=== PATIENT | male | born 1985 | race Caucasian/White ===

== ENCOUNTER 2023-11-08 18:55 | Emergency (ER) | payer OTHER, SELFPAY ==
[2023-11-08 19:00] VITALS: BP 158/93; PULSE 99; RESP 18; TEMP 38; O2SAT 100; BMI 35.0
[2023-11-08 19:16] VITALS: O2SAT 99
--- NOTE | 2023-11-08 19:22 | XR_ITS ---
The [address] [address] Patient Name: DARON HECK MRN: [id number] date: 1985 Sex: M Assigned Patient Location: ER Current Patient Location: ER Accession/Order Number: [id number] Exam Date: 11/08/2023 19:25 Report Date: 11/08/2023 20:23 At the request of: BRANDON MARKER Procedure: XR chest 2V EXAM: XR chest 2V CLINICAL INDICATION: cough COMPARISON: None TECHNIQUE: 2 views of chest performed. FINDINGS: Lungs: Mild patchy left basilar airspace opacity. No pleural effusion or pneumothorax. Heart: Cardiac and mediastinal contours are unremarkable. No overt pulmonary vascular congestion. Osseous structures: No acute abnormalities. XR/XR chest 2V IMPRESSION: Mild left basilar airspace opacity may reflect developing atelectasis and/or pneumonia. Electronically authenticated by: HELENE TRACY Date: 11/08/2023 20:23
--- NOTE | 2023-11-08 19:22 | ED.GENADUL1 ---
HPI - General Adult General Chief complaint: Shortness of Breath/Dyspnea Stated complaint: Flu Like Symptoms Time Seen by Provider: 11/08/23 19:06 Mode of arrival: walk-in History of Present Illness HPI narrative: 38-year-old male presents for evaluation of cough, sinus drainage, fevers and chills with nausea. The patient states for the past 2 weeks he has had nasal congestion and drainage. He states he was feeling fine on and on Thursday felt like he got hit by a truck. He complains of headache, chills, harsh cough. He denies any sore throat. He has nausea but no vomiting. He has had dry heaves with small amounts of stomach acid. He denies any mckinley abdominal pain. He does not smoke. He has taken [id number] cough and flu medications without significant improvement. He denies any chest pain dizziness or syncope. Related Data Home Medications Medication Instructions Recorded Confirmed atenolol 100 mg tablet 100 mg PO Q24H 11/08/23 11/08/23 brimonidine 0.2 % eye drops 1 drp ophthalmic (eye) Q8H 11/08/23 11/08/23 celecoxib 200 mg capsule 200 mg PO Q12H 11/08/23 11/08/23 cyclopentolate 1 % eye drops 1 drp ophthalmic (eye) DAILY 11/08/23 11/08/23 (Cyclogyl) losartan 100 mg tablet 100 mg PO DAILY 11/08/23 11/08/23 prednisolone acetate 1 % eye 1 drp ophthalmic (eye) Q12H 11/08/23 11/08/23 drops,suspension Allergies Allergy/AdvReac Type Severity Reaction Status Date / Time No Known Drug Allergies Allergy Verified 11/08/23 19:07 Review of Systems ROS Status of ROS 10 or more systems reviewed and unremarkable except as noted in history and below PFSH PFSH Social History Smoking status: Former smoker Exam Narrative Exam Narrative: Nurses note and vital signs reviewed and patient is not hypoxic. He has no elevated blood pressure 150/93 and a low-grade fever at 100.4 Fahrenheit General: The patient appears well and in no apparent distress. Patient is resting comfortably on cart. Skin: Warm, dry, no pallor noted. There is no rash noted. Head: Normocephalic, atraumatic Eye: Normal conjunctiva, no drainage, EOMI. PERRL Ears, Nose, Mouth, and Throat: oral mucosa is moist. Nares patent. Audible nasal congestion Cardiovascular: Regular Rate and Rhythm S1 and S2, no murmurs rubs or gallops appreciated, pulses are brisk and equal bilaterally Respiratory: Patient is in no distress, no accessory muscle use, lungs are clear to auscultation, no wheezing, rales or rhonchi Back: non-tender, no CVA tenderness bilaterally to percussion. GI: Normal bowel sounds, no tenderness to palpation, no masses appreciated. No rebound, guarding, or rigidity noted. Musculoskeletal: The patient has no evidence of calf tenderness, no pitting edema, symmetrical pulses noted bilaterally Neurological: A&O x4, normal speech Psychiatric: Cooperative Constitutional Vital Signs, click to edit/add: Last Vital Signs Temp 100.4 F 11/08/23 19:00 Pulse 99 H 11/08/23 19:00 Resp 18 11/08/23 19:00 BP 158/93 H 11/08/23 19:00 Pulse Ox 99 11/08/23 19:16 O2 Del Method Room Air 11/08/23 19:16 Course Vital Signs Vital signs: Vital Signs Temperature 100.4 F 11/08/23 19:00 Pulse Rate 99 H 11/08/23 19:00 Respiratory Rate 18 11/08/23 19:00 Blood Pressure 158/93 H 11/08/23 19:00 Pulse Oximetry 100 11/08/23 19:00 Oxygen Delivery Method Room Air 11/08/23 19:00 Temperature 100.4 F 11/08/23 19:00 Pulse Rate 99 H 11/08/23 19:00 Respiratory Rate 18 11/08/23 19:00 Blood Pressure 158/93 H 11/08/23 19:00 Pulse Oximetry 99 11/08/23 19:16 Oxygen Delivery Method Room Air 11/08/23 19:16 Medical Decision Making MDM Narrative Medical decision making narrative: This 38-year-old male, nonsmoker presents for evaluation of fever, nasal congestion, body aches and nausea. He also has a cough with productive yellow phlegm. He states he was having some sinus congestion for the past 2 weeks that had resolved then on Thursday, 2 days ago he started feeling badly with body aches, fever, chills and cough. He is not a smoker. His lungs are clear. His abdomen is soft. He had been taking zxqg-blq-ulysjke flu and cold medication without significant improvement. He was medicated emergency department with ibuprofen and Tylenol and a dose of Zofran. He is positive for influenza A. Negative for cough at 19 and influenza B. Chest x-ray was reviewed by radiology and Shows mild patchy left lower lobe airspace disease. He will be given outpatient prescriptions for doxycycline, Zofran, Tamiflu and ibuprofen. He was given a 1st dose of doxycycline prior to being discharged. Medical Records Medical records narrative: [place] [address] XRay Report Signed Patient: DARON HECK MR#: [id number] : 1985 Acct:[id number] Age/Sex: 38 / M ADM Date: 11/08/23 Loc: ER Attending Dr: Ordering Physician: Shi Wallace Date of Service: 11/08/23 Procedure(s): XR chest 2V Accession Number(s): [id number] cc: Serenity Mayers NP; Shi Wallace~ The [place] [id number] Patient Name: DARON HECK MRN: [id number] date: 1985 Sex: M Assigned Patient Location: ER Current Patient Location: ER Accession/Order Number: [id number] Exam Date: 11/08/2023 19:25 Report Date: 11/08/2023 20:23 At the request of: SHI WALLACE Procedure: XR chest 2V EXAM: XR chest 2V CLINICAL INDICATION: cough COMPARISON: None TECHNIQUE: 2 views of chest performed. FINDINGS: Lungs: Mild patchy left basilar airspace opacity. No pleural effusion or pneumothorax. Heart: Cardiac and mediastinal contours are unremarkable. No overt pulmonary vascular congestion. Osseous structures: No acute abnormalities. XR/XR chest 2V IMPRESSION: Mild left basilar airspace opacity may reflect developing atelectasis and/or pneumonia. Electronically authenticated by: HELENE TRACY Date: 11/08/2023 20:23 Lab Data Labs: Lab Results 11/08/23 11/08/23 Range/Units 19:10 19:22 Influenza Type A Ag Positive A Influenza Type B Ag Negative SARS-CoV-2 Ag (CV2AG) Negative (NEGATIVE) Discharge Plan Discharge Chief Complaint: Shortness of Breath/Dyspnea Clinical Impression: Influenza A Patient Disposition: Home, Self-Care Time of Disposition Decision: 20:33 Condition: Good Prescriptions / Home Meds: No Action atenolol 100 mg tablet 100 mg PO Q24H losartan 100 mg tablet 100 mg PO DAILY brimonidine 0.2 % drops 1 drp OPHTHALMIC (EYE) Q8H Rx Instructions: LEFT EYE celecoxib 200 mg capsule 200 mg PO Q12H prednisolone acetate 1 % drops,suspension 1 drp OPHTHALMIC (EYE) Q12H cyclopentolate [Cyclogyl] 1 % drops 1 drp ophthalmic (eye) DAILY Rx Instructions: compress lacrimal sac for 1-2 minutes after instillation AT hs Instructions: Influenza (ED) Referrals: Serenity Mayers NP [Primary Care Provider] - 1 week Stand Alone Forms: Portal Instructions
[2023-11-08] MEDS: IBUPROFEN 600 MG TABLET PO (19:35)
[2023-11-08] MEDS: ACETAMINOPHEN 325 MG TABLET 650 MG PO (19:35)
[2023-11-08] MEDS: ONDANSETRON 4 MG RAPDIS TABLET SL (19:35)
[2023-11-08 19:41] LABS: SARS-CoV-2 Ag NEGATIVE (NEGATIVE)
[2023-11-08 19:42] LABS: Influenza Virus A Antigen Positive; Influenza Virus B Antigen Negative; Internal Control Within Normal Limits
[2023-11-08 20:43] VITALS: BP 118/62; PULSE 78; RESP 16; TEMP 37.9; O2SAT 98
[2023-11-08] MEDS: DOXYCYCLINE MONOHYDRATE 100 MG CAPSULE PO (20:44)
== END 2023-11-08 20:48 | disposition home or self-care (01) ==
PROVIDERS: Emergency Provider Emergency Medicine; PCP Nurse Practitioner
DX: J10.1 Influenza due to other identified influenza virus with other respiratory manifestations (principal); R50.9 Fever, unspecified; Z79.899 Other long term (current) drug therapy; Z87.891 Personal history of nicotine dependence; Z20.822 Contact with and (suspected) exposure to COVID-19
CPT/HCPCS: 71046; 87804; 87811; 99284

== ENCOUNTER 2024-05-31 12:07 | Outpatient (OUT) | payer OTHER, SELFPAY ==
--- NOTE | 2024-05-31 12:13 | XR_ITS ---
The [address] [address] Patient Name: DARON HECK MRN: [id number] date: 1985 Sex: M Assigned Patient Location: [facility] Current Patient Location: Accession/Order Number: [id number] Exam Date: 05/31/2024 12:15 Report Date: 06/02/2024 05:57 At the request of: ALEXANDER CONKLIN Procedure: XR ankle RT min 3V PROCEDURE: XR ankle RT min 3V HISTORY: Right Ankle Swelling COMPARISON: None. FINDINGS: BONES:Small degenerative disease at 5 projecting from the distal medial margin of the lateral malleolus which nearly contacts a contiguous enthesophyte along the margin of the talus. No fracture, dislocation, or bone lesion. Normal appearance and spacing of the ankle joint. SOFT TISSUES:Mild soft tissue swelling surrounding the ankle. EFFUSION:None visible. OTHER: Negative. XR/XR ankle RT min 3V IMPRESSION: 1. No acute bone abnormality. 2. Soft tissue swelling. 3. 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 Electronically authenticated by: SAÚL MORILLO Date: 06/02/2024 05:57
== END 2024-05-31 12:08 | disposition home or self-care (01) ==
LOC: RAD 12:09
PROVIDERS: PCP Nurse Practitioner; Visit Provider Nurse Practitioner
DX: M25.471 Effusion, right ankle (principal); M77.9 Enthesopathy, unspecified
CPT/HCPCS: 73610

== ENCOUNTER 2024-06-09 14:56 | Outpatient (OUT) | payer OTHER, SELFPAY ==
--- NOTE | 2024-06-09 | XR_ITS ---
The [address] [address] Patient Name: DARON HECK MRN: [id number] date: 1985 Sex: M Assigned Patient Location: Current Patient Location: Accession/Order Number: [id number] Exam Date: 06/09/2024 14:57 Report Date: 06/10/2024 06:26 At the request of: JAYLEN LOCKWOOD Procedure: XR ankle RT min 3V PROCEDURE: XR ankle RT min 3V HISTORY: RIGHT ANKLE PAIN COMPARISON: XR ankle right 05/31/2024 FINDINGS: BONES:No fracture, dislocation, articular surface irregularity, or significant joint space narrowing. Small degenerative enthesophyte at distal medial margin of lateral malleolus and contiguous surfaces of the talus which appear to minimally contact each other. Calcaneal plantar spur. SOFT TISSUES:Mild soft tissue swelling surrounding the ankle. EFFUSION:None visible. OTHER: Negative. XR/XR ankle RT min 3V IMPRESSION: 1. No acute bone abnormality or significant degenerative joint disease. 2. Possible close contact between degenerative enthesophytes as detailed above of unknown clinical significance. Electronically authenticated by: SAÚL MORILLO Date: 06/10/2024 06:26
--- OUTSIDE RECORDS SUMMARY | 2024-06-09 15:05 | XMS_ITS | CCD ---
Author Organization [facility] ion [facility] Care Team Providers Care Animal Keeper Head Name Role Phone MD Awais Garcia Attending Provider Unavailable Primary Care Provider Unavailabl e PAO, CAREEN Y Attending Unavailable PAO, CAREEN Y Referring Unavailable PAO, CAREEN Y Attending Unavailable PAO, CAREEN Y Referring Unavailable PAO, CAREEN Y Referring Unavailable PAO, CAREEN Y Attending Unavailable PAO, CAREEN Y Attending Unavailable AichCharlene kellya J Primary Care Provider MD Awais Garcia Attending Provider [phone] MISC, DR KRAFT Admitting Unavailable MISC, DR KRAFT Attending Unavailable AICHHOLZ, GYROSCOPIC ENGINEERING TECHNICIAN SERENITY Primary Care Unavailable MISC, DR KRAFT Consulting Unavailable MISC, DR KRAFT Admitting Unavailable MISC, DR KRAFT Attending Unavailable AICHHOLZ, GYROSCOPIC ENGINEERING TECHNICIAN SERENITY Primary Care Unavailable MISC, DR KRAFT Consulting Unavailable AICHHOLZ, GYROSCOPIC ENGINEERING TECHNICIAN SERENITY Admitting Unavailable AICHHOLZ, GYROSCOPIC ENGINEERING TECHNICIAN SERENITY Attending Unavailable AICHHOLZ, GYROSCOPIC ENGINEERING TECHNICIAN SERENITY Consulting Unavailable Aichhollaura, Serenity J Primary Care Provider MD Malvin Garcia Attending Provider Malvin Garcia Admitting Unavailable Malvin Garcia Attending Unavailable Serenity Mayers Primary Care Unavailable Malvin Garcia Attending Unavailable Aichrobin, Serenity J Primary Care Unavailable Malvin Garcia Admitting Unavailable Aichholz OCCUPATIONAL HEALTH TECHNICIAN-Serenity DELGADILLO Primary Care Provider RENETTA ZIMMER Admitting Unavailable RENETTA ZIMMER Attending Unavailable AICHSERENITY KELLY Primary Care Unavailable ARELY FULTON Attending Unavailable SERENITY MAYERS Primary Care Unavailable AICHHOLZ, SERENITY J Referring Unavailable SERENITY MAYERS Primary Care Unavailable ANDREA PATINO Referring Unavailable SERENITY MAYERS Primary Care Unavailable ANDREA PATINO Attending Unavailable ANDERA PATINO Referring Unavailable SERENITY MAYERS Primary Care Unavailable SERENITY MAYERS Attending Unavailable SERENITY MAYERS Attending Unavailable SERENITY MAYERS Attending Unavailable Medications Current Medications Medication Drug Class(es) Dates Sig (Normalized) Sig (Original) atenolol 100 mg oral tablet (4 sources) beta-Adrenergic Lonnie Start: 04-08-2022 End: 04-09-2023 take 1 tablet by mouth once daily atenolol (TENORMIN) 100 mg tablet Take 1 tablet by mouth once daily. 0 04/08/2022 04/09/2023 Active Comment on above: Take 1 tablet by camille th once daily. celecoxib 200 mg oral capsule (1 source) Nonsteroidal Anti-inflammatory Drug take 1 capsule by mouth in the morning, then take 1 capsule by mouth at bedtime celecoxib (CeleBREX) 200 mg capsule Take 1 capsule (200 mg total) by mouth in the morning and 1 capsule (200 mg total) before bedtime. 0 Active cyclopentolate hydrochloride 10 mg/ml ophthalmic solution (1 source) take 1 drop(s) into the eye(s) in the morning cyclopentolate (CYCLOGYL) 1 % ophthalmic solution Administer 1 drop into the left eye in the morning and 1 drop before bedtime. 0 Active losartan potassium 50 mg oral tablet (1 source) Angiotensin 2 Receptor Lonnie take 2 tablets by mouth in the morning losartan (COZAAR) 50 mg tablet Take 2 tablets (100 mg total) by mouth in the morning. 0 Active phenylephrine hydrochloride 25 mg/ml ophthalmic solution (2 sources) alpha-1 Adrenergic Agonist Start: 08-13-2022 End: 08-14-2022 PHENYLephrine 2.5 % 1 Drop (AK-DILATE, SHANTA-SYNEPHRINE) take 1 drop(s) into the eye(s) o nce phenylephrine (SHANTA-SYNEPHRINE) 10 % ophthalmic solution Administer 1 drop into the left eye once. 0 Active proparacaine hydrochloride 5 mg/ml ophthalmic solution (1 source) Local Anesthetic Start: 08-13-2022 End: 08-14-2022 proparacaine 0.5 % 1 Drop (ALCAINE) tropicamide 10 mg/ml ophthalmic solution (1 source) Anticholinergic Start: 08-13-2022 End: 08-14-2022 tropicamide 1 % 1 Drop (MYDRIACYL) Completed/Discontinued Medications Medication Drug Class(es) Dates Sig (Normalized) Sig (Original) benoxinate hydrochloride 4 mg/ml / fluorescein sodium 2.5 mg/ml ophthalmic solution (3 sources) Diagnostic Dye Start: 09-19-2022 End: 09-20-2022 fluorescein-benoxi jose 0.25-0.4 % 1 Drop (FLURESS) Start: 08-27-2022 End: 08-28-2022 fluorescein-benoxinate 0.25- 0.4 % 1 Drop (FLURESS) Start: 08-13-2022 End: 08-14-2022 fluorescein-benoxinate 0.25- 0.4 % 1 Drop (FLURESS) brimonidine tartrate 2 mg/ml ophthalmic solution (5 sources) alpha-Adrenergic Agonist Start: 08-13-2022 take 1 drop(s) into the eye(s) twice daily brimonidine (ALPHAGAN) 0.2 % ophthalmic solution Use 1 Drop in the left eye twice daily. 5 mL 2 08/13/2022 Active Start: 07-21-2022 End: 08-13-2022 brimonidine (ALPHAGAN) 0.2 % ophthalmic solution take 1 drop(s) into the eye(s) three times daily brimonidine (ALPHAGAN) 0.2 % ophthalmic solution Administer 1 drop into the left eye 3 (three) times a day. 0 Active Comment on above: Use 1 Drop in the le ft eye twice daily. diclofenac sodium 75 mg delayed release oral tablet (3 sources) Nonsteroidal Anti-inflammatory Drug Start: 2 take 1 tablet by mouth twice daily at mealtime diclofenac, EC, (VOLTAREN) 75 mg EC tablet Take 1 tablet by mouth twice daily with meals. 0 04/08/2022 Active Comment on above: Take 1 tablet by camille th twice daily with meals. dorzolamide 20 mg/ml / timolol 5 mg/ml ophthalmic solution (4 sources) Carbonic Anhydrase Inhibitor, beta-Adrenergic Lonnie Start: 2 take 1 drop(s) into the eye(s) twice daily dorzolamide-timolo l (COSOPT) 22.3-6.8 mg/mL ophthalmic solution Use 1 Drop in the left eye twice daily. 10 mL 2 08/13/2022 Active Start: 07-19-2022 End: 08-13-2022 dorzolamide-timolol (COSOPT) 22.3-6.8 mg/mL ophthalmic solution Comment on above: Use 1 Drop in the le ft eye twice daily. prednisoLONE acetate 10 mg/ml ophthalmic suspension (5 sources) Corticosteroid Start: 08-13-2022 prednisoLONE acetate (PRED FORTE, ECONOPRED PLUS) 1 % ophthalmic suspension Use 1 Drop in the left eye every hour. 10 mL 4 08/13/2022 Active Start: 08-11-2022 End: 08-13-2022 prednisoLONE acetate (PRED F ORTE, ECONOPRED PLUS) 1 % ophthalmic suspension prednisoLONE cecelia valerio (PRED FORTE) 1 % ophthalmic suspension Administer 1 drop into the left eye 3 (three) times a day. 0 Active Comment on above: Use 1 Drop in the le ft eye every hour. predniSONE 10 mg oral tablet (4 sources) Start: 09-11-2022 take 2 tablets by mouth once daily, then take 1 tablet by mouth once daily predniSONE (DELTASONE) 10 mg tablet Take 2 tablets by mouth daily x 1 week then 1 tablet daily by mouth for 1 week 21 tablet 0 09/11/2022 Active Start: 08-13-2022 End: 08-28-2022 take 6 tablets by mouth once daily predniSONE (DELTASONE) 10 mg tablet Take 6 tablets by mouth once daily for 15 days. 90 tablet 0 08/13/2022 08/28/2022 Start: 07-23-2022 End: 08-13-2022 take 3 tablets by mouth once daily in the morning predniSONE (DELTASONE) 10 mg tablet take 3 tablets by mouth every morning - - HOLD DICLOFENAC WHILE TAKING 0 07/23/2022 08/13/2022 Discontinued Comment on above: Take 6 tablets by mo uth once daily for 15 days. take 3 tablets by mo uth every morning - - HOLD DICLOFENAC WHILE TAKING Take 2 tablets by mo uth daily x 1 week then 1 tablet daily by mouth for 1 week Problems Problem Classification Problem Date Documented Date Episodic/Chronic Blindness and vision defects (1 source) Disorder of refraction; 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: [Unspecified disorder of refraction] Episodic Cataract (1 source) Cataract Onset: 11-19-2023 Disorders of lipid metabolism (4 sources) Hyperlipidemia, unspecified; 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: [HYPERLIPIDEMIA UNSPECIFIED] Onset: 11-13-2022 Chronic Essential hypertension (3 sources) Essential (primary) hypertension; 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: [Hypertensive disorder] Onset: 11-14-2022 11-02-2023 Chronic Immunity disorders (1 source) Immunodeficiency, unspecified; 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: [Immunodeficiency, unspecified] Onset: 11-20-2022 Chronic Inflammation; infection of eye (except that caused by tuberculosis or sexually transmitteddisease) (8 sources) Disseminated chorioretinitis; 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, left eye] Onset: 11-25-2022 Chronic Inflammation; infection of eye (except that caused by tuberculosis or sexually transmitteddisease) (1 source) Unspecified iridocyclitis; 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] Onset: 11-19-2023 Episodic Other aftercare (1 source) Other usp (current) drug therapy; 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: [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] Onset: 11-14-2022 Episodic Residual codes; unclassified (1 source) Human leukocyte 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 positive; 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: [Genetic susceptibility to other disease] Episodic Rheumatoid arthritis and related disease (2 sources) Inflammatory polyarthropathy; 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: [Inflammatory polyarthropathy] Onset: 11-14-2022 Chronic Results Test Name Value Interpretation Reference Range Facility BASIC METABOLIC PANLon 11-02 Anion gap [Moles/Vol] 9 mmol/L Normal 5-15 [facility] Comment on above: Performed By: #### B MP #### [facility] ([id number]) [address], [address] [place] [address] Calcium [Mass/Vol] 9.1 mg/dL Normal 8.5-10.5 [facility] Comment on above: Performed By: #### B MP #### [facility] ([id number]) [address], [address] [place] [address] Chloride [Moles/Vol] 102 mmol/L Normal 98-109 [facility] Comment on above: Performed By: #### B MP #### [facility] ([id number]) [address], [address] [place] [address] CO2 [Moles/Vol] 26 mmol/L Normal 22-32 [facility] Comment on above: Performed By: #### B MP #### [facility] ([id number]) [address], [address] [place] [address] Creatinine [Mass/Vol] 0.98 mg/dL Normal 0.60-1.30 [facility] Comment on above: Result Comment: METH OD TRACEABLE TO IDMS STANDARD Performed By: #### B MP #### [facility] ([id number]) [address], [address] [place] [address] eGFR (CKD-EPI) NON-RACE DEPENDENT >90 Normal >59 [facility] Comment on above: Result Comment: Reported eGFR is based on the CKD-EPI 2020 equation that does not use a race coefficient. Performed By: #### B MP #### [facility] ([id number]) [address], [address] [place] [address] Glucose [Mass/Vol] 93 mg/dL Normal 65-99 [facility] Comment on above: Performed By: #### B MP #### [facility] ([id number]) [address] [address] [address] [place] [address] Potassium [Moles/Vol] 4.3 mmol/L Normal 3.5-5.0 [facility] Comment on above: Performed By: #### B MP #### [facility] ([id number]) [address], [address] [place] [address] Sodium [Moles/Vol] 137 mmol/L Normal 134-146 [facility] Comment on above: Performed By: #### B MP #### [facility] ([id number]) [address] [place] [address] Urea nitrogen [Mass/Vol] 12 mg/dL Normal 5-23 [facility] Comment on above: Performed By: #### B MP #### [facility] ([id number]) [address] [place] [address] Basic Metabolic Panelon 10-09 Anion gap [Moles/Vol] 9 mmol/L 5 - 15 mmol/L [facility] Calcium [Mass/Vol] 9.1 mg/dL 8.5 - 10. 5 mg/dL [facility] Chloride [Moles/Vol] 102 mmol/L 98 - 10 9 mmol/L [facility] CO2 [Moles/Vol] 26 mmol/L 22 - 32 mmol/L [facility] Creatinine [Mass/Vol] 0.98 mg/dL 0.60 - 1.30 mg/dL [facility] Comment on above: METHOD TRACEABLE TO [facility] STANDARD eGFR (CKD-EPI)non-race dependent - PINF [facility] Comment on above: Reported eGFR is based on the CKD-EPI 2020 equation that does not use a race coefficient. Glucose [Mass/Vol] 93 mg/dL 65 - 99 mg/dL [facility] Potassium [Moles/Vol] 4.3 mmol/L 3.5 - 5.0 mmol/L [facility] Sodium [Moles/Vol] 137 mmol/L 134 - 146 mmol/L [facility] Urea nitrogen [Mass/Vol] 12 mg/dL 5 - 23 mg/dL [facility] ECG 12 leadon 11-02-2023 TRACEMASTERVUE [facility] Alanine aminotransferase [En zymatic activity/volume] in Serum or PlasmaOrdered By: Malvin Garcia on 10-14-2023 ALT [Catalytic activity/Vol] 23 U/L 7-52 [facility] Albumin [Mass/volume] in Ser um or Plasma by Bromocresol green (BCG) dye binding methoOrdered By: Malvin Garcia on 10-14-2023 Albumin BCG dye [Mass/Vol] 4.3 g/dL 3.5-5.7 [facility] Alkaline phosphatase [Enzyma tic activity/volume] in Serum or PlasmaOrdered By: Malvin Garcia on 10-14-2023 ALP [Catalytic activity/Vol] 82 U/L 34-104 [facility] Aspartate aminotransferase [ Enzymatic activity/volume] in Serum or PlasmaOrdered By: Malvin Garcia on 10-14-2023 AST [Catalytic activity/Vol] 16 U/L 13-39 [facility] Basophils Auto (Bld) [#/Vol] Ordered By: Malvin Garcia on 10-14-2023 Basophils (Bld) [#/Vol] 0.1 10*3/uL 0.0-0.2 [facility] Basophils/100 WBC Auto (Bld) Ordered By: Malvin Garcia on 10-14-2023 Basophils/100 WBC (Bld) 0.6 % . [facility] Bilirubin.total [Mass/volume ] in Serum or PlasmaOrdered By: Malvin Garcia on 10-14-2023 Bilirubin [Mass/Vol] 0.5 mg/dL 0.3-1.0 [facility] C reactive protein [Mass/vol ume] in Serum or PlasmaOrdered By: Malvin Garcia on 10-14-2023 CRP [Mass/Vol] 1.3 mg/dL 0.0-0.5 [facility] C-Reactive Proteinon 024 C-Reactive Protein 1.3 mg/dL High 0.0-0.5 [facility] Comment on above: Result Comment: PERF ORMED BY: [facility] [address] [place] [address] [address] SALESPERSON PILLO SALAS M.D. Performed By: #### C BC, CRP, CMP, ESR #### [address] Calcium [Mass/volume] in Ser um or PlasmaOrdered By: Malvin Garcia on 10-14-2023 Calcium [Mass/Vol] 9.5 mg/dL 8.6-10.3 [facility] Carbon dioxide, total [Moles /volume] in Serum or PlasmaOrdered By: Malvin Garcia on 10-14-2023 CO2 [Moles/Vol] 26.6 mmol/L 21.0-31.0 [facility] Chloride [Moles/volume] in S tian or PlasmaOrdered By: Malvin Garcia on 10-14-2023 Chloride [Moles/Vol] 104 mmol/L 98-107 [facility] Complete Blood Count Auto Di ffon 10-14-2023 Basophils (Bld) [#/Vol] 0.1 10*3/uL Normal 0.0-0.2 [facility] Comment on above: Performed By: #### C BC, CRP, CMP, ESR #### [facility] [address] Basophils/100 WBC (Bld) 0.6 % Normal . [facility] Comment on above: Performed By: #### C BC, CRP, CMP, ESR #### [facility] [address] Eosinophils (Bld) [#/Vol] 0.1 10*3/uL Normal 0.0-0.45 [facility] Comment on above: Performed By: #### C BC, CRP, CMP, ESR #### [facility] [address] Eosinophils/100 WBC (Bld) 1.2 % Normal . [facility] Comment on above: Performed By: #### C BC, CRP, CMP, ESR #### [facility] [address] Erythrocyte distribution width (RBC) [Ratio] 13.6 % Normal 12.0-14.8 [facility] Comment on above: Performed By: #### C BC, CRP, CMP, ESR #### [facility] [address] [place] [address] [place] Hematocrit (Bld) [Volume fraction] 45.0 % Normal 38.8-50.0 [facility] Comment on above: Performed By: #### C BC, CRP, CMP, ESR #### [facility] [address] Hemoglobin (Bld) [Mass/Vol] 15.1 g/dL Normal 13.0-17.0 [facility] Comment on above: Performed By: #### C BC, CRP, CMP, ESR #### [address] Lymphocytes (Bld) [#/Vol] 2.7 10*3/uL Normal 1.00-4.8 [facility] Comment on above: Performed By: #### C BC, CRP, CMP, ESR #### [address] Lymphocytes/100 WBC (Bld) 29.4 % Normal . [facility] Comment on above: Performed By: #### C BC, CRP, CMP, ESR #### [address] MCH (RBC) [Entitic mass] 27.9 pg Normal 27.5-35.2 [facility] Comment on above: Performed By: #### C BC, CRP, CMP, ESR #### [address] MCV (RBC) [Entitic vol] 83.1 fL Low 83.5-101 [facility] Comment on above: Performed By: #### C BC, CRP, CMP, ESR #### [address] Mean Corpuscular HGB Conc 33.5 g/dL Normal 32.5-35.6 [facility] Comment on above: Performed By: #### C BC, CRP, CMP, ESR #### [address] Monocytes (Bld) [#/Vol] 0.7 10*3/uL Normal 0.0-0.8 [facility] Comment on above: Performed By: #### C BC, CRP, CMP, ESR #### [address] Monocytes/100 WBC (Bld) 7.8 % Normal . [facility] Comment on above: Performed By: #### C BC, CRP, CMP, ESR #### [address] Neutrophils (Bld) [#/Vol] 5.6 10*3/uL Normal 1.8-7.7 [facility] Comment on above: Performed By: #### C BC, CRP, CMP, ESR #### [facility] [address] Neutrophils/100 WBC (Bld) 61.0 % Normal . [facility] Comment on above: Performed By: #### C BC, CRP, CMP, ESR #### [facility] [address] NRBC% 0.3 /100{WBC} Normal 0-0.5 [facility] Comment on above: Performed By: #### C BC, CRP, CMP, ESR #### [address] Platelet mean volume (Bld) [Entitic vol] 7.8 fL Normal 6.6-10.1 [facility] Comment on above: Performed By: #### C BC, CRP, CMP, ESR #### [address] Platelets (Bld) [#/Vol] 289 10*3/uL Normal 150-450 [facility] Comment on above: Performed By: #### C BC, CRP, CMP, ESR #### [address] RBC (Bld) [#/Vol] 5.41 10*6/uL Normal 3.90-5.60 [facility] Comment on above: Performed By: #### C BC, CRP, CMP, ESR #### [address] WBC (Bld) [#/Vol] 9.2 10*3/uL Normal 4.1-10.5 [facility] Comment on above: Performed By: #### C BC, CRP, CMP, ESR #### [address] Comprehensive Metabolic Pane neeraj 10-14-2023 Albumin [Mass/Vol] 4.3 g/dL Normal 3.5-5.7 [facility] Comment on above: Performed By: #### C BC, CRP, CMP, ESR #### [facility] [address] [place] [address] [place] Albumin/Globulin [Mass ratio] 1.2 {ratio} Normal [facility] Comment on above: Performed By: #### C BC, CRP, CMP, ESR #### [facility] [address] [place] [address] [place] ALP [Catalytic activity/Vol] 82 U/L Normal 34-104 [facility] Comment on above: Performed By: #### C BC, CRP, CMP, ESR #### [facility] [address] ALT [Catalytic activity/Vol] 23 U/L Normal 7-52 [facility] Comment on above: Performed By: #### C BC, CRP, CMP, ESR #### [facility] [address] Anion gap [Moles/Vol] 11.5 mmol/L Normal 6.0-15.0 [place] Comment on above: Performed By: #### C BC, CRP, CMP, ESR #### [facility] [address] [place] [address] [place] AST [Catalytic activity/Vol] 16 U/L Normal 13-39 [facility] Comment on above: Performed By: #### C BC, CRP, CMP, ESR #### [facility] [address] [place] [address] [place] Bilirubin [Mass/Vol] 0.5 mg/dL Normal 0.3-1.0 [facility] Comment on above: Performed By: #### C BC, CRP, CMP, ESR #### [facility] [address] [place] [address] [place] Calcium [Mass/Vol] 9.5 mg/dL Normal 8.6-10.3 [facility] Comment on above: Performed By: #### C BC, CRP, CMP, ESR #### [facility] [address] [place] [address] [place] Chloride [Moles/Vol] 104 mmol/L Normal 98-107 [facility] Comment on above: Performed By: #### C BC, CRP, CMP, ESR #### [facility] [address] CO2 [Moles/Vol] 26.6 mmol/L Normal 21.0-31.0 [facility] Comment on above: Performed By: #### C BC, CRP, CMP, ESR #### [facility] [address] Creatinine [Mass/Vol] 0.89 mg/dL Normal 0.70-1.30 [facility] Comment on above: Performed By: #### C BC, CRP, CMP, ESR #### [facility] [address] [place] [address] [place] GFR/1.73 sq M.predicted MDRD (S/P/Bld) [Vol rate/Area] mL/min/{1.73_m2} Normal [facility] Comment on above: Performed By: #### C BC, CRP, CMP, ESR #### [facility] [address] Globulin (S) [Mass/Vol] 3.6 g/dL Normal [facility] Comment on above: Performed By: #### C BC, CRP, CMP, ESR #### [facility] [address] Glucose [Mass/Vol] 94 mg/dL Normal 70-100 [facility] Comment on above: Result Comment: [place] Glucose Reference Range is dependent on time and content of last meal. Glucose of more than 200 mg/dL in a nonstressed, ambulatory subject supports the diagnosis of Diabetes Mellitus. ADA recommended reference range Performed By: #### C BC, CRP, CMP, ESR #### [facility] [address] [place] [address] [place] Potassium [Moles/Vol] 4.1 mmol/L Normal 3.5-5.1 [facility] Comment on above: Performed By: #### C BC, CRP, CMP, ESR #### [facility] [address] [place] [address] [place] Protein [Mass/Vol] 7.9 g/dL Normal 6.4-8.9 [facility] Comment on above: Performed By: #### C BC, CRP, CMP, ESR #### [facility] [address] Sodium [Moles/Vol] 138 mmol/L Normal 136-145 [facility] Comment on above: Performed By: #### C BC, CRP, CMP, ESR #### [facility] [address] Urea nitrogen [Mass/Vol] 11 mg/dL Normal 7-25 [facility] Comment on above: Performed By: #### C BC, CRP, CMP, ESR #### [facility] [address] Creatinine [Mass/volume] in Serum or PlasmaOrdered By: Malvin Garcia on 10-14-2023 Creatinine [Mass/Vol] 0.89 mg/dL 0.70-1.30 [facility] Eosinophils Auto (Bld) [#/Vo l]Ordered By: Malvin Garcia on 10-14-2023 Eosinophils (Bld) [#/Vol] 0.1 10*3/uL 0.0-0.45 [facility] Eosinophils/100 WBC Auto (Bl d)Ordered By: Malvin Garcia on 10-14-2023 Eosinophils/100 WBC (Bld) 1.2 % . [facility] Erythrocyte Sedimentation Ra basim 10-14-2023 ESR (Bld) [Velocity] 35 mm/h High 0-14 [facility] Comment on above: Result Comment: PERF ORMED BY: [place] [address] [address] SALESPERSON PILLO SALAS M.D. Performed By: #### C BC, CRP, CMP, ESR #### [facility] [address] Erythrocyte distribution wid th Auto (RBC) [Ratio]Ordered By: Malvin Garcia on 10-14-2023 Erythrocyte distribution width (RBC) [Ratio] 13.6 % 12.0-14.8 [facility] Erythrocyte sedimentation ra te by Photometric methodOrdered By: Malvin Garcia on 10-14-2023 ESR Photometric method (Bld) [Velocity] 35 mm/hr 0-14 [facility] Globulin Calc (S) [Mass/Vol] Ordered By: Malvin Garcia on 10-14-2023 Globulin (S) [Mass/Vol] 3.6 g/dL [facility] Glucose [Mass/volume] in Ser um or PlasmaOrdered By: Malvin Garcia on 10-14-2023 Glucose [Mass/Vol] 94 mg/dL 70-100 [facility] Comment on above: ADA recommended refe rence rangeRandom Glucose Reference Range is dependent on time and content of last meal. Glucose of more than 200 mg/dL in a nonstressed, ambulatory subject supports the diagnosis of Diabetes Mellitus. Hematocrit Auto (Bld) [Volum e fraction]Ordered By: Malvin Garcia on 10-14-2023 Hematocrit (Bld) [Volume fraction] 45.0 % 38.8-50.0 [facility] Hemoglobin [Mass/volume] in BloodOrdered By: Malvin Garcia on 10-14-2023 Hemoglobin (Bld) [Mass/Vol] 15.1 g/dL 13.0-17.0 [facility] Leukocytes [#/volume] correc aileen for nucleated erythrocytes in Blood by Automated counOrdered By: Malvin Garcia on 10-14-2023 WBC corrected for nucl RBC Auto (Bld) [#/Vol] 9.2 10*3/uL 4.1-10.5 [facility] Lymphocytes Auto (Bld) [#/Vo l]Ordered By: Malvin Garcia on 10-14-2023 Lymphocytes (Bld) [#/Vol] 2.7 10*3/uL 1.00-4.8 [facility] Lymphocytes/100 WBC Auto (Bl d)Ordered By: Malvin Garcia on 10-14-2023 Lymphocytes/100 WBC (Bld) 29.4 % . [facility] MCH Auto (RBC) [Entitic mass ]Ordered By: Malvin Garcia on 10-14-2023 MCH (RBC) [Entitic mass] 27.9 pg 27.5-35.2 [facility] MCHC Auto (RBC) [Mass/Vol]Or dered By: Malvin Garcia on 10-14-2023 MCHC (RBC) [Mass/Vol] 33.5 g/dL 32.5-35.6 [facility] MCV Auto (RBC) [Entitic vol] Ordered By: Malvin Garcia on 10-14-2023 MCV (RBC) [Entitic vol] 83.1 fL 83.5-101 F [facility] Monocytes Auto (Bld) [#/Vol] Ordered By: Malvin Garcia on 10-14-2023 Monocytes (Bld) [#/Vol] 0.7 10*3/uL 0.0-0.8 [facility] Monocytes/100 WBC Auto (Bld) Ordered By: Malvin Garcia on 10-14-2023 Monocytes/100 WBC (Bld) 7.8 % . [facility] Neutrophils Auto (Bld) [#/Vo l]Ordered By: Malvin Garcia on 10-14-2023 Neutrophils (Bld) [#/Vol] 5.6 10*3/uL 1.8-7.7 [facility] Neutrophils/100 WBC Auto (Bl d)Ordered By: Malvin Garcia on 10-14-2023 Neutrophils/100 WBC (Bld) 61.0 % . [facility] No Panel InformationOrdered By: Malvin Garcia on 10-14-2023 Estimated GFR (CKD-EPI) > 60.0 mL/Min [facility] Creatinine Clearance (Chem N/A [facility] Nucleated erythrocytes [Pres ence] in Blood by Automated countOrdered By: Malvin Garcia on 10-14-2023 Nucleated RBC Auto Ql (Bld) 0.3 /100{WBC} 0-0.5 [facility] Platelet mean volume Auto (B ld) [Entitic vol]Ordered By: Malvin Garcia on 10-14-2023 Platelet mean volume (Bld) [Entitic vol] 7.8 fL 6.6-10.1 [facility] Platelets Auto (Bld) [#/Vol] Ordered By: Malvin Garcia on 10-14-2023 Platelets (Bld) [#/Vol] 289 10*3/uL 150-450 [facility] Potassium [Moles/volume] in Serum or PlasmaOrdered By: Malvin Garcia on 10-14-2023 Potassium [Moles/Vol] 4.1 mmol/L 3.5-5.1 [facility] Protein [Mass/volume] in Ser um or PlasmaOrdered By: Malvin Garcia on 10-14-2023 Protein [Mass/Vol] 7.9 g/dL 6.4-8.9 [facility] RBC Auto (Bld) [#/Vol]Ordere d By: Malvin Garcia on 10-14-2023 RBC (Bld) [#/Vol] 5.41 10*6/uL 3.90-5.60 [facility] Serum or plasma albumin/glob ulin mass ratioOrdered By: Malvin Garcia on 10-14-2023 Albumin/Globulin [Mass ratio] 1.2 {ratio} [facility] Serum or plasma anion gap de terminationOrdered By: Malvin Garcia on 10-14-2023 Anion gap [Moles/Vol] 11.5 mmol/L 6.0-15.0 [place] Sodium [Moles/volume] in Ser um or PlasmaOrdered By: Malvin Garcia on 10-14-2023 Sodium [Moles/Vol] 138 mmol/L 136-145 [facility] Urea nitrogen [Mass/volume] in Serum or PlasmaOrdered By: Malvin Garcia on 10-14-2023 Urea nitrogen [Mass/Vol] 11 mg/dL 7-25 [facility] WBC Auto (Bld) [#/Vol]Ordere d By: Malvin Garcia on 10-14-2023 WBC (Bld) [#/Vol] 9.2 10*3/uL 4.1-10.5 [facility] ANGIOTENSION-CONVERTING ENZY ME (CECELIA)on 11-26-2022 CECELIA 45 U/L Normal 14-82 [facility] Comment on above: Performed By: #### A [facility] #### [facility] [address] [place] [address] Dr. Gale Hopper LYME DISEASE AB EIA W REFLEX on 11-26-2022 Lyme Total Antibody,EIA Negative Normal Negative [facility] Comment on above: Result Comment: Lyme antibodies not detected. Reflex testing is not indicated. No laboratory evidence of infection with B. burgdorferi (Lyme disease). Negative results may occur in patients recently infected (less than or equal to 14 days) with B. burgdorferi. If recent infection is suspected, repeat testing on a new sample collected in 7 to 14 days is recommended. Performed By: #### L YMA #### [facility] [address] [address] [address] Gale Hopper TOXOPLASMA GONDII AB QUANTIT ATIONon 11-26-2022 Comment: Comment Normal [facility] Comment on above: Result Comment: It i s presumed the patient has not been infected with and is not undergoing an acute infection with Toxoplasma. If symptoms persist, submit a new specimen after three weeks. Performed By: #### T OXQN #### [facility] [address] [address] [address] Gale Hopper Toxoplasma gondii Ab,IgM,Qn <3.0 Normal 0.0-7.9 [facility] Comment on above: Result Comment: Nega tive <8.0 Equivocal 8.0 - 9.9 Positive >9.9 Performed By: #### T OXQN #### [facility] [address] [place] [address] Dr. Gale Hopper TOXOPLASMA GONDII IGG ABon 0 11-26-2022 Toxoplasma gondii Ab,IgG,Qn <3.0 Normal 0.0-7.1 [facility] Comment on above: Result Comment: Nega tive <7.2 Equivocal 7.2 - 8.7 Positive >8.7 Performed By: #### T OXPIGG #### [facility] [address] [place] [address] Dr. Gale Hopper Hep C Ab wRfx to Qnt PCRon 0 11-20-2022 Hepatitis C Virus Antibody Non-Reactive Normal Non Reactive [facility] Comment on above: Performed By: #### H BSAB, HBCAB, HBSAG, QUANT TB, HCV RX PCR #### [facility] , Interpretation Hepatitis C Normal . [facility] Comment on above: Result Comment: Not infected with HCV unless early or acute infection is suspected (which may be delayed in an immunocompromised individual), or other evidence exists to indicate HCV infection. Performed By: #### H BSAB, HBCAB, HBSAG, QUANT TB, HCV RX PCR #### [facility] , Hepatitis B Core Antibodyon 11-20-2022 Hepatitis B Core Antibody Negative Normal Negative [facility] Comment on above: Result Comment: Perf ormed at: [facility] [address] [id number] Chief Architect: Anders Turner PhD, Phone: [phone] Performed By: #### H BSAB, HBCAB, HBSAG, QUANT TB, HCV RX PCR #### [facility] , Hepatitis B Surface Antibody on 11-20-2022 Hepatitis B Surface Antibody Reactive Normal . [facility] Comment on above: Result Comment: Non Reactive: Inconsistent with immunity, less than 10 mIU/mL Reactive: Consistent with immunity, greater than 9.9 mIU/mL Performed By: #### H BSAB, HBCAB, HBSAG, QUANT TB, HCV RX PCR #### [facility] , Hepatitis B Surface Antigeno n 11-20-2022 HBsAg Screen Negative Normal Negative [facility] Comment on above: Result Comment: PERF ORMED BY: [facility] [place] [address] [address] SALESPERSON PILLO SALAS M.D. Performed By: #### H BSAB, HBCAB, HBSAG, QUANT TB, HCV RX PCR #### [facility] , QuantiFERON TB Goldon 2022 QFTB Criteria Normal . [facility] Comment on above: Result Comment: Tyler tiFERON-TB Gold Plus is a qualitative indirect test for M tuberculosis infection (including disease) and is intended for use in conjunction with risk assessment, radiography, and other medical and diagnostic evaluations. The QuantiFERON-TB Gold Plus result is determined by subtracting the Nil value from either TB antigen (Ag) value. The Mitogen tube serves as a control for the test. Performed By: #### H BSAB, HBCAB, HBSAG, QUANT TB, HCV RX PCR #### [facility] , Quant TB Ag Value 0.06 Normal . [facility] Comment on above: Performed By: #### H BSAB, HBCAB, HBSAG, QUANT TB, HCV RX PCR #### [facility] , Quant TB Gold Plus Negative Normal Negative [facility] Comment on above: Result Comment: No r esponse to M tuberculosis antigens detected. Infection with M tuberculosis is unlikely, but high risk individuals should be considered for additional testing (ATS/IDSA/CDC Clinical Practice Guidelines, 2017). The reference range is an Antigen minus Nil result of <0.35 IU/mL. The specimen received for QuantiFERON testing was incubated by the ordering institution. Specific procedures outlined in our Directory of Services and in the package insert for the QuantiFERON Gold (In Tube) test must be followed to enable for proper stimulation of cells for the production of interferon gamma. Chemiluminescence immunoassay methodology Performed at: [facility] [address] [id number] Chief Architect: Anders Turner PhD, Phone: [phone] PERFORMED BY: [facility] [address] [id number] PATHOLOGIST R[employer] SALESPERSON PILLO SALAS M.D. Performed By: #### H BSAB, HBCAB, HBSAG, QUANT TB, HCV RX PCR #### [facility] , Quant TB2 Ag Value 0.16 Normal . [facility] Comment on above: Performed By: #### H BSAB, HBCAB, HBSAG, QUANT TB, HCV RX PCR #### [facility] , Quantiferon Nil Value 0.03 Normal . [facility] Comment on above: Performed By: #### H BSAB, HBCAB, HBSAG, QUANT TB, HCV RX PCR #### [facility] , Quantiferon TB Mitogen >10.00 Normal . [place] Comment on above: Performed By: #### H BSAB, HBCAB, HBSAG, QUANT TB, HCV RX PCR #### [facility] , XR chest 2V*on 11-20-2022 XR chest 2V* [facility] [place] [address] [place] [address] XRay Report Signed Patient: Raz Holland MR#: [id number] 2 : 1985 Acct:[id number] Age/Sex: 37 / M ADM Date: 11/20/22 Loc: ICXD Room: Type: [facility] Attending Dr: Awais Garcia MD Copies to: Malvin Garcia MD Ordering Provider: Malvin Garcia MD Date of Service: 11/20/22 XR/XR chest 2V*: IMMUNOSUPPRESSION MEDS UVEITIS Chest 2 views CLINICAL HISTORY: Swollen left eye. COMPARISON: None FINDINGS: Heart normal in size. Lungs are clear. No free air. XR/XR chest 2V* IMPRESSION: NO ACUTE CARDIOPULMONARY ABNORMALITY. Impression dictated by: Dewey Weston Jr., D.O.11/20/2022 3:04 PM Dictation Location: [place] [address] Transcribed By: [facility] 11/20/22 1504 Dictated By: Dewey Weston Jr, DO 11/20/22 1504 Signed By: 11/20/22 1504 Normal [facility] CBC AUTO DIFFon 11-13-2022 BASO # 0.1 103/ul Normal 0.0-0.1 [facility] Comment on above: Performed By: #### C BC #### [facility] [address] [place] [address] Dr. Gale Hopper Basophils/100 WBC (Bld) 0.5 % Normal 0.2-2.0 [facility] Comment on above: Performed By: #### C BC #### [facility] [address] [place] [address] Dr. Gale Hopper EO # 0.1 103/ul Normal 0.0-0.7 [facility] Comment on above: Performed By: #### C BC #### [facility] [address] [place] [address] Dr. Gale Hopper Eosinophils/100 WBC (Bld) 1.1 % Normal 0.9-7.0 [facility] Comment on above: Performed By: #### C BC #### [facility] [address] [place] [address] Dr. Gale Hopper Erythrocyte distribution width (RBC) [Ratio] 12.6 % Normal 11.0-15.0 [facility] Comment on above: Performed By: #### C BC #### [facility] [address] [place] [address] Dr. Gale Hopper Hematocrit (Bld) [Volume fraction] 45.9 % Normal 42.0-54.0 [facility] Comment on above: Performed By: #### C BC #### [facility] [address] [place] [address] Dr. Gale Hopper Hemoglobin (Bld) [Mass/Vol] 15.7 g/dL Normal 14.0-18.0 [facility] Comment on above: Performed By: #### C BC #### [facility] [address] [place] [address] Dr. Gale Hopper IG # 0.04 10e3/ul Critically high 0.00-0.03 [facility] Comment on above: Performed By: #### C BC #### [facility] [address] [place] [address] Dr. Gale Hopper IG % 0.4 % Normal 0.0-0.5 [facility] Comment on above: Performed By: #### C BC #### [facility] [address] [place] [address] Dr. Gale Hopper LYMPH # 2.9 103/ul Normal 1.2-3.8 [facility] Comment on above: Performed By: #### C BC #### [facility] [address] [place] [address] Dr. Gale Hopper Lymphocytes/100 WBC (Bld) 29.5 % Normal 20.5-60.0 [facility] Comment on above: Performed By: #### C BC #### [facility] [address] [place] [address] Dr. Gale Hopper MANUAL DIFF REQ NO Normal [facility] Comment on above: Performed By: #### C BC #### [facility] [address] [address] [address] Gale Hopper MCH (RBC) [Entitic mass] 27.8 pg Normal 25.9-34.0 [facility] Comment on above: Performed By: #### C BC #### [facility] [address] [address] [address] Gale Hopper MCHC (RBC) [Mass/Vol] 34.2 g/dL Normal 29.9-35.2 [facility] Comment on above: Performed By: #### C BC #### [facility] [address] [place] [address] Dr. Gale Hopper MCV (RBC) [Entitic vol] 81.4 fL Normal 80.0-94.0 [facility] Comment on above: Performed By: #### C BC #### [facility] [address] [place] [address] Dr. Gale Hopper MONO # 0.8 103/ul Normal 0.3-0.8 [facility] Comment on above: Performed By: #### C BC #### [facility] [address] [place] [address] Dr. Gale Hopper Monocytes/100 WBC (Bld) 7.7 % Normal 1.7-12.0 [facility] Comment on above: Performed By: #### C BC #### [facility] [address] [place] [address] Dr. Gale Hopper NEUT # 6.0 103/ul Normal 1.4-6.5 [facility] Comment on above: Performed By: #### C BC #### [facility] [address] [place] [address] Dr. Gale Hopper Neutrophils/100 WBC (Bld) 60.8 % Normal 43.0-75.0 [facility] Comment on above: Performed By: #### C BC #### [facility] [address] [place] [address] Dr. Gale Hopper Platelet mean volume (Bld) [Entitic vol] 9.2 fL Critically low 9.5-13.5 [facility] Comment on above: Performed By: #### C BC #### [facility] [address] [place] [address] Dr. Gale Hopper PLT 298 103/ul Normal 150-450 [facility] Comment on above: Performed By: #### C BC #### [facility] [address] [place] [address] Dr. Gale Hopper RBC 5.64 106/ul Normal 4.70-6.10 [facility] Comment on above: Performed By: #### C BC #### [facility] [address] [place] [address] Dr. Gale Hopper WBC 9.9 103/ul Normal 4.0-11.0 [facility] Comment on above: Performed By: #### C BC #### [facility] [address] [place] [address] Dr. Gale Hopper CRPon 11-13-2022 CRP 0.5 mg/dL Normal <=1.0 [facility] Comment on above: Performed By: #### C RP, CMP #### [facility] [address] [place] [address] Dr. Gale Hopper LIPID PROFILEon 11-13-2022 CHOL-HDL RATIO NORM SEE BELOW Normal [facility] Comment on above: Result Comment: 3.3 - 4.4 LOW RISK 4.4 - 7.1 AVERAGE RISK 7.1 - 11.0 MODERATE RISK >11.0 HIGH RISK Performed By: #### L IPID #### [facility] [address] [place] [address] Dr. Gale Hopper Cholesterol [Mass/Vol] 273 mg/dL Critically high <=200 [facility] Comment on above: Performed By: #### L IPID #### [facility] [address] [place] [address] Dr. Gale Hopper Cholesterol in HDL [Mass/Vol] 43 mg/dL Normal 40-60 [facility] Comment on above: Performed By: #### L IPID #### [facility] [address] [place] [address] Dr. Gale Hopper Cholesterol in LDL [Mass/Vol] 196.2 mg/dL Normal [facility] Comment on above: Performed By: #### L IPID #### [facility] [address] [place] [address] Dr. Gale Hopper Cholesterol.total/Sima sterol in HDL [Mass ratio] 6.3 {ratio} Normal [facility] Comment on above: Performed By: #### L IPID #### [facility] [address] [place] [address] Dr. Gale Hopper HDL NORMAL > or = 60 mg/dl - LOW CARDIOVASCULAR RISK <40 mg/dl - HIGH CARDIOVASCULAR RISK Normal [facility] Comment on above: Performed By: #### L IPID #### [facility] [address] [place] [address] Dr. Gale Hopper LDL CALC NORMAL SEE BELOW Normal [facility] Comment on above: Result Comment: <100 mg/dl OPTIMAL 100 - 129 mg/dl NEAR OR ABOVE OPTIMAL 130 - 159 mg/dl BORDERLINE HIGH 160 - 189 mg/dl HIGH >190 mg/dl VERY HIGH Performed By: #### L IPID #### [facility] [address] [place] [address] Dr. Gale Hopper Triglyceride [Mass/Vol] 169 mg/dL Critically high <=150 [facility] Comment on above: Performed By: #### L IPID #### [facility] [address] [place] [address] Dr. Gale Hopper VLDL CALC 33.8 mg/dL Normal [facility] Comment on above: Performed By: #### L IPID #### [facility] [address] [place] [address] Dr. Gale Hopper PROF 14(COMP METB)on 023 Albumin [Mass/Vol] 3.8 g/dL Normal 3.4-5.0 [facility] Comment on above: Performed By: #### C RP, CMP #### [facility] [address] [place] [address] Dr. Gale Hopper Albumin/Globulin [Mass ratio] 0.8 {ratio} Normal [facility] Comment on above: Performed By: #### C RP, CMP #### [facility] [address] [address] [address] Gale Hopper ALP [Catalytic activity/Vol] 76 U/L Normal 46-116 [facility] Comment on above: Performed By: #### C RP, CMP #### [facility] [address] [address] [address] Gale Hopper ALT [Catalytic activity/Vol] 40 U/L Normal 16-63 [facility] Comment on above: Performed By: #### C RP, CMP #### [facility] [address] [address] [address] Gale Hopper Anion gap [Moles/Vol] 13.6 mmol/L Normal [facility] Comment on above: Performed By: #### C RP, CMP #### [facility] [address] [place] [address] Dr. Gale Hopper AST [Catalytic activity/Vol] 21 U/L Normal 15-37 [facility] Comment on above: Performed By: #### C RP, CMP #### [facility] [address] [place] [address] Dr. Gale Hopper Bilirubin [Mass/Vol] 0.4 mg/dL Normal 0.2-1.0 [facility] Comment on above: Performed By: #### C RP, CMP #### [facility] [address] [address] [address] Gale Hopper Calcium [Mass/Vol] 9.4 mg/dL Normal 8.5-10.1 [facility] Comment on above: Performed By: #### C RP, CMP #### [facility] [address] [address] [address] Gale Hopper Chloride [Moles/Vol] 104 mmol/L Normal 98-107 [facility] Comment on above: Performed By: #### C RP, CMP #### [facility] [address] [address] [address] Gale Hopper CO2 [Moles/Vol] 26.4 mmol/L Normal 21.0-32.0 [facility] Comment on above: Performed By: #### C RP, CMP #### [facility] [address] [address] [address] Gale Hopper Creatinine [Mass/Vol] 1.01 mg/dL Normal 0.70-1.30 [facility] Comment on above: Performed By: #### C RP, CMP #### [facility] [address] [address] [address] Gale Hopper EGFR-AF ECUADOREAN >60 Normal >=60 [facility] Comment on above: Performed By: #### C RP, CMP #### [facility] [address] [address] [address] Gale Hopper EGFR-NON AF ECUADOREAN >60 Normal >=60 [facility] Comment on above: Performed By: #### C RP, CMP #### [facility] [address] [address] [address] Gale Hopper Globulin (S) [Mass/Vol] 4.7 g/dL Normal [facility] Comment on above: Performed By: #### C RP, CMP #### [facility] [address] [address] [address] Gale Hopper Glucose [Mass/Vol] 114 mg/dL Critically high 74-106 [facility] Comment on above: Performed By: #### C RP, CMP #### [facility] [address] [address] [address] Gale Hopper Potassium [Moles/Vol] 4.0 mmol/L Normal 3.5-5.1 [facility] Comment on above: Performed By: #### C RP, CMP #### [facility] [address] [address] [address] Gale Hopper Protein [Mass/Vol] 8.5 g/dL Critically high 6.4-8.2 [facility] Comment on above: Performed By: #### C RP, CMP #### [facility] [address] [address] [address] Gale Hopper Sodium [Moles/Vol] 140 mmol/L Normal 136-145 [facility] Comment on above: Performed By: #### C RP, CMP #### [facility] [address] [place] [address] Dr. Gale Hopper Urea nitrogen [Mass/Vol] 13.0 mg/dL Normal 7.0-18.0 [facility] Comment on above: Performed By: #### C RP, CMP #### [facility] [address] [place] [address] Dr. Gale Hopper Urea nitrogen/Creatinine [Mass ratio] 12.9 mg/mg Normal [facility] Comment on above: Performed By: #### C RP, CMP #### [facility] [address] [place] [address] Dr. Gale Hopper [facility] SED RATE 26 mm/hr Critically high <=15 [facility] Comment on above: Performed By: #### S EDR #### [facility] [address] [place] [address] Dr. Gale Hopper UA RANDOM W/MICROSCOPICon BACTERIA NONE SEEN Normal NONE SEEN [facility] Comment on above: Performed By: #### U AMIC #### [facility] [address] [place] [address] Dr. Gale Hopper Bilirubin Ql (U) Negative Normal NEGATIVE [facility] Comment on above: Performed By: #### U AMIC #### [facility] [address] [place] [address] Dr. Gale Hopper CAST NONE SEEN Normal NONE SEEN [facility] Comment on above: Performed By: #### U AMIC #### [facility] [address] [place] [address] Dr. Gale Hopper Clarity (U) CLEAR Normal CLEAR [facility] Comment on above: Performed By: #### U AMIC #### [facility] [address] [place] [address] Dr. Gale Hopper Color (U) YELLOW Normal YELLOW [facility] Comment on above: Performed By: #### U AMIC #### [facility] [address] [place] [address] Dr. Gale Hopper Crystals LM Nom (Urine sed) NONE SEEN Normal NONE SEEN [facility] Comment on above: Performed By: #### U AMIC #### [facility] [address] [address] [address] Gale Hopper Epithelial cells LM Ql (Urine sed) NONE SEEN Normal NONE SEEN /RARE [facility] Comment on above: Performed By: #### U AMIC #### [facility] [address] [address] [address] Gale Hopper Glucose Ql (U) Negative Normal NEGATIVE [facility] Comment on above: Performed By: #### U AMIC #### [facility] [address] [address] [address] Gale Hopper Hemoglobin Ql (U) Negative Normal NEGATIVE [facility] Comment on above: Performed By: #### U AMIC #### [facility] [address] [address] [address] Gale Hopper Ketones Ql (U) Negative Normal NEGATIVE [facility] Comment on above: Performed By: #### U AMIC #### [facility] [address] [address] [address] Gale Hopper LEUKOCYTES Negative Normal NEGATIVE [facility] Comment on above: Performed By: #### U AMIC #### [facility] [address] [address] [address] Gale Hopper MUCOUS NONE SEEN Normal NONE SEEN [facility] Comment on above: Performed By: #### U AMIC #### [facility] [address] [address] [address] Gale Hopper Nitrite Ql (U) Negative Normal NEGATIVE [facility] Comment on above: Performed By: #### U AMIC #### [facility] [address] [address] [address] Gale Hopper pH (U) 6.0 [pH] Normal 5-9 [facility] Comment on above: Performed By: #### U AMIC #### [facility] [address] [address] [address] Gale Hopper RBC 0-2 Normal 0-2 [facility] Comment on above: Performed By: #### U AMIC #### [facility] [address] [address] [address] Gale Hopper SPEC GRAVITY >=1.030 Abnormal 1.005-<=1.0 25 [facility] Comment on above: Performed By: #### U AMIC #### [facility] [address] [address] [address] Gale Hopper UA PROTEIN Negative Normal NEGATIVE/ TRACE [facility] Comment on above: Performed By: #### U AMIC #### [facility] [address] [address] [address] Gale Hopper Urobilinogen Qn (U) 0.2 {Kellie'U}/dL Normal 0.2 - 1. 0 [facility] Comment on above: Performed By: #### U AMIC #### [facility] [address] [address] [address] Gale Hopper WBC NONE SEEN Normal NONE SEEN [facility] Comment on above: Performed By: #### U AMIC #### [facility] [address] [address] [address] Gale Islas 08-12-2022 CNPN Telephone (OPHTMN) ---- RAZ HOLLAND ([id number]) 1985 M Date Time Provider Department 08/12/22 ASHLEY CEDENO OPHMEGA During your visit today, we recorded the following information about you: Lulú Kamara 08/12/2022 11:12 AM Signed Patient is over 2 hours away - offered 1:30pm appt - he will call back if he can get a ride here. Thank you. ===View-only below this line=== ----- Message ----- From: Andrea Dias MD Sent: 08/12/2022 11:07 AM EST To: Ashley Cedeno MD, PhD, Suzanne Tiwari, * Subject: RE: Sooner Appointment Sure I can see today. ----- Message ----- From: Lulú Kamara Sent: 08/12/2022 10:47 AM EST To: Andrea Dias MD, Ashley Cedeno MD, PhD, * Subject: RE: Sooner Appointment Received chart notes - patient has chronic iritis Left eye - uveitis has improved in the past with oral steroids but not this time - on Predforte three times a day Left eye , Cyclo q am Both eyes, cosopt twice a day Left eye, brimonidine twice a day Left eye Oral pred 30mg daily Would like to have checked for lyme titer, rpr, vdrl, fta-abs, bartonella, simplex etc. Would you like to see today? I can call and check with patient. Thank you. ----- Message ----- From: Andrea Dias MD Sent: 08/12/2022 9:33 AM EST To: Ashley Cedeno MD, PhD, Suzanne Tiwari, * Subject: RE: Sooner Appointment Do we have any information about what is acutely going on that needs to be seen this week? I can see him today if he is able to come. ----- Message ----- From: Suzanne Tiwari Sent: 08/12/2022 8:50 AM EST To: Andrea Dias MD, Ashley Cedeno MD, PhD, * Subject: Sooner Appointment Dr. 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 Allergies As of Date: 08/12/2022 (Not on File) Date Reviewed: Never Reviewed Reason for Visit: Appointment [[id number]] Received Outside Medical Records [[id number]] Cmt: Notes received from [facility] - on provider's desk (CYL) Problem List As Of Date: 08/12/2022 (None) Encounter Status:Closed by LULÚ KAMARA on 08/12/22 Normal [facility] Albumin [Mass/volume] in Ser um or PlasmaOrdered By: Malvin Garcia on 12-17-2021 Albumin [Mass/Vol] 4.0 g/dL 3.2-5.5 [facility] Automated erythrocytes count in urine sediment (number/area)Ordered By: Malvin Garcia on 12-17-2021 RBC Auto (Urine sed) [#/Area] 0-1 [HPF] [facility] Automated leukocytes count i n urine sediment (number/area)Ordered By: Malvin Garcia on 12-17-2021 WBC Auto (Urine sed) [#/Area] 0-1 [HPF] [facility] Basophils Auto (Bld) [#/Vol] Ordered By: Malvin Garcia on 12-17-2021 Basophils (Bld) [#/Vol] 0.1 10*3/uL 0.0-0.2 [facility] Basophils/100 WBC Auto (Bld) Ordered By: Malvin Garcia on 12-17-2021 Basophils/100 WBC (Bld) 0.6 % [facility] Bilirubin Test strip Ql (U)O rdered By: Malvin Garcia on 12-17-2021 Bilirubin Ql (U) Negative Negative [facility] Blood hemoglobin measurement (mass/volume)Ordered By: Malvin Garcia on 12-17-2021 Hemoglobin (Bld) [Mass/Vol] 15.9 g/dL 13.0-17.0 [facility] Blood leukocytes automated c ount (number/volume)Ordered By: Malvin Garcia on 12-17-2021 WBC (Bld) [#/Vol] 10.5 10*3/uL 4.5-11.0 [facility] Color Auto (U)Ordered By: Quynh Garcia on 12-17-2021 Color (U) Yellow Yellow [facility] Creatine kinase [Enzymatic a ctivity/volume] in Serum or PlasmaOrdered By: Malvin Garcia on 12-17-2021 CK [Catalytic activity/Vol] 75 U/L 22-269 [facility] Creatinine and Glomerular fi ltration rate.predicted panel (S/P/Bld)Ordered By: Malvin Garcia on 12-17-2021 Creatinine [Mass/Vol] 0.90 mg/dL 0.64-1.27 [facility] Eosinophils Auto (Bld) [#/Vo l]Ordered By: Malvin Garcia on 12-17-2021 Eosinophils (Bld) [#/Vol] 0.1 10*3/uL 0.0-0.45 [facility] Eosinophils/100 WBC Auto (Bl d)Ordered By: Malvin Garcia on 12-17-2021 Eosinophils/100 WBC (Bld) 1.1 % [facility] Erythrocyte distribution wid th Auto (RBC) [Ratio]Ordered By: Malvin Garcia on 12-17-2021 Erythrocyte distribution width (RBC) [Ratio] 13.5 % 12.0-14.8 [facility] Erythrocyte sedimentation ra te by Photometric methodOrdered By: Malvin Garcia on 12-17-2021 ESR Photometric method (Bld) [Velocity] 31 mm/hr 0-14 [facility] Estimated glomerular filtrat ion rate (GFR) non- AmericanOrdered By: Malvin Garcia on 12-17-2021 GFR/1.73 sq M.predicted among non-blacks MDRD (S/P/Bld) [Vol rate/Area] > 60 mL/Min [facility] Globulin Calc (S) [Mass/Vol] Ordered By: Malvin Garcia on 12-17-2021 Globulin (S) [Mass/Vol] 4.0 g/dL [facility] Hematocrit Auto (Bld) [Volum e fraction]Ordered By: Malvin Garcia on 12-17-2021 Hematocrit (Bld) [Volume fraction] 46.9 % 38.8-50.0 [facility] Ketones Auto test strip (U) [Mass/Vol]Ordered By: Malvin Garcia on 12-17-2021 Ketones (U) [Mass/Vol] Negative Negative [facility] - Hematology and Cell countsOrdered By: Malvin Garcia on 12-17-2021 Nucleated RBC/100 WBC (Bld) [Ratio] 0.0 % 0-0.5 [facility] - UrinalysisOrder ed By: Malvin Garcia on 12-17-2021 Hyaline casts LM Ql (Urine sed) None seen [LPF] [facility] Lymphocytes Auto (Bld) [#/Vo l]Ordered By: Malvin Garcia on 12-17-2021 Lymphocytes (Bld) [#/Vol] 3.3 10*3/uL 1.00-4.8 [facility] Lymphocytes/100 WBC Auto (Bl d)Ordered By: Malvin Garcia on 12-17-2021 Lymphocytes/100 WBC (Bld) 31.8 % [facility] MCH Auto (RBC) [Entitic mass ]Ordered By: Malvin Garcia on 12-17-2021 MCH (RBC) [Entitic mass] 28.5 pg 27.5-35.2 [facility] MCHC Auto (RBC) [Mass/Vol]Or dered By: Malvin Garcia on 12-17-2021 MCHC (RBC) [Mass/Vol] 33.9 g/dL 32.5-35.6 [facility] MCV Auto (RBC) [Entitic vol] Ordered By: Malvin Garcia on 12-17-2021 MCV (RBC) [Entitic vol] 84.1 fL 83.5-101 [facility] Monocytes Auto (Bld) [#/Vol] Ordered By: Malvin Garcia on 12-17-2021 Monocytes (Bld) [#/Vol] 1.1 10*3/uL 0.0-0.8 [facility] Monocytes/100 WBC Auto (Bld) Ordered By: Malvin Garcia on 12-17-2021 Monocytes/100 WBC (Bld) 10.8 % [facility] Neutrophils Auto (Bld) [#/Vo l]Ordered By: Malvin Garcia on 12-17-2021 Neutrophils (Bld) [#/Vol] 5.8 10*3/uL 1.8-7.7 [facility] Neutrophils/100 WBC Auto (Bl d)Ordered By: Malvin Garcia on 12-17-2021 Neutrophils/100 WBC (Bld) 55.7 % [facility] Nitrite Test strip Ql (U)Ord ered By: Malvin Garcia on 12-17-2021 Nitrite Ql (U) Negative Negative [facility] No Panel InformationOrdered By: Malvin Garcia on 12-17-2021 Estimated GFR () > 60 mL/Min [facility] Comment on above: GFR estimated refere nce range: According to KDOQI guidelines, <60 ml/min/1.73m2 is sufficient to diagnose a patient with chronic kidney disease. Pharmacy Creatinine Clearance (Chem N/A [facility] Platelet mean volume Auto (B ld) [Entitic vol]Ordered By: Malvin Garcia on 12-17-2021 Platelet mean volume (Bld) [Entitic vol] 8.1 fL 6.6-10.1 [facility] Platelets Auto (Bld) [#/Vol] Ordered By: Malvin Garcia on 12-17-2021 Platelets (Bld) [#/Vol] 293 10*3/uL 150-450 [facility] Protein Auto test strip (U) [Mass/Vol]Ordered By: Malvin Garcia on 12-17-2021 Protein (U) [Mass/Vol] Negative Negative [place] Protein [Mass/volume] in Ser um or PlasmaOrdered By: Malvin Garcia on 12-17-2021 Protein [Mass/Vol] 8.0 g/dL 6.1-7.9 [facility] RBC Auto (Bld) [#/Vol]Ordere d By: Malvin Garcia on 12-17-2021 RBC (Bld) [#/Vol] 5.58 10*6/uL 3.90-5.60 [facility] Serum or plasma C reactive p rotein measurement (mass/volume)Ordered By: Malvin Garcia on 12-17-2021 CRP [Mass/Vol] 1.1 mg/dL 0.0-1.0 [facility] Serum or plasma alanine sy otransferase measurement without P-5'-P (enzymatic activiOrdered By: Malvin Garcia on 12-17-2021 ALT No additional P-5'-P [Catalytic activity/Vol] 35 U/L 10-60 [facility] Serum or plasma albumin/glob ulin mass ratioOrdered By: Malvin Garcia on 12-17-2021 Albumin/Globulin [Mass ratio] 1.0 {ratio} [facility] Serum or plasma alkaline guzman sphatase measurement (enzymatic activity/volume)Ordered By: Malvin Garcia on 12-17-2021 ALP [Catalytic activity/Vol] 72 U/L 32-92 [facility] Serum or plasma aspartate am inotransferase measurement (enzymatic activity/volume)Ordered By: Malvin Garcia on 12-17-2021 AST [Catalytic activity/Vol] 22 U/L 10-42 [facility] Serum or plasma calcium roosevelt urement (mass/volume)Ordered By: Malvin Garcia on 12-17-2021 Calcium [Mass/Vol] 9.6 mg/dL 8.2-10.2 [facility] Serum or plasma chloride thea surement (moles/volume)Ordered By: Malvin Garica on 12-17-2021 Chloride [Moles/Vol] 105 mmol/L 95-114 [facility] Serum or plasma glucose roosevelt urement (mass/volume)Ordered By: Malvin Garcia on 12-17-2021 Glucose [Mass/Vol] 74 mg/dL 70-100 [facility] Comment on above: ADA recommended refe rence rangeRandom Glucose Reference Range is dependent on time and content of last meal. Glucose of more than 200 mg/dL in a nonstressed, ambulatory subject supports the diagnosis of Diabetes Mellitus. Serum or plasma potassium me asurement (moles/volume)Ordered By: Malvin Garcia on 12-17-2021 Potassium [Moles/Vol] 4.3 mmol/L 3.5-5.1 [facility] Serum or plasma sodium measu rement (moles/volume)Ordered By: Malvin Garcia on 12-17-2021 Sodium [Moles/Vol] 139 mmol/L 136-146 [facility] Serum or plasma total biliru bin measurement (mass/volume)Ordered By: Malvin Garcia on 12-17-2021 Bilirubin [Mass/Vol] 0.4 mg/dL 0.3-1.2 [facility] Serum or plasma total carbon dioxide measurement (moles/volume)Ordered By: Malvin Garcia on 12-17-2021 CO2 [Moles/Vol] 23.7 mmol/L 22.0-30.0 [facility] Serum or plasma urea nitroge n measurement (mass/volume)Ordered By: Malvin Garcia on 12-17-2021 Urea nitrogen [Mass/Vol] 14 mg/dL 9-23 [facility] Specific gravity Auto test s trip (U) [Rel density]Ordered By: Malvin Garcia on 12-17-2021 Specific gravity (U) [Rel density] 1.028 1.001-1.030 [facility] Squamous epithelial cells de tection in urine sediment by light microscopyOrdered By: Malvin Garcia on 12-17-2021 Epithelial cells.squamous LM Ql (Urine sed) None seen [HPF] [facility] TSH DL <= 0.005 mIU/L QnOrde red By: Malvin Garcia on 12-17-2021 TSH Qn 2.31 m[IU]/L 0.45-5.33 [facility] Thyroxine (T4) free [Mass/vo lume] in Serum or PlasmaOrdered By: Malvin Garcia on 12-17-2021 Free T4 [Mass/Vol] 0.88 ng/dL 0.61-1.12 [facility] Urine bacteria detection by automated methodOrdered By: Malvin Garcia on 12-17-2021 Bacteria Auto Ql (U) None seen None Seen [facility] Urine clarity by refractomet ry automatedOrdered By: Malvin Garcia on 12-17-2021 Clarity Refractometry automated (U) Clear Clear [facility] Urine glucose measurement by automated test strip (mass/volume)Ordered By: Malvin Garcia on 12-17-2021 Glucose Auto test strip (U) [Mass/Vol] Normal mg/dL Normal [facility] Urine hemoglobin detection b y automated test stripOrdered By: Malvin Garcia on 12-17-2021 Hemoglobin Auto test strip Ql (U) Negative Negative [facility] Urine leukocyte esterase det ection by automated test stripOrdered By: Malvin Garcia on 12-17-2021 Leukocyte esterase Auto test strip Ql (U) Negative Negative [facility] Urobilinogen Auto test strip (U) [Mass/Vol]Ordered By: Malvin Garcia on 12-17-2021 Urobilinogen (U) [Mass/Vol] Normal mg/dL Normal [facility] pH Auto test strip (U)Ordere d By: Malvin Garcia on 12-17-2021 pH (U) 6.5 [pH] 5.0-9.0 [facility] No Panel Information [facility] Vital Signs Date Time Vital Sign Value Performing Clinician Ke briscoe 11-02-2023 13:31050 Body height 172.7 cm Pm 2 [facility] 11-02-2023 13:31-0500 Body mass index (BMI) [Ratio] 35.43 kg/m2 Pm 2 [facility] 11-02-2023 13:31050 Body weight 105.69 kg Pm 2 [facility] Encounters Encounter Date Encounter Type Care Provider Facility Start: 05-31-2024 End: 05-31-2024 ambulatory SERENITY MAYERS Not Available Start: 05-25-2024 End: 05-25-2024 ambulatory SERENITY KATERIN Not Available Start: 11-23-2023 End: 11-23-2023 ambulatory SERENITY KATERIN Not Available Start: 11-19-2023 End: 11-19-2023 Evaluation and management of inpatient ARELY Terrance KIRSTIN [facility] Start: 11-19-2023 End: 11-19-2023 Evaluation and management of inpatient RENETTA E [facility] Start: 11-02-2023 End: 11-03-[address] [facility] Start: 11-02-2023 Encounter for other preprocedural examination [facility] Start: 11-02-2023 End: 11-02-2023 Patient encounter procedure [facility] Pre-Admission Testing 2 [facility] - Pre Admit Comment on above: Preop examination (P rimary Dx); Hypertension, unspecified type Start: 11-02-2023 End: 11-02-2023 Preprocedural examination done [facility] 2 [facility] Start: 10-14-2023 End: 10-14-2023 ambulatory Malvin Garcia Facility:[facility] Start: 10-14-2023 End: 10-14-2023 ambulatory Serenity Mayers Work Phone: [facility] Work Phone: Start: 10-14-2023 End: 10-14-2023 Patient encounter procedure Serenity Mayers Work Phone: [facility] [address] Work Phone: Start: 11-25-2022 End: 11-26-[address] DOCTOR LUCIA Facility:[facility] Start: 11-20-2022 End: 11-20-2022 ambulatory Malvin Garcia Facility:[facility] Start: 11-20-2022 End: 11-20-2022 ambulatory Serenity Champion Sariahbhartileonlaura Work Phone: [facility] Work Phone: Start: 11-20-2022 End: 11-20-2022 Patient encounter procedure Serenity Mayers Work Phone: [facility] [address] Work Phone: Start: 11-13-2022 End: 11-14-[address] DOCTOR LUCIA Facility:[facility] Start: 10-17-2022 End: 10-17-2022 ambulatory ASHLEY CEDENO Facility:[facility] Start: 09-19-2022 End: 09-19-2022 ambulatory CAREEN Y PAO Facility:[facility] Start: 09-19-2022 End: 09-19-2022 Patient encounter procedure Ashley Cedeno MD, PhD Work Phone: Ophthalmology Comment on above: Panuveitis, left eye (Primary Dx); HLA B27 (HLA B27 positive) Start: 08-27-2022 End: 08-27-2022 ambulatory CAREEN Y PAO Facility:[facility] Start: 08-27-2022 End: 08-27-2022 Patient encounter procedure Ashley Cedeno MD, PhD Work Phone: Ophthalmology Comment on above: Panuveitis, left eye (Primary Dx) Start: 08-13-2022 End: 08-13-2022 ambulatory CAREDERRICK CEDENO Facility:[facility] Start: 08-13-2022 End: 08-13-2022 Patient encounter procedure Ashley Cedeno MD, PhD Work Phone: Ophthalmology Comment on above: Panuveitis, left eye (Primary Dx); Refractive error; Disseminated chorioretinitis, left Start: 12-17-2021 End: 12-17-2021 Patient encounter procedure MD Awais Garcia Work Phone: [facility] [address] Procedures Date Procedure Procedure Detail Performing Clinician Start: 11-20-2022 Plain chest X-ray Serenity Castilloleonlaura Work Phone: Start: 08-13-2022 End: 08-13-2022 Computerized ophthalmic imaging retina Andrea Dias MD Work Phone: Start: 12-17-2021 Plain X-ray of sacro iliac joint MD Awais Garcia Work Phone: Start: 12-17-2021 X-ray of both ankles MD Awais Garcia Work Phone: Start: 12-17-2021 X-ray of lumbar spin e, two or three views MD Awais Garcia Work Phone: Start: 12-17-2021 X-ray of both feet MD John Garcia Work Phone: Start: 12-17-2021 X-ray of both knees MD Awais Garcia Work Phone: Start: 12-17-2021 Plain X-ray of bilat eral hands MD Awais Garcia Work Phone: Start: 12-17-2021 Plain X-ray of bilat eral wrists MD Awais Garcia Work Phone: Plan of Treatment Date Care Activity Detail Author Start: 10-01-2026 LIPID SCREEN LIPID SCREEN [facility] Start: 11-02-2024 Adult BMI Screening Adult BMI Screen ing [facility] Start: 11-02-2024 Tobacco Screening Tobacco Screening [facility] Start: 11-19-2023 End: 11-19-2023 Admission to same day surgery center 11/19/2023 2:15 PM EDT - 11/19/2023 3:00 PM EDT Surgery [facility] [address] [place] [address] Renetta Zimmer MD [address] [place] [address] [phone] EXTRACTION CATARACT INTRAOCULAR LENS [30969 (CPT )] [facility] Comment on above: EXTRACTION CATARACT INTRAOCULAR LENS [42445 (CPT )] Start: 11-19-2023 End: 11-19-2023 Anesthesia consultation 11/19/2023 2:15 PM EDT Anesthesia Event [facility] [address] [place] [id number] Arely Fulton, DO [address] [facility], [place] [id number] [facility] Start: 11-19-2023 Subsequent hospital visit by physician 11/19/2023 2:15 PM EDT Hospital Encounter [facility] [address] [place] [id number] Renetta Zimmer MD [address] [place] [address] [id number] [facility] Start: 11-19-2023 End: 11-19-2023 Xcapsl ctrc rmvl insj io lens prosth w/o ecp EXTRACTION CATARACT INTRAOCULAR LENS cataract left eye 11/19/2023 2:15 PM EDT [place] [facility] Start: 05-08-2023 Influenza vaccination Influenza Vacc ine [facility] Start: 11-20-2022 Hepatitis B core ant ibody measurement [facility] Start: 11-20-2022 [facility] Start: 09-07-2022 DEPRESSION ASSESSMENT DEPRESSION ASS ESSMENT [facility] Start: 05-08-2022 Influenza vaccination INFLUENZA (#1) [facility] Start: 09-07-2021 DEPRESSION ASSESSMENT DEPRESSION ASS ESSMENT [facility] Start: 2005 DTaP,Tdap and Td Vac cines (1 - Tdap) DTaP,Tdap and Td Vaccines (1 - Tdap) [facility] Start: 2005 Urine microalbumin profile DTAP,TDAP,TD (1 - Tdap) [facility] Start: 2004 Adult BMI Follow Up Plan Adult BMI Follow Up Plan [facility] Start: 2004 HEPATITIS C SCREENING HEPATITIS C SC REENING [facility] Start: 2004 HIV SCREENING HIV SCREENING [facility] Start: 1998 Depression Screening Depression Scre ening [facility] Start: 1986 COVID-19 VACCINE (#1) COVID-19 VACCI NE (#1) [facility] Start: 1986 HEPATITIS B (1 of 3 - 3-dose series) HEPATITIS B (1 of 3 - 3-dose series) [facility] Aldolase measurement [facility] Work Phone: Chromatin Ab [Units/volume] in Serum or Plasma [facility] Work Phone: Hepatitis B virus bragg rface Ab [Presence] in Serum [facility] Hepatitis B virus bragg rface Ag [Presence] in Serum or Plasma by Immunoassay [facility] Hepatitis C virus Ig G Ab [Presence] in Serum or Plasma by Immunoassay [facility] HLA-B27 [Presence] b y MELLO with probe detection [facility] Work Phone: Homogenous nuclear A b pattern [Titer] in Serum [facility] Work Phone: Interferon gamma assay [facility] Mycobacterium tuberculosis stimulated gamma interferon [Interpretation] in Blood Qualitative [facility] Mycobacterium tuberculosis stimulated gamma interferon release by CD4+ and CD8+ T-cells [Units/volume] corrected for background in Blood [facility] Mycobacterium tuberculosis tuberculin stimulated gamma interferon [Presence] in Blood [facility] Nuclear Ab [Titer] i n Serum [facility] Work Phone: [facility] Payers Date Payer Category Payer Self-pay [id number] 2021 Unknown [id number] 2020 Private Health Insurance [id number] 1986 Unknown [id number] 2.16.84 [id number] 1986 Unknown [id number] 2.16.84 [id number] 1986 Unknown [id number] 2.16.84 [id number] 1986 Unknown [id number] 2.16.840.1.448796.3.579.2.1286 1986 Unknown [id number] 2.16.840.1.954685.3.579.2.1286 1986 Unknown [id number] 2.16.840.1.183741.3.579.2.1286 1986 Unknown [id number] 2.16.840.1.363579.3.579.2.1286 1986 Unknown [id number] 2.16.840.1.603574.3.579.2.1286 1986 Unknown [id number] 2.16.840.1.374837.3.579.2.1286 1986 Unknown [id number] 2.16.840.1.671457.3.579.2.1259 1986 Unknown [id number] 2.16.840.1.725084.3.579.2.1259 1986 Unknown [id number] 2.16.840.1.939817.3.579.2.1259 1959 Unknown [id number] Unknown [facility] [id number] Unknown [id number] [id number] Unknown [id number] Social History Date Type Detail Facility Tobacco smoking stat us NHIS Unknown if ever smoked [facility] Work Phone: Start: 1985 Sex Assigned At Male F [facility] Start: 08-13-2022 End: 11-02-2023 Tobacco smoking status NHIS Never smoked tobacco [facility] Start: 08-13-2022 End: 11-02-2023 Tobacco use and exposure Smokeless tobacco non-user [facility] Start: 08-13-2022 End: 09-19-2022 Alcohol intake Ex-drinker (finding) [facility] Start: 08-13-2022 [facility] Start: 1985 Sex Assigned At Not on file [facility] Start: 11-02-2023 Alcohol intake Current drinke r of alcohol (finding) [facility] Start: 02-16-2019 End: 11-02-2023 History of Social function [facility] Start: 02-16-2019 End: 11-02-2023 Tobacco use panel [facility] Childcare Unknown [facility] Start: 11-02-2023 Alcohol Comment very rare [facility] Clinical Notes 08-13-2022 to 11-02-2023 Patient InstructionsPerioperative Nursing Note - Aislinn Green RN - 11/02/2023 1:30 PM ESTPerioperative Nursing Note - Aislinn Green RN - 11/02/2023 1:30 PM ESTPatient Instructions Note Date & Type Note Facility 11-02-2023 Instructions Aislinn Green RN - 11/02/2023 1:30 PM EST Preoperative Education Checklist- General Surgery date: 11/19/23 Surgery time: 2:15 p.m. Arrival time: 12:15 p.m. 1. Bring a photo ID and your insurance card with you the day of surgery. You will check in at the main lobby registration desk as soon as you walk in the entrance. 2. If you have a Living Will/Durable Power of [employer] that is not on file here, please bring a copy the day of surgery. 3. Please wash your face with baby shampoo prior to procedure as instructed by your physician. 4. NO powder, lotion, perfume/cologne, aftershave, make-up, nail monegasque on at least one finger, deodorant, or hair products after you have bathed. 5. Nothing to eat or drink (not even water, gum, mints, or hard candy!) AFTER midnight prior to your surgery. 6. Take only medications that you are instructed to on the morning of surgery with a TINY SIP OF WATER. 7. If you have an inhaler, use it routinely. 8. Choose a responsible adult that will be able to drive you home when you are discharged from your hospital stay for your surgery. You must NOT drive any vehicle or operate any machinery for 24 hours after surgery. 9. When you dress for your appointment, please wear comfortable clothing. 10. Do NOT wear jewelry, watches, or any piercings or metal for surgery. 11. Do NOT wear contact lenses for surgery- glasses are okay if needed. 12. The anesthesiologist will talk with you the day of surgery and will ask you to sign a Consent Form. 13. Refrain from smoking or any type of tobacco use for at least 8 hours or marijuana for 24 hours prior to arrival for your surgery. 14. Notify your surgeon if you develop any illness before your surgery. 15. If you have any questions prior to surgery, please call the Preadmission Testing office at [phone], Mon.-Fri. 7 a.m.-3 p.m. Leave a voicemail if needed. Pre-Surgery Instructions: Medication Instructions atenoloL (TENORMIN) 100 mg tablet Take morning of procedure brimonidine (ALPHAGAN) 0.2 % ophthalmic solution Stop taking 0 days prior to procedure celecoxib (CeleBREX) 200 mg capsule Stop taking 0 days prior to procedure cyclopentolate (CYCLOGYL) 1 % ophthalmic solution Stop taking 0 days prior to procedure losartan (COZAAR) 50 mg tablet Take morning of procedure phenylephrine (SHANTA-SYNEPHRINE) 10 % ophthalmic solution Stop taking 0 days prior to procedure prednisoLONE acetate (PRED FORTE) 1 % ophthalmic suspension Stop taking 0 days prior to procedure documented in this encounter [facility] 11-02-2023 Miscellaneous Notes Preoperative Education Checklist- General Surgery date: 11/19/23 Surgery time: 2:15 p.m. Arrival time: 12:15 p.m. 1. Bring a photo ID and your insurance card with you the day of surgery. You will check in at the main lobby registration desk as soon as you walk in the entrance. 2. If you have a Living Will/Durable Power of [employer] for [employer] that is not on file here, please bring a copy the day of surgery. 3. Please wash your face with baby shampoo prior to procedure as instructed by your physician. 4. NO powder, lotion, perfume/cologne, aftershave, make-up, nail monegasque on at least one finger, deodorant, or hair products after you have bathed. 5. Nothing to eat or drink (not even water, gum, mints, or hard candy!) AFTER midnight prior to your surgery. 6. Take only medications that you are instructed to on the morning of surgery with a TINY SIP OF WATER. 7. If you have an inhaler, use it routinely. 8. Choose a responsible adult that will be able to drive you home when you are discharged from your hospital stay for your surgery. You must NOT drive any vehicle or operate any machinery for 24 hours after surgery. 9. When you dress for your appointment, please wear comfortable clothing. 10. Do NOT wear jewelry, watches, or any piercings or metal for surgery. 11. Do NOT wear contact lenses for surgery- glasses are okay if needed. 12. The anesthesiologist will talk with you the day of surgery and will ask you to sign a Consent Form. 13. Refrain from smoking or any type of tobacco use for at least 8 hours or marijuana for 24 hours prior to arrival for your surgery. 14. Notify your surgeon if you develop any illness before your surgery. 15. If you have any questions prior to surgery, please call the Preadmission Testing office at [phone], Mon.-Fri. 7 a.m.-3 p.m. Leave a voicemail if needed. Pre-Surgery Instructions: Medication Instructions atenoloL (TENORMIN) 100 mg tablet Take morning of procedure brimonidine (ALPHAGAN) 0.2 % ophthalmic solution Stop taking 0 days prior to procedure celecoxib (CeleBREX) 200 mg capsule Stop taking 0 days prior to procedure cyclopentolate (CYCLOGYL) 1 % ophthalmic solution Stop taking 0 days prior to procedure losartan (COZAAR) 50 mg tablet Take morning of procedure phenylephrine (SHANTA-SYNEPHRINE) 10 % ophthalmic solution Stop taking 0 days prior to procedure prednisoLONE acetate (PRED FORTE) 1 % ophthalmic suspension Stop taking 0 days prior to procedure Surgical instructions reviewed. Patient verbalized understanding. documented in this encounter [facility] 11-02-2023 Nurse Note Preoperative Education Checklist- General Surgery date: 11/19/23 Surgery time: 2:15 p.m. Arrival time: 12:15 p.m. 1. Bring a photo ID and your insurance card with you the day of surgery. You will check in at the main lobby registration desk as soon as you walk in the entrance. 2. If you have a Living Will/Durable Power of [employer] for [employer] that is not on file here, please bring a copy the day of surgery. 3. Please wash your face with baby shampoo prior to procedure as instructed by your physician. 4. NO powder, lotion, perfume/cologne, aftershave, make-up, nail monegasque on at least one finger, deodorant, or hair products after you have bathed. 5. Nothing to eat or drink (not even water, gum, mints, or hard candy!) AFTER midnight prior to your surgery. 6. Take only medications that you are instructed to on the morning of surgery with a TINY SIP OF WATER. 7. If you have an inhaler, use it routinely. 8. Choose a responsible adult that will be able to drive you home when you are discharged from your hospital stay for your surgery. You must NOT drive any vehicle or operate any machinery for 24 hours after surgery. 9. When you dress for your appointment, please wear comfortable clothing. 10. Do NOT wear jewelry, watches, or any piercings or metal for surgery. 11. Do NOT wear contact lenses for surgery- glasses are okay if needed. 12. The anesthesiologist will talk with you the day of surgery and will ask you to sign a Consent Form. 13. Refrain from smoking or any type of tobacco use for at least 8 hours or marijuana for 24 hours prior to arrival for your surgery. 14. Notify your surgeon if you develop any illness before your surgery. 15. If you have any questions prior to surgery, please call the Preadmission Testing office at [phone], Mon.-Fri. 7 a.m.-3 p.m. Leave a voicemail if needed. Pre-Surgery Instructions: Medication Instructions atenoloL (TENORMIN) 100 mg tablet Take morning of procedure brimonidine (ALPHAGAN) 0.2 % ophthalmic solution Stop taking 0 days prior to procedure celecoxib (CeleBREX) 200 mg capsule Stop taking 0 days prior to procedure cyclopentolate (CYCLOGYL) 1 % ophthalmic solution Stop taking 0 days prior to procedure losartan (COZAAR) 50 mg tablet Take morning of procedure phenylephrine (SHANTA-SYNEPHRINE) 10 % ophthalmic solution Stop taking 0 days prior to procedure prednisoLONE acetate (PRED FORTE) 1 % ophthalmic suspension Stop taking 0 days prior to procedure [facility] 11-02-2023 Nurse Note Surgical instructions reviewed. Patient verbalized understanding. [facility] [employer] [facility] 10-17-2022 Note HNO ID: [id number] Author: Ashley Cedeno MD, PhD Service: ? Author Type: Physician Type: Progress Notes Filed: 10/20/2022 12:51 PM Note Text: Endorses improved vision and pain OS. Anterior uveitis, both eyes Course: - initial presentation in 01/2021 with red, painful eye OS, found to have inflammation and IOP >40 - underwent laser to decrease IOP - had similar pain/redness OD in 09/2021, treated early - had needed oral prednisone for both episodes - previously took diclofenac for knee pain, holding while currently taking prednisone - Follows with rheum Dr. Garcia ([facility]) and ophtho Dr. Renetta Zimmer and Dr. Chen (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 + dorzolamide-timolol (COSOPT) left eye twice daily. + prednisoLONE acetate (PRED FORTE, ECONOPRED PLUS) left eye once daily. Impression/PLAN: -Worse inflammation on exam today on pred daily OS, now with AC and vit inflammation OCT - Needs to follow with rheum for systemic linda Predforte four times a day OS brimonidine (purple) left eye twice daily. dorzolamide-timolol (blue) left eye twice daily. Cyclopentolate (red) once daily at night OS I have confirmed and edited as necessary the relevant ophthalmic history, ROS, neuro exam finding as obtained by others. I have seen and examined Raz Carlos Amalia. I have discussed the case and management of this patients care with the resident or fellow if applicable. I also have reviewed and agree with the assessment and plan as stated above and agree with all of its relevant components. Ashley Cedeno MD, PhD [facility] 09-19-2022 Note HNO ID: [id number] Author: Ashley Cedeno MD, PhD Service: ? Author Type: Physician Type: Progress Notes Filed: 09/22/2022 10:45 AM Note Text: Endorses improved vision and pain OS. Anterior uveitis, both eyes Course: - initial presentation in 01/2021 with red, painful eye OS, found to have inflammation and IOP >40 - underwent laser to decrease IOP - had similar pain/redness OD in 09/2021, treated early - had needed oral prednisone for both episodes - previously took diclofenac for knee pain, holding while currently taking prednisone - Follows with rheum Dr. Garcia ([facility]) and ophtho Dr. Renetta Zimmer and Dr. Chen (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 - lyme, syphilis, ESTHER, SSA, SSB, zimmer, DS-DNA, Scl70, centromere, WHEEL ALIGNMENT TECHNICIAN, Bijal-1, RF, histone neg ROS: - back achiness, right knee pain Imaging: - per pt, has had multiple xrays of back as well as well as MRI, all of which were negative - will get sent from [facility] 08/13/2022 OCT OD - WNL OS - Diffuse edema FA OD wnl OS venous engorgement, tortousity, disc leak Meds: - Prednisone 10 mg daily - - 250 lbs = 113 kg - Off prednisolone eye drop (finished taper yesterday OS) - Cyclo QHS - Brimonidne and Cosopt BID OS Impression/PLAN: - Acute anterior uveitis OS - Vision stable, pressures okay today - Much improved on exam today - written instructions given to patient brimonidine (purple) left eye twice daily. dorzolamide-timolol (blue) left eye twice daily. Cyclopentolate (red) once daily at night OS Prednisone 10 mg daily x 1 week then 5 mg daily x 1 week and stop prednisolone (white) once a day left eye I have confirmed and edited as necessary the relevant ophthalmic history, ROS, neuro exam finding as obtained by others. I have seen and examined Raz Holland. I have discussed the case and management of this patients care with the resident or fellow if applicable. I also have reviewed and agree with the assessment and plan as stated above and agree with all of its relevant components. Ashley Cedeno MD, PhD [facility] 09-19-2022 Instructions Ashley Cedeno MD, PhD - 09/19/2022 1:35 PM EST brimonidine (purple) left eye twice daily. dorzolamide-timolol (blue) left eye twice daily. Cyclopentolate (red) once daily at night OS Prednisone 10 mg daily x 1 week then 5 mg daily x 1 week and stop prednisolone (white) once a day left eye documented in this encounter [facility] 09-19-2022 History of Presen t illness Narrative Endorses improved vision and pain OS. Anterior uveitis, both eyes Course: - initial presentation in 01/2021 with red, painful eye OS, found to have inflammation and IOP >40 - underwent laser to decrease IOP - had similar pain/redness OD in 09/2021, treated early - had needed oral prednisone for both episodes - previously took diclofenac for knee pain, holding while currently taking prednisone - Follows with rheum Dr. Garcia ([facility]) and ophtho Dr. Renetta Zimmer and Dr. Chen (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 - lyme, syphilis, ESTHER, SSA, SSB, zimmer, DS-DNA, Scl70, centromere, WHEEL ALIGNMENT TECHNICIAN, Bijal-1, RF, histone neg ROS: - back achiness, right knee pain Imaging: - per pt, has had multiple xrays of back as well as well as MRI, all of which were negative - will get sent from [facility] 08/13/2022 OCT OD - WNL OS - Diffuse edema FA OD wnl OS venous engorgement, tortousity, disc leak Meds: - Prednisone 10 mg daily - - 250 lbs = 113 kg - Off prednisolone eye drop (finished taper yesterday OS) - Cyclo QHS - Brimonidne and Cosopt BID OS Impression/PLAN: - Acute anterior uveitis OS - Vision stable, pressures okay today - Much improved on exam today - written instructions given to patient brimonidine (purple) left eye twice daily. dorzolamide-timolol (blue) left eye twice daily. Cyclopentolate (red) once daily at night OS Prednisone 10 mg daily x 1 week then 5 mg daily x 1 week and stop prednisolone (white) once a day left eye I have confirmed and edited as necessary the relevant ophthalmic history, ROS, neuro exam finding as obtained by others. I have seen and examined Raz Holland. I have discussed the case and management of this patients care with the resident or fellow if applicable. I also have reviewed and agree with the assessment and plan as stated above and agree with all of its relevant components. Ashley Cedeno MD, PhD documented in this encounter [facility] 08-27-2022 Note HNO ID: [id number] Author: Andrea Dias MD Service: ? Author Type: Fellow Type: Progress Notes Filed: 08/29/2022 10:46 AM Note Text: Endorses improved vision and pain OS. Anterior uveitis, both eyes Course: - initial presentation in 01/2021 with red, painful eye OS, found to have inflammation and IOP >40 - underwent laser to decrease IOP - had similar pain/redness OD in 09/2021, treated early - had needed oral prednisone for both episodes - previously took diclofenac for knee pain, holding while currently taking prednisone - Follows with rheum Dr. Garcia ([facility]) and ophtho Dr. Renetta Zimmer and Dr. Chen (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 - lyme, syphilis, ESTHER, SSA, SSB, zimmer, DS-DNA, Scl70, centromere, WHEEL ALIGNMENT TECHNICIAN, Bijal-1, RF, histone neg ROS: - back achiness, right knee pain Imaging: - per pt, has had multiple xrays of back as well as well as MRI, all of which were negative - will get sent from [facility] 08/13/2022 OCT OD - WNL OS - Diffuse edema FA OD wnl OS venous engorgement, tortousity, disc leak Meds: - Prednisone 30mg daily - 2 weeks - 250 lbs = 113 kg - Predforte TID left eye - used to be q2hr and decreased to three times a day when prednisone started - Cyclo QAM Impression/PLAN: - Acute anterior uveitis OS - Significantly improved on prednisone and predforte q1hr - Taper prednisone 40-30-20 mg daily - Taper predforte to 6 x daily x 1 week, then 4-3-2 weekly - Decrease cyclo to QHS - Follow-up 3-4 weeks I have confirmed and edited as necessary the relevant ophthalmic history, ROS, neuro exam finding as obtained by others. I have seen and examined Raz Terrance Holland. I have discussed the case and management of this patients care with the resident or fellow if applicable. I also have reviewed and agree with the assessment and plan as stated above and agree with all of its relevant components. Ashley Cedeno MD, PhD [facility] 08-27-2022 Instructions Ashley Cedeno MD, PhD - 08/27/2022 3:56 PM EST Taper prednisone 40mg daily for one week then 20 mg daily for one week then 10 mg daily for one week - Taper prednisolone to 6 x daily x 1 week, then 4-3-2 weekly - Decrease cyclogyl to at bedtime documented in this encounter [facility] 08-27-2022 History of Presen t illness Narrative Endorses improved vision and pain OS. Anterior uveitis, both eyes Course: - initial presentation in 01/2021 with red, painful eye OS, found to have inflammation and IOP >40 - underwent laser to decrease IOP - had similar pain/redness OD in 09/2021, treated early - had needed oral prednisone for both episodes - previously took diclofenac for knee pain, holding while currently taking prednisone - Follows with rheum Dr. Garcia ([facility]) and ophtho Dr. Renetta Zimmer and Dr. 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 - lyme, syphilis, ESTHER, SSA, SSB, zimmer, DS-DNA, Scl70, centromere, WHEEL ALIGNMENT TECHNICIAN, Bijal-1, RF, histone neg ROS: - back achiness, right knee pain Imaging: - per pt, has had multiple xrays of back as well as well as MRI, all of which were negative - will get sent from [facility] 08/13/2022 OCT OD - WNL OS - Diffuse edema FA OD wnl OS venous engorgement, tortousity, disc leak Meds: - Prednisone 30mg daily - 2 weeks - 250 lbs = 113 kg - Predforte TID left eye - used to be q2hr and decreased to three times a day when prednisone started - Cyclo QAM Impression/PLAN: - Acute anterior uveitis OS - Significantly improved on prednisone and predforte q1hr - Taper prednisone 40-30-20 mg daily - Taper predforte to 6 x daily x 1 week, then 4-3-2 weekly - Decrease cyclo to QHS - Follow-up 3-4 weeks I have confirmed and edited as necessary the relevant ophthalmic history, ROS, neuro exam finding as obtained by others. I have seen and examined Raz Terrance Holland. I have discussed the case and management of this patients care with the resident or fellow if applicable. I also have reviewed and agree with the assessment and plan as stated above and agree with all of its relevant components. Ashley Cedeno MD, PhD documented in this encounter [facility] 08-13-2022 Note HNO ID: [id number] Author: Ashley Cedeno MD, PhD Service: ? Author Type: Physician Type: Progress Notes Filed: 08/13/2022 4:17 PM Note Text: Anterior uveitis, both eyes Course: - initial presentation in 01/2021 with red, painful eye OS, found to have inflammation and IOP >40 - underwent laser to decrease IOP - had similar pain/redness OD in 09/2021, treated early - had needed oral prednisone for both episodes - previously took diclofenac for knee pain, holding while currently taking prednisone - Follows with rheum Dr. Garcia ([facility]) and ophtho Dr. Renetta Zimmer and Dr. Chen (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 - lyme, syphilis, ESTHER, SSA, SSB, zimmer, DS-DNA, Scl70, centromere, WHEEL ALIGNMENT TECHNICIAN, Bijal-1, RF, histone neg ROS: - back achiness, right knee pain Imaging: - per pt, has had multiple xrays of back as well as well as MRI, all of which were negative - will get sent from [facility] 08/13/2022 OCT OD - WNL OS - Diffuse edema FA OD wnl OS venous engorgement, tortousity, disc leak Meds: - Prednisone 30mg daily - 2 weeks - 250 lbs = 113 kg - Predforte TID left eye - used to be q2hr and decreased to three times a day when prednisone started - Cyclo QAM Impression/PLAN: - Acute anterior uveitis OS - Hazy view OS, difficult to assess how much is vitritis and how much is lens opacity - Increase prednisone 60mg daily - Increase predforte to q1 hr - Increase cyclo to twice a day I have confirmed and edited as necessary the relevant ophthalmic history, ROS, neuro exam finding as obtained by others. I have seen and examined Raz Holland. I have discussed the case and management of this patients care with the resident or fellow if applicable. I also have reviewed and agree with the assessment and plan as stated above and agree with all of its relevant components. Ashley Cedeno MD, PhD [facility] 08-13-2022 Instructions Ashley Cedeno MD, PhD - 08/13/2022 3:09 PM EST brimonidine (ALPHAGAN - purple top) twice daily left eye dorzolamide-timolol (COSOPT - blue) twice daily left eye prednisoLONE acetate (PRED FORTE, ECONOPRED PLUS) every hour left eye cyclopentolate (red top) twice a day left eye Prednisone 60 mg (6 tablets) daily with breakfast documented in this encounter [facility] 08-13-2022 History of Presen t illness Narrative Anterior uveitis, both eyes Course: - initial presentation in 01/2021 with red, painful eye OS, found to have inflammation and IOP >40 - underwent laser to decrease IOP - had similar pain/redness OD in 09/2021, treated early - had needed oral prednisone for both episodes - previously took diclofenac for knee pain, holding while currently taking prednisone - Follows with rheum Dr. Garcia ([facility]) and ophtho Dr. Renetta Zimmer and Dr. Chen (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 - lyme, syphilis, ESTHER, SSA, SSB, zimmer, DS-DNA, Scl70, centromere, WHEEL ALIGNMENT TECHNICIAN, Bijal-1, RF, histone neg ROS: - back achiness, right knee pain Imaging: - per pt, has had multiple xrays of back as well as well as MRI, all of which were negative - will get sent from [facility] 08/13/2022 OCT OD - WNL OS - Diffuse edema FA OD wnl OS venous engorgement, tortousity, disc leak Meds: - Prednisone 30mg daily - 2 weeks - 250 lbs = 113 kg - Predforte TID left eye - used to be q2hr and decreased to three times a day when prednisone started - Cyclo QAM Impression/PLAN: - Acute anterior uveitis OS - Hazy view OS, difficult to assess how much is vitritis and how much is lens opacity - Increase prednisone 60mg daily - Increase predforte to q1 hr - Increase cyclo to twice a day I have confirmed and edited as necessary the relevant ophthalmic history, ROS, neuro exam finding as obtained by others. I have seen and examined Raz Terrance Holland. I have discussed the case and management of this patients care with the resident or fellow if applicable. I also have reviewed and agree with the assessment and plan as stated above and agree with all of its relevant components. Ashley Cedeno MD, PhD documented in this encounter [facility] Evaluation note No assessment inform ation available [facility] Work Phone: Evaluation note Diagnosis Panuveitis, left eye- Primary Panuveitis Refractive error Unspecified disorder of refraction and accommodation Disseminated chorioretinitis, left [facility] Panuveitis, left eye- Primary Panuveitis [facility] Panuveitis, left eye- Primary Panuveitis HLA B27 (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 [facility] Preop examination- Primary Unspecified pre-operative examination Hypertension, unspecified type Preop examination Unspecified pre-operative examination Hypertension, unspecified type documented in this encounter [facility] Medications Administered Section Active Administered Medications - up to 3 most recent administrations Medication Order MAR Action Action Date Dose Rate Site fluorescein-benoxinate 0.25-0.4 % 1 Drop (FLURESS) 1 Drop, BOTH EYES, DIRECTED, Starting on Thu08/13/22 at 1300, Until Sandy 08/14/22 at 0059, Administer for applanation tonometry. In the event of a Fluress shortage, administer Layton-Fluor 1 drop into both eyes as directed for applanation tonometry Given 08/13/2022 1:00 PM EST 1 Drop PHENYLephrine 2.5 % 1 Drop (AK-DILATE, SHANTA-SYNEPHRINE) 1 Drop, BOTH EYES, DIRECTED, Starting on Thu08/13/22 at 1300, Until Sandy 08/14/22 at 0059, Administer for dilation PROTECT FROM LIGHT Given 08/13/2022 1:00 PM EST 1 Drop proparacaine 0.5 % 1 Drop (ALCAINE) 1 Drop, BOTH EYES, DIRECTED, Starting on Thu08/13/22 at 1300, Until Sandy 08/14/22 at 0059, Administer for pneumo tonometry, tonopen tonometry, or pachymetry. In the event of a proparacaine shortage, administer tetracaine 0.5% ophthalmic drops 1 drop in both eyes as directed for pneumo tonometry, tonopen tonometry, or pachymetry Given 08/13/2022 1:00 PM EST 1 Drop tropicamide 1 % 1 Drop (MYDRIACYL) 1 Drop, BOTH EYES, DIRECTED, Starting on Thu08/13/22 at 1300, Until Sandy 08/14/22 at 0059, Administer for dilation Given 08/13/2022 1:00 PM EST 1 Drop Inactive Administered Medications - up to 3 most recent administrations Medication Order MAR Action Action Date Dose Rate Site fluorescein-benoxinate 0.25-0.4 % 1 Drop (FLURESS) 1 Drop, BOTH EYES, DIRECTED, Starting on Thu08/27/22 at 1530, Until Sandy 08/28/22 at 0329, Administer for applanation tonometry. In the event of a Fluress shortage, administer 1 drop of Layton-Fluor into both eyes as directed for applanation tonometry. Given 08/27/2022 3:20 PM EST 1 Drop Summary Purpose Family History No Family History Records FoundNo Family History Records FoundNo Family History Records FoundNo Family History Records FoundNo Family History Records Found Advance Directives No Advanced Directives Records Found Advance Directive Response Recorded Date/ Time Advance Directives No December 20 2:33pm Advance Directive Response Recorded Date/ Time Advance Directives No December 20 1:33pm Reason for Referral Specialty Diagnoses / Procedures Referred By Contac t Referred To Contact Diagnoses Preop examination Hypertension, unspecified type Procedures ECG 12 lead Andrea Patino MD [address] [place] [address] Referral ID Status Reason Start Date Expiration Date V isits Requested Visits Authorized [id number] Pending Review 11/02/2023 11/01/2024 1 1 Additional Source Comments Care Teams (unrecognized sec tion and content) Team Status: Inactive Member Role Status Dates Awais Garcia MD Attending Provider Active Team Status: Active Member Role Status Dates Serenity Mayers Primary Care Provider Active Team Status: Inactive Member Role Status Dates Serenity Mayers Primary Care Provider Active Awais Garcia MD Attending Provider Active Team Status: Inactive Member Role Status Dates Serenity Mayers Primary Care Provider Active Sta rt: October 14, 2023 End: October 14, 2023 Malvin Garcia MD Attending Provider Active St art: October 14, 2023 End: October 14, 2023 Animal Keeper Head Relationship Specialty Start Date End Date Serenity Mayers, OCCUPATIONAL HEALTH TECHNICIAN-GYROSCOPIC ENGINEERING TECHNICIAN [address] [place] [address] PCP - General Nurse Practitioner 10/01/21 Goals (unrecognized section and content) Goals may be documented in a n alternate sectionGoals may be documented in an alternate sectionGoals may be documented in an alternate sectionNot on filedocumented as of this encounter Source Comments (unrecognize d section and content) In the event this informatio n is protected by the Federal Confidentiality of Alcohol and Drug Abuse Patient Records regulations: The Federal rules restrict any use of the information to criminally investigate or prosecute any alcohol or drug abuse patient.[facility] the event this information is protected by the Federal Confidentiality of Alcohol and Drug Abuse Patient Records regulations: The Federal rules restrict any use of the information to criminally investigate or prosecute any alcohol or drug abuse patient.[facility] the event this information is protected by the Federal Confidentiality of Alcohol and Drug Abuse Patient Records regulations: The Federal rules restrict any use of the information to criminally investigate or prosecute any alcohol or drug abuse patient.[facility] Reason for Visit (unrecogniz ed section and content) Reason Comments Uveitis Evaluation NEW Specialty Diagnoses / Procedures Referred By Santana mcgrath Referred To Contact Ophthalmology / OPHTHALMOLOGY Diagnoses Iritis IRITIS. REFERRED BY DR ARSLAN CHEN Procedures OFFICE/OUTPATIENT NEW MODERATE MDM 45-59 MINUTES NEW UVEITIS Self Ashley Cedeno MD, PhD [address] [place] [address] Referral ID Status Reason Start Date Expiration Date Visits Re quested Visits Authorized [id number] Closed 08/13/2022 09/06/2022 1 1 Reason Comments Panuveitis Follow Up Specialty Diagnoses / Procedures Referred By Santana mcgrath Referred To Contact Ophthalmology / OPHTHALMOLOGY Diagnoses Iritis Return in about 2 weeks (around 08/27/2022). Procedures OFFICE/OUTPATIENT ESTABLISHED MOD MDM 30-39 MIN EST ADULT Ashley Cedeno MD, PhD [address] [id number] Ashley Cedeno MD, PhD [address] [id number] Referral ID Status Reason Start Date Expiration Date Visits Re quested Visits Authorized [id number] Closed 08/27/2022 09/06/2022 1 1 Reason Comments Panuveitis, left eye Specialty Diagnoses / Procedures Referred By Santana mcgrath Referred To Contact Ophthalmology / OPHTHALMOLOGY Diagnoses Return in about 3 weeks (around 09/17/2022). Procedures EST ADULT Ashley Cedeno MD, PhD [address] [address] Ashley Cedeno MD, PhD [address] [address] Referral ID Status Reason Start Date Expiration Date Visits Requested Visits Authorized [id number] Authorized Financial Clearance Not Required 09/19/2022 09/06/2023 12 12 (unrecognized sect ion and content) No Status Records FoundNo Status Records FoundNo Status Records FoundNo Status Records FoundNo Status Records Found INFORMATION SOURCE (unrecogn ized section and content) DATE CREATED AUTHOR 10/21/2022 [facility] DATE CREATED AUTHOR AUTHOR'S ORGANIZ ATION 11/30/2022 [facility] DATE CREATED AUTHOR AUTHOR'S ORGANIZ ATION 10/23/2023 [facility] DATE CREATED AUTHOR AUTHOR'S ORGANIZ ATION 11/20/2023 [facility] DATE CREATED AUTHOR AUTHOR'S ORGANIZ ATION 06/02/2024 [facility] EPIC FOR RECORDS PERTAINING TO PATIENTS WHO ARE OR HAVE BEEN ENROLLED IN A CHEMICAL DEPENDENCY/SUBSTANCEABUSE PROGRAM, SOME INFORMATION MAY BE OMITTED. This clinical summary was aggregated from multiple sources. Caution should be exercised in using it in the provision of clinical care. This summary normalizes information from multiple sources, and as a consequence, information in this document may materially change the coding, format and clinical context of patient data. In addition, data may be omitted in some cases. CLINICAL DECISIONS SHOULD BE BASED ON THE PRIMARY CLINICAL RECORDS. [facility] [employer] [facility]. provides no warranty or guarantee of the accuracy or completeness of information in this document.
== END 2024-06-09 14:57 | disposition home or self-care (01) ==
LOC: EC 14:56
PROVIDERS: PCP Nurse Practitioner; Visit Provider Physician Assistant
DX: M25.571 Pain in right ankle and joints of right foot (principal)
CPT/HCPCS: 73610

== ENCOUNTER 2024-07-06 10:48 | Outpatient (OUT) | payer OTHER, SELFPAY ==
--- OUTSIDE RECORDS SUMMARY | 2024-07-06 10:57 | XMS_ITS | CCD ---
Author Organization [facility] Care Team Providers Care Calenderer Name Role Phone MD Awais Garcia Attending Provider [phone] Unavailable Primary Care Provider Unavailabl e PAO, CAREEN Y Attending Unavailable PAO, CAREEN Y Referring Unavailable PAO, CAREEN Y Attending Unavailable PAO, CAREEN Y Referring Unavailable PAO, CAREEN Y Referring Unavailable PAO, CAREEN Y Attending Unavailable PAO, CAREEN Y Attending Unavailable Aichholrosey, Serenity J Primary Care Provider [phone] MD Awais Garcia Attending Provider MISC, DR KRAFT Admitting Unavailable MISC, DR KRAFT Attending Unavailable AICHHOLZ, SCHOOL PHOTOGRAPHS DETAILER SERENITY Primary Care Unavailable MISC, DR KRAFT Consulting Unavailable MISC, DR KRAFT Admitting Unavailable MISC, DR KRAFT Attending Unavailable AICHHOLZ, SCHOOL PHOTOGRAPHS DETAILER SERENITY Primary Care Unavailable MISC, DR KRAFT Consulting Unavailable AICHHOLZ, SCHOOL PHOTOGRAPHS DETAILER SERENITY Admitting Unavailable AICHHOLZ, SCHOOL PHOTOGRAPHS DETAILER SERENITY Attending Unavailable AICHHOLZ, SCHOOL PHOTOGRAPHS DETAILER SERENITY Consulting Unavailable Aichholz, Serenity J Primary Care Provider MD Malvin Garcia Attending Provider Malvin Garcia Admitting Unavailable Malvin Garcia Attending Unavailable Aichrobin Serenity J Primary Care Unavailable Malvin Garcia Attending Unavailable Aichholrosey, Serenity J Primary Care Unavailable Malvin Gacria Admitting Unavailable Aichholz PRESCHOOL DIRECTOR-ELIE, Serenity J Primary Care Provider STEFANIA ZIMMER Admitting Unavailable STEFANIA ZIMMER Attending Unavailable AICHHOLRosey SERENITY J Primary Care Unavailable ARELY FULTON Attending Unavailable AICHHOLRosey, SERENITY J Primary Care Unavailable AICHHOLRosey, SERENITY J Referring Unavailable RIANA SERENITY J Primary Care Unavailable ANDREA PATINO Referring Unavailable SERENITY MAYERS Primary Care Unavailable ANDREA PATINO Attending Unavailable ANDREA PATINO Referring Unavailable SERENITY MAYERS Primary Care Unavailable Leo Miles DO Primary Care Provider SERENITY MAYERS Attending Unavailable SERENITY MAYERS Attending Unavailable SERENITY MAYERS Attending Unavailable SERENITY MAYERS Attending Unavailable Medications Current Medications Medication Drug Class(es) Dates Sig (Normalized) Sig (Original) 0.4 ml adalimumab 100 mg/ml prefilled syringe (3 sources) Tumor Necrosis Factor Ashley Start: 06-09-2024 adalimumab (Humira, 2 Syringe,) 40 MG/0.4ML Prefilled Syringe Kit prefilled syringe Inject 40 mg under the skin every 14 (fourteen) days 06/09/2024 Active amLODIPine 5 mg oral tablet (5 sources) Dihydropyridine Calcium Channel Ashley Start: 05-25-2024 End: 09-21-2024 take 1 tablet by mouth once daily amLODIPine (Norvasc) 5 MG tablet Indications: Primary hypertension (CMS/HCC) Take 1 tablet (5 mg) by mouth Daily 90 tablet 1 06/23/2024 09/21/2024 Active atenolol 100 mg oral tablet (9 sources) beta-Adrenergic Ashley Start: 05-31-2024 End: 09-21-2024 take 1 tablet by mouth in the morning atenolol (Tenormin) 100 MG tablet Indications: Primary hypertension (CMS/HCC) Take 1 tablet (100 mg) by mouth in the morning. 90 tablet 1 06/23/2024 09/21/2024 Active Start: 04-08-2022 End: 04-09-2023 take 1 tablet by mouth once daily atenolol (TENORMIN) 100 mg tablet Take 1 tablet by mouth once daily. 0 04/08/2022 04/09/2023 Active Comment on above: Take 1 tablet by camille th once daily. atropine sulfate 10 mg/ml ophthalmic solution (3 sources) Anticholinergic, Cholinergic Muscarinic Antagonist Start: 11-20-19 take 1 drop(s) into the eye(s) once daily atropine 1 % ophthalmic solution instill 1 drop into left eye EVERY NIGHT 11/20/2023 Active celecoxib 200 mg oral capsule (4 sources) Nonsteroidal Anti-inflammatory Drug take 1 capsule by mouth in the morning celecoxib (CeleBREX) 200 MG capsule Take 200 mg by mouth in the morning and 200 mg in the evening. Active cyclopentolate hydrochloride 10 mg/ml ophthalmic solution (1 source) take 1 drop(s) into the eye(s) in the morning cyclopentolate (CYCLOGYL) 1 % ophthalmic solution Administer 1 drop into the left eye in the morning and 1 drop before bedtime. 0 Active folic acid 1 mg oral tablet (3 sources) Start: 05-31-20 take 1 tablet by mouth once daily folic acid (Folvite) 1 MG tablet Take 1,000 mcg by mouth Daily 05/31/2024 Active losartan potassium 100 mg oral tablet (6 sources) Angiotensin 2 Receptor Ashley Start: 05-31-20 End: 09-21-19 take 1 tablet by mouth once daily losartan (Cozaar) 100 MG tablet Indications: Primary hypertension (CMS/HCC) Take 1 tablet (100 mg) by mouth Daily 90 tablet 1 06/23/2024 09/21/2024 Active take 2 tablets by mouth in the m orning losartan (COZAAR) 50 mg tablet Take 2 tablets (100 mg total) by mouth in the morning. 0 Active methotrexate 2.5 mg oral tablet (3 sources) Folate Analog Metabolic Inhibitor Start: 05-31-2024 take 6 tablets by mouth every week methotrexate 2.5 MG tablet TAKE 6 TABLETS BY MOUTH EVERY WEEK remember your standing labs 05/31/2024 Active phenylephrine hydrochloride 25 mg/ml ophthalmic solution (2 sources) alpha-1 Adrenergic Agonist Start: 08-13-2022 End: 08-14-2022 PHENYLephrine 2.5 % 1 Drop (AK-DILATE, SHANTA-SYNEPHRINE) take 1 drop(s) into the eye(s) o nce phenylephrine (SHANTA-SYNEPHRINE) 10 % ophthalmic solution Administer 1 drop into the left eye once. 0 Active prednisoLONE acetate 10 mg/ml ophthalmic suspension (8 sources) Corticosteroid Start: 06-20-2024 prednisoLONE a cetate (Pred-Forte) 1 % ophthalmic suspension 06/20/2024 Active Start: 08-13-2022 prednisoLONE a cetate (PRED FORTE, ECONOPRED PLUS) 1 % ophthalmic suspension Use 1 Drop in the left eye every hour. 10 mL 4 08/13/2022 Active Start: 08-11-2022 End: 08-13-2022 prednisoLONE acetate (PRED F ORTE, ECONOPRED PLUS) 1 % ophthalmic suspension prednisoLONE catalino valerio (PRED FORTE) 1 % ophthalmic suspension Administer 1 drop into the left eye 3 (three) times a day. 0 Active Comment on above: Use 1 Drop in the le ft eye every hour. proparacaine hydrochloride 5 mg/ml ophthalmic solution (1 source) Local Anesthetic Start: 08-13-20 End: 08-14-20 proparacaine 0.5 % 1 Drop (ALCAINE) sodium chloride 0.854 meq/ml ophthalmic solution (3 sources) Start: 11-30-19 take 1 drop(s) into the eye(s) four times daily sodium chloride (Sulaiman 128) 5 % ophthalmic solution INSTILL 1 DROP INTO LEFT EYE FOUR TIMES A DAY 11/30/2023 Active tropicamide 10 mg/ml ophthalmic solution (1 source) Anticholinergic Start: 08-13-20 End: 08-14-20 tropicamide 1 % 1 Drop (MYDRIACYL) Completed/Discontinued [...] (FLURESS) brimonidine tartrate 2 mg/ml ophthalmic solution (8 sources) alpha-Adrenergic Agonist Start: 08-13-2022 take 1 drop(s) into the eye(s) twice daily brimonidine (ALPHAGAN) 0.2 % ophthalmic solution Use 1 Drop in the left eye twice daily. 5 mL 2 08/13/2022 Active Start: 07-21-2022 End: 08-13-2022 brimonidine (ALPHAGAN) 0.2 % ophthalmic solution brimonidine (Alp Uvaldo P) 0.2 % ophthalmic solution Administer 1 drop into affected eye(s) in the morning and 1 drop at noon and 1 drop in the evening. Active take 1 drop(s) into the eye(s) three [...] solution (4 sources) Carbonic Anhydrase Inhibitor, beta-Adrenergic Ashley Start: 2 take 1 drop(s) into the eye(s) twice daily dorzolamide-timolo l (COSOPT) 22.3-6.8 mg/mL ophthalmic solution Use 1 Drop in the left eye twice daily. 10 mL 2 08/13/2022 Active Start: 07-19-2022 End: 08-13-2022 dorzolamide-timolol (COSOPT) 22.3-6.8 mg/mL ophthalmic solution Comment on above: Use 1 Drop in the le ft eye twice daily. predniSONE 10 mg oral tablet (4 sources) [...] daily by mouth for 1 week Problems Active Problems Problem Classification Problem Date Documented Date Episodic/Chronic Anxiety disorders (3 sources) Generalized anxiety disorder; 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: [Generalized anxiety disorder] Onset: 11-23-2023 11-23-2023 Chronic Blindness and vision defects (1 source) Disorder of refraction; 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: [Unspecified disorder of refraction] Episodic Cataract (1 source) Cataract Onset: 11-19-2023 Conditions associated with dizziness or vertigo (3 sources) Dizziness and giddiness; 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: [Dizziness and giddiness] Onset: 05-25-2024 05-25-2024 Episodic Disorders of lipid metabolism (7 sources) Hyperlipidemia, unspecified; 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: [Mixed hyperlipidemia] Onset: 11-13-2022 Chronic Essential hypertension (8 sources) Essential (primary) hypertension; 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: [Hypertensive disorder] [...] 11-19-2023 Episodic Other aftercare (1 source) 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; 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: [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] Onset: 11-14-2022 Episodic Other non-traumatic joint disorders (3 sources) Swollen ankle region; 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: [Effusion, right ankle] Onset: 05-31-2024 05-31-2024 Episodic Other nutritional; endocrine; and metabolic disorders (5 sources) Body mass index 30+ - obesity; 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: [Body mass index (BMI) 35.0-35.9, adult] Onset: 11-23-2023 05-25-2024 Chronic Other nutritional; endocrine; and metabolic disorders (5 sources) Obesity caused by energy imbalance; 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: [Morbid (severe) obesity due to excess calories] Onset: 05-25-2024 05-25-2024 Chronic Rheumatoid arthritis and related disease (2 sources) Inflammatory polyarthropathy; 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: [Inflammatory polyarthropathy] Onset: 11-14-2022 Chronic Past or Other Problems Problem Classification Problem Date Documented Date Episodic/Chronic Other hematologic conditions (3 sources) Increased serum protein level; 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: [Abnormality of plasma protein, unspecified] Onset: 11-23-2023 11-23-2023 Episodic Other non-traumatic joint disorders (3 sources) Pain in right knee; 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: [Pain in joint, lower leg] Onset: 11-23-2023 11-23-2023 Episodic Residual codes; unclassified (4 sources) Human leukocyte 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 positive; 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: [Genetic susceptibility to other disease] Onset: 11-23-2023 Episodic Results Test Name Value Interpretation Reference Range Facility BASIC METABOLIC PANLon 11-02 Anion gap [Moles/Vol] 9 mmol/L Normal 5-15 [facility] Comment on above: Performed By: #### B MP #### [facility] ([id number]) [address], [address] [place] [address] Calcium [Mass/Vol] 9.1 mg/dL Normal 8.5-10.5 [facility] Comment on above: Performed By: #### B MP #### [facility] ([id number]) [address], [address] [place] [address] Chloride [Moles/Vol] 102 mmol/L Normal 98-109 [facility] Comment on above: Performed By: #### B MP #### [facility] ([id number]) [address], [address] [place] [address] CO2 [Moles/Vol] 26 mmol/L Normal 22-32 [facility] Comment on above: Performed By: #### B MP #### [facility] ([id number]) [address], [address] [place] [address] Creatinine [Mass/Vol] 0.98 mg/dL Normal 0.60-1.30 [facility] Comment on above: Result Comment: METH OD TRACEABLE TO IDMS STANDARD Performed By: #### B MP #### [facility] ([id number]) [address], [address] [place] [address] eGFR (CKD-EPI) NON-RACE DEPENDENT >90 Normal >59 [facility] Comment on above: Result Comment: Reported eGFR is based on the CKD-EPI 2020 equation that does not use a race coefficient. Performed By: #### B MP #### [facility] ([id number]) [address], [address] [place] [address] Glucose [Mass/Vol] 93 mg/dL Normal 65-99 [facility] Comment on above: Performed By: #### B MP #### [facility] ([id number]) [address], [address] [place] [address] Potassium [Moles/Vol] 4.3 mmol/L Normal 3.5-5.0 [facility] Comment on above: Performed By: #### B MP #### [facility] ([id number]) [address], [address] [place] [address] Sodium [Moles/Vol] 137 mmol/L Normal 134-146 [facility] Comment on above: Performed By: #### B MP #### [facility] ([id number]) [address], [address] [place] [address] Urea nitrogen [Mass/Vol] 12 mg/dL Normal 5-23 [facility] Comment on above: Performed By: #### B MP #### [facility] ([id number]) [address], [address] [place] [address] Basic Metabolic Panelon 02- Anion gap [Moles/Vol] 9 mmol/L 5 - 15 mmol/L [facility] Calcium [Mass/Vol] 9.1 mg/dL 8.5 - 10. 5 mg/dL [facility] Chloride [Moles/Vol] 102 mmol/L 98 - 10 9 mmol/L [facility] CO2 [Moles/Vol] 26 mmol/L 22 - 32 mmol/L [facility] Creatinine [Mass/Vol] 0.98 mg/dL 0.60 - 1.30 mg/dL [facility] Comment on above: METHOD TRACEABLE TO [facility] STANDARD eGFR (CKD-EPI)non-race dependent - PINF [facility] Comment on above: Reported eGFR is based on the CKD-EPI 2020 equation that does not use a race coefficient. Glucose [Mass/Vol] 93 mg/dL 65 - 99 mg/dL [facility] Potassium [Moles/Vol] 4.3 mmol/L 3.5 - 5.0 mmol/L [facility] Sodium [Moles/Vol] 137 mmol/L 134 - 146 mmol/L [facility] Urea nitrogen [Mass/Vol] 12 mg/dL 5 - 23 mg/dL [facility] ECG 12 leadon 11-02-2023 TRACEMASTERVUE [facility] Alanine aminotransferase [En zymatic activity/volume] in Serum or PlasmaOrdered By: Malvin Garcia on 10-14-2023 ALT [Catalytic activity/Vol] 23 U/L 7-52 [facility] Albumin [Mass/volume] in Ser um or Plasma by Bromocresol green (BCG) dye binding methoOrdered By: Malvin Garcia on 10-14-2023 Albumin BCG dye [Mass/Vol] 4.3 g/dL 3.5-5.7 [facility] Alkaline phosphatase [Enzyma tic activity/volume] in Serum or PlasmaOrdered By: Malvin Garcia on 10-14-2023 ALP [Catalytic activity/Vol] 82 U/L 34-104 [facility] Aspartate aminotransferase [ Enzymatic activity/volume] in Serum or PlasmaOrdered By: Malvin Garcia on 10-14-2023 AST [Catalytic activity/Vol] 16 U/L 13-39 [facility] Basophils Auto (Bld) [#/Vol] Ordered By: Malvin Garcia on 10-14-2023 Basophils (Bld) [#/Vol] 0.1 10*3/uL 0.0-0.2 [facility] Basophils/100 WBC Auto (Bld) Ordered By: Malvin Garcia on 10-14-2023 Basophils/100 WBC (Bld) 0.6 % . [facility] Bilirubin.total [Mass/volume ] in Serum or PlasmaOrdered By: Malvin Garcia on 10-14-2023 Bilirubin [Mass/Vol] 0.5 mg/dL 0.3-1.0 [facility] C reactive protein [Mass/vol ume] in Serum or PlasmaOrdered By: Malvin Garcia on 10-14-2023 CRP [Mass/Vol] 1.3 mg/dL 0.0-0.5 [facility] C-Reactive Proteinon 024 C-Reactive Protein 1.3 mg/dL High 0.0-0.5 [facility] Comment on above: Result Comment: PERF ORMED BY: [place] [address] PATHOLOGIST CERTIFIED NURSING ATTENDANT PILLO SALAS M.D. Performed By: #### C BC, CRP, CMP, ESR #### [address] Calcium [Mass/volume] in Ser um or PlasmaOrdered By: Malvin Garcia on 10-14-2023 Calcium [Mass/Vol] 9.5 mg/dL 8.6-10.3 [facility] Carbon dioxide, total [Moles /volume] in Serum or PlasmaOrdered By: Malvin Garcia on 10-14-2023 CO2 [Moles/Vol] 26.6 mmol/L 21.0-31.0 [facility] Chloride [Moles/volume] in S tian or PlasmaOrdered By: Malvin Garcia on 10-14-2023 Chloride [Moles/Vol] 104 mmol/L 98-107 [facility] Complete Blood Count Auto Di ffon 10-14-2023 Basophils (Bld) [#/Vol] 0.1 10*3/uL Normal 0.0-0.2 [facility] Comment on above: Performed By: #### C BC, CRP, CMP, ESR #### [facility] [address] Basophils/100 WBC (Bld) 0.6 % Normal . [facility] Comment on above: Performed By: #### C BC, CRP, CMP, ESR #### [facility] [address] [place] [address] Eosinophils (Bld) [#/Vol] 0.1 10*3/uL Normal 0.0-0.45 [facility] Comment on above: Performed By: #### C BC, CRP, CMP, ESR #### [address] Eosinophils/100 WBC (Bld) 1.2 % Normal . [facility] Comment on above: Performed By: #### C BC, CRP, CMP, ESR #### [address] Erythrocyte distribution width (RBC) [Ratio] 13.6 % Normal 12.0-14.8 [facility] Comment on above: Performed By: #### C BC, CRP, CMP, ESR #### [address] Hematocrit (Bld) [Volume fraction] 45.0 % Normal 38.8-50.0 [facility] Comment on above: Performed By: #### C BC, CRP, CMP, ESR #### [address] Hemoglobin (Bld) [Mass/Vol] 15.1 g/dL Normal 13.0-17.0 [facility] Comment on above: Performed By: #### C BC, CRP, CMP, ESR #### [facility] [address] [place] [address] Lymphocytes (Bld) [#/Vol] 2.7 10*3/uL Normal 1.00-4.8 [facility] Comment on above: Performed By: #### C BC, CRP, CMP, ESR #### [facility] [address] Lymphocytes/100 WBC (Bld) 29.4 % Normal . [facility] Comment on above: Performed By: #### C BC, CRP, CMP, ESR #### [facility] [address] MCH (RBC) [Entitic mass] 27.9 pg Normal 27.5-35.2 [facility] Comment on above: Performed By: #### C BC, CRP, CMP, ESR #### [facility] [address] MCV (RBC) [Entitic vol] 83.1 fL Low 83.5-101 [facility] Comment on above: Performed By: #### C BC, CRP, CMP, ESR #### [facility] [address] Mean Corpuscular HGB Conc 33.5 g/dL Normal 32.5-35.6 [facility] Comment on above: Performed By: #### C BC, CRP, CMP, ESR #### [place] [address] [place] Monocytes (Bld) [#/Vol] 0.7 10*3/uL Normal 0.0-0.8 [facility] Comment on above: Performed By: #### C BC, CRP, CMP, ESR #### [place] [address] [place] Monocytes/100 WBC (Bld) 7.8 % Normal . [facility] Comment on above: Performed By: #### C BC, CRP, CMP, ESR #### [place] [address] [place] Neutrophils (Bld) [#/Vol] 5.6 10*3/uL Normal 1.8-7.7 [facility] Comment on above: Performed By: #### C BC, CRP, CMP, ESR #### [facility] [address] [place] [address] [place] Neutrophils/100 WBC (Bld) 61.0 % Normal . [facility] Comment on above: Performed By: #### C BC, CRP, CMP, ESR #### [address] NRBC% 0.3 /100{WBC} Normal 0-0.5 [facility] Comment on above: Performed By: #### C BC, CRP, CMP, ESR #### [address] Platelet mean volume (Bld) [Entitic vol] 7.8 fL Normal 6.6-10.1 [facility] Comment on above: Performed By: #### C BC, CRP, CMP, ESR #### [address] Platelets (Bld) [#/Vol] 289 10*3/uL Normal 150-450 [facility] Comment on above: Performed By: #### C BC, CRP, CMP, ESR #### [address] RBC (Bld) [#/Vol] 5.41 10*6/uL Normal 3.90-5.60 [facility] Comment on above: Performed By: #### C BC, CRP, CMP, ESR #### [address] WBC (Bld) [#/Vol] 9.2 10*3/uL Normal 4.1-10.5 [facility] Comment on above: Performed By: #### C BC, CRP, CMP, ESR #### [address] Comprehensive Metabolic Pane neeraj 10-14-2023 Albumin [Mass/Vol] 4.3 g/dL Normal 3.5-5.7 [facility] Comment on above: Performed By: #### C BC, CRP, CMP, ESR #### [address] Albumin/Globulin [Mass ratio] 1.2 {ratio} Normal [facility] Comment on above: Performed By: #### C BC, CRP, CMP, ESR #### [facility] [address] [place] [id number] [place] ALP [Catalytic activity/Vol] 82 U/L Normal 34-104 [facility] Comment on above: Performed By: #### C BC, CRP, CMP, ESR #### [facility] [address] [place] [id number] [facility] ALT [Catalytic activity/Vol] 23 U/L Normal 7-52 [facility] Comment on above: Performed By: #### C BC, CRP, CMP, ESR #### [facility] [address] Anion gap [Moles/Vol] 11.5 mmol/L Normal 6.0-15.0 [facility] Comment on above: Performed By: #### C BC, CRP, CMP, ESR #### [facility] [address] AST [Catalytic activity/Vol] 16 U/L Normal 13-39 [facility] Comment on above: Performed By: #### C BC, CRP, CMP, ESR #### [facility] [address] [place] [address] [place] Bilirubin [Mass/Vol] 0.5 mg/dL Normal 0.3-1.0 [facility] Comment on above: Performed By: #### C BC, CRP, CMP, ESR #### [facility] [address] [place] [address] [place] Calcium [Mass/Vol] 9.5 mg/dL Normal 8.6-10.3 [facility] Comment on above: Performed By: #### C BC, CRP, CMP, ESR #### [facility] [address] [place] [id number] [place] Chloride [Moles/Vol] 104 mmol/L Normal 98-107 [facility] Comment on above: Performed By: #### C BC, CRP, CMP, ESR #### [facility] [address] [place] [id number] [facility] CO2 [Moles/Vol] 26.6 mmol/L Normal 21.0-31.0 [facility] Comment on above: Performed By: #### C BC, CRP, CMP, ESR #### [facility] [address] Creatinine [Mass/Vol] 0.89 mg/dL Normal 0.70-1.30 [facility] Comment on above: Performed By: #### C BC, CRP, CMP, ESR #### [facility] [address] GFR/1.73 sq M.predicted MDRD (S/P/Bld) [Vol rate/Area] mL/min/{1.73_m2} Normal [facility] Comment on above: Performed By: #### C BC, CRP, CMP, ESR #### [facility] [address] Globulin (S) [Mass/Vol] 3.6 g/dL Normal [facility] Comment on above: Performed By: #### C BC, CRP, CMP, ESR #### [facility] [address] Glucose [Mass/Vol] 94 mg/dL Normal 70-100 [facility] Comment on above: Result Comment: [facility] Glucose Reference Range is dependent on time and content of last meal. Glucose of more than 200 mg/dL in a nonstressed, ambulatory subject supports the diagnosis of Diabetes Mellitus. ADA recommended reference range Performed By: #### C BC, CRP, CMP, ESR #### [facility] [address] Potassium [Moles/Vol] 4.1 mmol/L Normal 3.5-5.1 [facility] Comment on above: Performed By: #### C BC, CRP, CMP, ESR #### [facility] [address] Protein [Mass/Vol] 7.9 g/dL Normal 6.4-8.9 [facility] Comment on above: Performed By: #### C BC, CRP, CMP, ESR #### [facility] [address] Sodium [Moles/Vol] 138 mmol/L Normal 136-145 [facility] Comment on above: Performed By: #### C BC, CRP, CMP, ESR #### [facility] [address] [place] [address] Urea nitrogen [Mass/Vol] 11 mg/dL Normal 7-25 [facility] Comment on above: Performed By: #### C BC, CRP, CMP, ESR #### [facility] [address] [place] [address] Creatinine [Mass/volume] in Serum or PlasmaOrdered By: Malvin Garcia on 10-14-2023 Creatinine [Mass/Vol] 0.89 mg/dL 0.70-1.30 [facility] Eosinophils Auto (Bld) [#/Vo l]Ordered By: Malvin Garcia on 10-14-2023 Eosinophils (Bld) [#/Vol] 0.1 10*3/uL 0.0-0.45 [facility] Eosinophils/100 WBC Auto (Bl d)Ordered By: Malvin Garcia on 10-14-2023 Eosinophils/100 WBC (Bld) 1.2 % . [facility] Erythrocyte Sedimentation Ra basim 10-14-2023 ESR (Bld) [Velocity] 35 mm/h High 0-14 [facility] Comment on above: Result Comment: PERF ORMED BY: [place] [address] PATHOLOGIST CERTIFIED NURSING ATTENDANT PILLO SALAS M.D. Performed By: #### C BC, CRP, CMP, ESR #### [address] Erythrocyte distribution wid th Auto (RBC) [Ratio]Ordered By: Malvin Garcia on 10-14-2023 Erythrocyte distribution width (RBC) [Ratio] 13.6 % 12.0-14.8 [facility] Erythrocyte sedimentation ra te by [employer] methodOrdered By: Malvin Garcia on 10-14-2023 ESR Photometric method (Bld) [Velocity] 35 mm/hr 0-14 [facility] Globulin Calc (S) [Mass/Vol] Ordered By: Malvin Garcia on 02-07-2024 Globulin (S) [Mass/Vol] 3.6 g/dL [facility] Glucose [Mass/volume] in Ser um or PlasmaOrdered By: Malvin Garcia on 10-14-2023 Glucose [Mass/Vol] 94 mg/dL 70-100 [facility] Comment on above: ADA recommended refe rence rangeRandom Glucose Reference Range is dependent on time and content of last meal. Glucose of more than 200 mg/dL in a nonstressed, ambulatory subject supports the diagnosis of Diabetes Mellitus. Hematocrit Auto (Bld) [Volum e fraction]Ordered By: Malvin Garcia on 10-14-2023 Hematocrit (Bld) [Volume fraction] 45.0 % 38.8-50.0 [facility] Hemoglobin [Mass/volume] in BloodOrdered By: Malvin Garcia on 10-14-2023 Hemoglobin (Bld) [Mass/Vol] 15.1 g/dL 13.0-17.0 [facility] Leukocytes [#/volume] correc aileen for nucleated erythrocytes in Blood by Automated counOrdered By: Malvin Garcia on 10-14-2023 WBC corrected for nucl RBC Auto (Bld) [#/Vol] 9.2 10*3/uL 4.1-10.5 [facility] Lymphocytes Auto (Bld) [#/Vo l]Ordered By: Malvin Garcia on 10-14-2023 Lymphocytes (Bld) [#/Vol] 2.7 10*3/uL 1.00-4.8 [facility] Lymphocytes/100 WBC Auto (Bl d)Ordered By: Malvin Garcia on 10-14-2023 Lymphocytes/100 WBC (Bld) 29.4 % . [facility] MCH Auto (RBC) [Entitic mass ]Ordered By: Malvin Garcia on 10-14-2023 MCH (RBC) [Entitic mass] 27.9 pg 27.5-35.2 [facility] MCHC Auto (RBC) [Mass/Vol]Or dered By: Malvin Garcia on 10-14-2023 MCHC (RBC) [Mass/Vol] 33.5 g/dL 32.5-35.6 [facility] MCV Auto (RBC) [Entitic vol] Ordered By: Malvin Garcia on 10-14-2023 MCV (RBC) [Entitic vol] 83.1 fL 83.5-101 [facility] Monocytes Auto (Bld) [#/Vol] Ordered By: Malvin Garcia on 10-14-2023 Monocytes (Bld) [#/Vol] 0.7 10*3/uL 0.0-0.8 [facility] Monocytes/100 WBC Auto (Bld) Ordered By: Malvin Garcia on 10-14-2023 Monocytes/100 WBC (Bld) 7.8 % . [facility] Neutrophils Auto (Bld) [#/Vo l]Ordered By: Malvin Garcia on 10-14-2023 Neutrophils (Bld) [#/Vol] 5.6 10*3/uL 1.8-7.7 [facility] Neutrophils/100 WBC Auto (Bl d)Ordered By: Malvin Garcia on 10-14-2023 Neutrophils/100 WBC (Bld) 61.0 % . [facility] No Panel InformationOrdered By: Malvin Garcia on 10-14-2023 Estimated GFR (CKD-EPI) > 60.0 mL/Min [facility] Creatinine Clearance (Chem N/A [facility] Nucleated erythrocytes [Pres ence] in Blood by Automated countOrdered By: Malvin Garcia on 10-14-2023 Nucleated RBC Auto Ql (Bld) 0.3 /100{WBC} 0-0.5 [facility] Platelet mean volume Auto (B ld) [Entitic vol]Ordered By: Malvin Garcia on 10-14-2023 Platelet mean volume (Bld) [Entitic vol] 7.8 fL 6.6-10.1 [facility] Platelets Auto (Bld) [#/Vol] Ordered By: Malvin Garcia on 10-14-2023 Platelets (Bld) [#/Vol] 289 10*3/uL 150-450 [facility] Potassium [Moles/volume] in Serum or PlasmaOrdered By: Malvin Garcia on 10-14-2023 Potassium [Moles/Vol] 4.1 mmol/L 3.5-5.1 [facility] Protein [Mass/volume] in Ser um or PlasmaOrdered By: Malvin Garcia on 10-14-2023 Protein [Mass/Vol] 7.9 g/dL 6.4-8.9 [facility] RBC Auto (Bld) [#/Vol]Ordere d By: Malvin Garcia on 10-14-2023 RBC (Bld) [#/Vol] 5.41 10*6/uL 3.90-5.60 [facility] Serum or plasma albumin/glob ulin mass ratioOrdered By: Malvin Garcia on 10-14-2023 Albumin/Globulin [Mass ratio] 1.2 {ratio} [facility] Serum or plasma anion gap de terminationOrdered By: Malvin Garcia on 10-14-2023 Anion gap [Moles/Vol] 11.5 mmol/L 6.0-15.0 [facility] Sodium [Moles/volume] in Ser um or PlasmaOrdered By: Malvin Garcia on 10-14-2023 Sodium [Moles/Vol] 138 mmol/L 136-145 [facility] Urea nitrogen [Mass/volume] in Serum or PlasmaOrdered By: Malvin Garcia on 10-14-2023 Urea nitrogen [Mass/Vol] 11 mg/dL 7-25 [facility] WBC Auto (Bld) [#/Vol]Ordere d By: Malvin Garcia on 10-14-2023 WBC (Bld) [#/Vol] 9.2 10*3/uL 4.1-10.5 [facility] ANGIOTENSION-CONVERTING ENZY ME (CATALINO)on 11-26-2022 CATALINO 45 U/L Normal 14-82 [facility] Comment on above: Performed By: #### [facility] #### [facility] [address] [address] [address] Gale Hopper LYME DISEASE AB EIA W REFLEX on 11-26-2022 Lyme Total Antibody,EIA Negative Normal Negative [facility] Comment on above: Result Comment: Lyme antibodies [...] recommended. Performed By: #### L YMA #### [facility] [address] [place] [address] Dr. Gale Hopper TOXOPLASMA GONDII AB QUANTIT ATIONon 11-26-2022 Comment: Comment Normal [facility] Comment on above: Result Comment: It i s presumed the patient has not been infected with and is not undergoing an acute infection with Toxoplasma. If symptoms persist, submit a new specimen after three weeks. Performed By: #### T OXQN #### [facility] [address] [place] [address] Dr. Gale Hopper Toxoplasma gondii Ab,IgM,Qn <3.0 Normal 0.0-7.9 [facility] Comment on above: Result Comment: Nega tive <8.0 Equivocal 8.0 - 9.9 Positive >9.9 Performed By: #### T OXQN #### [facility] [address] [place] [address] Dr. Gale Hopper TOXOPLASMA GONDII IGG ABon 0 11-26-2022 Toxoplasma gondii Ab,IgG,Qn <3.0 Normal 0.0-7.1 [facility] Comment on above: Result Comment: Nega tive <7.2 Equivocal 7.2 - 8.7 Positive >8.7 Performed By: #### T OXPIGG #### [facility] [address] [place] [address] Dr. Gale Hopper Hep C Ab wRfx to Qnt PCRon 0 11-20-2022 Hepatitis C Virus Antibody Non-Reactive Normal Non Reactive [facility] Comment on above: Performed By: #### H BSAB, HBCAB, HBSAG, QUANT TB, HCV RX PCR #### [facility] , Interpretation Hepatitis C Normal . [facility] Comment on above: Result Comment: Not infected with HCV unless early or acute infection is suspected (which may be delayed in an immunocompromised individual), or other evidence exists to indicate HCV infection. Performed By: #### H BSAB, HBCAB, HBSAG, QUANT TB, HCV RX PCR #### [facility] , Hepatitis B Core Antibodyon 11-20-2022 Hepatitis B Core Antibody Negative Normal Negative [facility] Comment on above: Result Comment: Perf ormed at: [facility] [id number] [employer]: Anders [place] PhD, Phone: [phone] Performed By: #### H BSAB, HBCAB, HBSAG, QUANT TB, HCV RX PCR #### [facility] , Hepatitis B Surface Antibody on 11-20-2022 Hepatitis B Surface Antibody Reactive Normal . [facility] Comment on above: Result Comment: Non Reactive: Inconsistent with immunity, less than 10 mIU/mL Reactive: Consistent with immunity, greater than 9.9 mIU/mL Performed By: #### H BSAB, HBCAB, HBSAG, QUANT TB, HCV RX PCR #### [facility] , Hepatitis B Surface Antigeno n 11-20-2022 HBsAg Screen Negative Normal Negative [facility] Comment on above: Result Comment: PERF ORMED BY: [facility] [address] [place] [address] PATHOLOGIST CERTIFIED NURSING ATTENDANT PILLO SALAS M.D. Performed By: #### H BSAB, HBCAB, HBSAG, QUANT TB, HCV RX PCR #### [facility] , QuantiFERON TB Goldon 2022 QFTB Criteria Normal . [facility] Comment on above: Result Comment: Tyler [...] Quant TB Ag Value 0.06 Normal . [facility] Comment on above: Performed By: #### H BSAB, HBCAB, HBSAG, QUANT TB, HCV RX PCR #### [facility] , Quant TB Gold Plus Negative Normal Negative [facility] Comment on above: Result Comment: No [...] interferon gamma. Chemiluminescence immunoassay methodology Performed at: [facility] [address] [id number] [employer]: Anders [place] PhD, Phone: [phone] PERFORMED BY: [place] [address] PATHOLOGIST CERTIFIED NURSING ATTENDANT PILLO SALAS M.D. Performed By: #### H BSAB, HBCAB, HBSAG, QUANT TB, HCV RX PCR #### [facility] , Quant TB2 Ag Value 0.16 Normal . [facility] Comment on above: Performed By: #### H BSAB, HBCAB, HBSAG, QUANT TB, HCV RX PCR #### [facility] , Quantiferon Nil Value 0.03 Normal . [facility] Comment on above: Performed By: #### H BSAB, HBCAB, HBSAG, QUANT TB, HCV RX PCR #### [facility] , Quantiferon TB Mitogen >10.00 Normal . [facility] Comment on above: Performed By: #### H BSAB, HBCAB, HBSAG, QUANT TB, HCV RX PCR #### [facility] , XR chest 2V*on 11-20-2022 XR chest 2V* [facility] [place] [address] [place] [address] XRay Report Signed Patient: Raz Holland MR#: [id number] 2 : 1985 Acct:[id number] Age/Sex: 37 / M ADM Date: 11/20/22 Loc: ICXD Room: Type: [facility] Attending Dr: Awais Garcia MD Copies to: [...] Weston Jr., D.O.11/20/2022 3:04 PM Dictation Location: [place] [address] Transcribed By: [facility] 11/20/22 1504 Dictated By: Dewey Weston Jr, DO 11/20/22 1504 Signed By: 11/20/22 1504 [facility] CBC AUTO DIFFon 11-13-2022 BASO # 0.1 103/ul Normal 0.0-0.1 [facility] Comment on above: Performed By: #### C BC #### [facility] [address] [place] [address] Dr. Gale Hopper Basophils/100 WBC (Bld) 0.5 % Normal 0.2-2.0 [facility] Comment on above: Performed By: #### C BC #### [facility] [address] [place] [address] Dr. Gale Hopper EO # 0.1 103/ul Normal 0.0-0.7 [facility] Comment on above: Performed By: #### C BC #### [facility] [address] [address] [address] Gale Hopper Eosinophils/100 WBC (Bld) 1.1 % Normal 0.9-7.0 [facility] Comment on above: Performed By: #### C BC #### [facility] [address] [place] [address] Dr. Gale Hopper Erythrocyte distribution width (RBC) [Ratio] 12.6 % Normal 11.0-15.0 [facility] Comment on above: Performed By: #### C BC #### [facility] [address] [address] [address] Gale Hopper Hematocrit (Bld) [Volume fraction] 45.9 % Normal 42.0-54.0 [facility] Comment on above: Performed By: #### C BC #### [facility] [address] [place] [address] Dr. Gale Hopper Hemoglobin (Bld) [Mass/Vol] 15.7 g/dL Normal 14.0-18.0 [facility] Comment on above: Performed By: #### C BC #### [facility] [address] [place] [address] Dr. Gale Hopper IG # 0.04 10e3/ul Critically high 0.00-0.03 [facility] Comment on above: Performed By: #### C BC #### [facility] [address] [place] [address] Dr. Gale Hopper IG % 0.4 % Normal 0.0-0.5 [facility] Comment on above: Performed By: #### C BC #### [facility] [address] [place] [address] Dr. Gale Hopper LYMPH # 2.9 103/ul Normal 1.2-3.8 [facility] Comment on above: Performed By: #### C BC #### [facility] [address] [place] [address] Dr. Gale Hopper Lymphocytes/100 WBC (Bld) 29.5 % Normal 20.5-60.0 [facility] Comment on above: Performed By: #### C BC #### [facility] [address] [place] [address] Dr. Gale Hopper MANUAL DIFF REQ NO Normal [facility] Comment on above: Performed By: #### C BC #### [facility] [address] [place] [address] Dr. Gale Hopper MCH (RBC) [Entitic mass] 27.8 pg Normal 25.9-34.0 [facility] Comment on above: Performed By: #### C BC #### [facility] [address] [address] [address] Gale Hopper MCHC (RBC) [Mass/Vol] 34.2 g/dL Normal 29.9-35.2 [facility] Comment on above: Performed By: #### C BC #### [facility] [address] [address] [address] Gale Hopper MCV (RBC) [Entitic vol] 81.4 fL Normal 80.0-94.0 [facility] Comment on above: Performed By: #### C BC #### [facility] [address] [address] [address] Gale Hopper MONO # 0.8 103/ul Normal 0.3-0.8 [facility] Comment on above: Performed By: #### C BC #### [facility] [address] [place] [address] Dr. Gale Hopper Monocytes/100 WBC (Bld) 7.7 % Normal 1.7-12.0 [facility] Comment on above: Performed By: #### C BC #### [facility] [address] [address] [address] Gale Hopper NEUT # 6.0 103/ul Normal 1.4-6.5 [facility] Comment on above: Performed By: #### C BC #### [facility] [address] [address] [address] Gale Hopper Neutrophils/100 WBC (Bld) 60.8 % Normal 43.0-75.0 [facility] Comment on above: Performed By: #### C BC #### [facility] [address] [address] [address] Gale Hopper Platelet mean volume (Bld) [Entitic vol] 9.2 fL Critically low 9.5-13.5 [facility] Comment on above: Performed By: #### C BC #### [facility] [address] [address] [address] Gale Hopper PLT 298 103/ul Normal 150-450 [facility] Comment on above: Performed By: #### C BC #### [facility] [address] [place] [address] Dr. Gale Hopper RBC 5.64 106/ul Normal 4.70-6.10 [facility] Comment on above: Performed By: #### C BC #### [facility] [address] [place] [address] Dr. Gale Hopper WBC 9.9 103/ul Normal 4.0-11.0 [facility] Comment on above: Performed By: #### C BC #### [facility] [address] [place] [address] Dr. Gale Hopper CRPon 11-13-2022 CRP 0.5 mg/dL Normal <=1.0 [facility] Comment on above: Performed By: #### C RP, CMP #### [facility] [address] [place] [address] Dr. Gale Hopper LIPID PROFILEon 11-13-2022 CHOL-HDL RATIO NORM SEE BELOW Normal [facility] Comment on above: Result Comment: 3.3 - 4.4 LOW RISK 4.4 - 7.1 AVERAGE RISK 7.1 - 11.0 MODERATE RISK >11.0 HIGH RISK Performed By: #### L IPID #### [facility] [address] [place] [address] Dr. Gale Hopper Cholesterol [Mass/Vol] 273 mg/dL Critically high <=200 [facility] Comment on above: Performed By: #### L IPID #### [facility] [address] [place] [address] Dr. Gale Hopper Cholesterol in HDL [Mass/Vol] 43 mg/dL Normal 40-60 [facility] Comment on above: Performed By: #### L IPID #### [facility] [address] [place] [address] Dr. Gale Hopper Cholesterol in LDL [Mass/Vol] 196.2 mg/dL Normal [facility] Comment on above: Performed By: #### L IPID #### [facility] [address] [place] [address] Dr. Gale Hopper Cholesterol.total/Sima sterol in HDL [Mass ratio] 6.3 {ratio} Normal [facility] Comment on above: Performed By: #### L IPID #### [facility] [address] [address] [address] Gale Hopper HDL NORMAL > or = 60 mg/dl - LOW CARDIOVASCULAR RISK <40 mg/dl - HIGH CARDIOVASCULAR RISK Normal [facility] Comment on above: Performed By: #### L IPID #### [facility] [address] [address] [address] Gale Hopper LDL CALC NORMAL SEE BELOW Normal [facility] Comment on above: Result Comment: <100 mg/dl OPTIMAL 100 - 129 mg/dl NEAR OR ABOVE OPTIMAL 130 - 159 mg/dl BORDERLINE HIGH 160 - 189 mg/dl HIGH >190 mg/dl VERY HIGH Performed By: #### L IPID #### [facility] [address] [place] [address] Dr. Gale Hopper Triglyceride [Mass/Vol] 169 mg/dL Critically high <=150 [facility] Comment on above: Performed By: #### L IPID #### [facility] [address] [place] [address] Dr. Gale Hopper VLDL CALC 33.8 mg/dL Normal [facility] Comment on above: Performed By: #### L IPID #### [facility] [address] [place] [address] Dr. Gale Hopper PROF 14(COMP METB)on 023 Albumin [Mass/Vol] 3.8 g/dL Normal 3.4-5.0 [facility] Comment on above: Performed By: #### C RP, CMP #### [facility] [address] [place] [address] Dr. Gale Hopper Albumin/Globulin [Mass ratio] 0.8 {ratio} Normal [facility] Comment on above: Performed By: #### C RP, CMP #### [facility] [address] [place] [address] Dr. Gale Hopper ALP [Catalytic activity/Vol] 76 U/L Normal 46-116 [facility] Comment on above: Performed By: #### C RP, CMP #### [facility] [address] [address] [address] Gale Hopper ALT [Catalytic activity/Vol] 40 U/L Normal 16-63 [facility] Comment on above: Performed By: #### C RP, CMP #### [facility] [address] [place] [address] Dr. Gale Hopper Anion gap [Moles/Vol] 13.6 mmol/L Normal [facility] Comment on above: Performed By: #### C RP, CMP #### [facility] [address] [place] [address] Dr. Gale Hopper AST [Catalytic activity/Vol] 21 U/L Normal 15-37 [facility] Comment on above: Performed By: #### C RP, CMP #### [facility] [address] [place] [address] Dr. Gale Hopper Bilirubin [Mass/Vol] 0.4 mg/dL Normal 0.2-1.0 [facility] Comment on above: Performed By: #### C RP, CMP #### [facility] [address] [place] [address] Dr. Gale Hopper Calcium [Mass/Vol] 9.4 mg/dL Normal 8.5-10.1 [facility] Comment on above: Performed By: #### C RP, CMP #### [facility] [address] [place] [address] Dr. Gale Hopper Chloride [Moles/Vol] 104 mmol/L Normal 98-107 [facility] Comment on above: Performed By: #### C RP, CMP #### [facility] [address] [place] [address] Dr. Gale Hopper CO2 [Moles/Vol] 26.4 mmol/L Normal 21.0-32.0 [facility] Comment on above: Performed By: #### C RP, CMP #### [facility] [address] [place] [address] Dr. Gale Hopper Creatinine [Mass/Vol] 1.01 mg/dL Normal 0.70-1.30 [facility] Comment on above: Performed By: #### C RP, CMP #### [facility] [address] [address] [address] Gale Hopper EGFR-AF AUSTRIAN >60 Normal >=60 [facility] Comment on above: Performed By: #### C RP, CMP #### [facility] [address] [address] [address] Gale Hopper EGFR-NON AF AUSTRIAN >60 Normal >=60 [facility] Comment on above: Performed By: #### C RP, CMP #### [facility] [address] [address] [address] Gale Hopper Globulin (S) [Mass/Vol] 4.7 g/dL Normal [facility] Comment on above: Performed By: #### C RP, CMP #### [facility] [address] [place] [address] Dr. Gale Hopper Glucose [Mass/Vol] 114 mg/dL Critically high 74-106 [facility] Comment on above: Performed By: #### C RP, CMP #### [facility] [address] [address] [address] Gale Hopper Potassium [Moles/Vol] 4.0 mmol/L Normal 3.5-5.1 [facility] Comment on above: Performed By: #### C RP, CMP #### [facility] [address] [place] [address] Dr. Gale Hopper Protein [Mass/Vol] 8.5 g/dL Critically high 6.4-8.2 [facility] Comment on above: Performed By: #### C RP, CMP #### [facility] [address] [place] [address] Dr. Gale Hopper Sodium [Moles/Vol] 140 mmol/L Normal 136-145 [facility] Comment on above: Performed By: #### C RP, CMP #### [facility] [address] [place] [address] Dr. Gale Hopper Urea nitrogen [Mass/Vol] 13.0 mg/dL Normal 7.0-18.0 [facility] Comment on above: Performed By: #### C RP, CMP #### [facility] [address] [place] [address] Dr. Gale Hopper Urea nitrogen/Creatinine [Mass ratio] 12.9 mg/mg Normal [facility] Comment on above: Performed By: #### C RP, CMP #### [facility] [address] [place] [address] Dr. Gale Hopper SED RATE WESTERGRENon 2022 SED RATE 26 mm/hr Critically high <=15 [facility] Comment on above: Performed By: #### S EDR #### [facility] [address] [place] [address] Dr. Gale Hopper UA RANDOM W/MICROSCOPICon BACTERIA NONE SEEN Normal NONE SEEN [facility] Comment on above: Performed By: #### U AMIC #### [facility] [address] [place] [address] Dr. Gale Hopper Bilirubin Ql (U) Negative Normal NEGATIVE [facility] Comment on above: Performed By: #### U AMIC #### [facility] [address] [place] [address] Dr. Gale Hopper CAST NONE SEEN Normal NONE SEEN [facility] Comment on above: Performed By: #### U AMIC #### [facility] [address] [place] [address] Dr. Gale Hopper Clarity (U) CLEAR Normal CLEAR [facility] Comment on above: Performed By: #### U AMIC #### [facility] [address] [place] [address] Dr. Gale Hopper Color (U) YELLOW Normal YELLOW [facility] Comment on above: Performed By: #### U AMIC #### [facility] [address] [place] [address] Dr. Gale Hopper Crystals LM Nom (Urine sed) NONE SEEN Normal NONE SEEN [facility] Comment on above: Performed By: #### U AMIC #### [facility] [address] [place] [address] Dr. Gale Hopper Epithelial cells LM Ql (Urine sed) NONE SEEN Normal NONE SEEN /RARE [facility] Comment on above: Performed By: #### U AMIC #### [facility] [address] [address] [address] Gale Hopper Glucose Ql (U) Negative Normal NEGATIVE [facility] [place] Comment on above: Performed By: #### U AMIC #### [facility] [address] [address] [address] Gale Hopper Hemoglobin Ql (U) Negative Normal NEGATIVE [facility] Comment on above: Performed By: #### U AMIC #### [facility] [address] [address] [address] Gale Hopper Ketones Ql (U) Negative Normal NEGATIVE [facility] Comment on above: Performed By: #### U AMIC #### [facility] [address] [address] [address] Gale Hopper LEUKOCYTES Negative Normal NEGATIVE [facility] Comment on above: Performed By: #### U AMIC #### [facility] [address] [place] [address] Dr. Gale Hopper MUCOUS NONE SEEN Normal NONE SEEN [facility] Comment on above: Performed By: #### U AMIC #### [facility] [address] [place] [address] Dr. Gale Hopper Nitrite Ql (U) Negative Normal NEGATIVE [facility] [place] Comment on above: Performed By: #### U AMIC #### [facility] [address] [place] [address] Dr. Gale Hopper pH (U) 6.0 [pH] Normal 5-9 [facility] Comment on above: Performed By: #### U AMIC #### [facility] [address] [place] [address] Dr. Gale Hopper RBC 0-2 Normal 0-2 [facility] Comment on above: Performed By: #### U AMIC #### [facility] [address] [place] [address] Dr. Gale Hopper SPEC GRAVITY >=1.030 Abnormal 1.005-<=1.0 25 [facility] Comment on above: Performed By: #### U AMIC #### [facility] [address] [place] [address] Dr. Gale Hopper UA PROTEIN Negative Normal NEGATIVE/ TRACE [facility] Comment on above: Performed By: #### U AMIC #### [facility] [address] [address] [address] Gale Hopper Urobilinogen Qn (U) 0.2 {Kellie'U}/dL Normal 0.2 - 1. 0 [facility] Comment on above: Performed By: #### U AMIC #### [facility] [address] [address] [address] Gale Hopper WBC NONE SEEN Normal NONE SEEN [facility] Comment on above: Performed By: #### U AMIC #### [facility] [address] [address] [address] Gale Islas 08-12-2022 CNPN Telephone (OPHTMN) ---- RAZ HOLLAND ([id number]) 1985 M Date Time Provider Department 08/12/22 ASHLEY CEDENO During your visit today, we recorded the [...] Appointment Dr. 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 Allergies As of Date: 08/12/2022 (Not on File) Date Reviewed: Never Reviewed Reason for Visit: Appointment [[id number]] Received Outside Medical Records [[id number]] Cmt: Notes received [facility] - on provider's desk (CYL) Problem List As Of Date: 08/12/2022 (None) Encounter Status:Closed by LULÚ KAMARA on 08/12/22 Normal [facility] Albumin [Mass/volume] in Ser um or PlasmaOrdered By: Malvin Garcia on 12-17-2021 Albumin [Mass/Vol] 4.0 g/dL 3.2-5.5 [facility] Automated erythrocytes count in urine sediment (number/area)Ordered By: Malvin Garcia on 12-17-2021 RBC Auto (Urine sed) [#/Area] 0-1 [HPF] [facility] Automated leukocytes count i n urine sediment (number/area)Ordered By: Malvin Garcia on 12-17-2021 WBC Auto (Urine sed) [#/Area] 0-1 [HPF] [facility] Basophils Auto (Bld) [#/Vol] Ordered By: Malvin Garcia on 12-17-2021 Basophils (Bld) [#/Vol] 0.1 10*3/uL 0.0-0.2 [facility] Basophils/100 WBC Auto (Bld) Ordered By: Malvin Garcia on 12-17-2021 Basophils/100 WBC (Bld) 0.6 % [facility] Bilirubin Test strip Ql (U)O rdered By: Malvin Garcia on 12-17-2021 Bilirubin Ql (U) Negative Negative [facility] Blood hemoglobin measurement (mass/volume)Ordered By: Malvin Garcia on 12-17-2021 Hemoglobin (Bld) [Mass/Vol] 15.9 g/dL 13.0-17.0 [facility] Blood leukocytes automated c ount (number/volume)Ordered By: Malvin Garcia on 12-17-2021 WBC (Bld) [#/Vol] 10.5 10*3/uL 4.5-11.0 [facility] Color Auto (U)Ordered By: Quynh Garcia on 12-17-2021 Color (U) Yellow Yellow [facility] Creatine kinase [Enzymatic a ctivity/volume] in Serum or PlasmaOrdered By: Malvin Garcia on 12-17-2021 CK [Catalytic activity/Vol] 75 U/L 22-269 [facility] Creatinine and Glomerular fi ltration rate.predicted panel (S/P/Bld)Ordered By: Malvin Garcia on 12-17-2021 Creatinine [Mass/Vol] 0.90 mg/dL 0.64-1.27 [facility] Eosinophils Auto (Bld) [#/Vo l]Ordered By: Malvin Garcia on 12-17-2021 Eosinophils (Bld) [#/Vol] 0.1 10*3/uL 0.0-0.45 [facility] Eosinophils/100 WBC Auto (Bl d)Ordered By: Malvin Garcia on 12-17-2021 Eosinophils/100 WBC (Bld) 1.1 % [facility] Erythrocyte distribution wid th Auto (RBC) [Ratio]Ordered By: Malvin Garcia on 12-17-2021 Erythrocyte distribution width (RBC) [Ratio] 13.5 % 12.0-14.8 [facility] Erythrocyte sedimentation ra te by Photometric methodOrdered By: Malvin Garcia on 12-17-2021 ESR Photometric method (Bld) [Velocity] 31 mm/hr 0-14 [facility] Estimated glomerular filtrat ion rate (GFR) non- AmericanOrdered By: Malvin Garcia on 12-17-2021 GFR/1.73 sq M.predicted among non-blacks MDRD (S/P/Bld) [Vol rate/Area] > 60 mL/Min [facility] Globulin Calc (S) [Mass/Vol] Ordered By: Malvin Garcia on 12-17-2021 Globulin (S) [Mass/Vol] 4.0 g/dL [facility] Hematocrit Auto (Bld) [Volum e fraction]Ordered By: Malvin Garcia on 12-17-2021 Hematocrit (Bld) [Volume fraction] 46.9 % 38.8-50.0 [facility] Ketones Auto test strip (U) [Mass/Vol]Ordered By: Malvin Garcia on 12-17-2021 Ketones (U) [Mass/Vol] Negative Negative [facility] - Hematology and Cell countsOrdered By: Malvin Garcia on 12-17-2021 Nucleated RBC/100 WBC (Bld) [Ratio] 0.0 % 0-0.5 [facility] - UrinalysisOrder ed By: Malvin Garcia on 12-17-2021 Hyaline casts LM Ql (Urine sed) None seen [LPF] [facility] Lymphocytes Auto (Bld) [#/Vo l]Ordered By: Malvin Garcia on 12-17-2021 Lymphocytes (Bld) [#/Vol] 3.3 10*3/uL 1.00-4.8 [facility] Lymphocytes/100 WBC Auto (Bl d)Ordered By: Malvin Garcia on 12-17-2021 Lymphocytes/100 WBC (Bld) 31.8 % [facility] MCH Auto (RBC) [Entitic mass ]Ordered By: Malvin Garcia on 12-17-2021 MCH (RBC) [Entitic mass] 28.5 pg 27.5-35.2 [facility] MCHC Auto (RBC) [Mass/Vol]Or dered By: Malvin Garcia on 12-17-2021 MCHC (RBC) [Mass/Vol] 33.9 g/dL 32.5-35.6 [facility] MCV Auto (RBC) [Entitic vol] Ordered By: Malvin Garcia on 12-17-2021 MCV (RBC) [Entitic vol] 84.1 fL 83.5-101 [facility] Monocytes Auto (Bld) [#/Vol] Ordered By: Malvin Garcia on 12-17-2021 Monocytes (Bld) [#/Vol] 1.1 10*3/uL 0.0-0.8 [facility] Monocytes/100 WBC Auto (Bld) Ordered By: Malvin Garcia on 12-17-2021 Monocytes/100 WBC (Bld) 10.8 % [facility] Neutrophils Auto (Bld) [#/Vo l]Ordered By: Malvin Garcia on 12-17-2021 Neutrophils (Bld) [#/Vol] 5.8 10*3/uL 1.8-7.7 [facility] Neutrophils/100 WBC Auto (Bl d)Ordered By: Malvin Garcia on 12-17-2021 Neutrophils/100 WBC (Bld) 55.7 % [facility] Nitrite Test strip Ql (U)Ord ered By: Malvin Garcia on 12-17-2021 Nitrite Ql (U) Negative Negative [facility] No Panel InformationOrdered By: Malvin Garcia on 12-17-2021 Estimated GFR () > 60 mL/Min [facility] Comment on above: GFR estimated refere nce range: According to KDOQI guidelines, <60 ml/min/1.73m2 is sufficient to diagnose a patient with chronic kidney disease. Pharmacy Creatinine Clearance (Chem N/A [facility] Platelet mean volume Auto (B ld) [Entitic vol]Ordered By: Malvin Garcia on 12-17-2021 Platelet mean volume (Bld) [Entitic vol] 8.1 fL 6.6-10.1 [facility] Platelets Auto (Bld) [#/Vol] Ordered By: Malvin Garcia on 12-17-2021 Platelets (Bld) [#/Vol] 293 10*3/uL 150-450 [facility] Protein Auto test strip (U) [Mass/Vol]Ordered By: Malvin Garcia on 12-17-2021 Protein (U) [Mass/Vol] Negative Negative [facility] Protein [Mass/volume] in Ser um or PlasmaOrdered By: Malvin Garcia on 12-17-2021 Protein [Mass/Vol] 8.0 g/dL 6.1-7.9 [facility] RBC Auto (Bld) [#/Vol]Ordere d By: Malvin Garcia on 12-17-2021 RBC (Bld) [#/Vol] 5.58 10*6/uL 3.90-5.60 [facility] Serum or plasma C reactive p rotein measurement (mass/volume)Ordered By: Malvin Garcia on 12-17-2021 CRP [Mass/Vol] 1.1 mg/dL 0.0-1.0 [facility] Serum or plasma alanine sy otransferase measurement without P-5'-P (enzymatic activiOrdered By: Malvin Garcia on 12-17-2021 ALT No additional P-5'-P [Catalytic activity/Vol] 35 U/L 10-60 [facility] Serum or plasma albumin/glob ulin mass ratioOrdered By: Malvin Garcia on 12-17-2021 Albumin/Globulin [Mass ratio] 1.0 {ratio} [facility] Serum or plasma alkaline guzman sphatase measurement (enzymatic activity/volume)Ordered By: Malvin Garcia on 12-17-2021 ALP [Catalytic activity/Vol] 72 U/L 32-92 [facility] Serum or plasma aspartate am inotransferase measurement (enzymatic activity/volume)Ordered By: Malvin Garcia on 12-17-2021 AST [Catalytic activity/Vol] 22 U/L 10-42 [facility] Serum or plasma calcium roosevelt urement (mass/volume)Ordered By: Malvin Garcia on 12-17-2021 Calcium [Mass/Vol] 9.6 mg/dL 8.2-10.2 [facility] Serum or plasma chloride thea surement (moles/volume)Ordered By: Malvin Garcia on 12-17-2021 Chloride [Moles/Vol] 105 mmol/L 95-114 [facility] Serum or plasma glucose roosevelt urement (mass/volume)Ordered By: Malvin Garcia on 12-17-2021 Glucose [Mass/Vol] 74 mg/dL 70-100 [facility] Comment on above: ADA recommended refe rence rangeRandom Glucose Reference Range is dependent on time and content of last meal. Glucose of more than 200 mg/dL in a nonstressed, ambulatory subject supports the diagnosis of Diabetes Mellitus. Serum or plasma potassium me asurement (moles/volume)Ordered By: Malvin Garcia on 12-17-2021 Potassium [Moles/Vol] 4.3 mmol/L 3.5-5.1 [facility] Serum or plasma sodium measu rement (moles/volume)Ordered By: Malvin Garcia on 12-17-2021 Sodium [Moles/Vol] 139 mmol/L 136-146 [facility] Serum or plasma total biliru bin measurement (mass/volume)Ordered By: Malvin Garcia on 12-17-2021 Bilirubin [Mass/Vol] 0.4 mg/dL 0.3-1.2 [facility] Serum or plasma total carbon dioxide measurement (moles/volume)Ordered By: Malvin Garcia on 12-17-2021 CO2 [Moles/Vol] 23.7 mmol/L 22.0-30.0 [facility] Serum or plasma urea nitroge n measurement (mass/volume)Ordered By: Malvin Garcia on 12-17-2021 Urea nitrogen [Mass/Vol] 14 mg/dL 9-23 [facility] Specific gravity Auto test s trip (U) [Rel density]Ordered By: Malvin Garcia on 12-17-2021 Specific gravity (U) [Rel density] 1.028 1.001-1.030 [facility] Squamous epithelial cells de tection in urine sediment by light microscopyOrdered By: Malvin Garcia on 12-17-2021 Epithelial cells.squamous LM Ql (Urine sed) None seen [HPF] [facility] TSH DL <= 0.005 mIU/L QnOrde red By: Malvin Garcia on 12-17-2021 TSH Qn 2.31 m[IU]/L 0.45-5.33 [facility] Thyroxine (T4) free [Mass/vo lume] in Serum or PlasmaOrdered By: Malvin Garcia on 12-17-2021 Free T4 [Mass/Vol] 0.88 ng/dL 0.61-1.12 [facility] Urine bacteria detection by automated methodOrdered By: Malvin Garcia on 12-17-2021 Bacteria Auto Ql (U) None seen None Seen [facility] Urine clarity by refractomet ry automatedOrdered By: Malvin Garcia on 12-17-2021 Clarity Refractometry automated (U) Clear Clear [facility] Urine glucose measurement by automated test strip (mass/volume)Ordered By: Malvin Garcia on 12-17-2021 Glucose Auto test strip (U) [Mass/Vol] Normal mg/dL Normal [facility] Urine hemoglobin detection b y automated test stripOrdered By: Malvin Garcia on 12-17-2021 Hemoglobin Auto test strip Ql (U) Negative Negative [facility] Urine leukocyte esterase det ection by automated test stripOrdered By: Malvin Garcia on 12-17-2021 Leukocyte esterase Auto test strip Ql (U) Negative Negative [facility] Urobilinogen Auto test strip (U) [Mass/Vol]Ordered By: Malvin Garcia on 12-17-2021 Urobilinogen (U) [Mass/Vol] Normal mg/dL Normal [facility] pH Auto test strip (U)Ordere d By: Malvin Garcia on 12-17-2021 pH (U) 6.5 [pH] 5.0-9.0 [facility] No Panel Information [facility] Vital Signs Date Time Vital Sign Value Performing Clinician Facility 06-23-2024 15:37-0400 Body height 172.7 cm Serenity Aichholz [employer] Work Phone: [facility] 06-23-2024 15:37-0400 Body mass index (BMI) [Ratio] 35.64 kg/m2 Serenity Riana [employer] Work Phone: [facility] 06-23-2024 15:37-0400 Body temperature 97.81 [degF] Serenity Riana [employer] Work Phone: [facility] 06-23-2024 15:37-0400 Body weight 106.32 kg Serenity Riana [employer] Work Phone: [facility] 06-23-2024 15:37-0400 Diastolic blood pressure 86 mm[Hg] Serenity Riana [employer] Work Phone: [facility] 06-23-2024 15:37-0400 Heart rate 96 /min Serenity Riana [employer] Work Phone: [facility] 06-23-2024 15:37-0400 Respiratory rate 18 /min Serenity Riana [employer] Work Phone: [facility] 06-23-2024 15:37-0400 SaO2% (BldA) [Mass fraction] 99 % Serenity Riana [employer] Work Phone: [facility] 06-23-2024 15:37-0400 Systolic blood pressure 138 mm[Hg] Serenity Riana [employer] Work Phone: [facility] 11-02-2023 13:31-0500 Body height 172.7 cm [facility] 2 [facility] 11-02-2023 13:31-0500 Body mass index (BMI) [Ratio] 35.43 kg/m2 [facility] 2 [facility] 11-02-2023 13:31-0500 Body weight 105.69 kg Pm 2 [facility] Encounters Encounter Date Encounter Type Care Provider Facility Start: 06-23-2024 End: 06-23-2024 ambulatory SERENITY MAYERS Not Available Start: 06-23-2024 End: 06-23-2024 Office outpatient visit 15 minutes Serenity Mayers [employer] Work Phone: [facility] Comment on above: Primary hypertension (CMS/HCC) (Primary Dx); Morbid (severe) obesity due to excess calories (CMS/HCC); Body mass index (BMI) 35.0-35.9, adult Start: 06-23-2024 End: 06-23-2024 Bamboo flowsheet Serenity Mayers [employer] Work Phone: [facility] Start: 06-23-2024 End: 06-23-2024 Bamboo flowsheet Serenity Mayers [employer] Work Phone: [facility] Start: 05-31-2024 End: 05-31-2024 ambulatory SERENITY SARIAHHHOLZ Not Available Start: 05-25-2024 End: 05-25-2024 ambulatory SERENITY AICHHOLZ Not Available Start: 11-23-2023 End: 11-23-2023 ambulatory SERENITY SARIAHHHOLZ Not Available Start: 11-19-2023 End: 11-19-2023 Evaluation and management of inpatient ARELYGail FULTON [facility] Start: 11-19-2023 End: 11-19-2023 Evaluation and management of inpatient STEFANIAJAMES ZIMMER [facility] Start: 11-02-2023 End: 11-03-2023 ambulatory ANDREA Lopez SUKUMAR [facility] Start: 11-02-2023 Encounter for other preprocedural examination [facility] Start: 11-02-2023 End: 11-02-2023 Patient encounter procedure [facility] Pre-Admission Testing 2 [facility] - Pre Admit Comment on above: Preop examination (P rimary Dx); Hypertension, unspecified type Start: 11-02-2023 End: 11-02-2023 Preprocedural examination done [facility] 2 [facility] Start: 10-14-2023 End: 10-14-2023 ambulatory Malvin Garcia Facility:[facility] Start: 10-14-2023 End: 10-14-2023 ambulatory Serenity Mayers Work Phone: [facility] Work Phone: Start: 10-14-2023 End: 10-14-2023 Patient encounter procedure Serenity Castilloleonrosey Work Phone: [facility] [address] Work Phone: Start: 11-25-2022 End: 11-26-[address] DOCTOR LUCIA Facility:[facility] Start: 11-20-2022 End: 11-20-2022 ambulatory Malvin Garcia Facility:[facility] Start: 11-20-2022 End: 11-20-2022 ambulatory Serenity Champion Sariahbhartirobin Work Phone: [facility] Work Phone: Start: 11-20-2022 End: 11-20-2022 Patient encounter procedure Serenity Castilloleonrosey Work Phone: [facility] [address] Work Phone: Start: 11-13-2022 End: 11-14-[address] DOCTOR LUCIA Facility:[facility] Start: 10-17-2022 End: 10-17-2022 ambulatory CAREEN Y PAO Facility:[facility] Start: 09-19-2022 End: 09-19-2022 ambulatory CAREEN Y PAO Facility:[facility] Start: 09-19-2022 End: 09-19-2022 Patient encounter procedure Ashley Cedeno MD, PhD Work Phone: Ophthalmology Comment on above: Panuveitis, left eye (Primary Dx); HLA B27 (HLA B27 positive) Start: 08-27-2022 End: 08-27-2022 ambulatory CAREEN Y PAO Facility:[facility] Start: 08-27-2022 End: 08-27-2022 Patient encounter procedure Ashley Cedeno MD, PhD Work Phone: Ophthalmology Comment on above: Panuveitis, left eye (Primary Dx) Start: 08-13-2022 End: 08-13-2022 ambulatory CAREEN Y PAO Facility:[facility] Start: 08-13-2022 End: 08-13-2022 Patient encounter procedure Ashley Cedeno MD, PhD Work Phone: Ophthalmology Comment on above: Panuveitis, left eye (Primary Dx); Refractive error; Disseminated chorioretinitis, left Start: 12-17-2021 End: 12-17-2021 Patient encounter procedure MD Awais Garcia Work Phone: [facility] [address] Procedures Date Procedure Procedure Detail Performing Clinician Start: 11-20-2022 Plain chest X-ray Serenity Rollefernando Work Phone: Start: 08-13-2022 End: 08-13-2022 Computerized [...] Author Start: 10-01-2026 LIPID SCREEN LIPID SCREEN [facility] Start: 11-02-2024 Adult BMI Screening Adult BMI Screen ing [facility] Start: 11-02-2024 Tobacco Screening Tobacco Screening [facility] Start: 09-22-2024 End: 09-22-2024 Patient encounter procedure 09/22/2024 3:20 PM EST Office Visit [facility] [address] [place] [address] Serenity Mayers NP [address] [place] [address] [facility] Start: 11-19-2023 End: 11-19-2023 Admission to same day surgery center 11/19/2023 2:15 PM EDT - 11/19/2023 3:00 PM EDT Surgery [facility] [address] [place] [phone] Stefania Zimmer MD [address] [place] [address] [id number] EXTRACTION CATARACT INTRAOCULAR LENS [57498 (CPT )] [facility] Comment on above: EXTRACTION CATARACT INTRAOCULAR LENS [00772 (CPT )] Start: 11-19-2023 End: 11-19-2023 Anesthesia consultation 11/19/2023 2:15 PM EDT Anesthesia Event [facility] [address] [place] [phone] Arely Fulton, DO [address] [facility], [place] [phone] [facility] Start: 11-19-2023 Subsequent hospital visit by physician 11/19/2023 2:15 PM EDT Hospital Encounter [facility] [address] [place] [phone] Stefania Zimmer MD [address] [place] [address] [id number] [facility] Start: 11-19-2023 End: 11-19-2023 Xcapsl ctrc rmvl insj io lens prosth w/o ecp EXTRACTION CATARACT INTRAOCULAR LENS cataract left eye 11/19/2023 2:15 PM EDT [facility] Start: 05-08-2023 Influenza vaccination Influenza Vacc ine [facility] Start: 11-20-2022 Hepatitis B core ant ibody measurement [facility] Start: 11-20-2022 [facility] Start: 09-07-2022 DEPRESSION ASSESSMENT DEPRESSION ASS [facility] Start: 05-08-2022 Influenza vaccination INFLUENZA (#1) [facility] Start: 09-07-2021 DEPRESSION ASSESSMENT DEPRESSION ASS [facility] Start: 2005 DTaP,Tdap and Td Vac cines (1 - Tdap) DTaP,Tdap and Td Vaccines (1 - Tdap) [facility] Start: 2005 Urine microalbumin profile DTAP,TDAP,TD (1 - Tdap) [facility] Start: 2004 Adult BMI Follow Up Plan Adult BMI Follow Up Plan [facility] Start: 2004 HEPATITIS C SCREENING HEPATITIS C SC REENING [facility] Start: 2004 HIV SCREENING HIV SCREENING [facility] Start: 1998 Depression Screening Depression Scre ening [facility] Start: 1986 COVID-19 VACCINE (#1) COVID-19 VACCI NE (#1) [facility] Start: 1986 HEPATITIS B (1 of 3 - 3-dose series) HEPATITIS B (1 of 3 - 3-dose series) [facility] Aldolase measurement [facility] Work Phone: Chromatin Ab [Units/volume] in Serum or Plasma [facility] Work Phone: Hepatitis B virus bragg rface Ab [Presence] in Serum [facility] Hepatitis B virus bragg rface Ag [Presence] in Serum or Plasma by Immunoassay [facility] Hepatitis C virus Ig G Ab [Presence] in Serum or Plasma by Immunoassay [facility] HLA-B27 [Presence] b y MELLO with probe detection [facility] Work Phone: Homogenous nuclear A b pattern [Titer] in Serum [facility] Work Phone: Interferon gamma assay [facility] Mycobacterium tuberculosis stimulated gamma interferon [Interpretation] in Blood Qualitative [facility] Mycobacterium tuberculosis stimulated gamma interferon release by CD4+ and CD8+ T-cells [Units/volume] corrected for background in Blood [facility] Mycobacterium tuberculosis tuberculin stimulated gamma interferon [Presence] in Blood [facility] Nuclear Ab [Titer] i n Serum [facility] Work Phone: [facility] Immunizations Immunization Date Immunization Notes Care Provider Fa cili 06-09-2019 influenza, injectabl e, quadrivalent, preservative free Serenity Aichholz [employer] Work Phone: [facility] 06-09-2019 tetanus toxoid, redu william diphtheria toxoid, and acellular pertussis vaccine, adsorbed Serenity Aichholz [employer] DEVELOPER [employer] Work Phone: [facility] 07-08-2013 influenza virus vacc ine, unspecified formulation Serenity Aichholz [employer] DEVELOPER [employer] Work Phone: [facility] 07-25-2010 influenza virus vacc ine, live, attenuated, for intranasal use Serenity Aichholz [employer] DEVELOPER [employer] Work Phone: [facility] 09-20-2009 novel influenza-H1N1 -09, injectable Serenity Aichholz [employer] DEVELOPER [employer] Work Phone: [facility] 05-08-2009 tetanus toxoid, redu william diphtheria toxoid, and acellular pertussis vaccine, adsorbed Serenity Aichholz J[employer] DEVELOPER [employer] Work Phone: [facility] 06-23-2008 influenza virus vacc ine, live, attenuated, for intranasal use Serenity Aichholz J[employer] DEVELOPER [employer] Work Phone: [facility] 07-15-2007 influenza virus vacc ine, live, attenuated, for intranasal use Serenity Aichholz JAVA DEVELOPER [employer] Work Phone: [facility] 06-30-2006 influenza virus vacc ine, live, attenuated, for intranasal use Serenity Aichholz J[employer] DEVELOPER [employer] Work Phone: [facility] 04-28-2006 hepatitis A and hepa titis B vaccine Serenity Mayers J[employer] DEVELOPER [employer] Work Phone: [facility] 09-20-2005 hepatitis A and hepa titis B vaccine Serenity Mayers J[employer] DEVELOPER [employer] Work Phone: [facility] 08-20-2005 hepatitis A and hepa titis B vaccine Serenitynicole Mayers J[employer] DEVELOPER [employer] Work Phone: [facility] 08-20-2005 influenza virus vacc ine, split virus (incl. purified surface antigen) Serenitynicole Mayers J[employer] DEVELOPER [employer] Work Phone: [facility] 08-13-2005 meningococcal polysaccharide vaccine (MPSV4) Serenity Mayers [employer] DEVELOPER [employer] Work Phone: [facility] 08-13-2005 poliovirus vaccine, inactivated Serenitynicole [facility] JAVA DEVELOPER WITH SECURITY CLEARANCE Work Phone: [facility] 08-13-2005 tetanus and diphther ia toxoids, adsorbed, preservative free, for adult use (2 Lf of tetanus toxoid and 2 Lf of diphtheria toxoid) Serenity Mayers JAVA DEVELOPER WITH SECURITY CLEARANCE Work Phone: [facility] Payers Date Payer Category Payer Self-pay [id number] 2021 Unknown [id number] 2020 Private Health Insurance [id number] 1986 Unknown [id number] 2.16.84 [id number] 1986 Unknown [id number] 2.16.84 0.1.167414.3.579.2.593 1986 Unknown [id number] 2.16.84 0.1.800678.3.579.2.593 1986 Unknown [id number] 2.16.840.1.613940.3.579.2.1286 1986 Unknown [id number] 2.16.840.1.707342.3.579.2.1286 1986 Unknown [id number] 2.16.840.1.841536.3.579.2.6 1986 Unknown [id number] 2.16.840.1.164882.3.579.2.6 1986 Unknown [id number] 2.16.840.1.205749.3.579.2.1285 1986 Unknown [id number] 2.16.840.1.396600.3.579.2.1286 1986 Unknown [id number] 2.16.840.1.067152.3.579.2.9 1986 Unknown [id number] 2.16.840.1.868250.3.579.2.9 1986 Unknown [id number] 2.16.840.1.554112.3.579.2.1258 1986 Unknown [id number] 2.16.840.1.730164.3.579.2.1259 1959 Unknown [id number] Unknown [facility] [id number] Unknown [id number] 2.16.840.1.485422.3.579.2.531 Unknown [id number] [id number] Social History Date Type Detail Facility Tobacco smoking stat us FLIS Unknown if ever smoked [facility] Work Phone: Start: 1985 Sex Assigned At Male [facility] Start: 08-13-2022 End: 11-23-2023 Tobacco smoking status FLIS Never smoked tobacco [facility] Start: 08-13-2022 End: 11-23-2023 Tobacco use and exposure Smokeless tobacco non-user [facility] Start: 08-13-2022 End: 06-23-2024 Alcohol intake Ex-drinker (finding) [facility] Start: 08-13-2022 Alcohol Comment Rarely [facility] Start: 1985 Sex Assigned At Not on file [facility] Start: 11-02-2023 Alcohol intake Current drinke r of alcohol (finding) [facility] Start: 11-02-2023 End: 11-23-2023 History of Social function [facility] Start: 11-02-2023 End: 11-23-2023 Tobacco use panel [facility] Unknown [facility] Start: 11-02-2023 Alcohol Comment very rare [facility] Start: 11-23-2023 Alcohol Comment caffine: coffe e 1-2 weekly [facility] Clinical Notes 08-13-2022 to 06-23-2024 Serenity Mayers NP - 06/23/2024 4:16 PM EDYahaira Mayers NP - 06/23/2024 3:20 PM EDTPatient InstructionsPerioperative Nursing Note - Aislinn Green RN - 11/02/2023 1:30 PM ESTPatient Instructions Note Date & Type Note Facility 06-23-2024 History of Presen t illness Narrative Associated Problem(s): Primary hypertension (CMS/HCC) Continue amlodipine, b ashley, as well as arb Fu in 3 months Images from the original note were not included. Raz Holland is a 39 y.o. male presents with chief complaint of No chief complaint on file. HPI: Hypertension This is a chronic problem. The current episode started more than 1 year ago. The problem has been gradually improving since onset. The problem is controlled. Associated symptoms include blurred vision and chest pain (occ). Pertinent negatives include no palpitations, peripheral edema or shortness of breath. There are no associated agents to hypertension. Risk factors for coronary artery disease include male gender, obesity and dyslipidemia. Past treatments include beta blockers, calcium channel blockers and angiotensin blockers. The current treatment provides significant improvement. There are no compliance problems. There is no history of CAD/UT. SUBJECTIVE: MEDICATIONS: Current Outpatient Medications Medication Instructions amLODIPine (NORVASC) 5 mg, Oral, Daily atenolol (TENORMIN) 100 mg, Oral, Daily RT atropine 1 % ophthalmic solution instill 1 drop into left eye EVERY NIGHT brimonidine (AlphaGAN P) 0.2 % ophthalmic solution 1 drop, Ophthalmic, 3 times daily celecoxib (CELEBREX) 200 mg, Oral, 2 times daily folic acid (FOLVITE) 1,000 mcg, Daily Humira (2 Syringe) 40 mg, Every 14 days losartan (COZAAR) 100 mg, Oral, Daily methotrexate 2.5 MG tablet TAKE 6 TABLETS BY MOUTH EVERY WEEK remember your standing labs prednisoLONE acetate (Pred-Forte) 1 % ophthalmic suspension sodium chloride (Sulaiman 128) 5 % ophthalmic solution INSTILL 1 DROP INTO LEFT EYE FOUR TIMES A DAY ALLERGIES: No Known Allergies REVIEW OF SYMPTOMS: Review of Systems Constitutional: Negative for activity change, appetite change and unexpected weight change. HENT: Negative for ear pain, nosebleeds, sneezing, trouble swallowing and voice change. Eyes: Positive for blurred vision and visual disturbance. Negative for pain and discharge. Respiratory: Negative for apnea, chest tightness, shortness of breath and wheezing. Cardiovascular: Positive for chest pain (occ). Negative for palpitations and leg swelling. Gastrointestinal: Negative for abdominal distention, blood in stool, constipation and diarrhea. Genitourinary: Negative for decreased urine volume, difficulty urinating, dysuria and hematuria. Musculoskeletal: Positive for arthralgias. Skin: Negative for color change. Neurological: Negative for dizziness, tremors and seizures. Psychiatric/Behavioral: Negative for agitation, decreased concentration, hallucinations, self-injury and suicidal ideas. The patient is nervous/anxious. Hematological: Negative for adenopathy. Does not bruise/bleed easily. Endocrine: Negative for cold intolerance, heat intolerance, polydipsia and polyuria. Allergic/Immunologic: Negative for environmental allergies and food allergies. PAST MEDICAL HISTORY Past Medical History: Diagnosis Date Cataract of left eye Past Surgical History: Procedure Laterality Date WISDOM TOOTH EXTRACTION family history is not on file. OBJECTIVE: Visit Vitals BP 138/86 (BP Location: Left arm, Patient Position: Sitting, BP Cuff Size: Adult long) Pulse 96 Temp 97.8 F (Temporal) Resp 18 Ht 5' 8 Wt 234 lb 6.4 oz SpO2 99% BMI 35.64 kg/m Smoking Status Never BSA 2.26 m Physical Exam Vitals and nursing note reviewed. Constitutional: Appearance: Normal appearance. HENT: Head: Normocephalic. Right Ear: External ear normal. Left Ear: External ear normal. Nose: Nose normal. Mouth/Throat: Mouth: Mucous membranes are moist. Pharynx: Oropharynx is clear. Eyes: Extraocular Movements: Extraocular movements intact. Conjunctiva/sclera: Conjunctivae normal. Cardiovascular: Rate and Rhythm: Normal rate and regular rhythm. Pulses: Normal pulses. Heart sounds: Normal heart sounds. Pulmonary: Effort: Pulmonary effort is normal. Breath sounds: Normal breath sounds. Abdominal: General: Bowel sounds are normal. Palpations: Abdomen is soft. Musculoskeletal: Cervical back: Neck supple. Right lower leg: No edema. Left lower leg: No edema. Skin: General: Skin is warm and dry. Capillary Refill: Capillary refill takes 2 to 3 seconds. Neurological: General: No focal deficit present. Mental Status: He is alert. Psychiatric: Mood and Affect: Mood normal. Behavior: Behavior normal. Thought Content: Thought content normal. Judgment: Judgment normal. ASSESSMENT AND PLAN: No follow-ups on file. Problem List Items Addressed This Visit Primary hypertension (CMS/HCC) - Primary Continue amlodipine, b ashley, as well as arb Fu in 3 months Body mass index (BMI) 35.0-35.9, adult Morbid (severe) obesity due to excess calories (CMS/HCC) documented in this encounter [facility] 11-02-2023 Instructions Asilinn Green RN - 11/02/2023 1:30 PM EST [...] you have a Living Will/Durable Power of Network Consultant for Health Care that is not on file here, please bring a copy the day of surgery. 3. Please wash your face with baby shampoo prior to procedure as instructed by your physician. 4. NO powder, lotion, perfume/cologne, aftershave, make-up, nail ethiopian on at least one finger, deodorant, or [...] please call the Preadmission Testing office at [phone], Mon.-Fri. 7 a.m.-3 p.m. Leave a voicemail [...] prior to procedure documented in this encounter [facility] 11-02-2023 Miscellaneous Notes Preoperative Education Checklist- General Surgery date: 11/19/23 Surgery time: 2:15 p.m. Arrival time: 12:15 p.m. 1. Bring a photo ID and your insurance card with you the day of surgery. You will check in at the main lobby registration desk as soon as you walk in the entrance. 2. If you have a Living Will/Durable Power of Network Consultant for Health Care that is not on file here, please bring a copy the day of surgery. 3. Please wash your face with baby shampoo prior to procedure as instructed by your physician. 4. NO powder, lotion, perfume/cologne, aftershave, make-up, nail ethiopian on at least one finger, deodorant, or [...] please call the Preadmission Testing office at [phone], Mon.-Fri. 7 a.m.-3 p.m. Leave a voicemail [...] Patient verbalized understanding. [facility] Nurse Note Preoperative Education Checklist- General Surgery date: 11/19/23 Surgery time: 2:15 p.m. Arrival time: 12:15 p.m. 1. Bring a photo ID and your insurance card with you the day of surgery. You will check in at the main lobby registration desk as soon as you walk in the entrance. 2. If you have a Living Will/Durable Power of Network Consultant for Health Care that is not on file here, please bring a copy the day of surgery. 3. Please wash your face with baby shampoo prior to procedure as instructed by your physician. 4. NO powder, lotion, perfume/cologne, aftershave, make-up, nail ethiopian on at least one finger, deodorant, or [...] please call the Preadmission Testing office at [phone], Mon.-Fri. 7 a.m.-3 p.m. Leave a voicemail [...] Stop taking 0 days prior to procedure [facility] 11-02-2023 Nurse Note Surgical instructions reviewed. Patient verbalized understanding. [facility] 10-17-2022 Note HNO ID: [id number] Author: Ashley Cedeno MD, PhD Service: ? [...] prednisone - Follows with rheum Dr. Garcia ([facility]) and ophtho Dr. Stefania Zimmer and Dr. Chen ([facility]) - Significantly improved on oral prednisone and PF after left eye flare in end of 2021 -Has had 2 flares OS, and one OD Workup: - HLA-B27 positive 10/01/21 - lyme, syphilis, ESTHER, SSA, SSB, zimmer, DS-DNA, Scl70, centromere, VENETIAN BLIND CLEANER AND REPAIRER, Bijal-1, RF, histone neg ROS: - back achiness, right knee pain Imaging: - per pt, has had multiple xrays of back as well as well as MRI, all of which were negative - will get sent from service planner 08/13/2022 OCT OD - WNL OS - Diffuse edema FA OD wnl OS venous engorgement, tortousity, disc leak Meds: + Senior Data Scientist once daily OS + brimonidine (ALPHAGAN) left [...] its relevant components. Ashley Cedeno MD, PhD [facility] 09-19-2022 Note HNO ID: [id number] Author: Ashley Cedeno MD, PhD Service: ? [...] prednisone - Follows with rheum Dr. Garcia ([facility]) and ophtho Dr. Stefania Zimmer and Dr. 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 Ashley Cedeno MD, PhD [facility] 09-19-2022 Instructions Ashley Cedeno MD, PhD - 09/19/2022 1:35 PM EST brimonidine (purple) left eye twice daily. dorzolamide-timolol (blue) left eye twice daily. Cyclopentolate (red) once daily at night OS Prednisone 10 mg daily x 1 week then 5 mg daily x 1 week and stop prednisolone (white) once a day left eye documented in this encounter [facility] 09-19-2022 History of Presen t illness [...] prednisone - Follows with rheum Dr. Garcia ([facility]) and ophtho Dr. Stefania Zimmer and Dr. 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 Author [...] prednisone - Follows with rheum Dr. Garcia ([facility]) and ophtho Dr. Stefania Zimmer and Dr. 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 I have seen and examined Razdavid Holland. I have discussed the case and management of this patients care with the resident or fellow if applicable. I also have reviewed and agree with the assessment and plan as stated above and agree with all of its relevant components. Ashley Cedeno MD, PhD [facility] 08-27-2022 Instructions Ashley Cedeno MD, PhD - 08/27/2022 3:56 PM EST Taper prednisone 40mg daily for one week then 20 mg daily for one week then 10 mg daily for one week - Taper prednisolone to 6 x daily x 1 week, then 4-3-2 weekly - Decrease cyclogyl to at bedtime documented in this encounter [facility] 08-27-2022 History of Presen t illness [...] prednisone - Follows with rheum Dr. Garcia ([facility]) and ophtho Dr. Stefania Zimmer and Dr. 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 [...] prednisone - Follows with rheum Dr. Garcia ([facility]) and ophtho Dr. Stefania Zimmer and Dr. 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 Ashley Cedeno MD, PhD [facility] 08-13-2022 Instructions Ashley Cedeno MD, PhD - 08/13/2022 3:09 PM EST brimonidine (ALPHAGAN - purple top) twice daily left eye dorzolamide-timolol (COSOPT - blue) twice daily left eye prednisoLONE acetate (PRED FORTE, ECONOPRED PLUS) every hour left eye cyclopentolate (red top) twice a day left eye Prednisone 60 mg (6 tablets) daily with breakfast documented in this encounter [facility] 08-13-2022 History of Presen t illness [...] prednisone - Follows with rheum Dr. Garcia ([facility]) and ophtho Dr. Stefania Zimmer and Dr. 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 - lyme, syphilis, ESTHER, SSA, SSB, zimmer, DS-DNA, Scl70, centromere, VENETIAN BLIND CLEANER AND REPAIRER, Bijal-1, RF, histone neg ROS: - back achiness, right knee pain Imaging: - per pt, has had multiple xrays of back as well as well as MRI, all of which were negative - will get sent from service planner 08/13/2022 OCT OD - WNL OS - [...] Cedeno MD, PhD documented in this encounter [facility] Evaluation note No assessment inform ation available [facility] Work Phone: Evaluation note Diagnosis Panuveitis, left eye- Primary Panuveitis Refractive error Unspecified disorder of refraction and accommodation Disseminated chorioretinitis, left [facility] Panuveitis, left eye- Primary Panuveitis [facility] Panuveitis, left eye- Primary Panuveitis HLA B27 (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 [facility] Preop examination- Primary Unspecified pre-operative examination Hypertension, unspecified type Preop examination Unspecified pre-operative examination Hypertension, unspecified type [facility] Primary hypertension (CMS/HCC)- Primary Unspecified essential hypertension Mixed hyperlipidemia (CMS/HCC) Mixed hyperlipidemia Elevated serum protein level Obesity (BMI 30-39.9) Dizziness and giddiness- Primary Morbid (severe) obesity due to excess calories (CMS/HCC) Mixed hyperlipidemia (CMS/HCC) Mixed hyperlipidemia Body mass index (BMI) 35.0-35.9, adult Primary hypertension (CMS/HCC) Unspecified essential hypertension Right ankle swelling- Primary Effusion of ankle and foot joint Primary hypertension (CMS/HCC) Unspecified essential hypertension Primary hypertension (CMS/HCC)- Primary Unspecified essential hypertension Morbid (severe) obesity due to excess calories (CMS/HCC) Body mass index (BMI) 35.0-35.9, adult documented in this encounter [facility] Medications Administered Section Active Administered Medications - up to 3 most recent administrations Medication Order MAR Action Action Date Dose Rate Site fluorescein-benoxinate 0.25-0.4 % 1 Drop (FLURESS) 1 Drop, BOTH EYES, DIRECTED, Starting on Thu08/13/22 at 1300, Until Sandy 08/14/22 at 0059, Administer for applanation tonometry. In the event of a Fluress shortage, administer Windsor-Fluor 1 drop into both eyes as directed [...] DIRECTED, Starting on Thu08/27/22 at 1530, Until Thu08/28/22 at 0329, Administer for applanation tonometry. In the event of a Fluress shortage, administer 1 drop of Alysia-Fluor into both eyes as directed for applanation tonometry. Given 08/27/2022 3:20 PM EST 1 Drop Summary Purpose Family History No Family History Records FoundNo Family History Records FoundNo Family History Records FoundNo Family History Records FoundNo Family History Records Found Advance Directives No Advanced Directives Records Found Advance Directive Response Recorded Date/ Time Advance Directives No December 20, 2:33pm Advance Directive Response Recorded Date/ Time Advance Directives No December 20 1:33pm Reason for Referral Specialty Diagnoses / Procedures Referred By Contac t Referred To Contact Diagnoses Preop examination Hypertension, unspecified type Procedures ECG 12 lead Andrea Patino MD [address] [place] [address] Referral ID Status Reason Start Date Expiration Date V isits Requested Visits Authorized [id number] Pending Review 11/02/2023 11/01/2024 1 1 Additional [...] October 14, 2023 End: October 14, 2023 Calenderer Relationship Specialty Start Date End Date Serenity Mayers, PRESCHOOL DIRECTOR-SCHOOL PHOTOGRAPHS DETAILER [address] [place] [address] PCP - General Nurse Practitioner 10/01/21 Calenderer Relationship Specialty Start Date End Date Leo Miles DO [address] [place] [address] PCP - General Family Medicine 01/13/23 Calenderer Relationship Specialty Start Date End Date Leo Miles DO [address] [place] [address] PCP - General Family Medicine 01/13/23 Goals (unrecognized section and content) Goals may [...] or prosecute any alcohol or drug abuse patient.[facility] the event this information is protected by the Federal Confidentiality of Alcohol and Drug Abuse Patient Records regulations: The Federal rules restrict any use of the information to criminally investigate or prosecute any alcohol or drug abuse patient.[facility] the event this information is protected by the Federal Confidentiality of Alcohol and Drug Abuse Patient Records regulations: The Federal rules restrict any use of the information to criminally investigate or prosecute any alcohol or drug abuse patient.[facility] Reason for Visit (unrecogniz ed section and content) Reason Comments Uveitis Evaluation NEW Specialty Diagnoses / Procedures Referred By Santana mcgrath Referred To Contact Ophthalmology / OPHTHALMOLOGY Diagnoses Iritis IRITIS. REFERRED BY DR ARSLAN CHEN Procedures OFFICE/OUTPATIENT NEW MODERATE MDM 45-59 MINUTES NEW UVEITIS Self Ashley Cedeno MD, PhD [address] [place], [place] [id number] Referral ID Status Reason Start Date Expiration Date Visits Re quested Visits Authorized [id number] Closed 08/13/2022 09/06/2022 1 1 Reason Comments Panuveitis Follow Up Specialty Diagnoses / Procedures Referred By Santana mcgrath Referred To Contact Ophthalmology / OPHTHALMOLOGY Diagnoses Iritis Return in about 2 weeks (around 08/27/2022). Procedures OFFICE/OUTPATIENT ESTABLISHED MOD MDM 30-39 MIN EST ADULT Ashley Cedeno MD, PhD [address] [address] Ashley Cedeno MD, PhD [address] [address] Referral ID Status Reason Start Date Expiration Date Visits Re quested Visits Authorized [id number] Closed 08/27/2022 09/06/2022 1 1 Reason Comments Panuveitis, left eye Specialty Diagnoses / Procedures Referred By Santana mcgrath Referred To Contact Ophthalmology / OPHTHALMOLOGY Diagnoses Return in about 3 weeks (around 09/17/2022). Procedures EST ADULT Ashley Cedeno MD, PhD [address] [place] [id number] Ashley Cedeno MD, PhD [address] [address] Referral ID Status Reason Start Date Expiration Date Visits Requested Visits Authorized [id number] Authorized Financial Clearance Not Required 09/19/2022 09/06/2023 12 12 (unrecognized sect ion and content) No Status Records FoundNo Status Records FoundNo Status Records FoundNo Status Records FoundNo Status Records Found INFORMATION SOURCE (unrecogn ized section and content) DATE CREATED AUTHOR 10/21/2022 [facility] DATE CREATED AUTHOR AUTHOR'S ORGANIZ ATION 11/30/2022 [facility] DATE CREATED AUTHOR AUTHOR'S ORGANIZ ATION 10/23/2023 [facility] DATE CREATED AUTHOR AUTHOR'S ORGANIZ ATION 11/20/2023 [facility] DATE CREATED AUTHOR AUTHOR'S ORGANIZ ATION 06/26/2024 [facility] Specialists EPIC FOR RECORDS PERTAINING TO [...] BE BASED ON THE PRIMARY CLINICAL RECORDS. [employer] [facility]. provides no warranty or guarantee of the accuracy or completeness of information in this document.
[2024-07-06 11:14] LABS: Basophils Absolute Auto 0.1 10^3/uL (0.0-0.1); Basophils Percent Auto 0.9 % (0.2-2.0); Eosinophils Absolute Auto 0.2 10^3/uL (0.0-0.7); Eosinophils Percent Auto 1.7 % (0.9-7.0); Hematocrit 42.8 % (42.0-54.0); Hemoglobin 14.6 g/dL (14.0-18.0); Immature Granulocytes Abs Auto 0.02 10^3/uL (0.00-0.03); Immature Granulocytes Pct Auto 0.2 % (0.0-0.5); Lymphocytes Absolute Auto 4.3 10^3/uL (1.2-3.8); Mean Corpuscular HGB Conc 34.1 g/dL (29.9-35.2); Mean Corpuscular Hemoglobin 28.1 pg (25.9-34.0); Mean Corpuscular Volume 82.3 fL (80.0-94.0); Mean Platelet Volume 9.2 fL (9.5-13.5); Monocytes Absolute Auto 0.9 10^3/uL (0.3-0.8); Monocytes Percent Auto 8.7 % (1.7-12.0); Neutrophils Absolute Auto 4.5 10^3/uL (1.4-6.5); Neutrophils Percent Auto 45.5 % (43.0-75.0); Platelet Count 276 10^3/uL (150-450); Red Cell Distribution Width 12.4 % (11.0-15.0)
[2024-07-06 11:43] LABS: Bilirubin Urine NEGATIVE (NEGATIVE); Blood Urine NEGATIVE (NEGATIVE); Clarity Urine CLEAR (CLEAR); Color Urine LT. YELLOW (YELLOW); Glucose Urine UA NEGATIVE (NEGATIVE); Ketones Urine NEGATIVE (NEGATIVE); Leukocyte Esterase Urine NEGATIVE (NEGATIVE); Nitrite Urine NEGATIVE (NEGATIVE); Protein Urine NEGATIVE (NEG/TRACE); Urobilinogen Urine 0.2 EU/dL (0.2-1.0)
[2024-07-06 11:46] LABS: Urine Microscopic Indicated NO
[2024-07-06 12:03] LABS: Creatinine Urine Random 139.77 mg/dL (20.00-300.00); Microalbumin Urine Random <1.3 mg/dL (<=30.0)
[2024-07-06 12:40] LABS: Alanine Aminotransferase 25 U/L (16-63); Albumin Globulin Ratio 0.7; Albumin Level 3.3 g/dL (3.4-5.0); Alkaline Phosphatase 87 U/L (46-116); Anion Gap 13.1; Aspartate Amino Transferase 14 U/L (15-37); BUN Creatinine Ratio 8.3; Bilirubin Total 0.3 mg/dL (0.2-1.0); Calcium 9.3 mg/dL (8.5-10.1); Carbon Dioxide 28.2 mmol/L (21.0-32.0); Chloride 103 mmol/L (98-107); Cholesterol 245 mg/dL (<=200); Estimated GFR (African America >60 (>=60 mL/min/1.73m^2); Estimated GFR (Non-African Ame >60 (>=60 mL/min/1.73m^2); Globulin 4.7 g/dL; Glucose 103 mg/dL (74-106); HDL Cholesterol 49 mg/dL (40-60); Potassium 4.3 mmol/L (3.5-5.1); Sodium 140 mmol/L (136-145); Triglycerides 174 mg/dL (<=150); VLDL CHOLESTEROL 34.8 mg/dL
== END 2024-07-06 10:49 | disposition home or self-care (01) ==
LOC: LAB 10:50
PROVIDERS: PCP Nurse Practitioner; Visit Provider Nurse Practitioner
DX: E78.2 Mixed hyperlipidemia (principal); I10 Essential (primary) hypertension
CPT/HCPCS: 36415; 80053; 80061; 81003; 82043; 82570; 85025

== ENCOUNTER 2025-04-20 13:30 | Outpatient (OUT) | payer OTHER, SELFPAY ==
--- OUTSIDE RECORDS SUMMARY | 2025-04-20 13:37 | XMS_ITS | CCD ---
Author Organization [facility] Care Team Providers Care Building Operator Name Role Phone MD Awais Garcia Attending Provider [phone] Unavailable Primary Care Provider Unavaildevendra e Serenity Mayers Primary Care Provider MD Awais Garcia Attending Provider [phone] MISC, DR KRAFT Admitting Unavailable MISC, DR KRAFT Attending Unavailable AICHHOLZ, WEB ARCHITECT SERENITY Primary Care Unavailable MISC, DR KRAFT Consulting Unavailable MISC, DR KRAFT Admitting Unavailable MISC, DR KRAFT Attending Unavailable AICHHOLZ, WEB ARCHITECT SERENITY Primary Care Unavailable MISC, DR KRAFT Consulting Unavailable AICHHOLZ, WEB ARCHITECT SERENITY Admitting Unavailable AICHHOLZ, WEB ARCHITECT SERENITY Attending Unavailable AICHHOLZ, WEB ARCHITECT SERENITY Consulting Unavailable Riana, Serenity J Primary Care Provider MD Malvin Garcia Attending Provider Malvin Garcia Admitting Unavailable Malvin Garcia Attending Unavailable Serenity Mayers Primary Care Unavailable Malvin Garcia Attending Unavailable Riana Serenity J Primary Care Unavailable Malvin Garcia Admitting Unavailable STEFANIA ZIMMER Admitting Unavailable STEFANIA ZIMMER Attending Unavailable RIANA SERENITY J Primary Care Unavailable ARELY FULTON Attending Unavailable ERASTOHBINH, SERENITY J Primary Care Unavailable RIANA, SERENITY J Referring Unavailable ERASTOHBINH, SERENITY J Primary Care Unavailable ANDREA PATINO Referring Unavailable RIANA, SERENITY J Primary Care Unavailable ANDREA PATINO Attending Unavailable ANDREA PATINO Referring Unavailable RIANA, SERENITY J Primary Care Unavailable Leo Miles DO Primary Care Provider SERENITY MAYERS Attending Unavailable RIANA, SERENITY Attending Unavailable RIANA, SERENITY Attending Unavailable RIANA, SERENITY Attending Unavailable Unavailable Primary Care Provider Unavaildevendra Mayers APRN-Serenity DELGADILLO Primary Care Provider MAMMO, FORTINO A Attending Unavailable MAMMO, FORTINO A Referring Unavailable MAMMO, FORTINO A Attending Unavailable PAO, CAREEN Y Referring Unavailable MAMMO, FORTINO A Attending Unavailable MAMMO, FORTINO A Referring Unavailable MAMMO, FORTINO A Referring Unavailable MAMMO, FORTINO A Attending Unavailable Medications Current Medications Medication Drug Class(es) Dates Sig (Normalized) Sig (Original) 0.4 ml adalimumab 100 mg/ml prefilled syringe (5 sources) Tumor Necrosis Factor Ashley Start: 06-09-2024 adalimumab (Humira, 2 Syringe,) 40 MG/0.4ML Prefilled Syringe Kit prefilled syringe Inject 40 mg under the skin every 14 (fourteen) days 06/09/2024 Active adalimumab-bwwd (HADLIMA PUSHTOUCH) 40 mg/0.4 mL auto-injector (4 sources) Start: 05-31-2024 inject 40 mg by subcutaneous injection every other week adalimumab-bwwd (HADLIMA PUSHTOUCH) 40 mg/0.4 mL auto-injector Inject 40 mg subcutaneously every other week. 05/31/2024 Active atenolol 100 mg oral tablet (20 sources) beta-Adrenergic Ashley Start: 04-08-2022 End: 12-26-2025 take 1 tablet by mouth once daily atenolol (TENORMIN) 100 mg tablet Take 1 tablet by mouth once daily. 04/08/2022 12/26/2025 Active Comment on above: Take 1 tablet by camille once daily. atropine sulfate 10 mg/ml ophthalmic solution (12 sources) Anticholinergic, Cholinergic Muscarinic Antagonist Start: 11-20-2023 take 1 drop(s) into the eye(s) once daily atropine 1 % ophthalmic solution instill 1 drop into left eye EVERY NIGHT 11/20/2023 Active benoxinate hydrochloride 4 mg/ml / fluorescein sodium 3 mg/ml ophthalmic solution (6 sources) Diagnostic Dye Start: 09-22-2024 End: 09-23-2024 fluorescein-benoxina te 0.3-0.4 % 1 Drop (FLURESS) Start: 08-22-2024 End: 08-23-2024 fluorescein-benoxinate 0.3-0 .4 % 1 Drop (FLURESS) Start: 08-22-2024 End: 08-23-2024 1 Drop, BOTH EYES, DIRECT ED, Starting on 08/22/24 at 1430, Until Thu08/23/24 at 0229, Administer for applanation tonometry. In the event of a Fluress shortage, administer Alysia-Fluor 1 drop into both eyes as directed for applanation tonometry, OPHT CLINIC MED ORDERS Start: 09-19-2022 End: 09-20-2022 fluorescein-benoxinate 0.25- 0.4 % 1 Drop (FLURESS) Start: 08-27-2022 End: 08-28-2022 fluorescein-benoxinate 0.25- 0.4 % 1 Drop (FLURESS) Start: 08-13-2022 End: 08-14-2022 fluorescein-benoxinate 0.25- 0.4 % 1 Drop (FLURESS) brimonidine tartrate 1 mg/ml ophthalmic solution (20 sources) alpha-Adrenergic Agonist Start: 08-12-2024 take 0.1 drop(s) into the eye(s) twice daily brimonidine (ALPHAGAN P) 0.1 % drop Use 1 drop in both eyes two times a day. 08/12/2024 Active Start: 08-13-2022 take 1 drop(s) into the eye(s) twice daily brimonidine (ALPHAGAN) 0.2 % ophthalmic solution Use 1 Drop in the left eye twice daily. 5 mL 2 08/13/2022 Active Start: 08-13-2022 take 1 drop(s) into the [...] in the le ft eye twice daily. celecoxib 200 mg oral capsule (13 sources) Nonsteroidal Anti-inflammatory Drug take 1 capsule by mouth in the morning celecoxib (CeleBREX) 200 MG capsule Take 200 mg by mouth in the morning and 200 mg in the evening. Active cetirizine hydrochloride 10 mg oral tablet (2 sources) Histamine-1 Receptor Antagonist Start: take 1 tablet by mouth once daily cetirizine (ZYRTEC) 10 mg tablet Take 1 tablet by mouth once daily. 12/13/2024 Active cyclopentolate hydrochloride 10 mg/ml ophthalmic solution (1 source) take 1 drop(s) into the eye(s) in the morning cyclopentolate (CYCLOGYL) 1 % ophthalmic solution Administer 1 drop into the left eye in the morning and 1 drop before bedtime. 0 Active diclofenac sodium 75 mg delayed release oral tablet (8 sources) Nonsteroidal Anti-inflammatory Drug Start: take 1 tablet by mouth twice daily at mealtime diclofenac, EC, (VOLTAREN) 75 mg EC tablet Take 1 tablet by mouth two times a day with meals. 04/08/2022 Active Comment on above: Take 1 tablet by camille th twice daily with meals. difluprednate 0.5 mg/ml ophthalmic suspension (4 sources) Start: take 1 drop(s) into the eye(s) four times daily, then take 1 drop(s) into the eye(s) three times daily difluprednate (DUREZOL) 0.05 % ophthalmic suspension Use one drop four times per day in the left eye and use one drops three times per day in the right eye 5 mL 3 08/22/2024 Active diphenhydrAMINE hydrochloride 2.5 mg/ml oral solution (1 source) Histamine-1 Receptor Antagonist Start: End: diphenhydrAMINE 12.5-50 mg oral liquid (BENADRYL) dorzolamide 20 mg/ml / timolol 5 mg/ml ophthalmic solution (9 sources) Carbonic Anhydrase Inhibitor, beta-Adrenergic Ashley Start: 022 take 1 drop(s) into the eye(s) twice daily dorzolamide-timolol (COSOPT) 22.3-6.8 mg/mL ophthalmic solution Use 1 Drop in the left eye twice daily. 10 mL 2 08/13/2022 Active Start: 08-13-2022 take 1 drop(s) into the eye(s) twice daily dorzolamide-timolol (COSOPT) 22.3-6.8 mg/mL ophthalmic solution Use 1 Drop in the left eye twice daily. 10 mL 2 08/13/2022 Active Start: 07-19-2022 End: 08-13-2022 dorzolamide-timolol (COSOPT) 22.3-6.8 mg/mL ophthalmic solution Comment on above: Use 1 Drop in the le ft eye twice daily. folic acid 1 mg oral tablet (5 sources) Start: 05-31-2024 take 1 tablet by mouth once daily folic acid (Folvite) 1 MG tablet Take 1,000 mcg by mouth Daily 05/31/2024 Active losartan potassium 100 mg oral tablet (20 sources) Angiotensin 2 Receptor Ashley Start: 11-23-2023 End: 09-21-2024 take 1 tablet by mouth once daily losartan (COZAAR) 100 mg tablet Take 1 tablet by mouth once daily. 05/06/2024 Active take 2 tablets by mouth in the m orning losartan (COZAAR) 50 mg tablet Take 2 tablets (100 mg total) by mouth in the morning. 0 Active methotrexate 2.5 mg oral tablet (5 sources) Folate Analog Metabolic Inhibitor Start: 05-31-2024 take 6 tablets by mouth every week methotrexate 2.5 MG tablet TAKE 6 TABLETS BY MOUTH EVERY WEEK remember your standing labs 05/31/2024 Active mycophenolate mofetil 500 mg oral tablet (2 sources) Start: 09-16-2024 mycophenolate Mofetil (CELLCEPT) 500 mg tablet Take 1,500 mg by mouth. 09/16/2024 Active omeprazole 20 mg delayed release oral tablet (4 sources) Proton Pump Inhibitor Omeprazole 20 mg TbEC Take by mouth once daily. Active phenylephrine hydrochloride 25 mg/ml ophthalmic solution (4 sources) alpha-1 Adrenergic Agonist Start: 08-22-2024 End: 08-23-2024 PHENYLephrine 2.5 % 1 Drop (AK-DILATE, SHANTA-SYNEPHRINE) Start: 08-22-2024 End: 08-23-2024 1 Drop, BOTH EYES, DIRECT ED, Starting on Thu08/22/24 at 1430, Until Thu08/23/24 at 0229, Administer for dilation PROTECT FROM LIGHT, OPHT CLINIC MED ORDERS Start: 08-13-2022 End: 08-14-2022 PHENYLephrine 2.5 % 1 Drop ( AK-DILATE, SHANTA-SYNEPHRINE) take 1 drop(s) into the eye(s) once phenylephrine (SHANTA-SYNEPHRINE) 10 % ophthalmic solution Administer 1 drop into the left eye once. 0 Active predniSONE 10 mg oral tablet (11 sources) Start: 08-22-2024 take 1 tablet by mouth once daily predniSONE (DELTASONE) 10 mg tablet Take 1 tablet by mouth once daily. 08/22/2024 Active Start: 08-12-2024 End: 08-22-2024 take 2 tablets by mouth every twelve hours predniSONE (DELTASONE) 20 mg tablet Take 2 tablets by mouth every 12 hours. 08/12/2024 08/22/2024 Discontinued Start: 09-11-2022 End: 08-22-2024 take 2 tablets by mouth once daily, then take 1 tablet by mouth once daily predniSONE (DELTASONE) 10 mg tablet Take 2 tablets by mouth daily x 1 week then 1 tablet daily by mouth for 1 week 21 tablet 09/11/2022 08/22/2024 Discontinued (Course of therapy completed) Start: 08-13-2022 End: 08-28-2022 take 6 tablets [...] tablet daily by mouth for 1 week proparacaine hydrochloride 5 mg/ml ophthalmic solution (3 sources) Local Anesthetic Start: 09-22-2024 End: 09-23-2024 proparacaine 0.5 % 1 Drop (ALCAINE) Start: 08-22-2024 End: 08-23-2024 proparacaine 0.5 % 1 Drop (A LCAINE) Start: 08-13-2022 End: 08-14-2022 proparacaine 0.5 % 1 Drop (A LCAINE) sodium chloride 0.854 meq/ml ophthalmic solution (12 sources) Start: 11-30-2023 take 1 drop(s) into the eye(s) four times daily sodium chloride (Sulaiman 128) 5 % ophthalmic solution INSTILL 1 DROP INTO LEFT EYE FOUR TIMES A DAY 11/30/2023 Active sulfamethoxazole 800 mg / trimethoprim 160 mg oral tablet (2 sources) Dihydrofolate Reductase Inhibitor Antibacterial, Sulfonamide Antimicrobial Start: 09-15-2024 sulfamethoxazole -trimethoprim (BACTRIM DS) 800-160 mg per tablet Take by mouth as directed. 09/15/2024 Active tropicamide 10 mg/ml ophthalmic solution (3 sources) Anticholinergic Start: 08-22-2024 End: 08-23-2024 tropicamide 1 % 1 Drop (MYDRIACYL) Start: 08-22-2024 End: 08-23-2024 1 Drop, BOTH EYES, DIRECT ED, Starting on Thu08/22/24 at 1430, Until Thu08/23/24 at 0229, Administer for dilation, OPHT CLINIC MED ORDERS Start: 08-13-2022 End: 08-14-2022 tropicamide 1 % 1 Drop (MYDR IACYL) Completed/Discontinued Medications Medication Drug Class(es) Dates Sig (Normalized) Sig (Original) acetaminophen 325 mg / oxyCODONE hydrochloride 10 mg oral tablet (3 sources) Opioid Agonist Start: 11-19-2023 End: 05-25-2024 take 1 tablet by mouth every four hours as needed oxyCODONE-acetamino phen (Percocet) 10-325 MG tablet Take 1 tablet by mouth every 4 (four) hours if needed 11/19/2023 05/25/2024 Discontinued (Therapy completed) amLODIPine 5 mg oral tablet (18 sources) Dihydropyridine Calcium Channel Ashley Start: 05-25-2024 End: 10-20-2024 take 1 tablet by mouth once daily amLODIPine (Norvasc) 5 MG tablet Indications: Primary hypertension (CMS/HCC) Take 1 tablet (5 mg) by mouth Daily 90 tablet 1 06/23/2024 07/22/2024 Discontinued atorvastatin 20 mg oral tablet (3 sources) HMG-CoA Reductase Inhibitor Start: 11-23-2023 End: 05-25-2024 take 1 tablet by mouth at bedtime atorvastatin (Lipitor) 20 MG tablet Indications: Mixed hyperlipidemia (CMS/HCC) Take 1 tablet (20 mg) by mouth at bedtime 90 tablet 1 11/23/2023 05/25/2024 Discontinued (Therapy completed) fluorescein 250 mg injection (2 sources) Start: 08-22-2024 End: 08-22-2024 fluorescein 250 mg injection Start: 08-22-2024 End: 08-22-2024 250 mg, INTRAVENOUS, ONCE, 1 dose, On Thu08/22/24 at 1430, [facility] prednisoLONE acetate 10 mg/ml ophthalmic suspension (18 sources) Corticosteroid Start: 08-16-2024 End: 08-22-2024 prednisoLONE acetate (PRED FORTE) 1 % ophthalmic suspension Use 1 Drop in both eyes four times daily. 08/16/2024 08/22/2024 Discontinued (Course of therapy completed) Start: 06-20-2024 prednisoLONE a cetate (Pred-Forte) 1 % ophthalmic suspension 06/20/2024 Active Start: 08-13-2022 End: 08-22-2024 prednisoLONE acetate (PRED F ORTE, ECONOPRED PLUS) 1 % ophthalmic suspension Use 1 Drop in the left eye every hour. 10 mL 4 08/13/2022 08/22/2024 Discontinued (Course of therapy completed) Start: 08-13-2022 prednisoLONE a cetate (PRED FORTE, ECONOPRED PLUS) 1 % ophthalmic suspension Use 1 Drop in the left eye every hour. 10 mL 4 08/13/2022 Active Start: 08-11-2022 End: 08-13-2022 prednisoLONE acetate (PRED F ORTE, ECONOPRED PLUS) 1 % ophthalmic suspension prednisolone catalino valerio (PRED FORTE OPHTHALMIC) Use in eyes two times a day. Active End: 05-25-2024 prednisoLONE acetate (Pred-F orte) 1 % ophthalmic suspension Administer 1 drop into affected eye(s) in the morning and 1 drop at noon and 1 drop in the evening. 05/25/2024 Discontinued (Therapy completed) prednisoLONE catalino valerio (PRED FORTE) 1 % ophthalmic suspension Administer 1 drop into the left eye 3 (three) times a day. 0 Active Comment on above: Use 1 Drop in the le ft eye every hour. triamcinolone acetonide (PF) 4 mg suprachoroidal injection (XIPERE) (4 sources) Start: 02-16-2025 End: 02-16-2025 triamcinolone acetonide (PF) 4 mg suprachoroidal injection (XIPERE) Start: 02-16-2025 End: 02-16-2025 4 mg, ONCE, 1 dose, Starting on Sandy 02/16/25 at 1549, Until Sandy 02/16/25 at 1549 Start: 09-22-2024 End: 09-22-2024 triamcinolone acetonide (PF) 4 mg suprachoroidal injection (XIPERE) Start: 09-22-2024 End: 09-22-2024 4 mg, ONCE, 1 dose, Starting on Sandy 09/22/24 at 1523, Until Sandy 09/22/24 at 1523 Problems Active Problems Problem Classification Problem Date Documented Date Episodic/Chronic Anxiety disorders (12 sources) Generalized anxiety disorder; 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: [Generalized anxiety disorder] Onset: 11-23-2023 11-23-2023 Chronic Blindness and vision defects (1 source) Disorder of refraction; 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: [Unspecified disorder of refraction] Episodic Cataract (1 source) Cataract Onset: 11-19-2023 Conditions associated with dizziness or vertigo (13 sources) Dizziness and giddiness; 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: [Dizziness and giddiness] Onset: 05-25-2024 05-25-2024 Episodic Disorders of lipid metabolism (18 sources) Hyperlipidemia, unspecified; 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: [Mixed hyperlipidemia] Onset: 11-13-2022 Chronic Essential hypertension (20 sources) Essential (primary) hypertension; 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: [Essential hypertension] Onset: 11-14-2022 11-23-2023 Chronic Immunity disorders (2 sources) Immunodeficiency, unspecified; 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 ] Onset: 11-20-2022 02-16-2025 Chronic Inflammation; infection of eye (except that caused by tuberculosis or sexually transmitteddisease) (17 sources) Disseminated chorioretinitis; 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, left eye] Onset: 11-25-2022 Chronic Inflammation; infection of eye (except that caused by tuberculosis or sexually transmitteddisease) (1 source) Unspecified iridocyclitis; 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] Onset: 11-19-2023 Episodic Other aftercare (1 source) 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; 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: [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 DRUG THERAPY] Onset: 11-14-2022 Episodic Other aftercare (1 source) Encounter for therapeutic drug level monitoring; 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: [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)] Onset: 02-16-2025 Episodic Other non-traumatic joint disorders (11 sources) Swollen ankle region; 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: [Effusion, right ankle] Onset: 05-31-2024 05-31-2024 Episodic Other nutritional; endocrine; and metabolic disorders (16 sources) Body mass index 30+ - obesity; 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: [Body mass index (BMI) 35.0-35.9, adult] Onset: 11-23-2023 05-25-2024 Chronic Other nutritional; endocrine; and metabolic disorders (16 sources) Obesity caused by energy imbalance; 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: [Morbid (severe) obesity due to excess calories] Onset: 05-25-2024 05-25-2024 Chronic Residual codes; unclassified (18 sources) Human leukocyte 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 positive; 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: [Genetic susceptibility to other disease] Onset: 11-23-2023 Episodic Residual codes; unclassified (1 source) Genetic susceptibility to other disease; 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: [HLA B27 (HLA B27 positive)] Onset: 12-22-2024 Episodic Retinal detachments; defects; vascular occlusion; and retinopathy (11 sources) Cystoid macular edema of left retina; 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, left eye] Onset: 12-22-2024 08-12-2024 Chronic Rheumatoid arthritis and related disease (2 sources) Inflammatory polyarthropathy; 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: [Inflammatory polyarthropathy] Onset: 11-14-2022 Chronic Unclassified (1 source) 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); 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: [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)] Onset: 02-16-2025 Unclassified (1 source) 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); 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: [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)] Onset: 02-16-2025 Past or Other Problems Problem Classification Problem Date Documented Da te Episodic/Chronic Other hematologic conditions (12 sources) Increased serum protein level; 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: [Abnormality of plasma protein, unspecified] Onset: 11-23-2023 11-23-2023 Episodic Other non-traumatic joint disorders (12 sources) Pain in right knee; 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: [Pain in joint, lower leg] Onset: 11-23-2023 11-23-2023 Episodic Results Test Name Value Interpretation Reference Range Facility OCT MACULA CIRRUS OU (BOTH E YES)on 02-16-2025 [facility] Radiology Study observation (narrative) [facility] XIPERE (TRIAMCINOLONE) 4MG S UPRACHOROIDAL INJ OS (LEFT EYE)on 02-16-2025 [facility] OCT MACULA CIRRUS OU (BOTH E YES)on 12-22-2024 [facility] Radiology Study observation (narrative) [facility] OCT MACULA CIRRUS OU (BOTH E YES)on 09-22-2024 [facility] Radiology Study observation (narrative) [facility] XIPERE (TRIAMCINOLONE) 4MG S UPRACHOROIDAL INJ OS (LEFT EYE)on 09-22-2024 [facility] FLUORESCEIN ANGIOGRAPHY OU ( BOTH EYES), TRANSIT OS (LEFT EYE)on 08-22-2024 [facility] Radiology Study observation (narrative) [facility] OCT MACULA CIRRUS OU (BOTH E YES)on 08-22-2024 [facility] Radiology Study observation (narrative) [facility] ALL CBC WITH AUTO DIFFon BASOPHILS ABSOLUTE AUTO 0.1 [facility] Basophils/100 WBC (Bld) 0.9 % 0.2 - 2.0 % [facility] Eosinophils/100 WBC (Bld) 1.7 % 0.9 - 7.0 % [facility] Erythrocyte distribution width (RBC) [Ratio] 12.4 % 11.0 - 15.0 % [facility] Hematocrit (Bld) [Volume fraction] 42.8 % 42.0 - 54.0 % [facility] Hemoglobin (Bld) [Mass/Vol] 14.6 g/dL 14.0 - 18.0 g/dL [facility] IMMATURE GRANULOCYTES ABS AUTO 0.02 [facility] Immature granulocytes/100 WBC (Bld) 0.2 % 0.0 - 0.5 % [facility] Interpretation and review of laboratory results Abnormal [facility] LYMPHOCYTES ABSOLUTE AUTO 4.3 High [facility] Lymphocytes/100 WBC (Bld) 43 % 20.5 - 60.0 % [facility] MCH (RBC) [Entitic mass] 28.1 pg 25.9 - 34.0 pg [facility] MCHC (RBC) [Mass/Vol] 34.1 g/dL 29.9 - 35.2 g/dL [facility] MCV (RBC) [Entitic vol] 82.3 fL 80.0 - 94.0 fL [facility] MONOCYTES ABSOLUTE AUTO 0.9 High [facility] Monocytes/100 WBC (Bld) 8.7 % 1.7 - 12.0 % [facility] NEUTROPHILS ABSOLUTE AUTO 4.5 [facility] Neutrophils/100 WBC (Bld) 45.5 % 43.0 - 75.0 % [facility] Platelet mean volume (Bld) [Entitic vol] 9.2 fL Low 9.5 - 13.5 fL [facility] TBH EO # 0.2 [facility] PLT 276 [facility] RBC 5.2 [facility] WBC 10 [facility] BASIC METABOLIC PANLon 11-02 Anion gap [Moles/Vol] 9 mmol/L Normal 5-15 [facility] Comment on above: Performed By: #### B MP #### [facility] ([id number]) [address], [address] [place] [address] Calcium [Mass/Vol] 9.1 mg/dL Normal 8.5-10.5 [facility] Comment on above: Performed By: #### B MP #### [facility] ([id number]) [address], [address] [place] [address] Chloride [Moles/Vol] 102 mmol/L Normal 98-109 [facility] Comment on above: Performed By: #### B MP #### [facility] ([id number]) [address], [address] [place] [address] CO2 [Moles/Vol] 26 mmol/L Normal 22-32 [facility] Comment on above: Performed By: #### B MP #### [facility] ([id number]) [address], [address] [place] [address] Creatinine [Mass/Vol] 0.98 mg/dL Normal 0.60-1.30 [facility] Comment on above: Result Comment: METH OD TRACEABLE TO IDMS STANDARD Performed By: #### B MP #### [facility] ([id number]) [address], [address] [place] [address] eGFR (CKD-EPI) NON-RACE DEPENDENT >90 Normal >59 [facility] Comment on above: Result Comment: Reported eGFR is based on the CKD-EPI 2020 equation that does not use a race coefficient. Performed By: #### B MP #### [facility] ([id number]) [address], [address] [place] [address] Glucose [Mass/Vol] 93 mg/dL Normal 65-99 [facility] Comment on above: Performed By: #### B MP #### [facility] ([id number]) [address], [address] [place] [address] Potassium [Moles/Vol] 4.3 mmol/L Normal 3.5-5.0 [facility] Comment on above: Performed By: #### B MP #### [facility] ([id number]) [address], [address] [place] [address] Sodium [Moles/Vol] 137 mmol/L Normal 134-146 [facility] Comment on above: Performed By: #### B MP #### [facility] ([id number]) [address], [address] [place] [address] Urea nitrogen [Mass/Vol] 12 mg/dL Normal 5-23 [facility] Comment on above: Performed By: #### B MP #### [facility] ([id number]) [address], [address] [place] [address] Basic Metabolic Panelon 10-09 Anion gap [Moles/Vol] [...] Hospital Comment on above: METHOD TRACEABLE TO [facility] STANDARD eGFR (CKD-EPI)non-race dependent - PINF [...] [Mass/Vol] 12 mg/dL 5 - 23 mg/dL [facility] ECG 12 leadon 11-02-2023 [facility] Alanine aminotransferase [En zymatic activity/volume] in Serum or PlasmaOrdered By: Malvin Garcia on 10-14-2023 ALT [Catalytic activity/Vol] 23 U/L 7-52 [facility] Albumin [Mass/volume] in Ser um or Plasma by Bromocresol green (BCG) dye binding methoOrdered By: Malvin Garcia on 10-14-2023 Albumin BCG dye [Mass/Vol] 4.3 g/dL 3.5-5.7 [facility] Alkaline phosphatase [Enzyma tic activity/volume] in Serum or PlasmaOrdered By: Malvin Garcia on 10-14-2023 ALP [Catalytic activity/Vol] 82 U/L 34-104 [facility] Aspartate aminotransferase [ Enzymatic activity/volume] in Serum or PlasmaOrdered By: Malvin Garcia on 10-14-2023 AST [Catalytic activity/Vol] 16 U/L 13-39 [facility] Basophils Auto (Bld) [#/Vol] Ordered By: Malvin Garcia on 10-14-2023 Basophils (Bld) [#/Vol] 0.1 10*3/uL 0.0-0.2 [facility] Basophils/100 WBC Auto (Bld) Ordered By: Malvin Garcia on 10-14-2023 Basophils/100 WBC (Bld) 0.6 % . [facility] Bilirubin.total [Mass/volume ] in Serum or PlasmaOrdered By: Malvin Garcia on 10-14-2023 Bilirubin [Mass/Vol] 0.5 mg/dL 0.3-1.0 [place] C reactive protein [Mass/vol ume] in Serum or PlasmaOrdered By: Malvin Garcia on 10-14-2023 CRP [Mass/Vol] 1.3 mg/dL 0.0-0.5 [facility] C-Reactive Proteinon 024 C-Reactive Protein 1.3 mg/dL High 0.0-0.5 [facility] Comment on above: Result Comment: PERF ORMED BY: [place] [address] PATHOLOGIST NOISE TESTER PILLO SALAS M.D. Performed By: #### C BC, CRP, CMP, ESR #### [address] Calcium [Mass/volume] in Ser um or PlasmaOrdered By: Malvin Garcia on 10-14-2023 Calcium [Mass/Vol] 9.5 mg/dL 8.6-10.3 [facility] Carbon dioxide, total [Moles /volume] in Serum or PlasmaOrdered By: Malvin Garcia on 10-14-2023 CO2 [Moles/Vol] 26.6 mmol/L 21.0-31.0 [facility] Chloride [Moles/volume] in S tian or PlasmaOrdered By: Malvin Garcia on 10-14-2023 Chloride [Moles/Vol] 104 mmol/L 98-107 [place] Complete Blood Count Auto Di ffon 10-14-2023 Basophils (Bld) [#/Vol] 0.1 10*3/uL Normal 0.0-0.2 [facility] Comment on above: Performed By: #### C BC, CRP, CMP, ESR #### [facility] [address] Basophils/100 WBC (Bld) 0.6 % Normal . [facility] Comment on above: Performed By: #### C BC, CRP, CMP, ESR #### [facility] [address] Eosinophils (Bld) [#/Vol] 0.1 10*3/uL Normal 0.0-0.45 [facility] Comment on above: Performed By: #### C BC, CRP, CMP, ESR #### [facility] [address] Eosinophils/100 WBC (Bld) 1.2 % Normal . [facility] Comment on above: Performed By: #### C BC, CRP, CMP, ESR #### [facility] [address] Erythrocyte distribution width (RBC) [Ratio] 13.6 % Normal 12.0-14.8 [facility] Comment on above: Performed By: #### C BC, CRP, CMP, ESR #### [facility] [address] Hematocrit (Bld) [Volume fraction] 45.0 % Normal 38.8-50.0 [facility] Comment on above: Performed By: #### C BC, CRP, CMP, ESR #### [facility] [address] Hemoglobin (Bld) [Mass/Vol] 15.1 g/dL Normal 13.0-17.0 [facility] Comment on above: Performed By: #### C BC, CRP, CMP, ESR #### [address] Lymphocytes (Bld) [#/Vol] 2.7 10*3/uL Normal 1.00-4.8 [facility] Comment on above: Performed By: #### C BC, CRP, CMP, ESR #### [address] Lymphocytes/100 WBC (Bld) 29.4 % Normal . [facility] Comment on above: Performed By: #### C BC, CRP, CMP, ESR #### [address] MCH (RBC) [Entitic mass] 27.9 pg Normal 27.5-35.2 [facility] Comment on above: Performed By: #### C BC, CRP, CMP, ESR #### [address] MCV (RBC) [Entitic vol] 83.1 fL Low 83.5-101 [facility] Comment on above: Performed By: #### C BC, CRP, CMP, ESR #### [address] Mean Corpuscular HGB Conc 33.5 g/dL Normal 32.5-35.6 [facility] Comment on above: Performed By: #### C BC, CRP, CMP, ESR #### [address] Monocytes (Bld) [#/Vol] 0.7 10*3/uL Normal 0.0-0.8 [facility] Comment on above: Performed By: #### C BC, CRP, CMP, ESR #### [address] Monocytes/100 WBC (Bld) 7.8 % Normal . [facility] Comment on above: Performed By: #### C BC, CRP, CMP, ESR #### [place] [address] Neutrophils (Bld) [#/Vol] 5.6 10*3/uL Normal 1.8-7.7 [facility] Comment on above: Performed By: #### C BC, CRP, CMP, ESR #### [facility] [address] Neutrophils/100 WBC (Bld) 61.0 % Normal . [facility] Comment on above: Performed By: #### C BC, CRP, CMP, ESR #### [facility] [address] NRBC% 0.3 /100{WBC} Normal 0-0.5 [facility] Comment on above: Performed By: #### C BC, CRP, CMP, ESR #### [address] Platelet mean volume (Bld) [Entitic vol] 7.8 fL Normal 6.6-10.1 [facility] Comment on above: Performed By: #### C BC, CRP, CMP, ESR #### [address] Platelets (Bld) [#/Vol] 289 10*3/uL Normal 150-450 [facility] Comment on above: Performed By: #### C BC, CRP, CMP, ESR #### [address] RBC (Bld) [#/Vol] 5.41 10*6/uL Normal 3.90-5.60 [facility] Comment on above: Performed By: #### C BC, CRP, CMP, ESR #### [place] [address] [place] WBC (Bld) [#/Vol] 9.2 10*3/uL Normal 4.1-10.5 [facility] Comment on above: Performed By: #### C BC, CRP, CMP, ESR #### [address] Comprehensive Metabolic Pane neeraj 10-14-2023 Albumin [Mass/Vol] 4.3 g/dL Normal 3.5-5.7 [facility] Comment on above: Performed By: #### C BC, CRP, CMP, ESR #### [facility] [address] Albumin/Globulin [Mass ratio] 1.2 {ratio} Normal [facility] Comment on above: Performed By: #### C BC, CRP, CMP, ESR #### [facility] [address] ALP [Catalytic activity/Vol] 82 U/L Normal 34-104 [facility] Comment on above: Performed By: #### C BC, CRP, CMP, ESR #### [facility] [address] ALT [Catalytic activity/Vol] 23 U/L Normal 7-52 [facility] Comment on above: Performed By: #### C BC, CRP, CMP, ESR #### [facility] [address] Anion gap [Moles/Vol] 11.5 mmol/L Normal 6.0-15.0 [facility] Comment on above: Performed By: #### C BC, CRP, CMP, ESR #### [address] AST [Catalytic activity/Vol] 16 U/L Normal 13-39 [facility] Comment on above: Performed By: #### C BC, CRP, CMP, ESR #### [facility] [address] Bilirubin [Mass/Vol] 0.5 mg/dL Normal 0.3-1.0 [place] Comment on above: Performed By: #### C BC, CRP, CMP, ESR #### [facility] [address] Calcium [Mass/Vol] 9.5 mg/dL Normal 8.6-10.3 [facility] Comment on above: Performed By: #### C BC, CRP, CMP, ESR #### [place] [address] [place] Chloride [Moles/Vol] 104 mmol/L Normal 98-107 [place] Comment on above: Performed By: #### C BC, CRP, CMP, ESR #### [facility] [address] CO2 [Moles/Vol] 26.6 mmol/L Normal 21.0-31.0 [facility] Comment on above: Performed By: #### C BC, CRP, CMP, ESR #### [facility] [address] Creatinine [Mass/Vol] 0.89 mg/dL Normal 0.70-1.30 [facility] Comment on above: Performed By: #### C BC, CRP, CMP, ESR #### [place] [address] [place] GFR/1.73 sq M.predicted MDRD (S/P/Bld) [Vol rate/Area] mL/min/{1.73_m2} Normal [facility] Comment on above: Performed By: #### C BC, CRP, CMP, ESR #### [facility] [address] Globulin (S) [Mass/Vol] 3.6 g/dL Normal [facility] Comment on above: Performed By: #### C BC, CRP, CMP, ESR #### [address] Glucose [Mass/Vol] 94 mg/dL Normal 70-100 [facility] Comment on above: Result Comment: [facility] Glucose Reference Range is dependent on time and content of last meal. Glucose of more than 200 mg/dL in a nonstressed, ambulatory subject supports the diagnosis of Diabetes Mellitus. ADA recommended reference range Performed By: #### C BC, CRP, CMP, ESR #### [facility] [address] Potassium [Moles/Vol] 4.1 mmol/L Normal 3.5-5.1 [facility] Comment on above: Performed By: #### C BC, CRP, CMP, ESR #### [facility] [address] Protein [Mass/Vol] 7.9 g/dL Normal 6.4-8.9 [facility] Comment on above: Performed By: #### C BC, CRP, CMP, ESR #### [facility] [address] Sodium [Moles/Vol] 138 mmol/L Normal 136-145 [facility] Comment on above: Performed By: #### C BC, CRP, CMP, ESR #### [facility] [address] Urea nitrogen [Mass/Vol] 11 mg/dL Normal 7-25 [facility] Comment on above: Performed By: #### C BC, CRP, CMP, ESR #### [facility] [address] [place] [address] Creatinine [Mass/volume] in Serum or PlasmaOrdered By: Malvin Garcia on 10-14-2023 Creatinine [Mass/Vol] 0.89 mg/dL 0.70-1.30 [facility] Eosinophils Auto (Bld) [#/Vo l]Ordered By: Malvin Garcia on 10-14-2023 Eosinophils (Bld) [#/Vol] 0.1 10*3/uL 0.0-0.45 [facility] Eosinophils/100 WBC Auto (Bl d)Ordered By: Malvin Garcia on 10-14-2023 Eosinophils/100 WBC (Bld) 1.2 % . [facility] Erythrocyte Sedimentation Ra basim 10-14-2023 ESR (Bld) [Velocity] 35 mm/h High 0-14 [place] Comment on above: Result Comment: PERF ORMED BY: [place] [address] PATHOLOGIST NOISE TESTER PILLO SALAS M.D. Performed By: #### C BC, CRP, CMP, ESR #### [facility] [address] Erythrocyte distribution wid th Auto (RBC) [Ratio]Ordered By: Malvin Garcia on 10-14-2023 Erythrocyte distribution width (RBC) [Ratio] 13.6 % 12.0-14.8 [facility] Erythrocyte sedimentation ra te by Photometric methodOrdered By: Malvin Garcia on 10-14-2023 ESR Photometric method (Bld) [Velocity] 35 mm/hr 0-14 [facility] Globulin Calc (S) [Mass/Vol] Ordered By: Malvin Garcia on 10-14-2023 Globulin (S) [Mass/Vol] 3.6 g/dL [facility] Glucose [Mass/volume] in Ser um or PlasmaOrdered By: Malvin Garcia on 10-14-2023 Glucose [Mass/Vol] 94 mg/dL 70-100 [facility] Comment on above: ADA recommended refe rence rangeRandom Glucose Reference Range is dependent on time and content of last meal. Glucose of more than 200 mg/dL in a nonstressed, ambulatory subject supports the diagnosis of Diabetes Mellitus. Hematocrit Auto (Bld) [Volum e fraction]Ordered By: Malvin Garcia on 10-14-2023 Hematocrit (Bld) [Volume fraction] 45.0 % 38.8-50.0 [facility] Hemoglobin [Mass/volume] in BloodOrdered By: Malvin Garcia on 10-14-2023 Hemoglobin (Bld) [Mass/Vol] 15.1 g/dL 13.0-17.0 [facility] Leukocytes [#/volume] correc aileen for nucleated erythrocytes in Blood by Automated counOrdered By: Malvin Garcia on 10-14-2023 WBC corrected for nucl RBC Auto (Bld) [#/Vol] 9.2 10*3/uL 4.1-10.5 [facility] Lymphocytes Auto (Bld) [#/Vo l]Ordered By: Malvin Garcia on 10-14-2023 Lymphocytes (Bld) [#/Vol] 2.7 10*3/uL 1.00-4.8 [facility] Lymphocytes/100 WBC Auto (Bl d)Ordered By: Malvin Garcia on 10-14-2023 Lymphocytes/100 WBC (Bld) 29.4 % . [facility] MCH Auto (RBC) [Entitic mass ]Ordered By: Malvin Garcia on 10-14-2023 MCH (RBC) [Entitic mass] 27.9 pg 27.5-35.2 [facility] MCHC Auto (RBC) [Mass/Vol]Or dered By: Malvin Garcia on 10-14-2023 MCHC (RBC) [Mass/Vol] 33.5 g/dL 32.5-35.6 [facility] MCV Auto (RBC) [Entitic vol] Ordered By: Malvin Garcia on 10-14-2023 MCV (RBC) [Entitic vol] 83.1 fL 83.5-101 [facility] Monocytes Auto (Bld) [#/Vol] Ordered By: Malvin Garcia on 10-14-2023 Monocytes (Bld) [#/Vol] 0.7 10*3/uL 0.0-0.8 [facility] Monocytes/100 WBC Auto (Bld) Ordered By: Malvin Garcia on 10-14-2023 Monocytes/100 WBC (Bld) 7.8 % . [facility] Neutrophils Auto (Bld) [#/Vo l]Ordered By: Malvin Garcia on 10-14-2023 Neutrophils (Bld) [#/Vol] 5.6 10*3/uL 1.8-7.7 [facility] Neutrophils/100 WBC Auto (Bl d)Ordered By: Malvin Garcia on 10-14-2023 Neutrophils/100 WBC (Bld) 61.0 % . [facility] No Panel InformationOrdered By: Malvin Garcia on 10-14-2023 Estimated GFR (CKD-EPI) > 60.0 mL/Min [facility] Creatinine Clearance (Chem N/A [facility] Nucleated erythrocytes [Pres ence] in Blood by Automated countOrdered By: Malvin Garcia on 10-14-2023 Nucleated RBC Auto Ql (Bld) 0.3 /100{WBC} 0-0.5 [facility] Platelet mean volume Auto (B ld) [Entitic vol]Ordered By: Malvin Garcia on 10-14-2023 Platelet mean volume (Bld) [Entitic vol] 7.8 fL 6.6-10.1 [facility] Platelets Auto (Bld) [#/Vol] Ordered By: Malvin Garcia on 10-14-2023 Platelets (Bld) [#/Vol] 289 10*3/uL 150-450 [facility] Potassium [Moles/volume] in Serum or PlasmaOrdered By: Malvin Garcia on 10-14-2023 Potassium [Moles/Vol] 4.1 mmol/L 3.5-5.1 [facility] Protein [Mass/volume] in Ser um or PlasmaOrdered By: Malvin Garcia on 10-14-2023 Protein [Mass/Vol] 7.9 g/dL 6.4-8.9 [facility] RBC Auto (Bld) [#/Vol]Ordere d By: Malvin Garcia on 10-14-2023 RBC (Bld) [#/Vol] 5.41 10*6/uL 3.90-5.60 [facility] Serum or plasma albumin/glob ulin mass ratioOrdered By: Malvin Garcia on 10-14-2023 Albumin/Globulin [Mass ratio] 1.2 {ratio} [facility] Serum or plasma anion gap de terminationOrdered By: Malvin Gacria on 10-14-2023 Anion gap [Moles/Vol] 11.5 mmol/L 6.0-15.0 [facility] Sodium [Moles/volume] in Ser um or PlasmaOrdered By: Malvin Garcia on 10-14-2023 Sodium [Moles/Vol] 138 mmol/L 136-145 [facility] Urea nitrogen [Mass/volume] in Serum or PlasmaOrdered By: Malvin Garcia on 10-14-2023 Urea nitrogen [Mass/Vol] 11 mg/dL 7-25 [facility] WBC Auto (Bld) [#/Vol]Ordere d By: Malvin Garcia on 10-14-2023 WBC (Bld) [#/Vol] 9.2 10*3/uL 4.1-10.5 [facility] ANGIOTENSION-CONVERTING ENZY ME (CATALINO)on 11-26-2022 CATALINO 45 U/L Normal 14-[address] [facility] Comment on above: Performed By: #### A [facility] #### [facility] [address] [place] [address] Dr. Gale Hopper LYME DISEASE AB EIA W REFLEX on 11-26-2022 Lyme Total Antibody,EIA Negative Normal Negative T [facility] Comment on above: Result Comment: Lyme [...] recommended. Performed By: #### L YMA #### [facility] [address] [place] [address] Dr. Gale Hopper TOXOPLASMA GONDII AB QUANTIT ATIONon 11-26-2022 Comment: Comment Normal [facility] Comment on above: Result Comment: It i s presumed the patient has not been infected with and is not undergoing an acute infection with Toxoplasma. If symptoms persist, submit a new specimen after three weeks. Performed By: #### T OXQN #### [facility] [address] [place] [address] Dr. Gale Hopper Toxoplasma gondii Ab,IgM,Qn <3.0 Normal 0.0-7.9 [facility] Comment on above: Result Comment: Nega tive <8.0 Equivocal 8.0 - 9.9 Positive >9.9 Performed By: #### T OXQN #### [facility] [address] [place] [address] Dr. Gale Hopper TOXOPLASMA GONDII IGG ABon 0 11-26-2022 Toxoplasma gondii Ab,IgG,Qn <3.0 Normal 0.0-7.1 [facility] Comment on above: Result Comment: Nega tive <7.2 Equivocal 7.2 - 8.7 Positive >8.7 Performed By: #### T OXPIGG #### [facility] [address] [place] [address] Dr. Gale Hopper Hep C Ab wRfx to Qnt PCRon 0 11-20-2022 Hepatitis C Virus Antibody Non-Reactive Normal Non Reactive [facility] Comment on above: Performed By: #### H BSAB, HBCAB, HBSAG, QUANT TB, HCV RX PCR #### [facility] , Interpretation Hepatitis C Normal . [facility] Comment on above: Result Comment: Not infected with HCV unless early or acute infection is suspected (which may be delayed in an immunocompromised individual), or other evidence exists to indicate HCV infection. Performed By: #### H BSAB, HBCAB, HBSAG, QUANT TB, HCV RX PCR #### [facility] , Hepatitis B Core Antibodyon 11-20-2022 Hepatitis B Core Antibody Negative Normal Negative [facility] Comment on above: Result Comment: Perf ormed at: [facility] [address] [id number] Family Coach: Anders Turner PhD, Phone: [phone] Performed By: #### H BSAB, HBCAB, HBSAG, QUANT TB, HCV RX PCR #### [facility] , Hepatitis B Surface Antibody on 11-20-2022 Hepatitis B Surface Antibody Reactive Normal . [facility] Comment on above: Result Comment: Non Reactive: Inconsistent with immunity, less than 10 mIU/mL Reactive: Consistent with immunity, greater than 9.9 mIU/mL Performed By: #### H BSAB, HBCAB, HBSAG, QUANT TB, HCV RX PCR #### [facility] , Hepatitis B Surface Antigeno n 11-20-2022 HBsAg Screen Negative Normal Negative [facility] Comment on above: Result Comment: PERF ORMED BY: [facility] [address] [place] [address] PATHOLOGIST NOISE TESTER PILLO SALAS M.D. Performed By: #### H BSAB, HBCAB, HBSAG, QUANT TB, HCV RX PCR #### [facility] , QuantiFERON TB Goldon 2022 QFTB Criteria Normal . [facility] Comment on above: Result Comment: Tyler [...] Quant TB Ag Value 0.06 Normal . [place] Comment on above: Performed By: #### H BSAB, HBCAB, HBSAG, QUANT TB, HCV RX PCR #### [facility] , Quant TB Gold Plus Negative Normal Negative [facility] Comment on above: Result Comment: No [...] interferon gamma. Chemiluminescence immunoassay methodology Performed at: [facility] [address] [id number] Family Coach: Anders Turner PhD, Phone: [phone] PERFORMED BY: [place] [id number] PATHOLOGIST NOISE TESTER PILLO SALAS M.D. Performed By: #### H BSAB, HBCAB, HBSAG, QUANT TB, HCV RX PCR #### [facility] , Quant TB2 Ag Value 0.16 Normal . [facility] Comment on above: Performed By: #### H BSAB, HBCAB, HBSAG, QUANT TB, HCV RX PCR #### [facility] , Quantiferon Nil Value 0.03 Normal . [facility] Comment on above: Performed By: #### H BSAB, HBCAB, HBSAG, QUANT TB, HCV RX PCR #### [facility] , Quantiferon TB Mitogen >10.00 Normal . [facility] Comment on above: Performed By: #### H BSAB, HBCAB, HBSAG, QUANT TB, HCV RX PCR #### [facility] , XR chest 2V*on 11-20-2022 XR chest 2V* [facility] [place] [address] XRay Report Signed Patient: Raz Holland MR#: [id number] 2 : 1985 Acct:[id number] Age/Sex: 37 / M ADM Date: 11/20/22 [...] ABNORMALITY. Impression dictated by: Dewey Weston Jr., DFantasmaOFantasma11/20/2022 3:04 PM Dictation Location: [place] [address] Transcribed By: [facility] 11/20/22 1504 Dictated By: Dewey Weston Jr, DO 11/20/22 1504 Signed By: 11/20/22 1504 [facility] CBC AUTO DIFFon 11-13-2022 BASO # 0.1 103/ul Normal 0.0-0.1 [facility] Comment on above: Performed By: #### C BC #### [facility] [address] [place] [address] Dr. Gale Hopper Basophils/100 WBC (Bld) 0.5 % Normal 0.2-2.0 [facility] Comment on above: Performed By: #### C BC #### [facility] [address] [place] [address] Dr. Gale Hopper EO # 0.1 103/ul Normal 0.0-0.7 [facility] Comment on above: Performed By: #### C BC #### [facility] [address] [place] [address] Dr. Gale Hopper Eosinophils/100 WBC (Bld) 1.1 % Normal 0.9-7.0 [facility] Comment on above: Performed By: #### C BC #### [facility] [address] [place] [address] Dr. Gale Hopper Erythrocyte distribution width (RBC) [Ratio] 12.6 % Normal 11.0-15.0 [facility] Comment on above: Performed By: #### C BC #### [facility] [address] [place] [address] Dr. Gale Hopper Hematocrit (Bld) [Volume fraction] 45.9 % Normal 42.0-54.0 [facility] Comment on above: Performed By: #### C BC #### [facility] [address] [place] [address] Dr. Gale Hopper Hemoglobin (Bld) [Mass/Vol] 15.7 g/dL Normal 14.0-18.0 [facility] Comment on above: Performed By: #### C BC #### [facility] [address] [place] [address] Dr. Gale Hopper IG # 0.04 10e3/ul Critically high 0.00-0.03 [facility] Comment on above: Performed By: #### C BC #### [facility] [address] [place] [address] Dr. Gale Hopper IG % 0.4 % Normal 0.0-0.5 [facility] Comment on above: Performed By: #### C BC #### [facility] [address] [place] [address] Dr. Gale Hopper LYMPH # 2.9 103/ul Normal 1.2-3.[address] [facility] Comment on above: Performed By: #### C BC #### [facility] [address] [place] [address] Dr. Gale Hopper Lymphocytes/100 WBC (Bld) 29.5 % Normal 20.5-60.0 [facility] Comment on above: Performed By: #### C BC #### [facility] [address] [place] [address] Dr. Gale Hopper MANUAL DIFF REQ NO Normal [facility] Comment on above: Performed By: #### C BC #### [facility] [address] [place] [address] Dr. Gale Hopper MCH (RBC) [Entitic mass] 27.8 pg Normal 25.9-34.0 [facility] Comment on above: Performed By: #### C BC #### [facility] [address] [place] [address] Dr. Gale Hopper MCHC (RBC) [Mass/Vol] 34.2 g/dL Normal 29.9-35.2 [facility] Comment on above: Performed By: #### C BC #### [facility] [address] [place] [address] Dr. Gale Hopper MCV (RBC) [Entitic vol] 81.4 fL Normal 80.0-94.0 [facility] Comment on above: Performed By: #### C BC #### [facility] [address] [place] [address] Dr. Gale Hopper MONO # 0.8 103/ul Normal 0.3-0.8 [facility] Comment on above: Performed By: #### C BC #### [facility] [address] [place] [address] Dr. Gale Hopper Monocytes/100 WBC (Bld) 7.7 % Normal 1.7-12.0 [facility] Comment on above: Performed By: #### C BC #### [facility] [address] [place] [address] Dr. Gale Hopper NEUT # 6.0 103/ul Normal 1.4-6.5 [facility] Comment on above: Performed By: #### C BC #### [facility] [address] [place] [address] Dr. Gale Hopper Neutrophils/100 WBC (Bld) 60.8 % Normal 43.0-75.0 [facility] Comment on above: Performed By: #### C BC #### [facility] [address] [place] [address] Dr. Gale Hopper Platelet mean volume (Bld) [Entitic vol] 9.2 fL Critically low 9.5-13.5 [facility] Comment on above: Performed By: #### C BC #### [facility] [address] [place] [address] Dr. Gale Hopper PLT 298 103/ul Normal 150-450 [facility] Comment on above: Performed By: #### C BC #### [facility] [address] [place] [address] Dr. Gale Hopper RBC 5.64 106/ul Normal 4.70-6.10 [facility] Comment on above: Performed By: #### C BC #### [facility] [address] [place] [address] Dr. Gale Hopper WBC 9.9 103/ul Normal 4.0-11.0 [facility] Comment on above: Performed By: #### C BC #### [facility] [address] [place] [address] Dr. Gale Hopper CRPon 11-13-2022 CRP 0.5 mg/dL Normal <=1.0 [facility] Comment on above: Performed By: #### C RP, CMP #### [facility] [address] [place] [address] Dr. Gale Hopper LIPID PROFILEon 11-13-2022 CHOL-HDL RATIO NORM SEE BELOW Normal [facility] Comment on above: Result Comment: 3.3 - 4.4 LOW RISK 4.4 - 7.1 AVERAGE RISK 7.1 - 11.0 MODERATE RISK >11.0 HIGH RISK Performed By: #### L IPID #### [facility] [address] [place] [address] Dr. Gale Hopper Cholesterol [Mass/Vol] 273 mg/dL Critically high <=[address] [facility] Comment on above: Performed By: #### L IPID #### [facility] [address] [place] [address] Dr. Gale Hopper Cholesterol in HDL [Mass/Vol] 43 mg/dL Normal 40-60 [facility] Comment on above: Performed By: #### L IPID #### [facility] [address] [address] [address] Gale Hopper Cholesterol in LDL [Mass/Vol] 196.2 mg/dL Normal [facility] Comment on above: Performed By: #### L IPID #### [facility] [address] [address] [address] Gale Hopper Cholesterol.total/Sima sterol in HDL [Mass ratio] 6.3 {ratio} Normal [facility] Comment on above: Performed By: #### L IPID #### [facility] [address] [address] [address] Gale Hopper HDL NORMAL > or = 60 mg/dl - LOW CARDIOVASCULAR RISK <40 mg/dl - HIGH CARDIOVASCULAR RISK Normal [facility] Comment on above: Performed By: #### L IPID #### [facility] [address] [place] [address] Dr. Gale Hopper LDL CALC NORMAL SEE BELOW Normal [facility] Comment on above: Result Comment: <100 mg/dl OPTIMAL 100 - 129 mg/dl NEAR OR ABOVE OPTIMAL 130 - 159 mg/dl BORDERLINE HIGH 160 - 189 mg/dl HIGH >190 mg/dl VERY HIGH Performed By: #### L IPID #### [facility] [address] [address] [address] Gale Hopper Triglyceride [Mass/Vol] 169 mg/dL Critically high <=150 [facility] Comment on above: Performed By: #### L IPID #### [facility] [address] [address] [address] Gale Hopper VLDL CALC 33.8 mg/dL Normal [facility] Comment on above: Performed By: #### L IPID #### [facility] [address] [address] [address] Gale Hopper PROF 14(COMP METB)on 023 Albumin [Mass/Vol] 3.8 g/dL Normal 3.4-5.0 [facility] Comment on above: Performed By: #### C RP, CMP #### [facility] [address] [address] [address] Gale Hopper Albumin/Globulin [Mass ratio] 0.8 {ratio} Normal [facility] Comment on above: Performed By: #### C RP, CMP #### [facility] [address] [address] [address] Gale Hopper ALP [Catalytic activity/Vol] 76 U/L Normal 46-116 [facility] Comment on above: Performed By: #### C RP, CMP #### [facility] [address] [address] [address] Gale Hopper ALT [Catalytic activity/Vol] 40 U/L Normal 16-63 [facility] Comment on above: Performed By: #### C RP, CMP #### [facility] [address] [address] [address] Gale Hopper Anion gap [Moles/Vol] 13.6 mmol/L Normal Th e [facility] Comment on above: Performed By: #### C RP, CMP #### [facility] [address] [address] [address] Gale Hopper AST [Catalytic activity/Vol] 21 U/L Normal 15-37 [facility] Comment on above: Performed By: #### C RP, CMP #### [facility] [address] [address] [address] Gale Hopper Bilirubin [Mass/Vol] 0.4 mg/dL Normal 0.2-1.0 [facility] Comment on above: Performed By: #### C RP, CMP #### [facility] [address] [address] [address] Gale Hopper Calcium [Mass/Vol] 9.4 mg/dL Normal 8.5-10.1 [facility] Comment on above: Performed By: #### C RP, CMP #### [facility] [address] [address] [address] Gale Hopper Chloride [Moles/Vol] 104 mmol/L Normal 98-107 [facility] Comment on above: Performed By: #### C RP, CMP #### [facility] [address] [address] [address] Gale Hopper CO2 [Moles/Vol] 26.4 mmol/L Normal 21.0-32.0 [facility] Comment on above: Performed By: #### C RP, CMP #### [facility] [address] [address] [address] Gale Hopper Creatinine [Mass/Vol] 1.01 mg/dL Normal 0.70-1.30 [facility] Comment on above: Performed By: #### C RP, CMP #### [facility] [address] [address] [address] Gale Hopper EGFR-AF SOUTH [place]OREAN >60 Normal >=60 [facility] Comment on above: Performed By: #### C RP, CMP #### [facility] [address] [address] [address] Gale Hopper EGFR-NON AF [place] >60 Normal >=60 [facility] Comment on above: Performed By: #### C RP, CMP #### [facility] [address] [address] [address] Gale Hopper Globulin (S) [Mass/Vol] 4.7 g/dL Normal [facility] Comment on above: Performed By: #### C RP, CMP #### [facility] [address] [address] [address] Gale Hopper Glucose [Mass/Vol] 114 mg/dL Critically high 74-106 [facility] Comment on above: Performed By: #### C RP, CMP #### [facility] [address] [address] [address] Gale Hopper Potassium [Moles/Vol] 4.0 mmol/L Normal 3.5-5.1 [facility] Comment on above: Performed By: #### C RP, CMP #### [facility] [address] [address] [address] Gale Hopper Protein [Mass/Vol] 8.5 g/dL Critically high 6.4-8.2 [facility] Comment on above: Performed By: #### C RP, CMP #### [facility] [address] [address] [address] Gale Hopper Sodium [Moles/Vol] 140 mmol/L Normal 136-145 [facility] Comment on above: Performed By: #### C RP, CMP #### [facility] [address] [address] [address] Gale Hopper Urea nitrogen [Mass/Vol] 13.0 mg/dL Normal 7.0-18.0 [facility] Comment on above: Performed By: #### C RP, CMP #### [facility] [address] [address] [address] Gale Hopper Urea nitrogen/Creatinine [Mass ratio] 12.9 mg/mg Normal [facility] Comment on above: Performed By: #### C RP, CMP #### [facility] [address] [place] [address] Dr. Gale Hopper [facility] mm/hr Critically high <=15 [facility] Comment on above: Performed By: #### S EDR #### [facility] [address] [place] [address] Dr. Gale Hopper UA RANDOM W/MICROSCOPICon BACTERIA NONE SEEN Normal NONE SEEN [facility] Comment on above: Performed By: #### U AMIC #### [facility] [address] [place] [address] Dr. Gale Hopper Bilirubin Ql (U) Negative Normal NEGATIVE [facility] Comment on above: Performed By: #### U AMIC #### [facility] [address] [place] [address] Dr. Gale Hopper CAST NONE SEEN Normal NONE SEEN [facility] Comment on above: Performed By: #### U AMIC #### [facility] [address] [place] [address] Dr. Gale Hopper Clarity (U) CLEAR Normal CLEAR [facility] Comment on above: Performed By: #### U AMIC #### [facility] [address] [place] [address] Dr. Gale Hopper Color (U) YELLOW Normal YELLOW [facility] Comment on above: Performed By: #### U AMIC #### [facility] [address] [place] [address] Dr. Gale Hopper Crystals LM Nom (Urine sed) NONE SEEN Normal NONE SEEN [facility] Comment on above: Performed By: #### U AMIC #### [facility] [address] [address] [address] Gale Hopper Epithelial cells LM Ql (Urine sed) NONE SEEN Normal NONE SEEN /RARE [facility] Comment on above: Performed By: #### U AMIC #### [facility] [address] [address] [address] Gale Hopper Glucose Ql (U) Negative Normal NEGATIVE [facility] Comment on above: Performed By: #### U AMIC #### [facility] [address] [address] [address] Gale Hopper Hemoglobin Ql (U) Negative Normal NEGATIVE [facility] Comment on above: Performed By: #### U AMIC #### [facility] [address] [place] [address] Dr. Gale Hopper Ketones Ql (U) Negative Normal NEGATIVE [facility] Comment on above: Performed By: #### U AMIC #### [facility] [address] [address] [address] Gale Hopper LEUKOCYTES Negative Normal NEGATIVE [facility] Comment on above: Performed By: #### U AMIC #### [facility] [address] [address] [address] Gale Hopper MUCOUS NONE SEEN Normal NONE SEEN [facility] Comment on above: Performed By: #### U AMIC #### [facility] [address] [address] [address] Gale Hopper Nitrite Ql (U) Negative Normal NEGATIVE [facility] Comment on above: Performed By: #### U AMIC #### [facility] [address] [address] [address] Gale Hopper pH (U) 6.0 [pH] Normal 5-9 [facility] Comment on above: Performed By: #### U AMIC #### [facility] [address] [address] [address] Gale Hopper RBC 0-2 Normal 0-2 [facility] Comment on above: Performed By: #### U AMIC #### [facility] [address] [address] [address] Gale Hoppre SPEC GRAVITY >=1.030 Abnormal 1.005-<=1.0 [address] [facility] Comment on above: Performed By: #### U AMIC #### [facility] [address] [address] [address] Gale Hopper UA PROTEIN Negative Normal NEGATIVE/ TRACE [facility] Comment on above: Performed By: #### U AMIC #### [facility] [address] [address] [address] Gale Hopper Urobilinogen Qn (U) 0.2 {Kellie'U}/dL Normal 0.2 - 1. 0 [facility] Comment on above: Performed By: #### U AMIC #### [facility] [address] [place] [address] Dr. Gale Hopper WBC NONE SEEN Normal NONE SEEN [facility] Comment on above: Performed By: #### U AMIC #### [facility] [address] [address] [address] Gale Hopper Albumin [Mass/volume] in Ser um or PlasmaOrdered By: Malvin Garcia on 12-17-2021 Albumin [Mass/Vol] 4.0 g/dL 3.2-5.5 [facility] Automated erythrocytes count in urine sediment (number/area)Ordered By: Malvin Garcia on 12-17-2021 RBC Auto (Urine sed) [#/Area] 0-1 [HPF] [facility] Automated leukocytes count i n urine sediment (number/area)Ordered By: Malvin Garcia on 12-17-2021 WBC Auto (Urine sed) [#/Area] 0-1 [HPF] [facility] Basophils Auto (Bld) [#/Vol] Ordered By: Malvin Garcia on 12-17-2021 Basophils (Bld) [#/Vol] 0.1 10*3/uL 0.0-0.2 [facility] Basophils/100 WBC Auto (Bld) Ordered By: Malvin Garcia on 12-17-2021 Basophils/100 WBC (Bld) 0.6 % [facility] Bilirubin Test strip Ql (U)O rdered By: Malvin Garcia on 12-17-2021 Bilirubin Ql (U) Negative Negative [facility] Blood hemoglobin measurement (mass/volume)Ordered By: Malvin Garcia on 12-17-2021 Hemoglobin (Bld) [Mass/Vol] 15.9 g/dL 13.0-17.0 [facility] Blood leukocytes automated c ount (number/volume)Ordered By: Malvin Garcia on 12-17-2021 WBC (Bld) [#/Vol] 10.5 10*3/uL 4.5-11.0 [facility] Color Auto (U)Ordered By: Quynh Garcia on 12-17-2021 Color (U) Yellow Yellow [facility] Creatine kinase [Enzymatic a ctivity/volume] in Serum or PlasmaOrdered By: Malvin Garcia on 12-17-2021 CK [Catalytic activity/Vol] 75 U/L 22-269 [facility] Creatinine and Glomerular fi ltration rate.predicted panel (S/P/Bld)Ordered By: Malvin Garcia on 12-17-2021 Creatinine [Mass/Vol] 0.90 mg/dL 0.64-1.27 [facility] Eosinophils Auto (Bld) [#/Vo l]Ordered By: Malvin Garcia on 12-17-2021 Eosinophils (Bld) [#/Vol] 0.1 10*3/uL 0.0-0.45 [facility] Eosinophils/100 WBC Auto (Bl d)Ordered By: Malvin Garcia on 12-17-2021 Eosinophils/100 WBC (Bld) 1.1 % [facility] Erythrocyte distribution wid th Auto (RBC) [Ratio]Ordered By: Malvin Garcia on 12-17-2021 Erythrocyte distribution width (RBC) [Ratio] 13.5 % 12.0-14.8 [facility] Erythrocyte sedimentation ra te by Photometric methodOrdered By: Malvin Garcia on 12-17-2021 ESR Photometric method (Bld) [Velocity] 31 mm/hr 0-14 [facility] Estimated glomerular filtrat ion rate (GFR) non- AmericanOrdered By: Malvin Garcia on 12-17-2021 GFR/1.73 sq M.predicted among non-blacks MDRD (S/P/Bld) [Vol rate/Area] > 60 mL/Min [facility] Globulin Calc (S) [Mass/Vol] Ordered By: Malvin Garcia on 12-17-2021 Globulin (S) [Mass/Vol] 4.0 g/dL [facility] Hematocrit Auto (Bld) [Volum e fraction]Ordered By: Malvin Garcia on 12-17-2021 Hematocrit (Bld) [Volume fraction] 46.9 % 38.8-50.0 [facility] Ketones Auto test strip (U) [Mass/Vol]Ordered By: Malvin Garcia on 12-17-2021 Ketones (U) [Mass/Vol] Negative Negative Fi [facility] - Hematology and Cell countsOrdered By: Malvin Garcia on 12-17-2021 Nucleated RBC/100 WBC (Bld) [Ratio] 0.0 % 0-0.5 [facility] - UrinalysisOrder ed By: Malvin Garcia on 12-17-2021 Hyaline casts LM Ql (Urine sed) None seen [LPF] [facility] Lymphocytes Auto (Bld) [#/Vo l]Ordered By: Malvin Garcia on 12-17-2021 Lymphocytes (Bld) [#/Vol] 3.3 10*3/uL 1.00-4.8 [facility] Lymphocytes/100 WBC Auto (Bl d)Ordered By: Malvin Garcia on 12-17-2021 Lymphocytes/100 WBC (Bld) 31.8 % [facility] MCH Auto (RBC) [Entitic mass ]Ordered By: Malvin Garcia on 12-17-2021 MCH (RBC) [Entitic mass] 28.5 pg 27.5-35.2 [facility] MCHC Auto (RBC) [Mass/Vol]Or dered By: Malvin Garcia on 12-17-2021 MCHC (RBC) [Mass/Vol] 33.9 g/dL 32.5-35.6 [facility] MCV Auto (RBC) [Entitic vol] Ordered By: Malvin Garcia on 12-17-2021 MCV (RBC) [Entitic vol] 84.1 fL 83.5-101 [facility] Monocytes Auto (Bld) [#/Vol] Ordered By: Malvin Garcia on 12-17-2021 Monocytes (Bld) [#/Vol] 1.1 10*3/uL 0.0-0.8 [facility] Monocytes/100 WBC Auto (Bld) Ordered By: Malvin Garcia on 12-17-2021 Monocytes/100 WBC (Bld) 10.8 % [facility] Neutrophils Auto (Bld) [#/Vo l]Ordered By: Malvin Garcia on 12-17-2021 Neutrophils (Bld) [#/Vol] 5.8 10*3/uL 1.8-7.7 [facility] Neutrophils/100 WBC Auto (Bl d)Ordered By: Malvin Garcia on 12-17-2021 Neutrophils/100 WBC (Bld) 55.7 % [facility] Nitrite Test strip Ql (U)Ord ered By: Malvin Garcia on 12-17-2021 Nitrite Ql (U) Negative Negative [facility] No Panel InformationOrdered By: Malvin Garcia on 12-17-2021 Estimated GFR () > 60 mL/Min [facility] Comment on above: GFR estimated refere nce range: According to KDOQI guidelines, <60 ml/min/1.73m2 is sufficient to diagnose a patient with chronic kidney disease. Pharmacy Creatinine Clearance (Chem N/A [facility] Platelet mean volume Auto (B ld) [Entitic vol]Ordered By: Malvin Garcia on 12-17-2021 Platelet mean volume (Bld) [Entitic vol] 8.1 fL 6.6-10.1 [facility] Platelets Auto (Bld) [#/Vol] Ordered By: Malvin Garcia on 12-17-2021 Platelets (Bld) [#/Vol] 293 10*3/uL 150-450 [facility] Protein Auto test strip (U) [Mass/Vol]Ordered By: Malvin Garcia on 12-17-2021 Protein (U) [Mass/Vol] Negative Negative [facility] Protein [Mass/volume] in Ser um or PlasmaOrdered By: Malvin Garcia on 12-17-2021 Protein [Mass/Vol] 8.0 g/dL 6.1-7.9 [facility] RBC Auto (Bld) [#/Vol]Ordere d By: Malvin Garcia on 12-17-2021 RBC (Bld) [#/Vol] 5.58 10*6/uL 3.90-5.60 [facility] Serum or plasma C reactive p rotein measurement (mass/volume)Ordered By: Malvin Garcia on 12-17-2021 CRP [Mass/Vol] 1.1 mg/dL 0.0-1.0 [facility] Serum or plasma alanine sy otransferase measurement without P-5'-P (enzymatic activiOrdered By: Malvin Garcia on 12-17-2021 ALT No additional P-5'-P [Catalytic activity/Vol] 35 U/L 10-60 [facility] Serum or plasma albumin/glob ulin mass ratioOrdered By: Malvin Garcia on 12-17-2021 Albumin/Globulin [Mass ratio] 1.0 {ratio} [facility] Serum or plasma alkaline guzman sphatase measurement (enzymatic activity/volume)Ordered By: Malvin Garcia on 12-17-2021 ALP [Catalytic activity/Vol] 72 U/L 32-92 [facility] Serum or plasma aspartate am inotransferase measurement (enzymatic activity/volume)Ordered By: Malvin Garcia on 12-17-2021 AST [Catalytic activity/Vol] 22 U/L 10-42 [facility] Serum or plasma calcium roosevelt urement (mass/volume)Ordered By: Malvin Garcia on 12-17-2021 Calcium [Mass/Vol] 9.6 mg/dL 8.2-10.2 [facility] Serum or plasma chloride thea surement (moles/volume)Ordered By: Malvin Garcia on 12-17-2021 Chloride [Moles/Vol] 105 mmol/L 95-114 [place] Serum or plasma glucose roosevelt urement (mass/volume)Ordered By: Malvin Garcia on 12-17-2021 Glucose [Mass/Vol] 74 mg/dL 70-100 [facility] Comment on above: ADA recommended refe rence rangeRandom Glucose Reference Range is dependent on time and content of last meal. Glucose of more than 200 mg/dL in a nonstressed, ambulatory subject supports the diagnosis of Diabetes Mellitus. Serum or plasma potassium me asurement (moles/volume)Ordered By: Malvin Garcia on 12-17-2021 Potassium [Moles/Vol] 4.3 mmol/L 3.5-5.1 [facility] Serum or plasma sodium measu rement (moles/volume)Ordered By: Malvin Garcia on 12-17-2021 Sodium [Moles/Vol] 139 mmol/L 136-146 [facility] Serum or plasma total biliru bin measurement (mass/volume)Ordered By: Malvin Garcia on 12-17-2021 Bilirubin [Mass/Vol] 0.4 mg/dL 0.3-1.2 [place] Serum or plasma total carbon dioxide measurement (moles/volume)Ordered By: Malvin Garcia on 12-17-2021 CO2 [Moles/Vol] 23.7 mmol/L 22.0-30.0 [facility] Serum or plasma urea nitroge n measurement (mass/volume)Ordered By: Malvin Garcia on 12-17-2021 Urea nitrogen [Mass/Vol] 14 mg/dL 9-23 [facility] Specific gravity Auto test s trip (U) [Rel density]Ordered By: Malvin Garcia on 12-17-2021 Specific gravity (U) [Rel density] 1.028 1.001-1.030 [facility] Squamous epithelial cells de tection in urine sediment by light microscopyOrdered By: Malvin Garcia on 12-17-2021 Epithelial cells.squamous LM Ql (Urine sed) None seen [HPF] [facility] TSH DL <= 0.005 mIU/L QnOrde red By: Malvin Garcia on 12-17-2021 TSH Qn 2.31 m[IU]/L 0.45-5.33 [facility] Thyroxine (T4) free [Mass/vo lume] in Serum or PlasmaOrdered By: Malvin Garcia on 12-17-2021 Free T4 [Mass/Vol] 0.88 ng/dL 0.61-1.12 [facility] Urine bacteria detection by automated methodOrdered By: Malvin Garcia on 12-17-2021 Bacteria Auto Ql (U) None seen None Seen [place] Urine clarity by refractomet ry automatedOrdered By: Malvin Garcia on 12-17-2021 Clarity Refractometry automated (U) Clear Clear [facility] Urine glucose measurement by automated test strip (mass/volume)Ordered By: Malvin Garcia on 12-17-2021 Glucose Auto test strip (U) [Mass/Vol] Normal mg/dL Normal [facility] Urine hemoglobin detection b y automated test stripOrdered By: Malvin Garcia on 12-17-2021 Hemoglobin Auto test strip Ql (U) Negative Negative [facility] Urine leukocyte esterase det ection by automated test stripOrdered By: Malvin Garcia on 12-17-2021 Leukocyte esterase Auto test strip Ql (U) Negative Negative [facility] Urobilinogen Auto test strip (U) [Mass/Vol]Ordered By: Malvin Garcia on 12-17-2021 Urobilinogen (U) [Mass/Vol] Normal mg/dL Normal [facility] pH Auto test strip (U)Ordere d By: Malvin Garcia on 12-17-2021 pH (U) 6.5 [pH] 5.0-9.0 [facility] No Panel Information [facility] Vital Signs Date Time Vital Sign Value Performing Clinician Facility 06-23-2024 15:37-0400 Body height 172.7 cm Serenity Mayers [employer] Work Phone: [facility] 06-23-2024 15:37-0400 Body mass index (BMI) [Ratio] 35.64 kg/m2 Serenity Mayers [employer] Work Phone: [facility] 06-23-2024 15:37-0400 Body temperature 97.81 [degF] Serenity Mayers [employer] Work Phone: [facility] 06-23-2024 15:37-0400 Body weight 106.32 kg Serenity Mayers [employer] Work Phone: [facility] 06-23-2024 15:37-0400 Diastolic blood pressure 86 mm[Hg] Serenity Aichholz [employer] Work Phone: [facility] 06-23-2024 15:37-0400 Heart rate 96 /min Serenity Aichholz [employer] Work Phone: [facility] 06-23-2024 15:37-0400 Respiratory rate 18 /min Serenity Aichholz [employer] Work Phone: [facility] 06-23-2024 15:37-0400 SaO2% (BldA) [Mass fraction] 99 % Serenity Aichholz [employer] Work Phone: [facility] 06-23-2024 15:37-0400 Systolic blood pressure 138 mm[Hg] Serenity Aichholz [employer] Work Phone: [facility] 05-31-2024 11:26-0400 Body temperature 98.1 [degF] Serenity Aichholz [employer] Work Phone: [facility] 05-31-2024 11:26-0400 Diastolic blood pressure 86 mm[Hg] Serenity Aichholz [employer] Work Phone: [facility] 05-31-2024 11:26-0400 Heart rate 72 /min Serenity Aichholz [employer] Work Phone: [facility] 05-31-2024 11:26-0400 Respiratory rate 19 /min Serenity Aichholz [employer] Work Phone: [facility] 05-31-2024 11:26-0400 SaO2% (BldA) [Mass fraction] 99 % Serenity Aichholz [employer] Work Phone: [facility] 05-31-2024 11:26-0400 Systolic blood pressure 122 mm[Hg] Serenity Aichholz [employer] Work Phone: [facility] 05-25-2024 15:57-0400 Body height 172.7 cm Serenity Aichholz [employer] Work Phone: [facility] 05-25-2024 15:57-0400 Body mass index (BMI) [Ratio] 35.7 kg/m2 Serenity Castillobinh [employer] Work Phone: [facility] 05-25-2024 15:57-0400 Body temperature 97.3 [degF] Serenity Castillobinh [employer] Work Phone: [facility] 05-25-2024 15:57-0400 Body weight 106.5 kg Serenity Castillobinh [employer] Work Phone: [facility] 05-25-2024 15:57-0400 Diastolic blood pressure 86 mm[Hg] Serenity Annabinh [employer] Work Phone: [facility] 05-25-2024 15:57-0400 Heart rate 74 /min Serenity Castillobinh [employer]CH[employer] Work Phone: [facility] 05-25-2024 15:57-0400 Respiratory rate 18 /min Serenity Castillobinh [employer] MECH[employer]IC Work Phone: [facility] 05-25-2024 15:57-0400 SaO2% (BldA) [Mass fraction] 98 % Serenity Castillobinh [employer]ED [employer] MECH[employer]IC Work Phone: [facility] 05-25-2024 15:57-0400 Systolic blood pressure 150 mm[Hg] Serenity Castillobinh [employer] MECH[employer]IC Work Phone: [facility] 11-02-2023 13:31-0500 Body height 172.7 cm Pmh 2 [facility] 11-02-2023 13:31-0500 Body mass index (BMI) [Ratio] 35.43 kg/m2 Pmh 2 [facility] 11-02-2023 13:31-0500 Body weight 105.69 kg Pm 2 [facility] Encounters Encounter Date Encounter Type Care Provider Facility Start: 02-16-2025 End: 02-16-2025 Patient encounter procedure Fortino Damon MD Work Phone: Ophthalmology Comment on above: Panuveitis, left eye (Primary Dx); Cystoid macular edema of left eye; Cystoid macular degeneration of left eye; HLA B27 (HLA B27 positive); 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) Start: 02-16-2025 End: 02-16-2025 ambulatory FORTINO A MAMMO Facility:[facility] Start: 12-22-2024 End: 12-22-2024 Patient encounter procedure Fortino Damon MD Work Phone: Ophthalmology Comment on above: Panuveitis, left eye (Primary Dx); Cystoid macular edema of left eye; Cystoid macular degeneration of left eye; HLA B27 (HLA B27 positive) Start: 12-22-2024 End: 12-22-2024 ambulatory FORTINO A MAMMO Facility:[facility] Start: 09-22-2024 End: 09-22-2024 ambulatory FORTINO A MAMMO Facility:[facility] Start: 09-22-2024 End: 09-22-2024 Patient encounter procedure Fortino Damon MD Work Phone: Ophthalmology Comment on above: HLA B27 (HLA B27 pos itive) (Primary Dx); Panuveitis, left eye; Cystoid macular edema of left eye; Disseminated chorioretinitis, left; Cystoid macular degeneration of left eye Start: 08-22-2024 End: 08-22-2024 ambulatory FORTINO A MAMMO Facility:[facility] Start: 08-22-2024 End: 08-22-2024 Patient encounter procedure Fortino Damon MD Work Phone: Ophthalmology Comment on above: Cystoid macular dege neration of left eye (Primary Dx); HLA B27 (HLA B27 positive); Panuveitis, left eye; Cystoid macular edema of left eye; Disseminated chorioretinitis, left Start: 08-12-2024 End: 08-12-2024 Orders Only Bindu NAYLOR Ophthalmology Comment on above: HLA B27 (HLA B27 pos itive) (Primary Dx); Panuveitis, left eye; Cystoid macular edema of left eye; Disseminated chorioretinitis, left Start: 07-22-2024 End: 07-22-2024 Refill Serenity Mayers NP Work Phone: [facility] Comment on above: Primary hypertension (CMS/HCC) Start: 07-06-2024 End: 07-06-2024 Clinisync Result Encounter Serenity Castillobinh COM[employer]ED [employer] MECH[employer]IC Work Phone: [facility] Unsolicited Start: 07-06-2024 End: 07-06-2024 Clinisync Result Encounter Serenity Castillobinh [employer] MECH[employer]IC Work Phone: [facility] Unsolicited Start: 06-23-2024 End: 06-23-2024 ambulatory SERENITY RIANA Not Available Start: 06-23-2024 End: 06-23-2024 Office outpatient visit 15 minutes Serenity Riana [employer] MECH[employer]IC Work Phone: [facility] Comment on above: Primary hypertension (CMS/HCC) (Primary Dx); Morbid (severe) obesity due to excess calories (CMS/HCC); Body mass index (BMI) 35.0-35.9, adult Start: 06-23-2024 End: 06-23-2024 Bamboo flowsheet Serenity Riana [employer] MECH[employer]IC Work Phone: [facility] Start: 06-23-2024 End: 06-23-2024 Bamboo flowsheet Serenity Riana [employer] E[employer] MECH[employer]IC Work Phone: [facility] Start: 06-03-2024 End: 06-03-2024 Orders Only Serenity Riana [employer] MECH[employer]IC Work Phone: [facility] Comment on above: Right ankle swelling (Primary Dx) Start: 05-31-2024 End: 05-31-2024 Bamboo flowsheet Serenity Riana COM[employer] EQU[employer] MECHANIC Work Phone: [facility] Start: 05-31-2024 End: 05-31-2024 Bamboo flowsheet Serenity Riana COM[employer]ED G[employer] EQU[employer] MECH[employer]IC Work Phone: [facility] Start: 05-31-2024 End: 05-31-2024 Office outpatient visit 15 minutes Serenity Riana COM[employer]ED G[employer] EQU[employer]MENT MECHANIC Work Phone: [facility] Comment on above: Right ankle swelling (Primary Dx); Primary hypertension (CMS/HCC) Start: 05-31-2024 End: 05-31-2024 ambulatory SERENITY AICHHOLZ Not Available Start: 05-25-2024 End: 05-25-2024 Office outpatient visit 25 minutes Serenity Mayers [employer] MECH[employer]IC Work Phone: [facility] Comment on above: Dizziness and giddin ess (Primary Dx); Morbid (severe) obesity due to excess calories (CMS/HCC); Mixed hyperlipidemia (CMS/HCC); Body mass index (BMI) 35.0-35.9, adult; Primary hypertension ([facility]/HCC) Start: 05-25-2024 End: 05-25-2024 ambulatory SERENITY AICHHOLZ Not Available Start: 05-25-2024 End: 05-25-2024 Bamboo flowsheet Serenity Jadenz [employer]ED [employer] EQU[employer] MECHANIC Work Phone: [facility] Start: 05-25-2024 End: 05-25-2024 Bamboo flowsheet Serenity Riana [employer]ED [employer] E[employer] MECH[employer]IC Work Phone: [facility] Start: 11-23-2023 End: 11-23-2023 ambulatory SERENITY JADENZ Not Available Start: 11-19-2023 End: 11-19-2023 Evaluation and management of inpatient ARELYGail FULTON [facility] Start: 11-19-2023 End: 11-19-2023 Evaluation and management of inpatient STEFANIA ZIMMER [facility] Start: 11-02-2023 End: 11-03-2023 ambulatory ANDREA PATINO [facility] Start: 11-02-2023 Encounter for other preprocedural examination STEFANIA ZIMMER [facility] Start: 11-02-2023 End: 11-02-2023 Patient encounter procedure Pmh Pre-Admission Testing 2 [facility] - Pre Admit Comment on above: Preop examination (P rimary Dx); Hypertension, unspecified type Start: 11-02-2023 End: 11-02-2023 Preprocedural examination done Pm 2 [facility] Start: 10-14-2023 End: 10-14-2023 ambulatory Malvinyong Garcia Facility:[facility] Start: 10-14-2023 End: 10-14-2023 ambulatory Serenity Champion Aicbhartiholz Work Phone: [facility] Work Phone: Start: 10-14-2023 End: 10-14-2023 Patient encounter procedure Serenity Stanleyz Work Phone: [facility] [address] Work Phone: Start: 11-25-2022 End: 11-26-[address] KRAFT MISC Facility:[facility] Start: 11-20-2022 End: 11-20-2022 ambulatory Malvin Garcia Facility:[facility] Start: 11-20-2022 End: 11-20-2022 ambulatory Serenity Champion Aichholz Work Phone: [facility] Work Phone: Start: 11-20-2022 End: 11-20-2022 Patient encounter procedure Serenity Mayers Work Phone: [facility]-XRay [address] Work Phone: Start: 11-13-2022 End: 11-14-[address] KRAFT MISC Facility:[facility] Start: 09-19-2022 End: 09-19-2022 Patient encounter procedure Ashley Dodd MD, PhD Work Phone: Ophthalmology Comment on above: Panuveitis, left eye (Primary Dx); HLA B27 (HLA B27 positive) Start: 08-27-2022 End: 08-27-2022 Patient encounter procedure Ashley Dodd MD, PhD Work Phone: Ophthalmology Comment on above: Panuveitis, left eye (Primary Dx) Start: 08-13-2022 End: 08-13-2022 Patient encounter procedure Ashley Dodd MD, PhD Work Phone: Ophthalmology Comment on above: Panuveitis, left eye (Primary Dx); Refractive error; Disseminated chorioretinitis, left Start: 12-17-2021 End: 12-17-2021 Patient encounter procedure MD Awais Garcia Work Phone: [facility] [address] Procedures Date Procedure Procedure Detail Performing Clinician Start: 02-16-2025 XIPERE (TRIAMCINOLON E) 4MG SUPRACHOROIDAL INJ OS (LEFT EYE) Fortino Damon MD Work Phone: Start: 02-16-2025 Computerized ophthal cece imaging retina Fortino Damon MD Work Phone: Start: 12-22-2024 Computerized ophthal cece imaging retina Fortino Damon MD Work Phone: Start: 09-22-2024 XIPERE (TRIAMCINOLON E) 4MG SUPRACHOROIDAL INJ OS (LEFT EYE) Fortino Damon MD Work Phone: Start: 09-22-2024 Computerized ophthal cece imaging retina Fortino Damon MD Work Phone: Start: 08-22-2024 Fluorescein angrph w/multiframe i&r uni/bi Fortino Damon MD Work Phone: Start: 08-22-2024 Computerized ophthal cece imaging retina Fortino Damon MD Work Phone: Start: 07-06-2024 ALL CBC WITH AUTO DIFF Serenity Mayers [employer] MECH[employer]IC Work Phone: Start: 11-20-2022 Plain chest X-ray Serenity Mayers Work Phone: Start: 08-13-2022 End: 08-13-2022 Computerized [...] eral wrists MD Awais Garcia Work Phone: Start: 10-01-2021 Lipid 1996 panel - S tian or Plasma Bindu NAYLOR Plan of Treatment Date Care Activity Detail Author Start: 06-09-2029 Urine microalbumin profile DTaP,Tdap,Td Vaccine (3 - Td or Tdap) [facility] Start: 10-01-2026 Lipid panel Lipid Screening [facility] Start: 10-01-2026 LIPID SCREEN LIPID SCREEN [facility] Start: 03-03-2026 End: 08-10-2026 Camera fundoscopy FUNDUS PHOTOS OU (BOTH EYES) [facility] Imaging Routine Panuveitis, left eye 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 Expected: 03/03/2026, Expires: 08/10/2026 [facility] Comment on above: Expected: 03/03/2026 , Expires: 08/10/2026 Start: 03-03-2026 End: 08-10-2026 OCT MACULA CIRRUS OU (BOTH EYES) OCT MACULA CIRRUS OU (BOTH EYES) [facility] Imaging Routine Panuveitis, left eye 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 Expected: 03/03/2026, Expires: 08/10/2026 [facility] Work Phone: Comment on above: Expected: 03/03/2026 , Expires: 08/10/2026 Start: 01-06-2026 End: 06-15-2026 OCT MACULA CIRRUS OU (BOTH EYES) OCT MACULA CIRRUS OU (BOTH EYES) [facility] Imaging Routine Panuveitis, left eye 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) Expected: 01/06/2026, Expires: 06/15/2026 [facility] Work Phone: Comment on above: Expected: 01/06/2026 , Expires: 06/15/2026 Start: 05-11-2025 End: 05-11-2025 Patient encounter procedure 05/11/2025 1:45 PM EDT Office Visit [facility] Ophthalmology [address] [place] [address] Fortino Damon MD [address] [place], [place] [phone] [facility] [address] [address] *12 W, DFE/OCT/OPTOS, PRN XIPERE OS Ophthalmology Comment on above: *12 W, DFE/OCT/OPTOS , PRN XIPERE OS Start: 05-08-2025 Influenza vaccination Influenz a Vaccine (Season Ended) [facility] Start: 02-16-2025 End: 02-16-2025 Patient encounter procedure 02/16/2025 2:00 PM EDT Office Visit [facility] Ophthalmology [address] [place] [address] Fortino Damon MD [address] [place], [place] [phone] *8 W, DFE/OCT Ophthalmology Comment on above: *8 W, DFE/OCT Start: 11-10-2024 End: 11-10-2024 Patient encounter procedure 11/10/2024 2:00 PM EST Office Visit [facility] Ophthalmology [address] [place] [address] Fortino Damon MD [address] [place], [place] [phone] Return in about 6 weeks (around 11/03/2024) for 6-8 weeks undilated / OCT OU. Ophthalmology Comment on above: Return in about 6 we eks (around 11/03/2024) for 6-8 weeks undilated / OCT OU. Start: 11-02-2024 Adult BMI Screening Adult BMI Screen ing [facility] Start: 11-02-2024 Tobacco Screening Tobacco Screening [facility] Start: 09-22-2024 End: 09-22-[address] [facility] Comment on above: *4 W, NO DILATION, O CT OU, POSS XIPERE OS auth pending Start: 08-22-2024 End: 08-22-2024 Patient encounter procedure 08/22/2024 1:30 PM EST Office Visit [facility] Ophthalmology [address] [address] Fortino Damon MD [address] [place] [address] + MD TO SEE UNDILATED THEN DFE OCT FA OUHla-b27 uveitis / Dr. Dodd pt Pt for Dr. Damon Ophthalmology Comment on above: + MD TO SEE UNDILATE D THEN DFE OCT FA OUHla-b27 uveitis / Dr. Dodd pt Pt for Dr. Damon Start: 06-23-2024 End: 06-23-2024 Patient encounter procedure 06/23/2024 3:20 PM EDT Office Visit [facility] [address] [place] [address] Serenity Mayers NP [address] [place] [address] [facility] Start: 05-31-2024 End: 05-31-2025 XR Ankle - right 3 Views XR ankle 3+ views right Imaging Routine Right ankle swelling Expected: 05/31/2024, Expires: 05/31/2025 [facility] Work Phone: Comment on above: Expected: 05/31/2024 , Expires: 05/31/2025 Start: 05-31-2024 End: 05-31-2024 Patient encounter procedure 05/31/2024 11:30 AM EDT Office Visit [facility] [address] [place] [phone] Serenity Mayers, [employer] MECH[employer]IC [address] [place] [phone] Primary [facility] (CMS[facility]HCC) [facility] Comment on above: Primary hypertension (CMS/HCC) Start: 05-25-2024 End: 05-25-2024 Patient encounter procedure 05/25/2024 3:40 PM EDT [facility] [address] [place] [phone] Serenity Mayers, [employer] MECH[employer]IC [address] [place] [phone] Primary hypertension (CMS/HCC) (Primary Dx); Morbid (severe) obesity due to excess calories (CMS/HCC); Mixed hyperlipidemia (CMS/HCC); Body mass index (BMI) 35.0-35.9, adult [facility] Comment on above: Primary hypertension (CMS/HCC) (Primary Dx); Morbid (severe) obesity due to excess calories (CMS/HCC); Mixed hyperlipidemia (CMS/HCC); Body mass index (BMI) 35.0-35.9, adult Start: 05-25-2024 End: 05-25-2025 CBC W Auto Differential panel - Blood CBC and differential Lab Routine Primary hypertension (CMS/HCC) Expected: 05/25/2024 (Approximate), Expires: 05/25/2025 [facility] Work Phone: Comment on above: Expected: 05/25/2024 (Approximate), Expires: 05/25/2025 Start: 05-25-2024 End: 05-25-2025 Comprehensive metabolic 2000 panel - Serum or Plasma Comprehensive metabolic panel Lab Routine Mixed hyperlipidemia (CMS/HCC) Primary hypertension (CMS/HCC) Expected: 05/25/2024 (Approximate), Expires: 05/25/2025 [facility] Comment on above: Expected: 05/25/2024 (Approximate), Expires: 05/25/2025 Start: 05-25-2024 End: 05-25-2025 Lipid 1996 panel - Serum or Plasma Lipid panel Lab Routine Mixed hyperlipidemia (CMS/HCC) Expected: 05/25/2024 (Approximate), Expires: 05/25/2025 [facility] Comment on above: Expected: 05/25/2024 (Approximate), Expires: 05/25/2025 Start: 05-25-2024 End: 05-25-2025 Microalbumin/Creatinine panel in random Urine Microalbumin / creatinine, urine ratio Lab Routine Primary hypertension (CMS/HCC) Expected: 05/25/2024 (Approximate), Expires: 05/25/2025 [facility] Comment on above: Expected: 05/25/2024 (Approximate), Expires: 05/25/2025 Start: 05-25-2024 End: 05-25-2025 Urinalysis complete panel - Urine Urinalysis with reflex microscopic (clean catch) Lab Routine Primary hypertension (CMS/HCC) Expected: 05/25/2024 (Approximate), Expires: 05/25/2025 [facility] Comment on above: Expected: 05/25/2024 (Approximate), Expires: 05/25/2025 Start: 05-08-2024 Covid-19 Vaccine ( season) Covid-19 Vaccine ( season) [facility] Start: 05-08-2024 Influenza vaccination Influenza Vacc ine (#1) [facility] Start: 11-19-2023 End: 11-19-2023 Admission to same day surgery center 11/19/2023 2:15 PM EDT - 11/19/2023 3:00 PM EDT Surgery [facility] [address] [place] [address] Stefania Zimmer MD [address] [place] [address] EXTRACTION CATARACT INTRAOCULAR LENS [34679 (CPT )] [facility] Comment on above: EXTRACTION CATARACT INTRAOCULAR LENS [54306 (CPT )] Start: 11-19-2023 End: 11-19-2023 Anesthesia consultation 11/19/2023 2:15 PM EDT Anesthesia Event [facility] [address] [place] [phone] Arely Fulton, DO [address] [facility], [place] [phone] [facility] Start: 11-19-2023 Subsequent hospital visit by physician 11/19/2023 2:15 PM EDT Hospital Encounter [facility] [address] [place] [facility] [place] [phone] Stefania Zimmer MD [address] [place] [phone] [facility] Start: 11-19-2023 End: 11-19-2023 Xcapsl ctrc rmvl insj io lens prosth w/o ecp EXTRACTION CATARACT INTRAOCULAR LENS cataract left eye 11/19/2023 2:15 PM EDT [facility] Start: 05-08-2023 Influenza vaccination Influenza Vacc ine [facility] Start: 11-20-2022 Hepatitis B core antibody measurement [facility] Start: 11-20-2022 [facility] Start: 09-07-2022 DEPRESSION ASSESSMENT [facility] Start: 05-08-2022 Influenza vaccination INFLUENZA (#1) [facility] Start: 09-07-2021 DEPRESSION ASSESSMENT DEPRESSION [facility] Start: 2005 DTaP,Tdap and Td Vaccines (1 - Tdap) DTaP,Tdap and Td Vaccines (1 - Tdap) [facility] Start: 2005 Pneumococcal vaccination Pneumococcal Vaccine (1 of 2 - PCV) [facility] Start: 2005 Shingrix Vaccine (1 of 2) Shingrix Vaccine (1 of 2) [facility] Start: 2005 Urine microalbumin profile DTAP,TDAP,TD (1 - Tdap) [facility] Start: 2004 Adult BMI Follow Up Plan Adult BMI Follow Up Plan [facility] Start: 2004 Anxiety Screening Anxiety Screening [facility] Start: 2004 Depression Screening Depression Scre ing [facility] Start: 2004 HEPATITIS C SCREENING HEPATITIS C SC [facility] Start: 2004 Hepatitis C screening Hepatitis C [facility] Start: 2004 HIV SCREENING HIV SCREENING [facility] Start: 2004 HIV screening HIV Screening [facility] Start: 1998 Depression Screening Depression Scre [facility] Start: 1991 Covid-19 Vaccine (#1) Covid-19 Vacci ne (#1) [facility] Start: 1986 COVID-19 VACCINE (#1) COVID-19 VACCI NE (#1) [facility] Start: 1986 HEPATITIS B (1 of 3 - 3-dose series) HEPATITIS B (1 of 3 - 3-dose series) [facility] Aldolase measurement 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, left 1 Occurrences starting 08/12/2024 until 02/03/2026 [facility] Comment on above: 1 Occurrences starti ng 08/12/2024 until 02/03/2026 Hepatitis B virus surface Ab [Presence] in Serum [facility] Hepatitis B virus surface Ag [Presence] in Serum or Plasma by Immunoassay [facility] Hepatitis C virus Ig G Ab [Presence] in Serum or Plasma by Immunoassay [facility] HLA-B27 [Presence] b y MELLO with probe detection [facility] Work Phone: Homogenous nuclear A b pattern [Titer] in Serum [facility] Work Phone: Interferon gamma assay [facility] Mycobacterium tuberculosis stimulated gamma interferon [Interpretation] in Blood Qualitative [facility] Mycobacterium tuberculosis stimulated gamma interferon release by CD4+ and CD8+ T-cells [Units/volume] corrected for background in Blood [facility] Mycobacterium tuberculosis tuberculin stimulated gamma interferon [Presence] in Blood [facility] Nuclear Ab [Titer] i n Serum [facility] Work Phone: End: 02-03-2026 OCT MACULA CIRRUS OU (BOTH EYES) OCT MACULA CIRRUS OU (BOTH EYES) [facility] Imaging Routine HLA B27 (HLA B27 positive) Panuveitis, 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, left 1 Occurrences starting 08/12/2024 until 02/03/2026 [facility] Work Phone: Comment on above: 1 Occurrences starti ng 08/12/2024 until 02/03/2026 End: 02-13-2026 OCT MACULA CIRRUS OU (BOTH EYES) OCT MACULA CIRRUS OU (BOTH EYES) [facility] Imaging Routine HLA B27 (HLA B27 positive) Panuveitis, 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, 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 1 Occurrences starting 08/22/2024 until 02/13/2026 [facility] Work Phone: Comment on above: 1 Occurrences starti ng 08/22/2024 until 02/13/2026 [facility] Immunizations Immunization Date Immunization Notes Care Provider Feliz [facility] 06-09-2019 influenza, injectabl e, quadrivalent, preservative free Serenity Mayers [employer] MECHANIC Work Phone: [facility] 06-09-2019 tetanus toxoid, redu william diphtheria toxoid, and acellular pertussis vaccine, adsorbed Serenity Mayers [employer]ED [employer] EQUIPMENT MECHANIC Work Phone: [facility] 06-09-2019 influenza virus vaccine, unspecified formulation Bindu Cisneros [facility] 07-08-2013 influenza virus vaccine, unspecified formulation Serenity Mayers COM[employer]ED [employer] EQUIPMENT MECHANIC Work Phone: [facility] 07-25-2010 influenza virus vaccine, live, attenuated, for intranasal use Serenity Annaholz [employer]ED [employer] EQUIPMENT MECHANIC Work Phone: [facility] 09-20-2009 novel [id number], injectable Serenity Aicholz COMPRESSED G[employer] EQUIPMENT MECHANIC Work Phone: [facility] 05-08-2009 tetanus toxoid, redu william diphtheria toxoid, and acellular pertussis vaccine, adsorbed Serenity Aicholz COMPRESSED G[employer] EQUIPMENT MECHANIC Work Phone: [facility] 06-23-2008 influenza virus vaccine, live, attenuated, for intranasal use Serenity Aicholz COM[employer]ED G[employer] EQUIPMENT MECHANIC Work Phone: [facility] 07-15-2007 influenza virus vaccine, live, attenuated, for intranasal use Serenity Aicholz COMPRESSED G[employer] EQUIPMENT MECHANIC Work Phone: [facility] 06-30-2006 influenza virus vaccine, live, attenuated, for intranasal use Serenity Aicholz COMPRESSED G[employer] EQUIPMENT MECHANIC Work Phone: [facility] 04-28-2006 hepatitis A and hepatitis B vaccine Serenity Aicholz COMPRESSED G[employer] EQUIPMENT MECHANIC Work Phone: [facility] 09-20-2005 hepatitis A and hepatitis B vaccine Serenity Aicholz COM[employer]ED [employer] EQUIPMENT MECHANIC Work Phone: [facility] 08-20-2005 hepatitis A and hepatitis B vaccine Serenity Aichholz COM[employer]ED [employer] EQUIPMENT MECHANIC Work Phone: [facility] 08-20-2005 influenza virus vaccine, split virus (incl. purified surface antigen) Serenity Aicholz COMPRESSED [employer] EQUIPMENT MECHANIC Work Phone: [facility] 08-13-2005 meningococcal polysaccharide vaccine (MPSV4) Serenity Aichholz COMPRESSED G[employer] EQUIPMENT MECHANIC Work Phone: [facility] 08-13-2005 poliovirus vaccine, inactivated Serenity Aicholz COMPRESSED G[employer] EQUIPMENT MECHANIC Work Phone: [facility] 08-13-2005 tetanus and diphther ia toxoids, adsorbed, preservative free, for adult use (2 Lf of tetanus toxoid and 2 Lf of diphtheria toxoid) Serenity Aichholz COMPRESSED [employer] EQUIPMENT MECHANIC Work Phone: [facility] Payers Date Payer Category Payer Self-pay [id number] [facility]-8369 [id number] 2022 Unknown [id number] 2022 Unknown [employer] [id number] 2022-Present [phone] [address] [address] [place] [address] [id number] 2020 Private Health Insurance [id number] 1986 Unknown [id number] 1986 Unknown [id number] 1986 Unknown [id number] .2.593 1985 Unknown [id number] [id number] .2.1286 1986 Unknown [id number] 2.16.840.1.805666.3.579 .2.1286 1986 Unknown [id number] 2.16.840.1.525601.3.579 .2.1286 1986 Unknown [id number] 2.16.840.1.557994.3.579 .2.1286 1986 Unknown [id number] 2.16.840.1.153198.3.579 .2.1286 1986 Unknown [id number] 2.16.840.1.032044.3.579 .2.1286 1986 Unknown [id number] 2.16.840.1.384801.3.579 .2.1259 1986 Unknown [id number] 2.16.840.1.313900.3.579 .2.1259 1986 Unknown [id number] 2.16.840.1.315067.3.579 .2.1259 1986 Unknown [id number] 2.16.840.1.086798.3.579 .2.1259 1959 Unknown [id number] Unknown [facility] [id number] Unknown [id number] 2.16.840.1.467449.3.579 .2.531 Unknown [id number] 2.16.840.1.740097.3.579 .2.531 Social History Date Type Detail [facility] Work Phone: Start: 1985 Sex Assigned At Male F [facility] Start: 08-13-2022 End: 11-02-2023 Tobacco smoking status [facility] Never smoked tobacco [facility] Start: 08-13-2022 End: 11-02-2023 Tobacco use and exposure Smokeless tobacco non-user [facility] Start: 08-13-2022 End: 05-31-2024 Alcohol intake Ex-drinker (finding) [facility] Start: 08-13-2022 Alcohol Comment Rarely [facility] Start: 1985 Sex Assigned At [facility] file [facility] Start: 05-31-2024 End: 02-16-2025 History of Social function [facility] Start: 05-31-2024 End: 02-16-2025 Tobacco use panel [facility] Start: 11-23-2023 Alcohol Comment caffine: jorje e 1-2 weekly [facility] National Score (1-100), lower number is lower risk 60 [facility] Start: 08-22-2024 End: 02-16-2025 Alcoholic beverage intake Current drinker of alcohol (finding) [facility] Start: 11-02-2023 Alcohol Comment very rare [facility] Clinical Notes 08-13-2022 to 02-16-2025 Fortino Damon MD - 02/16/2025 3:10 PM EDTPatient InstructionsMaFortino joiner MD - 12/22/2024 1:45 PM EDFortino Jordan MD - 09/22/2024 2:00 PM ESTPatient InstructionsPatient Instructions Note Date & Type Note Facility 02-16-2025 Note Date of Procedure 02/16/2025 Dresser Protocol Safety Checklist A moment of CARE was completed Sign In Sign in communication not applicable due to emergent procedure. Personnel directly involved with the procedure wore the appropriate PEE. Special Equipment: yes. Patient/surrogate stated/verified patient name. Provider Confirms: Relevant labs, photos, and/or imaging studies have been reviewed. Intended patient and procedure match the source document(s) (e.g. consent, associated studies [imaging, pathology]). Consent obtained and matches the intended procedure. Correct side/site marked and visible. Medications required for procedure verified. Fire risk assessed and interventions discussed. Correct implant(s) confirmed including size and side. Sign Out All specimens are correctly labeled and sent. All instruments, equipment, possible retained foreign bodies accounted for. Post-procedure POC communicated to patient or surrogate. Post-procedure POC communicated to patient's multidisciplinary team. Anesthesia 0.5 mL subconjunctival injection of 2% Lidocaine. Prep 10% Povidone-iodine swabs. Injection Administration Medication: 4 mg triamcinolone acetonide (PF) 40 mg/mL Route: suprachoroidal, Site: Left Needle Used 900 microns Balance Wasted Residual medication less than 1 unit was discarded. Anterior Chamber Paracentesis Yes. Post Injection Evaluation Patient has at least hand motion vision. Post Procedure Medications None. Home Going Prescription None. Notes 4 mg / 0.1 mL injected; 32 mg / 0.8 mL wasted [facility] 02-16-2025 Note Date of Procedure 02/16/2025. Contract Forester Information Rafter Cutting Machine Operator: HERON. OCT Macula Interpretation Right Eye Normal foveal contour. Findings include Negative for Intraretinal fluid, Subretinal fluid. Left Eye Abnormal foveal contour. Findings include Intraretinal fluid, Cystoid macular edema; Negative for Subretinal fluid. Interval Change Right Eye Stable. Left Eye Worse. [facility] 06-12-2025 Note HNO ID: [id number] Author: FORTINO DAMON MD Service: ? Author Type: Physician Type: Progress Notes Filed: 02/16/2025 16:01 Note Text: Referred by Dr. 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 - Eating habits: none - Tobacco: none - Alcohol Use: occasional - Drug use: occasional mariijuana - Pets/animals: 2 dogs, 2 hedgehogs, 1 snake, 2 bearded dragons - Foreign travel: none - STDs: none - Marital status: - Incarceration: none - Heritage: - Miscarriages: none - Recent Sick Contacts: none - Health otherwise: good Imaging: - FA 08/22/24: OD normal; OS disc, macular, and mild vascular leakage - OCT macula 02/16/2025: OD normal; OS recurrent CME Topical Meds: - Brimonidine daily OU (forgot last night) - PF daily OU (forgot last night) Local Therapy: - s/p Xipere OS #1 (09/22/24); 21 weeks Elsewhere: - Periocular injections x2 OS - Intravitreal injections x2 OS (12/2023 last, unsure which one) Systemic Meds: - Hadlima q2 weeks ([facility] last dose 12/20/24 - Cellcept 1500 mg BID (Started 10/2024) - s/p Prednisone 30 mg daily - 08/07/2024 to 01/2025 (from Dr. 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 Page - Knees responded well to Hadlima - Make sure getting labs - upcoming blood draw upcoming 03/2025 - Xipere OS today for recurrent activity - IOP up today, but forgot meds last night so OK - Continue Pred Forte daily OU - Continue Brimonidine daily OU Return 12 weeks dilate OU / OCT OU / Optos OU Weight: 230-250lbs = 104kg Manager Corporate Communications: SIDNEY Page COMPRESSED G[employer] EQUIPMENT MECHANIC; communicated with Cataracts, RIGHT eyes - Not visually significant - Observe Pseudophakia, LEFT eyes - Dr. Zimmer [place] - stable, observe Pigmented choroidal lesion, right eye - no high risk characteristics, monitor I have confirmed and edited as necessary the relevant ophthalmic history, ROS, reviewed the HPI and the neuro exam findings as obtained by others. I have seen and examined this patient. I have discussed the case and the management of this patient's care with the Resident, if applicable. I also have reviewed and agree with the assessment and plan as stated above and agree with all of its relevant components. [facility] 02-16-2025 History of Present illness Narrative Referred by Dr. 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 - Eating habits: none - Tobacco: none - Alcohol Use: occasional - Drug use: occasional mariijuana - Pets/animals: 2 dogs, 2 hedgehogs, 1 snake, 2 bearded dragons - Foreign travel: none - STDs: none - Marital status: - Incarceration: none - Heritage: - Miscarriages: none - Recent Sick Contacts: none - Health otherwise: good Imaging: - FA 08/22/24: OD normal; OS disc, macular, and mild vascular leakage - OCT macula 02/16/2025: OD normal; OS recurrent CME Topical Meds: - Brimonidine daily OU (forgot last night) - PF daily OU (forgot last night) Local Therapy: - s/p Xipere OS #1 (09/22/24); 21 weeks Elsewhere: - Periocular injections x2 OS - Intravitreal injections x2 OS (12/2023 last, unsure which one) Systemic Meds: - Hadlima q2 weeks ([facility] 05/29/24[facility] last dose 12/20/24 - Cellcept 1500 mg BID (Started 10/2024) - s/p Prednisone 30 mg daily - 08/07/2024 to 01/2025 (from Dr. 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 Page - Knees responded well to Hadlima - Make sure getting labs - upcoming blood draw upcoming 03/2025 - Xipere OS today for recurrent activity - IOP up today, but forgot meds last night so OK - Continue Pred Forte daily OU - Continue Brimonidine daily OU Return 12 weeks dilate OU / OCT OU / Optos OU Weight: 230-250lbs = 104kg Manager Corporate Communications: SIDNEY Page COMPRESSED G[employer] EQUIPMENT MECHANIC; communicated with Cataracts, RIGHT eyes - Not visually significant - Observe Pseudophakia, LEFT eyes - Diane Estr[place] - stable, observe Pigmented choroidal lesion, right eye - no high risk characteristics, monitor I have confirmed and edited as necessary the relevant ophthalmic history, ROS, reviewed the HPI and the neuro exam findings as obtained by others. I have seen and examined this patient. I have discussed the case and the management of this patient's care with the Resident, if applicable. I also have reviewed and agree with the assessment and plan as stated above and agree with all of its relevant components. documented in this encounter [facility] 12-22-2024 Instructions Fortino Damon MD - 12/22/2024 3:21 PM EDT Instructions for oral prednisone with taper You may have either the 20 mg, 10 mg or 5 mg tablets. Please make sure you check which tablets you are taking and make sure you take the correct dose. If you have any questions please ask. You may use a pill cutter to cut the tablets in half. Please take the prednisone in the morning. The potential short-term side effects of steroids include, but are not limited to anxiety, difficulty sleeping, fluid retention, increase appetite, and mood changes. The potential side effects of long-term steroid use include, but are not limited to high blood pressure, increased sugars (diabetes), secondary osteoporosis (loss of bone density), weight gain, and increased risk of infection. You should not suddenly stop prednisone, but decrease the dose slowly as directed by Dr. Damon. Stopping the prednisone suddenly can be very dangerous and make you very sick. Decrease the oral prednisone tablets as follows: 20 mg (1 of the 20 mg tablets or 2 of the 10 mg tablets) once a day for two weeks, then: 10 mg (2 of the 5 mg tablets, 1 of the 10 mg tablets or half of the 20 mg tablets) once a day for two weeks, then: : STOP While you are on oral prednisone please make sure you take a calcium plus vitamin D supplement. This can be purchased over the counter at any pharmacy. Ask the pharmacist for help if you are unsure which one to buy. Take it as instructed on the bottle. If there are any questions or concerns please contact [facility] - Mon-Fri 8am-5pm [phone] - After 5pm Mon-Fri or Weekends please call [phone] or ext [phone] - Ask for the Eye Doctor business control specialist documented in this encounter [facility] 12-22-2024 Note Date of Procedure 12/22/2024. Contract Forester Information Rafter Cutting Machine Operator: prosper. OCT Macula Interpretation Right Eye Normal without fluid. Findings include Negative for Intraretinal fluid, Cystoid macular edema, Subretinal fluid. Left Eye Abnormal foveal contour. Findings include IS/OS junction; Negative for Intraretinal fluid, Cystoid macular edema, Subretinal fluid. Interval Change Right Eye Stable. Left Eye Better. [facility] 12-22-2024 History of Present illness Narrative Referred by Dr. Stefania Zimmer from [place] [address]+ related panuveitis, OS>OD Cystoid Macular edema, both eyes Course: - Initial presentation in 01/2021 with red, painful eye OS, found to have inflammation and IOP >40 - Followed by Dr. 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 - Eating habits: none - Tobacco: none - Alcohol Use: occasional - Drug use: occasional mariijuana - Pets/animals: 2 dogs, 2 hedgehogs, 1 snake, 2 bearded dragons - Foreign travel: none - STDs: none - Marital status: - Incarceration: none - Heritage: - Miscarriages: none - Recent Sick Contacts: none - Health otherwise: good Imaging: - FA 08/22/24: OD normal; OS disc, macular, and mild vascular leakage - OCT macula 12/2024: OD normal; OS resolved CME Topical Meds: - Brimonidine daily OU - PF daily OU Local Therapy: - s/p Xipere OS #1 (09/22/24); 13 weeks Elsewhere: - Periocular injections x2 OS - Intravitreal injections x2 OS (12/2023 last, unsure which one) Systemic Meds: - Hadlima q2 weeks ([facility] last dose 12/20/24 - Cellcept 1500 mg BID (Started 10/2024) - Prednisone 30 mg daily - since 08/07/24 (from Dr. 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 Zimmer [place] - stable, observe I have confirmed and edited as necessary the relevant ophthalmic history, ROS, reviewed the HPI and the neuro exam findings as obtained by others. I have seen and examined this patient. I have discussed the case and the management of this patient's care with the Resident, if applicable. I also have reviewed and agree with the assessment and plan as stated above and agree with all of its relevant components. documented in this encounter [facility] 12-22-2024 Note HNO ID: [id number] Author: FORTINO DAMON MD Service: ? Author Type: Physician Type: Progress Notes Filed: 12/23/2024 07:50 Note Text: Referred by Dr. Stefania Zimmer from [place] [address]+ related panuveitis, OS>OD Cystoid Macular edema, both eyes Course: - Initial presentation in 01/2021 with red, painful eye OS, found to have inflammation and IOP >40 - Followed by Dr. 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 - Eating habits: none - Tobacco: none - Alcohol Use: occasional - Drug use: occasional mariijuana - Pets/animals: 2 dogs, 2 hedgehogs, 1 snake, 2 bearded dragons - Foreign travel: none - STDs: none - Marital status: - Incarceration: none - Heritage: - Miscarriages: none - Recent Sick Contacts: none - Health otherwise: good Imaging: - FA 08/22/24: OD normal; OS disc, macular, and mild vascular leakage - OCT macula 12/2024: OD normal; OS resolved CME Topical Meds: - Brimonidine daily OU - PF daily OU Local Therapy: - s/p Xipere OS #1 (09/22/24); 13 weeks Elsewhere: - Periocular injections x2 OS - Intravitreal injections x2 OS (12/2023 last, unsure which one) Systemic Meds: - Hadlima q2 weeks ([facility] last dose 12/20/24 - Cellcept 1500 mg BID (Started 10/2024) - Prednisone 30 mg daily - since 08/07/24 (from Dr. 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 Zimmer, [place] - stable, observe I have confirmed and edited as necessary the relevant ophthalmic history, ROS, reviewed the HPI and the neuro exam findings as obtained by others. I have seen and examined this patient. I have discussed the case and the management of this patient's care with the Resident, if applicable. I also have reviewed and agree with the assessment and plan as stated above and agree with all of its relevant components. [facility] 09-22-2024 Note Date of Procedure 09/22/2024 Dresser Protocol Safety Checklist Sign In: A moment to CARE completed, Patient name, date of , allergies and intended procedure verified, Special equipment verified, Appropriate PPE verified. Relevant labs, photos, and/or imaging studies have been reviewed. Medications required for procedure verified. Fire risk assessed and interventions discussed. Correct implant confirmed and expiration reviewed. Anesthesia 0.5 mL subconjunctival injection of 2% Lidocaine. Prep 10% Povidone-iodine swabs. Injection Administration Medication: 4 mg triamcinolone acetonide (PF) 40 mg/mL Route: suprachoroidal, Site: Left Needle Used 900 microns Balance Wasted Residual medication less than 1 unit was discarded. Anterior Chamber Paracentesis Yes. Post Injection Evaluation Patient has at least hand motion vision. Post Procedure Medications None. Home Going Prescription None. Sign Out Sign out discussion completed, Post-procedure follow up management communicated, All instruments, equipment, and/or possible retained foreign bodies accounted for. Specimen containers correctly labeled. Notes 4 mg / 0.1 mL injected; 32 mg / 0.8 mL wasted [facility] 09-22-2024 Note Date of Procedure 09/22/2024. Contract Forester Information Rafter Cutting Machine Operator: prosper. OCT Macula Interpretation Right Eye Normal foveal contour. Findings include Negative for Intraretinal fluid, Subretinal fluid. Left Eye Abnormal foveal contour. Findings include Intraretinal fluid; Negative for Subretinal fluid. Interval Change Right Eye Stable. Left Eye Better. [facility] 09-22-2024 History of Present illness Narrative Referred by Dr. Zimmer from [place] [address]+ related panuveitis, OS>OD Cystoid Macular edema, both eyes Course: - Initial presentation in 01/2021 with red, painful eye OS, found to have inflammation and IOP >40 - Followed by Dr. 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 - Eating habits: none - Tobacco: none - Alcohol Use: occasional - Drug use: occasional mariijuana - Pets/animals: 2 dogs, 2 hedgehogs, 1 snake, 2 bearded dragons - Foreign travel: none - STDs: none - Marital status: - Incarceration: none - Heritage: - Miscarriages: none - Recent Sick Contacts: none - Health otherwise: good Imaging: - FA 08/22/24: OD normal; OS disc, macular, and mild vascular leakage - OCT macula 09/22/2024: OD thickening; OS improved IRF but persistent / resolved SRF Topical Meds: - Brimonidine BID OU - PF QID OU Local Therapy: - Periocular injections x2 OS - Intravitreal injections x2 OS (12/2023 last, unsure which one) Systemic Meds: - Hadlima q2 weeks (started 05/29/24, [facility]), 6th dose 08/21/24 - Prednisone 30 mg daily - has been on this since 08/07/24 (from Dr. 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 Zimmer, [place] - stable, observe I have confirmed and edited as necessary the relevant ophthalmic history, ROS, reviewed the HPI and the neuro exam findings as obtained by others. I have seen and examined this patient. I have discussed the case and the management of this patient's care with the Resident, if applicable. I also have reviewed and agree with the assessment and plan as stated above and agree with all of its relevant components. documented in this encounter [facility] 09-22-2024 Note HNO ID: [id number] Author: FORTINO DAMON MD Service: ? Author Type: Physician Type: Progress Notes Filed: 09/22/2024 15:23 Note Text: Referred by Dr. Zimmer from [place] HLAB27+ related panuveitis, OS>OD Cystoid Macular edema, both eyes Course: - Initial presentation in 01/2021 with red, painful eye OS, found to have inflammation and IOP >40 - Followed by Dr. 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 - Eating habits: none - Tobacco: none - Alcohol Use: occasional - Drug use: occasional mariijuana - Pets/animals: 2 dogs, 2 hedgehogs, 1 snake, 2 bearded dragons - Foreign travel: none - STDs: none - Marital status: - Incarceration: none - Heritage: - Miscarriages: none - Recent Sick Contacts: none - Health otherwise: good Imaging: - FA 08/22/24: OD normal; OS disc, macular, and mild vascular leakage - OCT macula 09/22/2024: OD thickening; OS improved IRF but persistent / resolved SRF Topical Meds: - Brimonidine BID OU - PF QID OU Local Therapy: - Periocular injections x2 OS - Intravitreal injections x2 OS (12/2023 last, unsure which one) Systemic Meds: - Hadlima q2 weeks (started 05/29/24, [facility]), 6th dose 08/21/24 - Prednisone 30 mg daily - has been on this since 08/07/24 (from Dr. 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 Zimmer [place] - stable, observe I have confirmed and edited as necessary the relevant ophthalmic history, ROS, reviewed the HPI and the neuro exam findings as obtained by others. I have seen and examined this patient. I have discussed the case and the management of this patient's care with the Resident, if applicable. I also have reviewed and agree with the assessment and plan as stated above and agree with all of its relevant components. [facility] 08-22-2024 Instructions Fortino Damon MD - 08/22/2024 3:54 PM EST - Continue Hadlima - Decrease Pred Forte 3x/day RIGHT EYE - Stop Pred Forte both eyes - Start Durezol 4x/day LEFT eye, 3x per day right eye - Continue Brimonidine 2x/day both eyes - Decrease PO prednisone to 30 mg documented in this encounter [facility] 08-22-2024 Note Date of Procedure 08/22/2024. 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 Start time: 2:20 PM. 24 gauge catheter inserted into right antecubital vein. 2.5 cc's 10% NaFl injected. No complications. Catheter removed, intact. Patient tolerated. Zeinab Morris RN 08/22/2024 2:56 PM . Arm to Retina Circulation Time Normal. AV Transit Times Normal. Interpretation Right Eye Findings include Negative for Leakage. Left Eye Findings include Leakage. Additional Notes Right Eye No abnormal disc fluorescence. [facility] 08-22-2024 Note Date of Procedure 08/22/2024. 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 Start time: 2:15 PM. Stop time: 2:19 PM. OCT Macula Interpretation Right Eye Abnormal foveal contour. Findings include Cystoid macular edema; Negative for Intraretinal fluid, Subretinal fluid. Left Eye Abnormal foveal contour. Findings include Intraretinal fluid, Cystoid macular edema, Subretinal fluid. Interval Change Right Eye Worse. Left Eye Worse. [facility] 08-22-2024 History of Present illness Narrative Referred by Dr. Zimmer from [place] [id number] related panuveitis, OS>OD Cystoid Macular edema, both eyes Course: - Initial presentation in 01/2021 with red, painful eye OS, found to have inflammation and IOP >40 - Followed by Dr. Dodd, last visit 10/20/2022 - Interval: Blurry vision OS Lab Workup: - HLA-B27 positive 10/01/2021 - lyme, syphilis, ESTHER, SSA, SSB, zimmer, DS-DNA, Scl70, centromere, FLAT BED OPERATOR, Bijal-1, RF, histone neg Imaging Workup: - 10/01/2021 CXR negative ROS: - POSITIVE (in bold) - back ache, knee pain, tattoos (no inflammation), recent weight loss/gain, fevers/chills, night sweats, fatigue, generalized weakness, easy bruising/bleeding, tremor, intolerance to heat or cold, raynaud's, sicca symptoms, nasal ulcers, oral ulcer, cold sores, genital ulcers, sinusitis, nose bleeds, difficulty swallowing, chest pain, shortness of breath, wheezing, cough, blood in sputum, nausea, vomiting, abdominal pain, diarrhea, changes in bowel or bladder patterns, change in urine, weakness/numbness/tingling of limbs/digits, muscle pain, joint aches/pains, rash, hives, sun sensitivity, hair loss, skin discoloration, headache, dizziness, seizure, tinnitus, hearing loss, depression, anxiety, enlarged lymph nodes, tattoos/inflammation of tattoos. 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 - Eating habits: none - Tobacco: none - Alcohol Use: occasional - Drug use: occasional mariijuana - Pets/animals: 2 dogs, 2 hedgehogs, 1 snake, 2 bearded dragons - Foreign travel: none - STDs: none - Marital status: - Incarceration: none - Heritage: - Miscarriages: none - Recent Sick Contacts: none - Health otherwise: good Imaging: - FA 08/22/24: OD normal; OS disc, macular, and mild vascular leakage - OCT macula 08/22/24: OD thickening; OS worsening IRF/SRF Topical Meds: - Brimonidine BID OU - PF QID OU Local Therapy: - Periocular injections x2 OS - Intravitreal injections x2 OS (12/2023 last, unsure which one) Systemic Meds: - Hadlima q2 weeks (started 05/29/24, receives at [facility]), 6th dose 08/21/24 - Prednisone 40mg daily - has been on this for 2 weeks (from Dr. 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 I have seen and examined this patient. I have discussed the case and the management of this patient's care with the Resident, if applicable. I also have reviewed and agree with the assessment and plan as stated above and agree with all of its relevant components. documented in this encounter [facility] 08-22-2024 Note HNO ID: [id number] Author: FORITNO DAMON MD Service: ? Author Type: Physician Type: Progress Notes Filed: 08/22/2024 16:04 Note Text: [facility], [facility]>OD Cystoid Macular edema, both eyes Course: - Initial presentation in 01/2021 with red, painful eye OS, found to have inflammation and IOP >40 - Followed by Dr. Dodd, last visit 10/20/2022 - Interval: Blurry vision OS Lab Workup: - HLA-B27 positive 10/01/2021 - lyme, syphilis, ESTHER, SSA, SSB, zimmer, DS-DNA, Scl70, centromere, FLAT BED OPERATOR, Bijal-1, RF, histone neg Imaging Workup: - 10/01/2021 CXR negative ROS: - POSITIVE (in bold) - back ache, knee pain, tattoos (no inflammation), recent weight loss/gain, fevers/chills, night sweats, fatigue, generalized weakness, easy bruising/bleeding, tremor, intolerance to heat or cold, raynaud's, sicca symptoms, nasal ulcers, oral ulcer, cold sores, genital ulcers, sinusitis, nose bleeds, difficulty swallowing, chest pain, shortness of breath, wheezing, cough, blood in sputum, nausea, vomiting, abdominal pain, diarrhea, changes in bowel or bladder patterns, change in urine, weakness/numbness/tingling of limbs/digits, muscle pain, joint aches/pains, rash, hives, sun sensitivity, hair loss, skin discoloration, headache, dizziness, seizure, tinnitus, hearing loss, depression, anxiety, enlarged lymph nodes, tattoos/inflammation of tattoos. 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 - Eating habits: none - Tobacco: none - Alcohol Use: occasional - Drug use: occasional mariijuana - Pets/animals: 2 dogs, 2 hedgehogs, 1 snake, 2 bearded dragons - Foreign travel: none - STDs: none - Marital status: - Incarceration: none - Heritage: - Miscarriages: none - Recent Sick Contacts: none - Health otherwise: good Imaging: - FA 08/22/24: OD normal; OS disc, macular, and mild vascular leakage - OCT macula 08/22/24: OD thickening; OS worsening IRF/SRF Topical Meds: - Brimonidine BID OU - PF QID OU Local Therapy: - Periocular injections x2 OS - Intravitreal injections x2 OS (12/2023 last, unsure which one) Systemic Meds: - Hadlima q2 weeks (started 05/29/24, receives at [facility]), 6th dose 08/21/24 - Prednisone 40mg daily - has been on this for 2 weeks (from Dr. 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 I have seen and examined this patient. I have discussed the case and the management of this patient's care with the Resident, if applicable. I also have reviewed and agree with the assessment and plan as stated above and agree with all of its relevant components. [facility] 06-23-2024 History of Present illness Narrative Associated Problem(s): Primary hypertension (CMS/HCC) [...] compliance problems. There is no history of CAD/[place]. SUBJECTIVE: MEDICATIONS: Current Outpatient Medications Medication Instructions [...] excess calories (CMS/HCC) documented in this encounter [facility] 05-31-2024 History of Present illness Narrative Associated Problem(s): Right ankle swelling Catalino wrap applied, cont NSAID and tylenol Hx of predinisone use R/o fracture Ice 4 times daily Right ankle- maybe some bruising? Swelling, foot/toe numbness and tangling, pain in outter ankle bone and across the ankle, Pt has been using ice therapy and IBU for pain and keeps it elevated when home. Pt states that last Thursday he woke up with a sore ankle, he states that it became not tolerable on Thursday, he took IBU [place], and Thursday he was miserable with pain. Images from the original note were not included. Raz Holland is a 39 y.o. male presents with chief complaint of No chief complaint on file. HPI: Ankle Pain The incident occurred more than 1 week ago. There was no injury mechanism. The pain is present in the right ankle. The quality of the pain is described as aching and shooting. The pain is at a severity of 6/10. The pain is moderate. The pain has been Fluctuating since onset. Associated symptoms include an inability to bear weight and tingling. He reports no foreign bodies present. The symptoms are aggravated by movement and weight bearing. He has tried acetaminophen, NSAIDs and ice for the symptoms. The treatment provided mild relief. SUBJECTIVE: MEDICATIONS: Current Outpatient Medications Medication Instructions amLODIPine (NORVASC) 5 mg, Oral, Daily atenolol (TENORMIN) 100 mg, Oral, Daily RT atropine 1 % ophthalmic solution instill 1 drop into left eye EVERY NIGHT brimonidine (AlphaGAN P) 0.2 % ophthalmic solution 1 drop, Ophthalmic, 3 times daily celecoxib (CELEBREX) 200 mg, Oral, 2 times daily losartan (COZAAR) 100 mg, Oral, Daily sodium chloride (Sulaiman 128) 5 % ophthalmic solution INSTILL 1 DROP INTO LEFT EYE FOUR TIMES A DAY ALLERGIES: No Known Allergies REVIEW OF SYMPTOMS: Review of Systems Constitutional: Negative for activity change, appetite change and unexpected weight change. HENT: Negative for ear pain, nosebleeds, sneezing, trouble swallowing and voice change. Eyes: Negative for pain, discharge and visual disturbance. Respiratory: Negative for apnea, chest tightness and wheezing. Cardiovascular: Negative for leg swelling. Gastrointestinal: Negative for abdominal distention, blood in stool, constipation and diarrhea. Genitourinary: Negative for decreased urine volume, difficulty urinating, dysuria and hematuria. Musculoskeletal: Positive for arthralgias. Skin: Negative for color change. Neurological: Positive for tingling. Negative for dizziness, tremors and seizures. Psychiatric/Behavioral: Negative for agitation, decreased concentration, hallucinations, self-injury and suicidal ideas. The patient is not nervous/anxious. Hematological: Negative for adenopathy. Does not bruise/bleed easily. Endocrine: Negative for cold intolerance, heat intolerance, polydipsia and polyuria. Allergic/Immunologic: Negative for environmental allergies and food allergies. PAST MEDICAL HISTORY Past Medical History: Diagnosis Date Cataract of left eye Past Surgical History: Procedure Laterality Date WISDOM TOOTH EXTRACTION family history is not on file. OBJECTIVE: Visit Vitals BP 122/86 (BP Location: Left arm, Patient Position: Sitting, BP Cuff Size: Adult long) Pulse 72 Temp 98.1 F (Temporal) Resp 19 SpO2 99% Smoking Status Never Physical Exam Vitals and nursing note reviewed. Constitutional: Appearance: Normal appearance. HENT: Head: Normocephalic. Right Ear: External ear normal. Left Ear: External ear normal. Nose: Nose normal. Mouth/Throat: Mouth: Mucous membranes are moist. Pharynx: Oropharynx is clear. Eyes: Extraocular Movements: Extraocular movements intact. Conjunctiva/sclera: Conjunctivae normal. Cardiovascular: Pulses: Normal pulses. Pulmonary: Effort: Pulmonary effort is normal. Musculoskeletal: Cervical back: Neck supple. Right lower leg: No edema. Left lower leg: No edema. Comments: Right ankle: lateral malleolar STS, mild tenderness, achilles intact, calf is soft Pain with inversion of the ankle, less w eversion No bruising noted, +DP/PT pulse Skin: General: Skin is warm and dry. Capillary Refill: Capillary refill takes 2 to 3 seconds. Neurological: General: No focal deficit present. Mental Status: He is alert. Psychiatric: Mood and Affect: Mood normal. Behavior: Behavior normal. Thought Content: Thought content normal. Judgment: Judgment normal. ASSESSMENT AND PLAN: No follow-ups on file. Problem List Items Addressed This Visit Primary hypertension (CMS/HCC) Relevant Medications losartan (Cozaar) 100 MG tablet atenolol (Tenormin) 100 MG tablet Right ankle swelling - Primary Catalino wrap applied, cont NSAID and tylenol Hx of predinisone use R/o fracture Ice 4 times daily Relevant Orders XR ankle 3+ views right documented in this encounter [facility] 05-25-2024 History of Present illness Narrative Associated Problem(s): Dizziness and giddiness No acute findings Check labs ?? Related to blood pressure, will fu in 4 weeks, if not better consider a CT or MRI brain Associated Problem(s): Primary hypertension (CMS/HCC) Add amlodipine at 5mg daily Recheck in 4 weeks Pt is having more dizziness lately not every day but most days but can be several times a day. Images from the original note were not included. Raz Holland is a 39 y.o. male presents with chief complaint of No chief complaint on file. HPI: Dizziness This is a recurrent problem. The current episode started more than 1 year ago. The problem occurs daily. The problem has been waxing and waning. Associated symptoms include a visual change. Pertinent negatives include no abdominal pain, chest pain, congestion, fatigue, headaches, neck pain, rash, vomiting or weakness. Associated symptoms comments: Diff to describe, not spinning, more uneven. Nothing aggravates the symptoms. He has tried nothing for the symptoms. The treatment provided moderate relief. Hypertension This is a chronic problem. The current episode started more than 1 year ago. The problem has been waxing and waning since onset. The problem is uncontrolled. Pertinent negatives include no anxiety, chest pain, headaches, neck pain, peripheral edema or shortness of breath. There are no associated agents to hypertension. Risk factors for coronary artery disease include male gender, obesity and dyslipidemia. Past treatments include angiotensin blockers and beta blockers. The current treatment provides moderate improvement. There are no compliance problems. SUBJECTIVE: MEDICATIONS: Current Outpatient Medications Medication Instructions atenolol (TENORMIN) 100 mg, Oral, Daily RT atropine 1 % ophthalmic solution instill 1 drop into left eye EVERY NIGHT brimonidine (AlphaGAN P) 0.2 % ophthalmic solution 1 drop, Ophthalmic, 3 times daily celecoxib (CELEBREX) 200 mg, Oral, 2 times daily losartan (COZAAR) 100 mg, Oral, Daily sodium chloride (Sulaiman 128) 5 % ophthalmic solution INSTILL 1 DROP INTO LEFT EYE FOUR TIMES A DAY ALLERGIES: No Known Allergies REVIEW OF SYMPTOMS: Review of Systems Constitutional: Negative for activity change, appetite change, fatigue and unexpected weight change. HENT: Negative for congestion, ear pain, nosebleeds, sneezing, trouble swallowing and voice change. Eyes: Positive for pain and visual disturbance. Negative for discharge. Respiratory: Negative for apnea, chest tightness, shortness of breath and wheezing. Cardiovascular: Negative for chest pain and leg swelling. Gastrointestinal: Negative for abdominal distention, abdominal pain, blood in stool, constipation, diarrhea and vomiting. Genitourinary: Negative for decreased urine volume, difficulty urinating, dysuria and hematuria. Musculoskeletal: Negative for neck pain. Skin: Negative for color change and rash. Neurological: Positive for dizziness. Negative for tremors, seizures, weakness and headaches. Psychiatric/Behavioral: Negative for agitation, decreased concentration, hallucinations, self-injury and suicidal ideas. The patient is not nervous/anxious. Hematological: Negative for adenopathy. Does not bruise/bleed easily. Endocrine: Negative for cold intolerance, heat intolerance, polydipsia and polyuria. Allergic/Immunologic: Negative for environmental allergies and food allergies. PAST MEDICAL HISTORY Past Medical History: Diagnosis Date Cataract of left eye Past Surgical History: Procedure Laterality Date [place] TOOTH EXTRACTION family history is not on file. OBJECTIVE: Visit Vitals BP 150/86 (BP Location: Left arm, Patient Position: Sitting, BP Cuff Size: Adult long) Pulse 74 Temp 97.3 F (Temporal) Resp 18 Ht 5' 8 Wt 234 lb 12.8 oz SpO2 98% BMI 35.70 kg/m Smoking Status Never BSA 2.27 m Physical Exam Vitals and nursing note reviewed. Constitutional: General: He is not in acute distress. Appearance: Normal appearance. He is not toxic-appearing. HENT: Head: Normocephalic. Right Ear: Tympanic membrane, ear canal and external ear normal. Left Ear: Tympanic membrane, ear canal and external ear normal. Nose: Nose normal. No congestion or rhinorrhea. Mouth/Throat: Mouth: Mucous membranes are moist. Pharynx: Oropharynx is clear. No oropharyngeal exudate or posterior oropharyngeal erythema. Eyes: Conjunctiva/sclera: Conjunctivae normal. Pupils: Pupils are equal, round, and reactive to light. Neck: Vascular: No carotid bruit. Cardiovascular: Rate and Rhythm: Normal rate and regular rhythm. Pulses: Normal pulses. Heart sounds: Normal heart sounds. Pulmonary: Effort: Pulmonary effort is normal. Breath sounds: Normal breath sounds. No wheezing or rales. Abdominal: General: Bowel sounds are normal. Palpations: Abdomen is soft. Musculoskeletal: General: Normal range of motion. Cervical back: Neck supple. Right lower leg: No edema. Left lower leg: No edema. Lymphadenopathy: Cervical: No cervical adenopathy. Skin: General: Skin is warm and dry. Capillary Refill: Capillary refill takes 2 to 3 seconds. Neurological: General: No focal deficit present. Mental Status: He is alert. Cranial Nerves: No cranial nerve deficit. Gait: Gait normal. Comments: Neg ulnar drift and neg romberg Psychiatric: Mood and Affect: Mood normal. Behavior: Behavior normal. Thought Content: Thought content normal. Judgment: Judgment normal. ASSESSMENT AND PLAN: No follow-ups on file. Problem List Items Addressed This Visit Primary hypertension (CMS/HCC) - Primary Add amlodipine at 5mg daily Recheck in 4 weeks Relevant Medications amLODIPine (Norvasc) 5 MG tablet Other Relevant Orders CBC and differential Comprehensive metabolic panel Microalbumin / creatinine, urine ratio Urinalysis with reflex microscopic (clean catch) Mixed hyperlipidemia (CMS/HCC) Relevant Orders Comprehensive metabolic panel Lipid panel Body mass index (BMI) 35.0-35.9, adult Morbid (severe) obesity due to excess calories (CMS/HCC) Dizziness and giddiness No acute findings Check labs ?? Related to blood pressure, will fu in 4 weeks, if not better consider a CT or MRI brain documented in this encounter [facility] 11-02-2023 Instructions Aislinn Green RN - 11/02/2023 [...] you have a Living Will/Durable Power of Doctor Of Nurse Anesthesia Practice for Health Care that is not on file here, please bring a copy the day of surgery. 3. Please wash your face with baby shampoo prior to procedure as instructed by your physician. 4. NO powder, lotion, perfume/cologne, aftershave, make-up, nail hungarian on at least one finger, deodorant, or [...] please call the Preadmission Testing office at [phone], Mon.-Fri. 7 a.m.-3 p.m. Leave a voicemail [...] prior to procedure documented in this encounter [facility] 11-02-2023 Miscellaneous Notes Preoperative Education Checklist- General Surgery date: 11/19/23 Surgery time: 2:15 p.m. Arrival time: 12:15 p.m. 1. Bring a photo ID and your insurance card with you the day of surgery. You will check in at the main lobby registration desk as soon as you walk in the entrance. 2. If you have a Living Will/Durable Power of Doctor Of Nurse Anesthesia Practice for Health Care that is not on file here, please bring a copy the day of surgery. 3. Please wash your face with baby shampoo prior to procedure as instructed by your physician. 4. NO powder, lotion, perfume/cologne, aftershave, make-up, nail hungarian on at least one finger, deodorant, or [...] please call the Preadmission Testing office at [phone], Mon.-Fri. 7 a.m.-3 p.m. Leave a voicemail [...] Patient verbalized understanding. documented in this encounter [facility] 11-02-2023 Nurse Note Preoperative Education Checklist- General Surgery date: 11/19/23 Surgery time: 2:15 p.m. Arrival time: 12:15 p.m. 1. Bring a photo ID and your insurance card with you the day of surgery. You will check in at the main lobby registration desk as soon as you walk in the entrance. 2. If you have a Living Will/Durable Power of Doctor Of Nurse Anesthesia Practice for Health Care that is not on file here, please bring a copy the day of surgery. 3. Please wash your face with baby shampoo prior to procedure as instructed by your physician. 4. NO powder, lotion, perfume/cologne, aftershave, make-up, nail hungarian on at least one finger, deodorant, or [...] please call the Preadmission Testing office at [phone], Mon.-Fri. 7 a.m.-3 p.m. Leave a voicemail [...] Stop taking 0 days prior to procedure [facility] 11-02-2023 Nurse Note Surgical instructions reviewed. Patient verbalized understanding. [facility] 09-19-2022 Instructions Ashley Dodd MD, PhD - 09/19/2022 1:35 PM EST brimonidine (purple) left eye twice daily. dorzolamide-timolol (blue) left eye twice daily. Cyclopentolate (red) once daily at night OS Prednisone 10 mg daily x 1 week then 5 mg daily x 1 week and stop prednisolone (white) once a day left eye documented in this encounter [facility] 09-19-2022 History of Present illness Narrative Endorses improved vision and pain [...] prednisone - Follows with rheum Dr. Garcia ([place] [facility]) and ophtho Dr. Stefania Zimmer and Dr. 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 Ashley Dodd MD, PhD documented in this encounter [facility] 08-27-2022 Instructions Ashley Dodd MD, PhD - 08/27/2022 3:56 PM EST Taper prednisone 40mg daily for one week then 20 mg daily for one week then 10 mg daily for one week - Taper prednisolone to 6 x daily x 1 week, then 4-3-2 weekly - Decrease cyclogyl to at bedtime documented in this encounter [facility] 08-27-2022 History of Present illness Narrative Endorses improved vision and pain [...] prednisone - Follows with rheum Dr. Garcia ([place] [facility]) and ophtho Dr. Stefania Zimmer and Dr. 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 Ashley Dodd MD, PhD documented in this encounter [facility] 08-13-2022 Instructions Ashley Dodd MD, PhD - 08/13/2022 3:09 PM EST brimonidine (ALPHAGAN - purple top) twice daily left eye dorzolamide-timolol (COSOPT - blue) twice daily left eye prednisoLONE acetate (PRED FORTE, ECONOPRED PLUS) every hour left eye cyclopentolate (red top) twice a day left eye Prednisone 60 mg (6 tablets) daily with breakfast documented in this encounter [facility] 08-13-2022 History of Present illness Narrative Anterior uveitis, both eyes Course: [...] prednisone - Follows with rheum Dr. Garcia ([place] [facility]) and ophtho Dr. Stefania Zimmer and Dr. 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 Ashley Dodd MD, PhD documented in this encounter [facility] Evaluation note No assessment inform ation available [facility] Work Phone: Evaluation note Diagnosis Panuveitis, left eye- Primary Panuveitis Refractive error Unspecified disorder of refraction and accommodation Disseminated chorioretinitis, left [facility] Diagnosis Panuveitis, left eye- Primary Panuveitis [facility] Diagnosis Panuveitis, left eye- Primary Panuveitis HLA B27 (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 [facility] Diagnosis Primary hypertension (CMS/HCC)- Primary Unspecified [...] (BMI) 35.0-35.9, adult documented in [facility] encounter [facility] Diagnosis Primary hypertension (CMS/HCC)- Primary Unspecified [...] (CMS/HCC) Body mass index (BMI) 35.0-35.9, adult Primary hypertension (CMS/HCC) Unspecified essential hypertension documented in this encounter [facility]* Diagnosis HLA B27 (HLA B27 positive)- Primary 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, left eye Panuveitis 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, left [facility] Diagnosis 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 (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, left eye Panuveitis 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, left [facility] Diagnosis Dizziness and giddiness- Primary Morbid (severe) obesity due to excess calories (CMS/HCC) Mixed hyperlipidemia (CMS/HCC) Mixed hyperlipidemia Body mass index (BMI) 35.0-35.9, adult Primary hypertension (CMS/HCC) Unspecified essential hypertension documented in this encounter [facility]* Diagnosis Right ankle swelling- Primary Effusion of ankle and foot joint Primary hypertension (CMS/HCC) Unspecified essential hypertension documented in this encounter [facility]* Diagnosis Right ankle swelling- Primary Effusion of ankle and foot joint documented in this encounter [facility]* Diagnosis HLA B27 (HLA B27 positive)- Primary 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, left eye Panuveitis 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, 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 documented in this encounter [facility] note* Diagnosis Preop examination- Primary Unspecified pre-operative examination Hypertension, unspecified type Preop examination Unspecified pre-operative examination Hypertension, unspecified type [facility] Panuveitis, left eye- Primary Panuveitis 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 HLA B27 (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 [facility] Diagnosis Panuveitis, left eye- Primary Panuveitis 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 HLA B27 (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) documented in this encounter [facility] for referral (narrative)* Consultation (Urgent) - Pending Review Specialty Diagnoses / Procedures Referred By Santana mcgrath Referred To Contact Podiatry Diagnoses Right ankle swelling Procedures [place] OFFICE/OUTPATIENT [facility] 60 MINUTES Serenity Mayers NP [address] [place] [address] Taran Fall MD [address] [place] [address] [place] [address] Referral ID Status Reason Start Date Expiration Date Visits Requested Visits Authorized [id number] Pending Review Specialty Services Required 06/03/2024 11/30/2024 1 1 [facility] Medications Administered Section Active Administered Medications - up to 3 most recent administrations Medication Order MAR Action Action Date Dose Rate Site fluorescein-benoxinate 0.25-0.4 % 1 Drop (FLURESS) 1 Drop, BOTH EYES, DIRECTED, Starting on Thu08/13/22 at 1300, Until Sandy 08/14/22 at 0059, Administer for applanation tonometry. In the event of a Fluress shortage, administer Alysia-Fluor 1 drop into both eyes as directed [...] Given 08/27/2022 3:20 PM EST 1 Drop Advance Directives No Advanced Directives Records Found Advance Directive Response Recorded Date/ Time Advance Directives No December 20 2:33pm Advance Directive Response Recorded Date/ Time Advance Directives No December 20 1:33pm Summary Purpose Family History No Family History Records FoundNo Family History Records FoundNo Family History Records FoundNo Family History Records FoundNo Family History Records Found Reason for Referral Specialty Diagnoses / Procedures Referred By Contac t Referred To Contact Diagnoses Preop examination Hypertension, unspecified type Procedures ECG 12 lead Andrea Patino MD [address] [place] [address] Referral ID Status Reason Start Date Expiration Date V isits Requested Visits Authorized [id number] Pending Review 11/02/2023 11/01/2024 1 1 Additional [...] October 14, 2023 End: October 14, 2023 Building Operator Relationship Specialty Start Date End Date Leo Miles DO [address] [place] [address] PCP - General Family Medicine 01/13/23 Building Operator Relationship Specialty Start Date End Date Leo Miles, DO [address] [place] [address] PCP - General Family Medicine 01/13/23 Building Operator Relationship Specialty Start Date End Date Leo Miles, DO [address] [place] [address] PCP - General Family Medicine 01/13/23 Building Operator Relationship Specialty Start Date End Date Leo Miles, DO [address] [place] [address] PCP - General Family Medicine 01/13/23 Building Operator Relationship Specialty Start Date End Date Leo Miles, DO [address] [place] [address] PCP - General Family Medicine 01/13/23 Building Operator Relationship Specialty Start Date End Date Leo Miles, DO [address] [place] [address] PCP - General Family Medicine 01/13/23 Building Operator Relationship Specialty Start Date End Date Leo Miles, DO [address] [place] [address] PCP - General Family Medicine 01/13/23 Building Operator Relationship Specialty Start Date End Date Leo Miles, DO [address] [place] [address] PCP - General Family Medicine 01/13/23 Building Operator Relationship Specialty Start Date End Date Leo Miles DO [address] [place] [address] PCP - General Family Medicine 01/13/23 Building Operator Relationship Specialty Start Date End Date Serenity Mayers, LEADERSHIP DEVELOPMENT MANAGER-WEB ARCHITECT [address] [place] [id number] PCP - General Nurse Practitioner 10/01/21 Goals [...] or prosecute any alcohol or drug abuse patient.[facility] the event this information is protected by the Federal Confidentiality of Alcohol and Drug Abuse Patient Records regulations: The Federal rules restrict any use of the information to criminally investigate or prosecute any alcohol or drug abuse patient.[facility] the event this information is protected by the Federal Confidentiality of Alcohol and Drug Abuse Patient Records regulations: The Federal rules restrict any use of the information to criminally investigate or prosecute any alcohol or drug abuse patient.[facility] the event this information is protected by the Federal Confidentiality of Alcohol and Drug Abuse Patient Records regulations: The Federal rules restrict any use of the information to criminally investigate or prosecute any alcohol or drug abuse patient.[facility] the event this information is protected by the Federal Confidentiality of Alcohol and Drug Abuse Patient Records regulations: The Federal rules restrict any use of the information to criminally investigate or prosecute any alcohol or drug abuse patient.[facility] the event this information is protected by the Federal Confidentiality of Alcohol and Drug Abuse Patient Records regulations: The Federal rules restrict any use of the information to criminally investigate or prosecute any alcohol or drug abuse patient.[facility] the event this information is protected by the Federal Confidentiality of Alcohol and Drug Abuse Patient Records regulations: The Federal rules restrict any use of the information to criminally investigate or prosecute any alcohol or drug abuse patient.[facility] the event this information is protected by the Federal Confidentiality of Alcohol and Drug Abuse Patient Records regulations: The Federal rules restrict any use of the information to criminally investigate or prosecute any alcohol or drug abuse patient.[facility] Reason for Visit (unrecogniz ed section and content) Reason Comments Uveitis Evaluation NEW Specialty Diagnoses / Procedures Referred By Santana mcgrath Referred To Contact Ophthalmology / OPHTHALMOLOGY Diagnoses Iritis IRITIS. REFERRED BY DR ARSLAN CHEN Procedures OFFICE/OUTPATIENT NEW MODERATE MDM 45-59 MINUTES NEW UVEITIS Self Ashley Dodd MD, PhD [address] [place] [address] Referral ID Status Reason Start Date Expiration Date Visits Re quested Visits Authorized [id number] Closed 08/13/2022 09/06/2022 1 1 Reason Comments Panuveitis Follow Up Specialty Diagnoses / Procedures Referred By Santana mcgrath Referred To Contact Ophthalmology / OPHTHALMOLOGY Diagnoses Iritis Return in about 2 weeks (around 08/27/2022). Procedures OFFICE/OUTPATIENT ESTABLISHED MOD MDM 30-39 MIN EST ADULT Ashley Dodd MD, PhD [address] [place] [address] Ashley Dodd MD, PhD [address] [place] [address] Referral ID Status Reason Start Date Expiration Date Visits Re quested Visits Authorized [id number] Closed 08/27/2022 09/06/2022 1 1 Reason Comments Panuveitis, left eye Specialty Diagnoses / Procedures Referred By Santana mcgrath Referred To Contact Ophthalmology / OPHTHALMOLOGY Diagnoses Return in about 3 weeks (around 09/17/2022). Procedures EST ADULT Ashley Dodd MD, PhD [address] [id number] Ashley Dodd MD, PhD [address] [id number] Referral ID Status Reason Start Date Expiration Date Visits Requested Visits Authorized [id number] Authorized Financial Clearance Not Required 09/19/2022 09/06/2023 12 12 Reason Comments Med Refill Reason Comments Panuveitis, left eye Evaluation Anterior uveitis, both eyes Specialty Diagnoses / Procedures Referred By Santana mcgrath Referred To Contact Ophthalmology / OPHTHALMOLOGY Diagnoses HLA B27 (HLA B27 positive) Hla-b27 uveitis / Dr. Dodd pt Pt for Dr. Damon 08/23 1:15 Procedures OFFICE/OUTPATIENT ESTABLISHED MOD MDM 30 MIN EST ADULT Ashley Dodd MD, PhD [address] [phone] Fortino Damon MD [address] [place] [address] Referral ID Status Reason Start Date Expiration Date Visits Re quested Visits Authorized [id number] Closed 08/22/2024 09/06/2024 1 1 Specialty Diagnoses / Procedures Referred By Santana mcgrath Referred To Contact Ophthalmology / OPHTHALMOLOGY Diagnoses Panuveitis, left eye Cystoid macular degeneration, left eye Unspecified disseminated chorioretinal inflammation, left eye *4 W, NO DILATION, OCT OU, POSS XIPERE OS auth pending Procedures INJ XIPERE 1 MG Xipere 4mg left eye every 12 weeks for one year Fortino Damon MD [address] [place] [address] Fortino Damon MD [address] [place] [address] Referral ID Status Reason Start Date Expiration Date V isits Requested Visits Authorized [id number] Authorized 09/22/2024 09/06/2025 99 99 Specialty Diagnoses / Procedures Referred By Santana mcgrath Referred To Contact Ophthalmology / OPHTHALMOLOGY Diagnoses CME (cystoid macular edema), left *6-8 W, XIPERE F/U, NO DILATION, OCT OU Procedures OFFICE/OUTPATIENT ESTABLISHED MOD MDM 30 MIN EST ADULT Fortino Damon MD [address] [place] [address] Phone: tel: fax: Fortino Damon MD [address] [place] [address] Phone: tel: fax: Referral ID Status Reason Start Date Expiration Date Visits Re quested Visits Authorized [id number] Closed 11/10/2024 09/06/2025 1 1 Reason Comments Panuveitis Follow Up Cystoid Macular Edema Follow Up Specialty Diagnoses / Procedures Referred By Santana mcgrath Referred To Contact Ophthalmology / OPHTHALMOLOGY Diagnoses Panuveitis, left eye Cystoid macular degeneration, left eye Unspecified disseminated chorioretinal inflammation, left eye *4 W, NO DILATION, OCT OU, POSS XIPERE OS auth pending Procedures INJ XIPERE 1 MG Xipere 4mg left eye every 12 weeks for one year Fortino Damon MD [address] [place] [address] Phone: tel: fax: Fortino Damon MD [address] [place] [address] Phone: tel:[phone] fax:[phone] (unrecognized sect ion and content) No Status Records FoundNo Status Records FoundNo Status Records FoundNo Status Records FoundNo Status Records Found INFORMATION SOURCE (unrecogn ized section and content) DATE CREATED AUTHOR 11/30/2022 [facility] DATE CREATED AUTHOR AUTHOR'S ORGANIZ ATION 10/23/2023 [facility] DATE CREATED AUTHOR AUTHOR'S ORGANIZ ATION 11/20/2023 [facility] DATE CREATED AUTHOR AUTHOR'S ORGANIZ ATION 06/26/2024 [facility] DATE CREATED AUTHOR AUTHOR'S ORGANIZ ATION 02/19/2025 [facility] FOR RECORDS PERTAINING TO PATIENTS WHO ARE [...] BE BASED ON THE PRIMARY CLINICAL RECORDS. [employer] provides no warranty or guarantee of the accuracy or completeness of information in this document.
--- NOTE | 2025-04-20 13:40 | CA_ITS ---
Patient Name: DARON HECK MR#: [id number] : 1985 Exam Date: 04/20/2025 Ordering Doctor: NON-STAFF PHYSICIAN ECHOCARDIOGRAM REPORT PROCEDURE: CA ECHO DOPPLER COMPLETE INDICATIONS: Mitral valve prolapse COMPARISON: None. DESCRIPTION: COMPLETE ECHOCARDIOGRAM Real-time transthoracic echocardiography with 2D, M-mode, spectral and color flow Doppler performed. QUALITY: Technical quality was good. LEFT VENTRICLE: Normal chamber size. Normal left ventricular wall thickness. Global left ventricular systolic function is normal. LV EF: Estimated left ventricular ejection fraction is 65-70%. DIASTOLIC: Normal diastolic function. ATRIAL SEPTUM: LEFT ATRIUM: Normal chamber size. RIGHT ATRIUM: Mild dilatation. RIGHT VENTRICLE: Normal chamber size. Normal right ventricular systolic function. TRICUSPID VALVE: Normal mobility and thickness. No stenosis with trivial regurgitation. No evidence of pulmonary hypertension. RVSP 23 mmHg. MITRAL VALVE: Normal mobility and thickness. No mitral valve prolapse. No evidence of mitral valve stenosis. There is no mitral annular calcification. Trivial mitral regurgitation. AORTIC VALVE: Normal trileaflet appearance. No visible sclerosis. Normal leaflet mobility. No evidence of aortic valve stenosis. Trivial aortic regurgitation. AORTIC ROOT: Normal diameter and appearance, measuring 3.8 cm. Normal size ascending aorta measuring 3.0 cm. PULMONIC VALVE: Normal thickness and mobility. No stenosis. Trivial regurgitation. PERICARDIUM: No evidence of pericardial effusion. IVC: Collapses with inspiration. Normal size. PLEURA: CONCLUSION: 1. Normal left ventricular size and systolic function. Estimated LVEF is 65-70%. 2. Normal right ventricular size and systolic function. 3. No significant valvular dysfunction. 4. No evidence of mitral valve prolapse. 5. Normal right-sided pressures. Adult Echocardiography Procedure Report Left Ventricle LVEDD (3.7 - 5.6 cm): 4.27 cm LVESD (2.2 - 4.0 cm): 2.64 cm LVIVS thickness (0.6 - 1.2 cm): 1.00 cm LVPW thickness (0.5 - 1.0 cm): 1.03 cm e': 0.13 m/s E - e': 5.51 LVOT Max Gradient: 4.67 mm[Hg] LVOT Area (cm2): 1.08 m/s Peak Velocity (LVOT): 1.08 m/s Mean Velocity (LVOT): 0.79 m/s LVOT Diameter 2.24 cm Left Ventricular Ejection Fraction: 65-70 % Left Atrium LA Volume Index (2D A2C): 29.98 ml/m2 Left Atrium Systolic Dimension: 4.05 cm Mitral Valve MV E to A Ratio: 1.17, 1.06 Mitral Valve A-Wave Peak Velocity: 0.65 m/s Mitral Valve E-Wave Peak Velocity: 0.72 m/s Right Ventricle RV Internal Diastolic Dimension: 3.28 cm Aorta AO Root Diam: 3.80 cm Ascending Ao Diam: 2.98 cm Aortic Valve AoV Area (Peak Jagdish): 3.61 cm2, 3.61 cm2 AoV Area (VTI): 3.64 cm2, 3.64 cm2 Peak Velocity(Antegrade Flow): 1.18 m/s Peak Gradient(Antegrade Flow): 5.60 mm[Hg] Mean Velocity(Antegrade Flow): 0.80 m/s Mean Gradient(Antegrade Flow): 2.99 mm[Hg] Velocity Time Integral: 23.46 cm Tricuspid Valve Peak Velocity (Regurgitant Flow): 1.84 m/s, 1.95 m/s, 2.21 m/s Pulmonic Valve Mean Gradient: 1.64 mm[Hg], 1.92 mm[Hg], 2.21 mm[Hg] Mean Velocity: 0.60 m/s, 0.64 m/s, 0.69 m/s Peak Velocity: 0.93 m/s Peak Gradient: 2.80 mm[Hg], 3.74 mm[Hg], 3.97 mm[Hg] Right Atrium Right Atrium Systolic Pressure: 48.45 ml, 48.45 ml Dictated by: Jorge Rodriguez M.D. on 04/21/2025 at 21:43 Approved by: Jorge Rodriguez M.D. on 04/21/2025 at 21:47
== END 2025-04-20 13:31 | disposition home or self-care (01) ==
LOC: CARD 13:32
PROVIDERS: PCP Nurse Practitioner
DX: I34.1 Nonrheumatic mitral (valve) prolapse (principal)
CPT/HCPCS: 93306

== ENCOUNTER 2025-08-30 20:45 | Emergency (ER) | payer OTHER, SELFPAY ==
--- OUTSIDE RECORDS SUMMARY | 2025-08-28 07:29 | XMS_ITS | Encounter Summary ---
Author Name [facility] Address [address] [place] [address] Care Team Providers Care Wire Bender Hand Name Role Phone TODD MAGAÑA Primary Care Provider Unavail able Insurance Providers: All historical and current Section Date Range: From patient's date of to the date document was created. This section includes the names of all active insurance providers for the patient. Insurance Provider Type of Coverage Plan Name Start of Policy Coverage End of Policy Coverage Group Number Member ID Insurance Provider's Telephone Number Policy [place]'s Name Patient's Relationship to Policy [place] MEDICAID (WNR) MEDICAID MEDICAID Feb 05, 2013 [id number] Selected Encounter This section includes the information on record at OR for the Encounter. Date/Time Encounter Type Encounter Description Reason Pro vider Source Aug 28, 2025 12:29 PM Outpatient Encounter TELEP MARIA T TRIAGE IHE Encounter Template Text not used by OR Plan of Treatment: Future Appointments (+ 6 months) and Future Tests (+/- 45 days) The Plan of Treatment section includes future care activities for the patient from all OR treatmentfacilities. This section includes future appointments and future orders which are active, pending or scheduled. Future Appointments This section includes appointments that were scheduled to occur 6 months from the date of the Encounter, up to a maximum of 20 appointments. The data comes from all [place] treatment facilities. Appointment Date/Time Appointment Type Appointme nt Facility Name Sep 11, 2025 02:00 PM AMBULATORY - MEDICINE [facility] Sep 15, 2025 02:30 PM AMBULATORY [facility] MEDICINE [facility] Sep 22, 2025 02:30 PM AMBULATORY - NONE [facility] Oct 20, 2025 02:15 AM AMBULATORY - NONE [facility] Dec 26, 2025 02:30 PM AMBULATORY - MEDICINE [facility] Active, Pending, and Scheduled Orders This section includes a listing of several types of active, pending, and scheduled orders, including clinic medications orders, diagnostic test orders, procedure orders and consult orders; where the start date of the order is 45 days before the date of the Encounter or 45 days after the date of theEncounter. The data comes from all [place] treatment facilities. Test Date/Time Test Type Test Details Facility Name Aug 11, 2025 05:07 AM Consult Order SLEEP THER APY OUTPT Cons Processor Solid Propellant's Choice [facility] Sep 24, 2025 12:00 AM Laboratory - Chemi stry Order COMPREHENSIVE METABOLIC PANEL LT GREEN PLASMA SP ONCE [facility] Sep 24, 2025 12:00 AM Laboratory - Chemi stry Order LIPID PROFILE LT GREEN PLASMA SP ONCE [facility] Advance Directives: All historical and current Section Date Range: From patient's date of to the date document was created. This section includes ALL of a patient's completed or amended OR Advance and Rescinded Directives. The entries below indicate that a directive exists for the patient, but an actual copy is not included with this document. The data comes from all [facility]. Date Advance Directives Provider Source Apr 13, 2025 ADVANCE DIRECTIVE DISCUSSION [facility] Encounter Notes: All associated encounter notes This section contains the clinical notes associated to the Encounter. Date/Time Encounter Note(s) Provider Source Aug 28, 2025 12:29 PM PHARMACY NOTE: LOCAL TITLE: PHARMACY CONTACT CENTER NOTE STANDARD TITLE: PHARMACY NOTE DATE OF NOTE: AUG 28, 2025@12:29 ENTRY DATE: AUG 28, 2025@12:29:50 AUTHOR: ALBERTO RICO EXP COSIGNER: URGENCY: STATUS: COMPLETED MEDICATION RENEW [id number] SUBSTANCE: Who is contacting the [facility]? /Patient Contact via: Phone Requesting renewal of medication: MYCOPHENOLATE MOFETIL 500MG TAB [id number] ACTIVE 540 11/08/2025 11/07/2024 05/29/2025 0 JASSI LEI [phone] TAKE THREE TABLETS BY MOUTH EVERY 12 HOURS (ON AN EMPTY STOMACH) This note was created by a [address] [facility] employee. Replies to this message are not monitored. Please do not reply back to the author of this message. If not renewing a medication, please have your clinic contact patient with reason. Thank you. Please send medication: Mail Disposition: Notification forwarded to provider for review of renewal request. /garrick/ ALBERTO Baum [facility] [employer]KER Signed: 08/28/2025 12:31 Receipt Acknowledged By: 08/28/2025 19:33 /edvin JENNINGS PHYSICIAN [facility]
[2025-08-30 20:58] VITALS: BP 130/81; PULSE 67; TEMP 36.6; O2SAT 98
--- NOTE | 2025-08-30 21:25 | ED.GENADUL1 ---
HPI HPI - General Adult General Chief complaint: Wound/Laceration Stated complaint: OPENING PACKAGE, CUT TIP OF RIGHT THUMB Time Seen by Provider: 08/30/25 21:05 Source: patient Mode of arrival: walk-in History of Present Illness HPI narrative: Patient is a 40-year-old male that presents to the emergency department with complaints of laceration to the tip of his right thumb while attempting to cut a box with a skinning knife. He is not up-to-date on his tetanus. Related Data Home Medications ?Medication ?Instructions ?Recorded ?Confirmed atenolol 100 mg tablet 100 mg PO Q24H 11/08/23 08/30/25 brimonidine 0.2 % eye drops 1 drp ophthalmic (eye) Q8H 11/08/23 08/30/25 celecoxib 200 mg capsule 200 mg PO Q12H 11/08/23 11/08/23 losartan 100 mg tablet 100 mg PO DAILY 11/08/23 08/30/25 adalimumab-bwwd 40 mg/0.8 mL 40 mg subcut Q14D 08/30/25 08/30/25 subcutaneous syringe (Hadlima) amlodipine 5 mg tablet mg 08/30/25 mycophenolate mofetil 500 mg tablet 1,500 mg PO BID 08/30/25 08/30/25 Allergies Allergy/AdvReac Type Severity Reaction Status Date / Time No Known Drug Allergies Allergy Verified 08/30/25 21:02 Opioid HPI Opioid Management Most Recent Opioid Data: Last Pain Scale 3 08/30/25, 20:58 Review of Systems ROS Status of ROS 10 or more systems reviewed and unremarkable except as noted in history and below PFSH PFSH Social History Smoking status: Former smoker Little interest or pleasure in doing things: not at all Feeling down, depressed, or hopeless: not at all Exam Narrative Exam Narrative: General: No distress, age-appropriate Skin: Warm, dry, no pallor. No rash. Approximately 1.5 cm laceration to the tip of the right thumb that terminates at the nail, no nailbed laceration suspected. Head: Normocephalic, atraumatic. Neck: Supple, non-tender. Eye: Pupils are equal, round and EOMI. No scleral icterus. Ears, Nose, Mouth, and Throat: No nasal mucosal hypertrophy. Oral mucosa is moist, no posterior oropharynx erythema, uvula is mid-line Cardiovascular: Regular Rate and Rhythm without murmur, gallop or rub. Respiratory: No accessory muscle use or respiratory distress. Musculoskeletal: Full ROM of all extremities, no calf or popliteal tenderness. Full right thumb ROM and 5/5 strength at the IP and MCP joints Neurological: A&O x4. No cranial nerve dysfunction observed. No truncal ataxia. Moves all extremities. Sensation intact. Psychiatric: Cooperative and interactive. Normal mood and affect. Constitutional Vital Signs, click to edit/add: Last Vital Signs Temp 97.9 F 08/30/25 20:58 Pulse 67 08/30/25 20:58 Resp 16 08/30/25 20:58 BP 130/81 08/30/25 20:58 Pulse Ox 98 08/30/25 20:58 O2 Del Method Room Air 08/30/25 20:58 Documenting provider has reviewed patient's vital signs: yes Course Vital Signs Vital signs: Vital Signs Temperature 97.9 F 08/30/25 20:58 Pulse Rate 67 08/30/25 20:58 Respiratory Rate 16 08/30/25 20:58 Blood Pressure 130/81 08/30/25 20:58 Pulse Oximetry 98 08/30/25 20:58 Oxygen Delivery Method Room Air 08/30/25 20:58 Temperature 97.9 F 08/30/25 20:58 Pulse Rate 67 08/30/25 20:58 Respiratory Rate 16 08/30/25 20:58 Blood Pressure 130/81 08/30/25 20:58 Pulse Oximetry 98 08/30/25 20:58 Oxygen Delivery Method Room Air 08/30/25 20:58 Medical Decision Making [facility] Narrative Medical decision making narrative: The patient is a 40-year-old male presenting with an acute laceration to the tip of the right thumb sustained while cutting a box with a knife. On examination, the wound was clean, without gross contamination, active bleeding, or signs of infection. There was no evidence of tendon, nerve, vascular, bone, or nail bed involvement, and the patient had full range of motion, strength, and intact sensation distally. The wound was thoroughly irrigated and repaired with five sutures with good approximation and hemostasis achieved. The patient was noted to be not up to date on tetanus immunization and was appropriately given a tetanus booster. Given the clean nature of the wound and absence of high-risk features, prophylactic antibiotics were not indicated. The patient was provided with wound care instructions, return precautions, and advised to follow up for suture removal in 7?10 days with PCP. Differential Diagnosis Differential Diagnosis: Laceration Discharge Plan Discharge Chief Complaint: Wound/Laceration Clinical Impression: Laceration of right thumb Patient Disposition: Home, Self-Care Time of Disposition Decision: 21:55 Condition: Good Mode of Transportation: Private Vehicle Prescriptions / Home Meds: No Action atenolol 100 mg tablet 100 mg PO Q24H losartan 100 mg tablet 100 mg PO DAILY brimonidine 0.2 % drops 1 drp OPHTHALMIC (EYE) Q8H Rx Instructions: LEFT EYE celecoxib 200 mg capsule 200 mg PO Q12H mycophenolate mofetil 500 mg tablet 1,500 mg PO BID amlodipine 5 mg tablet Hadlima 40 mg/0.8 mL syringe 40 mg subcut Q14D Print Language: [place] Instructions: Finger Laceration (ED) Additional Instructions: Wound Care Keep the wound clean and dry for the first 24 hours. After 24 hours, you may gently wash the area with soap and water once daily. Do not soak the thumb (no baths, swimming, or dishwashing without protection). Apply a thin layer of antibiotic ointment (e.g., bacitracin) once daily unless irritation occurs. Cover with a clean, dry bandage; change daily or if wet/dirty. Avoid picking at the sutures or scab. Activity Limit use of the right thumb as much as possible. Avoid heavy lifting, gripping, or activities that may reopen the wound. Elevate the hand when possible to reduce swelling. Pain Control May take acetaminophen or ibuprofen as needed for pain, unless otherwise contraindicated. Avoid medications that may increase bleeding unless prescribed. Signs of Infection ? Seek Medical Care If You Notice: Increasing redness, warmth, swelling, or pain Pus or drainage from the wound Fever or chills Red streaking up the hand or arm Numbness, tingling, or inability to move the thumb Suture Removal Sutures should be removed in 7?10 days. Follow up with your primary care provider, urgent care, or return to the emergency department for removal. Return to the ED Immediately If: Bleeding that does not stop with direct pressure Wound opens or sutures come apart Signs of infection as listed above Worsening pain, numbness, or loss of function Referrals: Aichholz,Serenity J, JUNIOR ENGINEER [Primary Care Provider, Family Practice] - 1 week Referral Note: Call for follow-up for suture removal in 7-10 days. Discharge Date/Time: 08/30/25 22:16 Procedures ED Laceration Laceration Laceration 1: Site: hand Side (if applicable): right Size (cm): 1.5 Description: irregular and clean Depth: simple, single layer Anesthetic used: lidocaine 1% Anesthesia technique: nerve block (Right thumb digital block) Amount (ml): 5 Pre-repair: wound explored, irrigated extensively and deep structures intact Skin layer closed with: other (Ethilon) Size (cm): 6-0 Number of sutures: 5 Technique: simple, interrupted
[2025-08-30] MEDS: DIPHTH,PERTUSS(ACELL),TET VAC 0.5 ML SYRINGE IM (21:30)
[2025-08-30] MEDS: LIDOCAINE HCL 1% 100 MG/10 ML MDV INJ (21:31)
--- OUTSIDE RECORDS SUMMARY | 2025-08-30 21:59 | XMS_ITS | Continuity of Care Document ---
Author Name [facility] Organization [facility] Care Team Providers Care Conservation Of Resources Commissioner Name Role Phone [facility] Unavailable Unavailable Problems Combined list of problems from Department of Defense and Veterans Affairs facilities. It does not include entries that were removed or entered in error. Problem Status Onset Date Problem Type Date of Resolution Comme nts Source Benign hypertension (SNOMED CT [id number]) [facility] shoulder joint painActiveConditionS[facility]OCChronic iritis of left eyeActiveConditionS[facility]USKY CBOCEssential hypertensionActive ConditionSANDUSKY CBOCMitral valve prolapseActiveConditionCLEVELAND VAMCMixed hyperlipidemiaActiveConditionS[facility]USKY CBOCObesityActiveCondition[facility] Pain of right knee joint (SNOMED CT [id number])[facility]Condition[facility] UveitisActiveConditionS[facility] CBOCtinnitusActiveConditionDoDCognitive Skills - Problem-Solving StrategiesActiveConditionDoDfoot pain (soft tissue)Active ConditionDoDfinger sprain right thumb IPInactiveConditionDoDpsychiatric diagnosis or condition deferred on axis IActiveConditionDoDunspecified diagnosis ActiveConditionDoDdepressionActiveConditionDoDoccupational problemActive ConditionDoDpartner relational problemInactiveConditionDoDvomitingInactive ConditionDoDchest painActiveConditionDoDvisit for: issue repeat prescription for medicationInactiveConditionDoDvisit for: examination of throatInactiveCondition DoDingrowing nail with infectionInactiveConditionDoDnausea with vomitingInactive ConditionDoDdiarrheaActiveConditionDoDatypical chest painInactiveConditionDoD essential hypertensionActiveConditionDoDhypertension systemicActiveConditionDoD shoulder strainInactiveConditionDoDvisit for: administrative purposeInactive ConditionDoDupper respiratory infectionInactiveConditionDoDvisit for: services physicalActiveCondition* See [id number], Results WNL DoDopen wound fingers left indexInactiveCondition* pt instructed on proper wound care, use and se of meds, pt to return to clinic in 7 days for sutureremoval, pt instructed on the signs/symptoms of wound infection. 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, left eyeActiveDiagnosisSANDMINERS' [facility] CBOCDiagnosis: ICD-10-CM H20.12 Chronic iridocyclitis, left eyeActiveDiagnosisPARMA CBOCDiagnosis: ICD-10-CM H40.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 Medication Details Route Status Indication(s) Patie nt Instructions Prescription Expires Prescription Number Last Dispense Date Ordering Provider Order Date Order Qty Source ADALIMUMAB- BWWD 40MG/0.4ML AUTOINJECTO R INJECT CONTENTS OF 1 PEN SUBCUTAN EOUSLY EVERY OTHER WEEK SUBCUT ANEOUS ACTIVE 06/10/2026 [id number] 5 JASSI ADAM 2024 6 [facility] ADALIMUMAB- BWWD 40MG/0.4ML AUTOINJECTO R INJECT CONTENTS OF 1 PEN SUBCUTAN EOUSLY EVERY OTHER WEEK SUBCUT ANEOUS DISCONT INUED 11/08/2025 [id number] 5 JASSI ADAM 2024 6 [facility] ADALIMUMAB- BWWD 40MG/0.4ML AUTOINJECTO R INJECT CONTENTS OF 1 PEN SUBCUTAN EOUSLY EVERY OTHER WEEK SUBCUT ANEOUS DISCONT INUED 06/01/2025 [id number] 4 JASSI ADAM 2023 6 [facility] ATENOLOL 100MG TAB TAKE ONE TABLET BY MOUTH EVERY DAY FOR HIGH BLOOD PRESSURE ORAL ACTIVE 03/25/2026 [id number] 5 Mae MAGAÑA 2024 90 [facility] ATENOLOL 100MG TAB TAKE ONE TABLET BY MOUTH EVERY DAY ORAL DISCONT INUED 10/26/2025 [id number] 5 VAISHNAVI MARTEL 2024 90 [facility] ATENOLOL 100MG TAB TAKE ONE TABLET BY MOUTH EVERY DAY ORAL 06/25/2024 [id number] SARTHAK CHILD R 2022 90 [facility] BRIMONIDINE TARTRATE 0.1% SOLN,OPH INSTILL 1 DROP IN LEFT EYE TWICE A DAY (TRADE NAME ONLY) OPHTHA LMIC DISCONT INUED (EDIT) 07/09/2025 [id number] KALA ASTUDILLO ANESH 2023 10 [facility] BRIMONIDINE TARTRATE 0.1% SOLN,OPH INSTILL 1 DROP IN EACH EYE TWICE A DAY FOR INCREASE D PRESSURE IN THE EYE (TRADE NAME ONLY) OPHTHA LMIC 08/13/2025 [id number] 4 EMORY MCADAMS 2023 10 [facility] CELECOXIB 200MG CAP TAKE 1 CAPSULE BY MOUTH TWICE A DAY WITH MEALS ORAL ACTIVE SARTHAK CHILD 2023 [facility] LOSARTAN POTASSIUM 100MG TAB TAKE ONE TABLET BY MOUTH EVERY DAY FOR HIGH BLOOD PRESSURE ORAL ACTIVE 03/25/2026 [id number] 5 Mae MAGAÑA 2024 90 [facility] [place] POTASSIUM 100MG TAB TAKE ONE TABLET BY MOUTH EVERY DAY FOR HIGH BLOOD PRESSURE ORAL DISCONT INUED 05/11/2025 [id number] 5 SARTHAK CHILD 2023 90 [facility] MYCOPHENOLA TE MOFETIL 500MG TAB TAKE THREE TABLETS BY MOUTH EVERY 12 HOURS (ON AN EMPTY STOMACH) ORAL SUSPEND ED 08/29/2026 [id number] 5 BEATRIZ JENNINGS 2024 540 [facility] MYCOPHENOLA TE MOFETIL 500MG TAB TAKE THREE TABLETS BY MOUTH EVERY 12 HOURS (ON AN EMPTY STOMACH) ORAL DISCONT INUED 11/08/2025 [id number] 5 JASSI ADAM 2024 540 [facility] MYCOPHENOLA TE MOFETIL 500MG TAB TAKE ONE TABLET BY MOUTH EVERY 12 HOURS FOR 1 WEEK, THEN TAKE TWO TABLETS EVERY 12 HOURS FOR 2 WEEKS, THEN TAKE THREE TABLETS EVERY 12 HOURS (ON AN EMPTY STOMACH) ORAL DISCONT INUED 12/15/2024 [id number] 5 JASSI ADAM 2024 484 [facility] POLYVINYL ALCOHOL 1.4%/POVIDO NE (PF) SOLN,OPH INSTILL 1 DROP IN LEFT EYE THREE TIMES A DAY FOR DRY EYE OPHTHA LMIC 07/09/2025 [id number] 4 KALA ASTUDILLO ANEELAINE 2023 100 [facility] PREDNISOLON E ACETATE 1% SUSP,OPH INSTILL 1 DROP IN EACH EYE FOUR TIMES A DAY FOR SEVERE INFLAMMA TION OF THE EYE OPHTHA LMIC 08/17/2025 [id number] 4 ALTON GUERRERO A 2023 15 [facility] ROSUVASTATI N CA 20MG TAB TAKE ONE TABLET BY MOUTH EVERY DAY FOR HIGH CHOLESTE ROL ORAL ACTIVE 03/25/2026 [id number] 5 Mae MAGAÑA A 2024 90 [facility] SULFAMETHOX AZOLE 800MG/TRIME THOPRIM 160MG TAB TAKE 1 TABLET BY MOUTH EVERY THURSDAY, , AND THURSDAY (WITH FOOD) ORAL ACTIVE 09/16/2025 [id number] 5 SONIAALICIA RichardsonGailQUIQUEA 2024 24 [facility] Allergies, Adverse Reactions, Alerts Combined list of allergies from Department of Defense and Veterans Affairs facilities. It does not include entries that were removed or entered in error. Substance Category Reaction Severity Reaction type Status Date Reported Comments Source No Known Allergies Drug allergy (disorder) active 04/28/2008 [facility] Immunizations Combined list of available immunizations from the Department of Defense and Veterans Affairs facilities. Immunization Series Date Given Administered By Site Reaction Lot Number CVX Code Drug Gum Puller Status Comments Source INFLUENZA, INJECTABLE, QUADRIVALENT, PRESERVATIVE FREE 2018 150 complet ed [facility] TDAP 2018 115 complet ed [facility] FLU,3 YRS (HISTORICAL) 2012 88 complet ed [id number] Ex:2013 [facility] influenza virus vaccine, live, attenuated, for intranasal use 1 2009 [id number] 111 [employer] (MED) complet ed influenza virus vaccine, live, attenuate d, for intranasa l use [facility] Novel influenza-H1N 1-09, injectable 1 2009 [id number] 127 [email or web address]. (NOV) complet ed Novel influenza -[id number], injectabl e DoD TDAP 2008 115 complet ed [facility] influenza virus vaccine, live, attenuated, for intranasal use 1 2007 [id number] 111 [employer] (MED) complet ed influenza virus vaccine, live, attenuate d, for intranasa l use DoD influenza virus vaccine, live, attenuated, for intranasal use 1 2006 [id number] 111 [employer] (MED) complet ed influenza virus vaccine, live, attenuate d, for intranasa l use DoD influenza virus vaccine, live, attenuated, for intranasal use 1 2005 [id number] 111 [employer] (MED) complet ed influenza virus vaccine, live, attenuate d, for intranasa l use [facility] hepatitis A and hepatitis B vaccine 3 2005 [id number] 104 [employer] (SKB) complet ed hepatitis A and hepatitis B vaccine DoD hepatitis A and hepatitis B vaccine 2 2005 [id number] 104 [employer] (SK) complet ed hepatitis A and hepatitis B vaccine DoD measles, mumps and rubella virus vaccine 1 2004 03 () Not Given measles, mumps and rubella virus vaccine DoD influenza virus vaccine, split virus (incl. purified surface antigen)-reti red CODE 1 2004 [id number] 15 Sanofi Pasteur ([facility]) complet ed influenza virus vaccine, split virus (incl. purified surface antigen)- retired CODE DoD varicella virus vaccine 1 2004 21 () Not Given varicella virus vaccine DoD hepatitis A and hepatitis B vaccine 1 2004 [id number] 104 [employer] ([facility]) complet ed hepatitis A and hepatitis B vaccine DoD tetanus and diphtheria toxoids, adsorbed, preservative free, for adult use (2 Lf of tetanus toxoid and 2 Lf of diphtheria toxoid) 1 2004 [id number] 09 Sanofi Pasteur ([facility]) complet ed tetanus and diphtheri a toxoids, adsorbed, preservat davin free, for adult use (2 Lf of tetanus toxoid and 2 Lf of diphtheri a toxoid) DoD poliovirus vaccine, inactivated 1 2004 [id number] 10 Sanofi Pasteur ([facility]) complet ed polioviru s vaccine, inactivat ed DoD meningococcal polysaccharid e vaccine (MPSV4) 1 2004 [id number] 32 Sanofi Pasteur ([facility]) complet ed meningoco ccal polysacch aride vaccine (MPSV4) [facility] HEP B, ADOLESCENT OR PEDIATRIC 2 1998 08 complet ed HISTORICA L INFORMATI ON - FROM OTHER REGISTRY, [facility] HEP B, ADOLESCENT OR PEDIATRIC 1 1998 08 complet ed HISTORICA L INFORMATI ON - FROM OTHER REGISTRY, [facility] MMR 2 1998 03 complet ed HISTORICA L INFORMATI ON - FROM OTHER REGISTRY, [facility] DTP 4 1990 complet ed HISTORICA L INFORMATI ON - FROM OTHER REGISTRY, [facility] DTP 3 1989 complet ed HISTORICA L INFORMATI ON - FROM OTHER REGISTRY, [facility] TRIVALENT OPV 3 1989 02 complet ed HISTORICA L INFORMATI ON - FROM OTHER REGISTRY, [facility] DTP 2 1987 01 complet ed HISTORICA L INFORMATI ON - FROM OTHER REGISTRY, [facility] MMR 1 1987 03 complet ed HISTORICA L INFORMATI ON - FROM OTHER REGISTRY, [facility] TRIVALENT OPV 2 1987 02 complet ed HISTORICA L INFORMATI ON - FROM OTHER REGISTRY, [facility] DTP 1 1986 01 complet ed HISTORICA L INFORMATI ON - FROM OTHER REGISTRY, [facility] TRIVALENT OPV 1 1986 02 complet ed HISTORICA L INFORMATI ON - FROM OTHER REGISTRY, [facility] Results Combined list of recent chemistry, hematology and other laboratory results from Department of Defense and Veterans Affairs, ranging from 15 months to all on record, depending upon the facility. Order Name Results Value Reference Range Date Interpretation Sp ecimen Comments Source HEPATIC FUNCTION PANEL ALBUMIN [MASS/VOLUME] IN SERUM OR PLASMA 4.2 g/dL 3.5 - 4.8 05/05/2025 Specimen Type: PLASMA Comment: TP Per package insert reference range for recumbent is 6.0 to 7.8 TP g/dL. Plasma samples will generally have higher values (about TP 0.2 to 0.4 g/dL higher) due to presence of fibrinogen. Ordering Provider: TODD MAGAÑA Report Released Date/Time: Apr 27, 2025 10:47 AM Reporting Lab: [address] [address] Performing Lab: [address] [phone] VAMCHEPATIC FUNCTION PANEL ALKALINE PHOSPHATASE [ENZYMATIC ACTIVITY/VOLUME] IN SERUM OR [id number] U/L40 - 1798105/05/2025Specimen Type: PLASMA Comment: TP Per package insert reference range for recumbent is 6.0 to 7.8 TP g/dL. Plasma samples will generally have higher values (about TP 0.2 to 0.4 g/dL higher) due to presence of fibrinogen. Ordering Provider: TODD MAGAÑA Report Released Date/Time: Apr 27, 2025 10:47 AM Reporting Lab: [address] [address] Performing Lab: [address] [address]BTKVOPLKY [facility] SUR[facility] HOSPITALHEPATIC FUNCTION PANEL ALANINE AMINOTRANSFERASE [ENZYMATIC ACTIVITY/VOLUME] IN SERUM OR [id number] U/L0 - 55005/05/2025Specimen Type: PLASMA Comment: TP Per package insert reference range for recumbent is 6.0 to 7.8 TP g/dL. Plasma samples will generally have higher values (about TP 0.2 to 0.4 g/dL higher) due to presence of fibrinogen. Ordering Provider: TODD MAGAÑA Report Released Date/Time: Apr 27, 2025 10:47 AM Reporting Lab: [address] [address] Performing Lab: [address] [phone] [facility] HOSPITALHEPATIC FUNCTION PANEL ASPARTATE AMINOTRANSFERASE [ENZYMATIC ACTIVITY/VOLUME] IN SERUM OR [id number] U/L 10 - Specimen Type: PLASMA Comment: TP Per package insert reference range for recumbent is 6.0 to 7.8 TP g/dL. Plasma samples will generally have higher values (about TP 0.2 to 0.4 g/dL higher) due to presence of fibrinogen. Ordering Provider: TODD MAGAÑA Report Released Date/Time: Apr 27, 2025 10:47 AM Reporting Lab: [address] [address] Performing Lab: [address] [phone] VAMCHEPATIC FUNCTION PANEL BILIRUBIN.DIRECT [MASS/VOLUME] IN SERUM OR PLASMA0.1 mg/dL0.0 - 0.508 Specimen Type: PLASMA Comment: TP Per package insert reference range for recumbent is 6.0 to 7.8 TP g/dL. Plasma sampleswill generally have higher values (about TP 0.2 to 0.4 g/dL higher) due to presence of fibrinogen. Ordering Provider: TODD MAGAÑA Report Released Date/Time: Apr 27, 2025 10:47 AM Reporting Lab: [address] [address] Performing Lab: [address] [address]LPOJEHBVJ [facility] SUR[facility] HOSPITALHEPATIC FUNCTION PANEL PROTEIN [MASS/VOLUME] IN SERUM OR PLASMA7.7 g/dL6.4 - 8.308/Specimen Type: PLASMA Comment: TP Per package insert reference range for recumbent is 6.0 to 7.8 TP g/dL. Plasma samples will generally have higher values (about TP 0.2 to 0.4 g/dL higher) due to presence of fibrinogen. Ordering Provider: TODD MAGAÑA Report Released Date/Time: Apr 27, 2025 10:47 AM Reporting Lab: [address] [address] Performing Lab: [place] [id number] [facility] HOSPITALHEPATIC FUNCTION PANEL BILIRUBIN.TOTAL [MASS/VOLUME] IN SERUM OR PLASMA0.4 mg/dL0.2 - 1.208 Specimen Type: PLASMA Comment: TP Per package insert reference range for recumbent is 6.0 to 7.8 TP g/dL. Plasma samples will generally have higher values (about TP 0.2 to 0.4 g/dL higher) due to presence of fibrinogen. Ordering Provider: TODD MAGAÑA Report Released Date/Time: Apr 27, 2025 10:47 AM Reporting Lab: [address] [address] Performing Lab: [place] [id number] [facility] HOSPITALTSHTHYROTROPIN [UNITS/VOLUME] IN SERUM OR PLASMA BY DETECTION LIMIT <= 0.005 MIU/L1.373 u[IU]/mL0.350 - 4.12115Specimen Type: PLASMA Comment: TP Per package insert reference range for recumbent is 6.0 to 7.8 TP g/dL. Plasma samples will generally have higher values (about TP 0.2 to 0.4 g/dL higher) due to presence of fibrinogen. Ordering Provider: TODD MAGAÑA Report Released Date/Time: Apr 27, 2025 10:48 AM Reporting Lab: [address] [address] Performing Lab: [place] [phone] HOSPITALHEMOGLOBIN [id number] A1C/HEMOGLOBIN.TOTAL IN BLOOD5.43.6 - 5.708Specimen Type: BLOOD Comment: Values obtained from A1C measurements can vary. For typical A1C assays, a reported value of 7.0 could actually be between 6.72 and 7.28 if measured by a reference method. A reported value of9.0 could actually be between 8.73 and 9.27. Ref: [email or web address] Ordering Provider: TODD MAGAÑA Report Released Date/Time: Apr 27, 2025 10:48 AM Reporting Lab: [address] [address] Performing Lab: [place] [id number] HOSPITALCOMPREHENSIVE METABOLIC PANELALBUMIN [MASS/VOLUME] IN SERUM OR PLASMA4.0 g/dL3.5 - 4.807Specimen Type: PLASMA Comment: GLUCOSE The ADA recommends a fasting glucose of 99 mg/dL as the GLUCOSE upper limit of normal. TP Per package insert reference range for recumbent is 6.0 to 7.8 TP g/dL. Plasma samples will generally have higher values (about TP 0.2 to 0.4 g/dL higher) due to presence of fibrinogen. TRIG REFERENCE RANGE: BORDERLINE HIGH: 150-199 mg/dL HIGH: 200-499 TRIG mg/dL VERY HIGH: >=500 mg/dL CHOL REF RANGE: BORDERLINE HIGH: 200-239 mg/dL HIGH: >=240 mg/dL HDLC Values >60 area negative risk factor for heart disease. DLDL REF RANGE: NEAR OR ABOVE OPTIMAL: 100-129 mg/dL BORDERLINE DLDL HIGH: 130-159 mg/dL HIGH: 160-189 mg/dL VERY HIGH: >=190 Ordering Provider: SARTHAK CHILD Report Released Date/Time: Mar 29, 2024 03:34 PM Reporting Lab: [address] [phone] Performing Lab: [place] [phone] HOSPITALCOMPREHENSIVE METABOLIC PANELALKALINE PHOSPHATASE [ENZYMATIC ACTIVITY/VOLUME] IN SERUM OR [id number] U/L40 - 5456903/17/2025Specimen Type: PLASMA Comment: GLUCOSE The ADA recommends a fasting glucose of 99 mg/dL as the GLUCOSE upper limit of normal. TP Per package insert reference range for recumbent is 6.0 to 7.8 TP g/dL. Plasma samples will generally have higher values (about TP 0.2 to 0.4 g/dL higher) due to presence of fibrinogen. TRIG REFERENCE RANGE: BORDERLINE HIGH: 150-199 mg/dL HIGH: 200-499 TRIG mg/dL VERY HIGH: >=500 mg/dL CHOL REF RANGE: BORDERLINE HIGH: 200-239 mg/dL HIGH: >=240 mg/dL HDLC Values >60 area negative risk factor for heart disease. DLDL REF RANGE: NEAR OR ABOVE OPTIMAL: 100-129 mg/dL BORDERLINE DLDL HIGH: 130-159 mg/dL HIGH: 160-189 mg/dL VERY HIGH: >=190 Ordering Provider: SARTHAK CHILD Report Released Date/Time: Mar 29, 2024 03:34 PM Reporting Lab: [address] [address] Performing Lab: [address] [phone] VAMCCOMPREHENSIVE METABOLIC PANELALANINE AMINOTRANSFERASE [ENZYMATIC ACTIVITY/VOLUME] IN SERUM OR [id number] U/L0 - Specimen Type: PLASMA Comment: GLUCOSE The ADA recommends a fasting glucose of 99 mg/dL as the GLUCOSE upper limit of normal. TP Per package insert reference range for recumbent is 6.0 to 7.8 TP g/dL. Plasma samples will generally have higher values (about TP 0.2 to 0.4 g/dL higher) due to presence of fibrinogen. TRIG REFERENCE RANGE: BORDERLINE HIGH: 150-199 mg/dL HIGH: 200-499 TRIG mg/dL VERY HIGH: >=500 mg/dL CHOL REF RANGE: BORDERLINE HIGH: 200-239 mg/dL HIGH: >=240 mg/dL HDLC Values >60 area negative risk factor for heart disease. DLDL REF RANGE: NEAR OR ABOVE OPTIMAL: 100-129 mg/dL BORDERLINE DLDL HIGH: 130-159 mg/dL HIGH: 160-189 mg/dL VERY HIGH: >=190 Ordering Provider: SARTHAK CHILD Report Released Date/Time: Mar 29, 2024 03:34 PM Reporting Lab: [address] [address] Performing Lab: [address] [address]BMALEWYLD VAMCCOMPREHENSIVE METABOLIC PANELASPARTATE AMINOTRANSFERASE [ENZYMATIC ACTIVITY/VOLUME] IN SERUM OR [id number] U/L10 - 40003/17/2025Specimen Type: PLASMA Comment: GLUCOSE The ADA recommends a fasting glucose of 99 mg/dL as the GLUCOSE upper limit of normal. TP Per package insert reference range for recumbent is 6.0 to 7.8 TP g/dL. Plasma samples will generally have higher values (about TP 0.2 to 0.4 g/dL higher) due to presence of fibrinogen. TRIG REFERENCE RANGE: BORDERLINE HIGH: 150-199 mg/dL HIGH: 200-499 TRIG mg/dL VERY HIGH: >=500 mg/dL CHOL REF RANGE: BORDERLINE HIGH: 200-239 mg/dL HIGH: >=240 mg/dL HDLC Values >60 area negative risk factor for heart disease. DLDL REF RANGE: NEAR OR ABOVE OPTIMAL: 100-129 mg/dL BORDERLINE DLDL HIGH: 130-159 mg/dL HIGH: 160-189 mg/dL VERY HIGH: >=190 Ordering Provider: SARTHAK CHILD Report Released Date/Time: Mar 29, 2024 03:34 PM Reporting Lab: [address] [address] Performing Lab: [address] [phone] VAMCCOMPREHENSIVE METABOLIC PANELUREA NITROGEN [MASS/VOLUME] IN SERUM OR IOADAG35.5 mg/dL8.9 - 20.6 03/17/2025Specimen Type: PLASMA Comment: GLUCOSE The ADA recommends a fasting glucose of 99 mg/dL as the GLUCOSE upper limit of normal. TP Per package insert reference range for recumbent is 6.0 to 7.8 TP g/dL. Plasma samples will generally have higher values (about TP 0.2 to 0.4 g/dL higher) due to presence of fibrinogen. TRIG REFERENCE RANGE: BORDERLINE HIGH: 150-199 mg/dL HIGH: 200-499 TRIG mg/dL VERY HIGH: >=500 mg/dL CHOL REF RANGE: BORDERLINE HIGH: 200-239 mg/dL HIGH: >=240 mg/dL HDLC Values >60 area negative risk factor for heart disease. DLDL REF RANGE: NEAR OR ABOVE OPTIMAL: 100-129 mg/dL BORDERLINE DLDL HIGH: 130-159 mg/dL HIGH: 160-189 mg/dL VERY HIGH: >=190 Ordering Provider: SARTHAK CHILD Report Released Date/Time: Mar 29, 2024 03:34 PM Reporting Lab: [address] [address] Performing Lab: [address] [phone] [facility] HOSPITALCOMPREHENSIVE METABOLIC PANELCALCIUM [MASS/VOLUME] IN SERUM OR PLASMA9.1 mg/dL8.6 - 10. Specimen Type: PLASMA Comment: GLUCOSE The ADA recommends a fasting glucose of 99 mg/dL as the GLUCOSE upper limit of normal. TP Per package insert reference range for recumbent is 6.0 to 7.8 TP g/dL. Plasma samples will generally have higher values (about TP 0.2 to 0.4 g/dL higher) due to presence of fibrinogen. TRIG REFERENCE RANGE: BORDERLINE HIGH: 150-199 mg/dL HIGH: 200-499 TRIG mg/dL VERY HIGH: >=500 mg/dL CHOL REF RANGE: BORDERLINE HIGH: 200-239 mg/dL HIGH: >=240 mg/dL HDLC Values >60 area negative risk factor for heart disease. DLDL REF RANGE: NEAR OR ABOVE OPTIMAL: 100-129 mg/dL BORDERLINE DLDL HIGH: 130-159 mg/dL HIGH: 160-189 mg/dL VERY HIGH: >=190 Ordering Provider: SARTHAK CHILD Report Released Date/Time: Mar 29, 2024 03:34 PM Reporting Lab: [address] [address] Performing Lab: [address] [id number] [facility] HOSPITALCOMPREHENSIVE METABOLIC PANELCREATININE [MASS/VOLUME] IN SERUM OR PLASMA1.0 mg/dL0.7 - 1.307 Specimen Type: PLASMA Comment: GLUCOSE The ADA recommends a fasting glucose of 99 mg/dL as the GLUCOSE upper limit of normal. TP Per package insert reference range for recumbent is 6.0 to 7.8 TP g/dL. Plasma samples will generally have higher values (about TP 0.2 to 0.4 g/dL higher) due to presence of fibrinogen. TRIG REFERENCE RANGE: BORDERLINE HIGH: 150-199 mg/dL HIGH: 200-499 TRIG mg/dL VERY HIGH: >=500 mg/dL CHOL REF RANGE: BORDERLINE HIGH: 200-239 mg/dL HIGH: >=240 mg/dL HDLC Values >60 area negative risk factor for heart disease. DLDL REF RANGE: NEAR OR ABOVE OPTIMAL: 100-129 mg/dL BORDERLINE DLDL HIGH: 130-159 mg/dL HIGH: 160-189 mg/dL VERY HIGH: >=190 Ordering Provider: SARTHAK CHILD Report Released Date/Time: Mar 29, 2024 03:34 PM Reporting Lab: [address] [phone] Performing Lab: [address] [phone] [facility] HOSPITALCOMPREHENSIVE METABOLIC PANELCARBON DIOXIDE, TOTAL [MOLES/VOLUME] IN SERUM OR [id number] mmol/L22 - 30 03/17/2025Specimen Type: PLASMA Comment: GLUCOSE The ADA recommends a fasting glucose of 99 mg/dL as the GLUCOSE upper limit of normal. TP Per package insert reference range for recumbent is 6.0 to 7.8 TP g/dL. Plasma samples will generally have higher values (about TP 0.2 to 0.4 g/dL higher) due to presence of fibrinogen. TRIG REFERENCE RANGE: BORDERLINE HIGH: 150-199 mg/dL HIGH: 200-499 TRIG mg/dL VERY HIGH: >=500 mg/dL CHOL REF RANGE: BORDERLINE HIGH: 200-239 mg/dL HIGH: >=240 mg/dL HDLC Values >60 area negative risk factor for heart disease. DLDL REF RANGE: NEAR OR ABOVE OPTIMAL: 100-129 mg/dL BORDERLINE DLDL HIGH: 130-159 mg/dL HIGH: 160-189 mg/dL VERY HIGH: >=190 Ordering Provider: SARTHAK CHILD Report Released Date/Time: Mar 29, 2024 03:34 PM Reporting Lab: [address] [phone] Performing Lab: [address] [address]HYYOHLKEJ [facility] HOSPITALCOMPREHENSIVE METABOLIC PANELGLUCOSE [MASS/VOLUME] IN SERUM OR [id number] mg/dL74 - 9907/07/2025HSpecimen Type: PLASMA Comment: GLUCOSE The ADA recommends a fasting glucose of 99 mg/dL as the GLUCOSE upper limit of normal. TP Per package insert reference range for recumbent is 6.0 to 7.8 TP g/dL. Plasma samples will generally have higher values (about TP 0.2 to 0.4 g/dL higher) due to presence of fibrinogen. TRIG REFERENCE RANGE: BORDERLINE HIGH: 150-199 mg/dL HIGH: 200-499 TRIG mg/dL VERY HIGH: >=500 mg/dL CHOL REF RANGE: BORDERLINE HIGH: 200-239 mg/dL HIGH: >=240 mg/dL HDLC Values >60 area negative risk factor for heart disease. DLDL REF RANGE: NEAR OR ABOVE OPTIMAL: 100-129 mg/dL BORDERLINE DLDL HIGH: 130-159 mg/dL HIGH: 160-189 mg/dL VERY HIGH: >=190 Ordering Provider: SARTHAK CHILD Report Released Date/Time: Mar 29, 2024 03:34 PM Reporting Lab: [address] [address] Performing Lab: [address] [address]JKBOHBUIE VAMCCOMPREHENSIVE METABOLIC PANELPROTEIN [MASS/VOLUME] IN SERUM OR PLASMA7.7 g/dL6.4 - 8.307Specimen Type: PLASMA Comment: GLUCOSE The ADA recommends a fasting glucose of 99 mg/dL as the GLUCOSE upper limit of normal. TP Per package insert reference range for recumbent is 6.0 to 7.8 TP g/dL. Plasma samples will generally have higher values (about TP 0.2 to 0.4 g/dL higher) due to presence of fibrinogen. TRIG REFERENCE RANGE: BORDERLINE HIGH: 150-199 mg/dL HIGH: 200-499 TRIG mg/dL VERY HIGH: >=500 mg/dL CHOL REF RANGE: BORDERLINE HIGH: 200-239 mg/dL HIGH: >=240 mg/dL HDLC Values >60 area negative risk factor for heart disease. DLDL REF RANGE: NEAR OR ABOVE OPTIMAL: 100-129 mg/dL BORDERLINE DLDL HIGH: 130-159 mg/dL HIGH: 160-189 mg/dL VERY HIGH: >=190 Ordering Provider: SARTHAK CHILD Report Released Date/Time: Mar 29, 2024 03:34 PM Reporting Lab: [address] [address] Performing Lab: [address] [address]HELFHEZXE [facility]OSPITALCOMPREHENSIVE METABOLIC PANELSODIUM [MOLES/VOLUME] IN SERUM OR [id number] mmol/L134 - [address]2936 Specimen Type: PLASMA Comment: GLUCOSE The ADA recommends a fasting glucose of 99 mg/dL as the GLUCOSE upper limit of normal. TP Per package insert reference range for recumbent is 6.0 to 7.8 TP g/dL. Plasma samples will generally have higher values (about TP 0.2 to 0.4 g/dL higher) due to presence of fibrinogen. TRIG REFERENCE RANGE: BORDERLINE HIGH: 150-199 mg/dL HIGH: 200-499 TRIG mg/dL VERY HIGH: >=500 mg/dL CHOL REF RANGE: BORDERLINE HIGH: 200-239 mg/dL HIGH: >=240 mg/dL HDLC Values >60 area negative risk factor for heart disease. DLDL REF RANGE: NEAR OR ABOVE OPTIMAL: 100-129 mg/dL BORDERLINE DLDL HIGH: 130-159 mg/dL HIGH: 160-189 mg/dL VERY HIGH: >=190 Ordering Provider: SARTHAK CHILD Report Released Date/Time: Mar 29, 2024 03:34 PM Reporting Lab: [address] [address] Performing Lab: [place] [phone]PITALCOMPREHENSIVE METABOLIC PANELCHLORIDE [MOLES/VOLUME] IN SERUM OR [id number] mmol/L99 - [address] Specimen Type: PLASMA Comment: GLUCOSE The ADA recommends a fasting glucose of 99 mg/dL as the GLUCOSE upper limit of normal. TP Per package insert reference range for recumbent is 6.0 to 7.8 TP g/dL. Plasma samples will generally have higher values (about TP 0.2 to 0.4 g/dL higher) due to presence of fibrinogen. TRIG REFERENCE RANGE: BORDERLINE HIGH: 150-199 mg/dL HIGH: 200-499 TRIG mg/dL VERY HIGH: >=500 mg/dL CHOL REF RANGE: BORDERLINE HIGH: 200-239 mg/dL HIGH: >=240 mg/dL HDLC Values >60 area negative risk factor for heart disease. DLDL REF RANGE: NEAR OR ABOVE OPTIMAL: 100-129 mg/dL BORDERLINE DLDL HIGH: 130-159 mg/dL HIGH: 160-189 mg/dL VERY HIGH: >=190 Ordering Provider: SARTHAK CHILD Report Released Date/Time: Mar 29, 2024 03:34 PM Reporting Lab: [address] [address] Performing Lab: [address] [address]NRSDTSSPT [facility]OSPITALCOMPREHENSIVE METABOLIC PANELBILIRUBIN.TOTAL [MASS/VOLUME] IN SERUM OR PLASMA0.5 mg/dL0.2 - 1.2 03/17/2025Specimen Type: PLASMA Comment: GLUCOSE The ADA recommends a fasting glucose of 99 mg/dL as the GLUCOSE upper limit of normal. TP Per package insert reference range for recumbent is 6.0 to 7.8 TP g/dL. Plasma samples will generally have higher values (about TP 0.2 to 0.4 g/dL higher) due to presence of fibrinogen. TRIG REFERENCE RANGE: BORDERLINE HIGH: 150-199 mg/dL HIGH: 200-499 TRIG mg/dL VERY HIGH: >=500 mg/dL CHOL REF RANGE: BORDERLINE HIGH: 200-239 mg/dL HIGH: >=240 mg/dL HDLC Values >60 area negative risk factor for heart disease. DLDL REF RANGE: NEAR OR ABOVE OPTIMAL: 100-129 mg/dL BORDERLINE DLDL HIGH: 130-159 mg/dL HIGH: 160-189 mg/dL VERY HIGH: >=190 Ordering Provider: SARTHAK CHILD Report Released Date/Time: Mar 29, 2024 03:34 PM Reporting Lab: [address] [address] Performing Lab: [address] [address]CHDTOHAGB [facility]OSPITALCOMPREHENSIVE METABOLIC PANELPOTASSIUM [MOLES/VOLUME] IN SERUM OR PLASMA4.4 mmol/L3.5 - 5. Specimen Type: PLASMA Comment: GLUCOSE The ADA recommends a fasting glucose of 99 mg/dL as the GLUCOSE upper limit of normal. TP Per package insert reference range for recumbent is 6.0 to 7.8 TP g/dL. Plasma samples will generally have higher values (about TP 0.2 to 0.4 g/dL higher) due to presence of fibrinogen. TRIG REFERENCE RANGE: BORDERLINE HIGH: 150-199 mg/dL HIGH: 200-499 TRIG mg/dL VERY HIGH: >=500 mg/dL CHOL REF RANGE: BORDERLINE HIGH: 200-239 mg/dL HIGH: >=240 mg/dL HDLC Values >60 area negative risk factor for heart disease. DLDL REF RANGE: NEAR OR ABOVE OPTIMAL: 100-129 mg/dL BORDERLINE DLDL HIGH: 130-159 mg/dL HIGH: 160-189 mg/dL VERY HIGH: >=190 Ordering Provider: SARTHAK CHILD Report Released Date/Time: Mar 29, 2024 03:34 PM Reporting Lab: [address] [address] Performing Lab: [address] [address]SYLSLCDDS VAMCCOMPREHENSIVE METABOLIC PANELANION GAP IN SERUM OR [id number] mmol/L10 - Specimen Type: PLASMA Comment: GLUCOSE The ADA recommends a fasting glucose of 99 mg/dL as the GLUCOSE upper limit of normal. TP Per package insert reference range for recumbent is 6.0 to 7.8 TP g/dL. Plasma samples will generally have higher values (about TP 0.2 to 0.4 g/dL higher) due to presence of fibrinogen. TRIG REFERENCE RANGE: BORDERLINE HIGH: 150-199 mg/dL HIGH: 200-499 TRIG mg/dL VERY HIGH: >=500 mg/dL CHOL REF RANGE: BORDERLINE HIGH: 200-239 mg/dL HIGH: >=240 mg/dL HDLC Values >60 area negative risk factor for heart disease. DLDL REF RANGE: NEAR OR ABOVE OPTIMAL: 100-129 mg/dL BORDERLINE DLDL HIGH: 130-159 mg/dL HIGH: 160-189 mg/dL VERY HIGH: >=190 Ordering Provider: SARTHAK CHILD Report Released Date/Time: Mar 29, 2024 03:34 PM Reporting Lab: [address] [address] Performing Lab: [address] [address]ABJIOVPMA [facility] HOSPITALCOMPREHENSIVE METABOLIC PANELGLOMERULAR FILTRATION RATE/1.73 SQ M.PREDICTED [VOLUME RATE/AREA] IN SERUM, PLASMA OR BLOOD BY CREATININE-BASED FORMULA (CKD-EPI 2020)Specimen Type: PLASMA Comment: GLUCOSE The ADA recommends a fasting glucose of 99 mg/dL as the GLUCOSE upper limit of normal. TP Per package insert reference range for recumbent is 6.0 to 7.8 TP g/dL. Plasma samples will generally have higher values (about TP 0.2 to 0.4 g/dL higher) due to presence of fibrinogen. TRIG REFERENCE RANGE: BORDERLINE HIGH: 150-199 mg/dL HIGH: 200-499 TRIG mg/dL VERY HIGH: >=500 mg/dL CHOL REF RANGE: BORDERLINE HIGH: 200-239 mg/dL HIGH: >=240 mg/dL HDLC Values >60 area negative risk factor for heart disease. DLDL REF RANGE: NEAR OR ABOVE OPTIMAL: 100-129 mg/dL BORDERLINE DLDL HIGH: 130-159 mg/dL HIGH: 160-189 mg/dL VERY HIGH: >=190 Ordering Provider: SARTHAK CHILD Report Released Date/Time: Mar 29, 2024 03:34 PM Reporting Lab: [address] [address] Performing Lab: [address] [id number] VAMCLIPID PROFILECHOLESTEROL [MASS/VOLUME] IN SERUM OR [id number] mg/dL0 - HSpecimen Type: PLASMA Comment: GLUCOSE The ADA recommends a fasting glucose of 99 mg/dL as the GLUCOSE upper limit of normal. TP Per package insert reference range for recumbent is 6.0 to 7.8 TP g/dL. Plasma samples will generally have higher values (about TP 0.2 to 0.4 g/dL higher) due to presence of fibrinogen. TRIG REFERENCE RANGE: BORDERLINE HIGH: 150-199 mg/dL HIGH: 200-499 TRIG mg/dL VERY HIGH: >=500 mg/dL CHOL REF RANGE: BORDERLINE HIGH: 200-239 mg/dL HIGH: >=240 mg/dL HDLC Values >60 area negative risk factor for heart disease. DLDL REF RANGE: NEAR OR ABOVE OPTIMAL: 100-129 mg/dL BORDERLINE DLDL HIGH: 130-159 mg/dL HIGH: 160-189 mg/dL VERY HIGH: >=190 Ordering Provider: SARTHAK CHILD Report Released Date/Time: Mar 29, 2024 03:34 PM Reporting Lab: [address] [address] Performing Lab: [address] [address]FWLOWRTOT VALIPID PROFILECHOLESTEROL IN LDL [MASS/VOLUME] IN SERUM OR PLASMA BY DIRECT [id number] mg/dL0 - 9903/17/2025H Specimen Type: PLASMA Comment: GLUCOSE The ADA recommends a fasting glucose of 99 mg/dL as the GLUCOSE upper limit of normal. TP Per package insert reference range for recumbent is 6.0 to 7.8 TP g/dL. Plasma samples will generally have higher values (about TP 0.2 to 0.4 g/dL higher) due to presence of fibrinogen. TRIG REFERENCE RANGE: BORDERLINE HIGH: 150-199 mg/dL HIGH: 200-499 TRIG mg/dL VERY HIGH: >=500 mg/dL CHOL REF RANGE: BORDERLINE HIGH: 200-239 mg/dL HIGH: >=240 mg/dL HDLC Values >60 area negative risk factor for heart disease. DLDL REF RANGE: NEAR OR ABOVE OPTIMAL: 100-129 mg/dL BORDERLINE DLDL HIGH: 130-159 mg/dL HIGH: 160-189 mg/dL VERY HIGH: >=190 Ordering Provider: SARTHAK CHILD Report Released Date/Time: Mar 29, 2024 03:34 PM Reporting Lab: [address] [address] Performing Lab: [address] [id number] [facility] HOSPITALLIPID PROFILECHOLESTEROL IN HDL [MASS/VOLUME] IN SERUM OR [id number] mg/dX2638Specimen Type: PLASMA Comment: GLUCOSE The ADA recommends a fasting glucose of 99 mg/dL as the GLUCOSE upper limit of normal. TP Per package insert reference range for recumbent is 6.0 to 7.8 TP g/dL. Plasma samples will generally have higher values (about TP 0.2 to 0.4 g/dL higher) due to presence of fibrinogen. TRIG REFERENCE RANGE: BORDERLINE HIGH: 150-199 mg/dL HIGH: 200-499 TRIG mg/dL VERY HIGH: >=500 mg/dL CHOL REF RANGE: BORDERLINE HIGH: 200-239 mg/dL HIGH: >=240 mg/dL HDLC Values >60 area negative risk factor for heart disease. DLDL REF RANGE: NEAR OR ABOVE OPTIMAL: 100-129 mg/dL BORDERLINE DLDL HIGH: 130-159 mg/dL HIGH: 160-189 mg/dL VERY HIGH: >=190 Ordering Provider: SARTHAK CHILD Report Released Date/Time: Mar 29, 2024 03:34 PM Reporting Lab: [address] [address] Performing Lab: [address] [address]FWLYLARTH [facility] HOSPITALLIPID PROFILETRIGLYCERIDE [MASS/VOLUME] IN SERUM OR [id number] mg/dL0 - 5325903/17/2025HSpecimen Type: PLASMA Comment: GLUCOSE The ADA recommends a fasting glucose of 99 mg/dL as the GLUCOSE upper limit of normal. TP Per package insert reference range for recumbent is 6.0 to 7.8 TP g/dL. Plasma samples will generally have higher values (about TP 0.2 to 0.4 g/dL higher) due to presence of fibrinogen. TRIG REFERENCE RANGE: BORDERLINE HIGH: 150-199 mg/dL HIGH: 200-499 TRIG mg/dL VERY HIGH: >=500 mg/dL CHOL REF RANGE: BORDERLINE HIGH: 200-239 mg/dL HIGH: >=240 mg/dL HDLC Values >60 area negative risk factor for heart disease. DLDL REF RANGE: NEAR OR ABOVE OPTIMAL: 100-129 mg/dL BORDERLINE DLDL HIGH: 130-159 mg/dL HIGH: 160-189 mg/dL VERY HIGH: >=190 Ordering Provider: SARTHAK CHILD Report Released Date/Time: Mar 29, 2024 03:34 PM Reporting Lab: [address] [address] Performing Lab: [address] [address]FGFIMEWER [facility] SUR[facility] HOSPITALCBCLEUKOCYTES [#/VOLUME] IN BLOOD BY AUTOMATED COUNT9.8 10*3/uL3.6 - 11.007Specimen Type: BLOOD No comment entered. Ordering Provider: SARTHAK CHILD Report Released Date/Time: Mar 29, 2024 03:34 PM Reporting Lab: [address] [place] [address] Performing Lab: [address] [id number] VAMCCBCERYTHROCYTES [#/VOLUME] IN BLOOD BY AUTOMATED COUNT5.33 10*6/uL4.47 - 5.8307/07/2025Specimen Type: BLOOD No comment entered. Ordering Provider: SARTHAK CHILD Report Released Date/Time: Mar 29, 2024 03:34 PM Reporting Lab: [address] [address] Performing Lab: [address] [address]WQIHADOBF VAMCCBCHEMOGLOBIN [MASS/VOLUME] IN BLOOD15.5 g/dL13.6 - 17.407/07/2025Specimen Type: BLOOD No comment entered. Ordering Provider: SARTHAK CHILD Report Released Date/Time: Mar 29, 2024 03:34 PM Reporting Lab: [address] [address] Performing Lab: [address] [address]LLADSYANO VAMCCBCHEMATOCRIT [VOLUME FRACTION] OF BLOOD BY AUTOMATED COUNT44.940.0 - 51.007/07/2025Specimen Type: BLOOD No comment entered. Ordering Provider: SARTHAK CHILD Report Released Date/Time: Mar 29, 2024 03:34 PM Reporting Lab: [address] [address] Performing Lab: [address] [address]GVWPGCATT VAMCCBCMCV [ENTITIC VOLUME] BY AUTOMATED COUNT84.2 fL80.0 - 96.007/07/2025Specimen Type: BLOOD No comment entered. Ordering Provider: SARTHAK CHILD Report Released Date/Time: Mar 29, 2024 03:34 PM Reporting Lab: [address] [address] Performing Lab: [address] [id number] VAMCCBCMCH [ENTITIC MASS] BY AUTOMATED COUNT29.0 pg27.0 - 31.007/07/2025Specimen Type: BLOOD No comment entered. Ordering Provider: SARTHAK CHILD Report Released Date/Time: Mar 29, 2024 03:34 PM Reporting Lab: [address] [address] Performing Lab: [address] [address]RLMTBNQAJ VAMCCBCMCHC [MASS/VOLUME] BY AUTOMATED COUNT34.4 g/dL31.5 - 36.507/07/2025Specimen Type: BLOOD No comment entered. Ordering Provider: SARTHAK CHILD Report Released Date/Time: Mar 29, 2024 03:34 PM Reporting Lab: [address] [address] Performing Lab: [address] [address]JEDYSANMC VAMCCBCPLATELETS [#/VOLUME] IN BLOOD BY AUTOMATED [id number] 10*3/uL150 - [address]1979/07/2025Specimen Type: BLOOD No comment entered. Ordering Provider: SARTHAK CHILD Report Released Date/Time: Mar 29, 2024 03:34 PM Reporting Lab: [address] [address] Performing Lab: [address] [id number] VACBCLYMPHOCYTES/100 LEUKOCYTES IN BLOOD BY AUTOMATED COUNT38.721.0 - 51.007/07/2025Specimen Type: BLOOD No comment entered. Ordering Provider: SARTHAK CHILD Report Released Date/Time: Mar 29, 2024 03:34 PM Reporting Lab: [address] [address] Performing Lab: [address] [address]PJGXKNWTR VACBCMONOCYTES/100 LEUKOCYTES IN BLOOD BY AUTOMATED COUNT9.34.0 - 8.007/07/2025HSpecimen Type: BLOOD No comment entered. Ordering Provider: SARTHAK CHILD Report Released Date/Time: Mar 29, 2024 03:34 PM Reporting Lab: [address] [address] Performing Lab: [address] [address]HVVXQWINH VAMCCBCNUCLEATED ERYTHROCYTES/100 LEUKOCYTES [RATIO] IN BLOOD BY MANUAL COUNT0.0 /100{WBCs} 07Specimen Type: BLOOD No comment entered. Ordering Provider: SARTHAK CHILD Report Released Date/Time: Mar 29, 2024 03:34 PM Reporting Lab: [address] [address] Performing Lab: [address] [address]HJWVSLHPF VAMCCBCERYTHROCYTE DISTRIBUTION WIDTH [RATIO] BY AUTOMATED COUNT13.511.2 - 15.807Specimen Type: BLOOD No comment entered. Ordering Provider: SARTHAK CHILD Report Released Date/Time: Mar 29, 2024 03:34 PM Reporting Lab: [address] [address] Performing Lab: [address] [address]JMMHAIZVJ VAMCCBCNEUTROPHILS/100 LEUKOCYTES IN BLOOD BY AUTOMATED COUNT49.454.0 - 78.007LSpecimen Type: BLOOD No comment entered. Ordering Provider: SARTHAK CHILD Report Released Date/Time: Mar 29, 2024 03:34 PM Reporting Lab: [address] [address] Performing Lab: [address] [address]GXTUTARHQ VAMCCBCEOSINOPHILS/100 LEUKOCYTES IN BLOOD BY AUTOMATED COUNT2.00.0 - 3.007Specimen Type: BLOOD No comment entered. Ordering Provider: SARTHAK CHILD Report Released Date/Time: Mar 29, 2024 03:34 PM Reporting Lab: [address] [address] Performing Lab: [address] [address]SLJHJWDOJ VAMCCBCBASOPHILS/100 LEUKOCYTES IN BLOOD BY AUTOMATED COUNT0.60.0 - 3.007Specimen Type: BLOOD No comment entered. Ordering Provider: SARTHAK CHILD Report Released Date/Time: Mar 29, 2024 03:34 PM Reporting Lab: [address] [address] Performing Lab: [address] [address]EOXIKAFIV VAMCCBCLYMPHOCYTES [#/VOLUME] IN BLOOD BY AUTOMATED COUNT3.8 10*3/uL0.8 - 5.007/07/2025Specimen Type: BLOOD No comment entered. Ordering Provider: SARTHAK CHILD Report Released Date/Time: Mar 29, 2024 03:34 PM Reporting Lab: [address] [address] Performing Lab: [address] [id number] VAMCCBCNEUTROPHILS [#/VOLUME] IN BLOOD4.8 10*3/uL1.9 - 8.607/07/2025Specimen Type: BLOOD No comment entered. Ordering Provider: SARTHAK CHILD Report Released Date/Time: Mar 29, 2024 03:34 PM Reporting Lab: [address] [address] Performing Lab: [address] [address]DLUTYPESV VAMCCBCBASOPHILS [#/VOLUME] IN BLOOD BY AUTOMATED COUNT0.1 10*3/uL0.0 - 0.307/07/2025Specimen Type: BLOOD No comment entered. Ordering Provider: SARTHAK CHILD Report Released Date/Time: Mar 29, 2024 03:34 PM Reporting Lab: [address] [address] Performing Lab: [address] [address]DTGZBVSZG VAMCCBCMONOCYTES [#/VOLUME] IN BLOOD BY AUTOMATED COUNT0.9 10*3/uL0.1 - 0.907/07/2025Specimen Type: BLOOD No comment entered. Ordering Provider: SARTHAK CHILD Report Released Date/Time: Mar 29, 2024 03:34 PM Reporting Lab: [address] [address] Performing Lab: [address] [address]YMDTPCQRE VAMCCBCEOSINOPHILS [#/VOLUME] IN BLOOD BY AUTOMATED COUNT0.2 10*3/uL0.0 - 0.307/07/2025Specimen Type: BLOOD No comment entered. Ordering Provider: SARTHAK CHILD Report Released Date/Time: Mar 29, 2024 03:34 PM Reporting Lab: [address] [address] Performing Lab: [address] [address]QBLFADSUI [facility] HOSPITALCBCPLATELET MEAN VOLUME [ENTITIC VOLUME] IN BLOOD BY AUTOMATED COUNT8.4 fL7.4 - 11.407Specimen Type: BLOOD No comment entered. Ordering Provider: SARTHAK CHILD Report Released Date/Time: Mar 29, 2024 03:34 PM Reporting Lab: [address] [address] Performing Lab: [place] [phone] HOSPITALMAGNESIUMMAGNESIUM [MASS/VOLUME] IN SERUM OR PLASMA1.8 mg/dL1.6 - 2.607Specimen Type: PLASMA Comment: GLUCOSE The ADA recommends a fasting glucose of 99 mg/dL as the GLUCOSE upper limit of normal. TP Per package insert reference range for recumbent is 6.0 to 7.8 TP g/dL. Plasma samples will generally have higher values (about TP 0.2 to 0.4 g/dL higher) due to presence of fibrinogen. Ordering Provider: SARTHAK CHILD Report Released Date/Time: Mar 29, 2024 03:34 PM Reporting Lab: [address] [address] Performing Lab: [address] [address]NNYWJORSH [facility] HOSPITALC REACTIVE PROTEIN WIDE RANGEC REACTIVE PROTEIN [PRESENCE] IN SERUM OR PLASMA0.33 mg/dL0.00 - 0.50 03/01/2025Specimen Type: PLASMA No comment entered. Ordering Provider: JASSI LEI Report Released Date/Time: Mar 01, 2025 02:28 PM Reporting Lab: [address] [address] Performing Lab: [place] [id number]GICAL HOSPITALVITAMIN D (TOTAL)25- HYDROXYVITAMIN D3+25-HYDROXYVITAMIN D2 [MASS/VOLUME] IN SERUM OR [id number] ng/mL 30 - 6006LSpecimen Type: SERUM Comment: VITD One expert panel recommended a target range of 30-40 ng/mL. Ordering Provider: JASSI LEI Report Released Date/Time: Mar 01, 2025 02:28 PM Reporting Lab: [address] [address] Performing Lab: [place] [phone] [place], [place] [address]PREHENVE METABOLIC PANELALBUMIN [MASS/VOLUME] IN SERUM OR PLASMA4.2 g/dL3.5 - 4.806Specimen Type: PLASMA Comment: GLUCOSE The ADA recommends a fasting glucose of 99 mg/dL as the GLUCOSE upper limit of normal. TP Per package insert reference range for recumbent is 6.0 to 7.8 TP g/dL. Plasma samples will generally have higher values (about TP 0.2 to 0.4 g/dL higher) due to presence of fibrinogen. Ordering Provider: JASSI LEI Report Released Date/Time: Mar 01, 2025 02:28 PM Reporting Lab: [address] [address] Performing Lab: [place] [phone] [place], [place] [address]HEN[facility] METABOLIC PANELALKALINE PHOSPHATASE [ENZYMATIC ACTIVITY/VOLUME] IN SERUM OR [id number] U/L40 - 7870503/01/2025Specimen Type: PLASMA Comment: GLUCOSE The ADA recommends a fasting glucose of 99 mg/dL as the GLUCOSE upper limit of normal. TP Per package insert reference range for recumbent is 6.0 to 7.8 TP g/dL. Plasma samples will generally have higher values (about TP 0.2 to 0.4 g/dL higher) due to presence of fibrinogen. Ordering Provider: JASSI LEI Report Released Date/Time: Mar 01, 2025 02:28 PM Reporting Lab: [address] [address] Performing Lab: [address] [address]VDELGQHLX VAMCCOMPREHENSIVE METABOLIC PANELALANINE AMINOTRANSFERASE [ENZYMATIC ACTIVITY/VOLUME] IN SERUM OR [id number] U/L0 - 55003/01/2025Specimen Type: PLASMA Comment: GLUCOSE The ADA recommends a fasting glucose of 99 mg/dL as the GLUCOSE upper limit of normal. TP Per package insert reference range for recumbent is 6.0 to 7.8 TP g/dL. Plasma samples will generally have higher values (about TP 0.2 to 0.4 g/dL higher) due to presence of fibrinogen. Ordering Provider: JASSI LEI Report Released Date/Time: Mar 01, 2025 02:28 PM Reporting Lab: [place] [phone] Performing Lab: [place] [phone] HOSPITALHENRANDOLPH [facility]ALTH METABOLIC PANELASPARTATE AMINOTRANSFERASE [ENZYMATIC ACTIVITY/VOLUME] IN SERUM OR [id number] U/L10 - 40003/01/2025Specimen Type: PLASMA Comment: GLUCOSE The ADA recommends a fasting glucose of 99 mg/dL as the GLUCOSE upper limit of normal. TP Per package insert reference range for recumbent is 6.0 to 7.8 TP g/dL. Plasma samples will generally have higher values (about TP 0.2 to 0.4 g/dL higher) due to presence of fibrinogen. Ordering Provider: JASSI LEI Report Released Date/Time: Mar 01, 2025 02:28 PM Reporting Lab: [address] [address] Performing Lab: [place] [phone] RESERVE HOSPITALPREHENSIVE METABOLIC PANELUREA NITROGEN [MASS/VOLUME] IN SERUM OR YRLWLA41.6 mg/dL8.9 - 20.6 03/01/2025Specimen Type: PLASMA Comment: GLUCOSE The ADA recommends a fasting glucose of 99 mg/dL as the GLUCOSE upper limit of normal. TP Per package insert reference range for recumbent is 6.0 to 7.8 TP g/dL. Plasma samples will generally have higher values (about TP 0.2 to 0.4 g/dL higher) due to presence of fibrinogen. Ordering Provider: JASSI LEI Report Released Date/Time: Mar 01, 2025 02:28 PM Reporting Lab: [address] [address] Performing Lab: [address] [address]SAVCXKLFP [facility] HOSPITALCOMPREHENSIVE METABOLIC PANELCALCIUM [MASS/VOLUME] IN SERUM OR PLASMA9.8 mg/dL8.6 - 10.306 Specimen Type: PLASMA Comment: GLUCOSE The ADA recommends a fasting glucose of 99 mg/dL as the GLUCOSE upper limit of normal. TP Per package insert reference range for recumbent is 6.0 to 7.8 TP g/dL. Plasma samples will generally have higher values (about TP 0.2 to 0.4 g/dL higher) due to presence of fibrinogen. Ordering Provider: JASSI LEI Report Released Date/Time: Mar 01, 2025 02:28 PM Reporting Lab: [address] [address] Performing Lab: [address] [id number] [facility] HOSPITALCOMPREHENSIVE METABOLIC PANELCREATININE [MASS/VOLUME] IN SERUM OR PLASMA1.0 mg/dL0.7 - 1. Specimen Type: PLASMA Comment: GLUCOSE The ADA recommends a fasting glucose of 99 mg/dL as the GLUCOSE upper limit of normal. TP Per package insert reference range for recumbent is 6.0 to 7.8 TP g/dL. Plasma samples will generally have higher values (about TP 0.2 to 0.4 g/dL higher) due to presence of fibrinogen. Ordering Provider: JASSI LEI Report Released Date/Time: Mar 01, 2025 02:28 PM Reporting Lab: [address] [id number] Performing Lab: [place] [id number]ENTERPREHENSIVE METABOLIC PANELCARBON DIOXIDE, TOTAL [MOLES/VOLUME] IN SERUM OR [id number] mmol/L22 - 30 03/01/2025Specimen Type: PLASMA Comment: GLUCOSE The ADA recommends a fasting glucose of 99 mg/dL as the GLUCOSE upper limit of normal. TP Per package insert reference range for recumbent is 6.0 to 7.8 TP g/dL. Plasma samples will generally have higher values (about TP 0.2 to 0.4 g/dL higher) due to presence of fibrinogen. Ordering Provider: JASSI LEI Report Released Date/Time: Mar 01, 2025 02:28 PM Reporting Lab: [address] [address] Performing Lab: [address] [address]LMVJDMTHL [facility]OSPITALCOMPREHENSIVE METABOLIC PANELGLUCOSE [MASS/VOLUME] IN SERUM OR [id number] mg/dL74 - 9906HSpecimen Type: PLASMA Comment: GLUCOSE The ADA recommends a fasting glucose of 99 mg/dL as the GLUCOSE upper limit of normal. TP Per package insert reference range for recumbent is 6.0 to 7.8 TP g/dL. Plasma samples will generally have higher values (about TP 0.2 to 0.4 g/dL higher) due to presence of fibrinogen. Ordering Provider: JASSI LEI Report Released Date/Time: Mar 01, 2025 02:28 PM Reporting Lab: [address] [address] Performing Lab: [address] [address]AXFPSUQBP [facility]ITALCOMPREHENSIVE METABOLIC PANELPROTEIN [MASS/VOLUME] IN SERUM OR PLASMA8.0 g/dL6.4 - 8.306Specimen Type: PLASMA Comment: GLUCOSE The ADA recommends a fasting glucose of 99 mg/dL as the GLUCOSE upper limit of normal. TP Per package insert reference range for recumbent is 6.0 to 7.8 TP g/dL. Plasma samples will generally have higher values (about TP 0.2 to 0.4 g/dL higher) due to presence of fibrinogen. Ordering Provider: JASSI LEI Report Released Date/Time: Mar 01, 2025 02:28 PM Reporting Lab: [address] [address] Performing Lab: [place] [id number] [facility]ITALCOMPREHENSIVE METABOLIC PANELSODIUM [MOLES/VOLUME] IN SERUM OR [id number] mmol/L134 - 71611 Specimen Type: PLASMA Comment: GLUCOSE The ADA recommends a fasting glucose of 99 mg/dL as the GLUCOSE upper limit of normal. TP Per package insert reference range for recumbent is 6.0 to 7.8 TP g/dL. Plasma samples will generally have higher values (about TP 0.2 to 0.4 g/dL higher) due to presence of fibrinogen. Ordering Provider: JASSI LEI Report Released Date/Time: Mar 01, 2025 02:28 PM Reporting Lab: [place] [phone] Performing Lab: [place] [phone]ENTERPREHENSIVE METABOLIC PANELCHLORIDE [MOLES/VOLUME] IN SERUM OR [id number] mmol/L99 - 1120903/01/2025 Specimen Type: PLASMA Comment: GLUCOSE The ADA recommends a fasting glucose of 99 mg/dL as the GLUCOSE upper limit of normal. TP Per package insert reference range for recumbent is 6.0 to 7.8 TP g/dL. Plasma samples will generally have higher values (about TP 0.2 to 0.4 g/dL higher) due to presence of fibrinogen. Ordering Provider: JASSI LEI Report Released Date/Time: Mar 01, 2025 02:28 PM Reporting Lab: [address] [address] Performing Lab: [place] [phone] CENTERPREHENSIVE METABOLIC PANELBILIRUBIN.TOTAL [MASS/VOLUME] IN SERUM OR PLASMA0.5 mg/dL0.2 - 1.2 03/01/2025Specimen Type: PLASMA Comment: GLUCOSE The ADA recommends a fasting glucose of 99 mg/dL as the GLUCOSE upper limit of normal. TP Per package insert reference range for recumbent is 6.0 to 7.8 TP g/dL. Plasma samples will generally have higher values (about TP 0.2 to 0.4 g/dL higher) due to presence of fibrinogen. Ordering Provider: JASSI LEI Report Released Date/Time: Mar 01, 2025 02:28 PM Reporting Lab: [address] [address] Performing Lab: [place] [phone]OMPREHENS[facility] METABOLIC PANELPOTASSIUM [MOLES/VOLUME] IN SERUM OR PLASMA4.2 mmol/L3.5 - 5.106 Specimen Type: PLASMA Comment: GLUCOSE The ADA recommends a fasting glucose of 99 mg/dL as the GLUCOSE upper limit of normal. TP Per package insert reference range for recumbent is 6.0 to 7.8 TP g/dL. Plasma samples will generally have higher values (about TP 0.2 to 0.4 g/dL higher) due to presence of fibrinogen. Ordering Provider: JASSI LEI Report Released Date/Time: Mar 01, 2025 02:28 PM Reporting Lab: [place] [phone] Performing Lab: [place] [phone] HOSPITALPREHENVE METABOLIC PANELANION GAP IN SERUM OR TKESMP16 mmol/L10 - Specimen Type: PLASMA Comment: GLUCOSE The ADA recommends a fasting glucose of 99 mg/dL as the GLUCOSE upper limit of normal. TP Per package insert reference range for recumbent is 6.0 to 7.8 TP g/dL. Plasma samples will generally have higher values (about TP 0.2 to 0.4 g/dL higher) due to presence of fibrinogen. Ordering Provider: JASSI LEI Report Released Date/Time: Mar 01, 2025 02:28 PM Reporting Lab: [address] [address] Performing Lab: [place] [phone] HOSPITALPREHENVE METABOLIC PANELGLOMERULAR FILTRATION RATE/1.73 SQ M.PREDICTED [VOLUME RATE/AREA] IN SERUM, PLASMA OR BLOOD BY CREATININE-BASED FORMULA (CKD-EPI 2020)Specimen Type: PLASMA Comment: GLUCOSE The ADA recommends a fasting glucose of 99 mg/dL as the GLUCOSE upper limit of normal. TP Per package insert reference range for recumbent is 6.0 to 7.8 TP g/dL. Plasma samples will generally have higher values (about TP 0.2 to 0.4 g/dL higher) due to presence of fibrinogen. Ordering Provider: JASSI LEI Report Released Date/Time: Mar 01, 2025 02:28 PM Reporting Lab: [facility] [address] [facility] [address] Performing Lab: [facility] [address] [facility] [address]ABHMDNFSL [facility]AMC Vital Signs Combined list of inpatient and outpatient Vital Signs from Department of Defense and Veterans Affairs, ranging from 12 months to all on record, depending upon the facility. Vital Sign Value Date Comments Source SYSTOLIC BLOOD PRESSURE 138 07/11/2025 12:56: 49 [facility]DIASTOLIC [facility]LOOD UKIHIFHO2938/04/2025 12:56:49[facility]PUL[facility] FGLKSHOB15 %07/11/2025 12:56:49[facility]WEIGHT259.04109/10/2024 12:56:49 [facility]BMI39 kg/m207/11/2025 12:56:49[facility]IN011 12:56:49[facility]ITALTWWTKXLVKOKQYEV38.211 12:56:49[facility]ITALYXYNVDZFM91 07/11/2025 12:56:49[facility]ITALPDNWUUXIBQPIJVV4328/04/2025 12:56:49[facility] SYSTOLIC BLOOD PNOIWVWW42164/18/2025 12:56:05[facility]ITALDIASTOLIC BLOOD BEYCKLLH2507/18/2025 12:56:05[facility]PULSE MIPGJFRX16 %03/24/2025 12:56:05 [facility]WEIGHT260.8103/24/2025 12:56:05[facility]ITALBMI40 kg/m203/24/2025 12:56:05[facility]OSPITALEKPTZJOF469 12:56:05[facility]ITALBDFSGKYNVMSAQZY99.5 03/24/2025 12:56:05[facility]PULSE8607 12:56:05[facility] BCRYJYKTMJM0213 12:56:05[facility] TXUTVRTK793 03/01/2025 14:02:37[facility]ITALDIASTOLIC BLOOD RSTBXVVZ5574 14:02:37 [facility] KYXILCTJ13 %03/01/2025 14:02:[address] [place], [place] [address]WEIGHT261.25 03/01/2025 14:02:[address] [place], [place] [address]BMI40 kg/m203/01/2025 14:02:[address] [place] [address] JRNG538 14:02:[address] [place], [place] [address]SAENLWDJOGBBYHN20. 14:02:37 [facility]PULSE8306 14:02:[address] [place], [place] [address]HOITQVMJMXBVWIG0830/25/2025 14:02:[address] [place] [address] Encounters Combined list of: 1) Encounters from Department of [facility] Affairs facilities going backup to the last 18 months, not all [place] inpatient encounters are included; 2) Encounters from the Department of [facility] facilities going backup to 280 months. Location Location Details Encounter Type Encounter Number Reason For Visit Attending Provider ADM Date DC Date Status Disposition Source [facility](FP Rok II) OUTPATIENT [id number] cut finger on left hand SUDARSHAN CARO 03/19 Released w/o Limitations [facility](F P Rok II) [facility](PHA Cell) OUTPATIENT [id number] pha due MAX FIELDS 04/21 Released w/o Limitations [facility](P ALBERTS Cell) [facility] Group(FP Rok II) OUTPATIENT [id number] states diarrhe a, nausea, congest in SUDARSHAN CARO 05/11 Sick at Home[facility]Quarter s [facility](F P Rok II) [facility](FP Rok II) TELE CONSULT [id number] states needs appt to discuss bp HUSSAIN RAI 03/29 Medical Group(F P Rok II) [facility] Group(FP Rok II) OUTPATIENT [id number] high BP FLOR CASTRO 03/30 Released w/o Limitations [facility](F P Rok II) [facility] Group(FP Rok II) TELE CONSULT [id number] JESUS ANTONIO 03/31 Medical Group(F P Rok II) [facility] Medical Group(FP Rok I) TELE CONSULT [id number] AD double over in pain on side/ab vomitin g want same day PARTH SOAS 04/04th [facility](F P Rok I) th [facility](FP Rok I) OUTPATIENT [id number] rt side abd pain, vomited x 2 ANA MARRERO 04/04 Released w/o Limitations th [facility](F P Rok I) th [facility](FP Rok II) OUTPATIENT [id number] rt shoulde r pain x 5 days FLOR CASTRO 05/15 Released w/o Limitations [facility](F P Rok II) th [facility](Phy sical Therapy) OUTPATIENT [id number] SHOULDE R STRAIN PREMA RODRIGUEZ 05/16 Released w/o Limitations [facility](P hysical Therapy ) Medical Group(Phy sical Therapy) OUTPATIENT [id number] KENDRA URRUTIA 05/17 Released w/o [employer]itations [facility](P hysical Therapy ) th [facility](Phy sical Therapy) OUTPATIENT [id number] KENDRA URRUTIA 05/19 Released w/o Limitations th [facility](P hysical Therapy ) Medical Group(Phy sical Therapy) OUTPATIENT [id number] KENDRA URRUTIA 05/22 Released w/o Limitations th [facility](P hysical Therapy ) [facility](Phy sical Therapy) OUTPATIENT [id number] PREMA RODRIGUEZ 05/23 Released w/o Limitations th [facility](P hysical Therapy ) [facility](Phy sical Therapy) OUTPATIENT [id number] KENDRA URRUTIA 05/25 Released w/o Limitations th [facility](P hysical Therapy ) Medical Group(Phy sical Therapy) OUTPATIENT [id number] KENDRA URRUTIA 05/30 Released w/o Limitations th [facility](P hysical Therapy ) th [facility](FP Rok II) OUTPATIENT [id number] f/u HTN/jj ulder pain FLOR CASTRO 06/01 Released w/o Limitations th [facility](F P Rok II) [facility](Phy sical Therapy) OUTPATIENT [id number] KENDRA URRUTIA 06/02 Released w/o Limitations [facility](P hysical Therapy ) Medical Group(Phy sical Therapy) OUTPATIENT [id number] PREMA RODRIGUEZ 06/08 Released w/o Limitations [facility](P hysical Therapy ) Medical Group(PHA Cell) OUTPATIENT [id number] PHA PUNEET WOODARD Jaycee 06/09 Released w/o Limitations [facility](P ALBERTS Cell) Medical Group(Opt ometry Services) OUTPATIENT [id number] PHA vision check JOHANYN HERRING John 06/09 Released w/o Limitations [facility](O ptometr y Service s) Medical Group(FP Rok II) TELE CONSULT [id number] pt needs f/u with pcm CECELIA HUSSAIN Arthur 01/31 Medical Group(F P Rok II) Medical Group(FP Rok II) OUTPATIENT [id number] BP issues SANDOVALLAURENCE Wall Jaycee 02/02 Released w/o Limitations Medical Group(F P Rok II) Medical Group(FP Rok I) TELE CONSULT [id number] appt 1010 will ck into lab 900 blood in urine MEDHATJESUS BARR L 06/04 Medical Group(F P Rok I) Medical Group(FP Rok I) OUTPATIENT [id number] state blood in urine SUSANA CANTUEW Terrance 06/04 Released w/o Limitations [facility](F P Rok I) Medical Group(FP Rok I) OUTPATIENT [id number] chest pain x 2 months JULIO CESAR ROBISON 09/28 Released w/o Limitations [facility](F P Rok I) Medical Group(FP Rok I) TELE CONSULT [id number] wants to talk to nurse about appt he had on for chest pain [phone] CECELIA HUSSAIN Arthur 10/02 Medical Group(F P Rok I) Medical Group(FP Rok I) OUTPATIENT [id number] state pcm f/u review ekg chest issues RICKI JULIO CESAR M 10/03 Released w/o Limitations [facility](F P Rok I) Medical Group(PHA Cell) OUTPATIENT [id number] pha-web alberts ex EMORY ROBERTS 10/18 Released w/o Limitations [facility](P ALBERTS Cell) Medical Group(FP Rok I) TELE CONSULT [id number] c/o vomitin g and diarrhe a, fever last night [phone] HUSSAIN RAI 10/30 Medical Group(F P Rok I) Medical Group(FP Rok I) OUTPATIENT [id number] state infecti on with dischar ge from toenail JULIO CESAR ROBISON John 12/03 Released w/o Limitations [facility](F P Rok I) Medical Group(FP Rok I) OUTPATIENT [id number] Throat Culture VALE PRUITT N 12/17 Released w/o Limitations Medical [facility](F P Rok I) Medical Group(FP Rok I) TELE CONSULT [id number] lab results JULIO CESAR ROBISON John 12/18 Medical Group(F P Rok I) Medical Group(FP Rok I) OUTPATIENT [id number] f/u per Dr. Jes ROBISON JULIO CESAR M 12/20 Released w/o Limitations [facility](F P Rok I) Medical Group(FP Rok I) TELE CONSULT [id number] lab results were mailed out JULIO CESAR ROBISON John 12/21 Medical Group(F P Rok I) Medical Group(FP Rok I) TELE CONSULT [id number] AD nausea and vomitti ng since this morning . [phone] HUSSAIN RAI 02/11 Medical Group(F P Rok I) Medical Group([facility]) OUTPATIENT [id number] rx refill losinop ril 30mg ZACH LO 02/13 Released w/o Limitations [facility] Medical Group(FP Rok I) OUTPATIENT [id number] f/u heart stress test MODESTORichardsonJULIO CESAR John 03/07 Released w/o Limitations Medical Group(F P Rok I) Medical Group(FP Rok I) TELE CONSULT [id number] AD has questio n about coming off profile and fit test. Saw [place] angel [phone] HUSSAIN RAI 03/18 Medical Group( P Rok I) [facility] I) OUTPATIENT [id number] f/u for chest pain per JULIO CESAR [place] 03/29 Released w/o Limitations [facility]( P Rok I) [facility] I) TELE CONSULT [id number] pulmina ry spec is request ing profile until heart rashad can be done [phone] ANTHONY REDDING 05/27 Medical Group( P k I) [facility] I) TELE CONSULT [id number] pt c/o chest pains. pt advised to go to er per nurse JESUS Hein 05/30 [facility] Group( P k I) [facility] I) TELE CONSULT [id number] er f/u [facility] on May for chest pains.. ......[phone] CINTIA DOMINGUEZ 05/31 Medical Group( P k I) [facility] I) TELE CONSULT [id number] Vomitti ng and diarrhe a x 1hr. [phone] ANTHONY REDDING 06/18 [facility] I) TELE CONSULT [id number] pt needs consult for ongoing chest chain.. ....... [id number] JULIO CESRA ROBISON 06/20 Medical Group( P Rok I) [facility] I) TELE CONSULT [id number] pt has questio n about profile ....... [phone] JULIO CESAR ROBISON 07/29 Medical Group( P Rok I) [facility] I) TELE CONSULT [id number] pt c/o vomitin g/diahr ea for 1 day.... .[phone] PARTH SOSA 07/30 Medical Group(F P Rok I) Medical Group(FP Rok I) TELE CONSULT [id number] pt has questio ns about recurri ng chest pains.. ......[phone] BARBARA SOSAE 07/30 Medical Group(F P Rok I) Medical Group(FP Rok I) OUTPATIENT [id number] tc JULIO CESAR ROBISON 08/06 Released w/o Limitations [facility] Group(F P Rok I) Medical Group([facility]) OUTPATIENT [id number] walk in [facility] 11/05 Released w/o Limitations [facility] Medical Group(FP Rok I) OUTPATIENT [id number] f/u chest pain JULIO CESAR ROBISON 11/11 Released w/o Limitations [facility](F P Rok I) Medical Group(FP Rok I) TELE CONSULT [id number] Pulm result XIOMARA RUIZ 11/15 Medical Group(F P Rok I) Medical Group(PHA Cell) OUTPATIENT [id number] PHA EMORY ROBERTS 11/22 Released w/o Limitations [facility](P ALBERTS Cell) Medical Group([facility]) TELE CONSULT [id number] Follow- up [facility] 11/28 Medical Group([facility] ) Medical Group([facility] OUTPATIENT [id number] [facility] 12[facility]12 Released w/o Limitations [facility] ) [facility]) TELE CONSULT [id number] follow- up [facility] 12/18 Medical Group([facility] ) [facility] Group([facility]) TELE CONSULT [id number] follow- up [facility] 12/18 Medical Group([facility] ) [facility] Group([facility]) OUTPATIENT [id number] DUSTY GALAVIZ 01/09 Released w/o Limitations [facility] ) [facility] Group([facility]) TELE CONSULT [id number] RANDY Nelson 03/28 Medical Group([facility] ) Medical Group([facility] RO 2) OUTPATIENT [id number] injurie d thumb JULIO CESAR ROBISON 03/31 Released w/o Limitations Medical Group([facility] RO 2) Medical Group([facility] 2) OUTPATIENT [id number] right foot pain JULIO CESAR ROBISON 04/02 Released w/o Limitations [facility] 2) Medical Group([facility] 2) OUTPATIENT [id number] f/u for R thumb injury JULIO CESAR ROBISON 04/21 Released w/o Limitations [facility] Group([facility] 2) Medical Group([facility] 2) TELE CONSULT [id number] pt wants to discuss off base appt... ....... ..[phone] ALICIAENSPARTH MATA 05/02 Medical Group([facility] 2) [facility] 2) TELE CONSULT [id number] pt needs to discuss pre existin g conditi on. [phone] ALICIAENSTRYPARTH 05/26 Medical Group([facility] 2) [facility] 2) OUTPATIENT [id number] separat ion physica l JULIO CESAR ROBISON 06/17 Released w/o Limitations [facility] 2) [facility] OFFICE O/P EST MOD 30 MIN 09463-4.54 [id number] Diagnos is: ICD-10- CM I10 Essenti al (primar y) hyperte nsion DANYELL,A EDWIN R 03/29 [facility] PSYTX W PT 30 MINUTES 98668-8.54 [id number] Diagnos is: ICD-10- CM F43.22 Adjustm ent disorde r with anxiety GETTISSULMA 04/05 [facility] OFFICE O/P NEW MOD 45 MIN 13647-0.54 [id number] Diagnos is: ICD-10- CM H21.9 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 TANYASANDY 04/05 [facility] PSYTX W PT 30 MINUTES 81671-2.54 [id number] Diagnos is: ICD-10- CM F43.22 Adjustm ent disorde r with anxiety GETTISSULMA 04/15 [facility] PSYTX W PT 45 MINUTES 93414-2.54 [id number] Diagnos is: ICD-10- CM F43.22 Adjustm ent disorde r with anxiety GETTIS,SULMA Lopez 05/03 [facility] PSYTX W PT 30 MINUTES 46498-5.54 [id number] Diagnos is: ICD-10- CM F43.22 Adjustm ent disorde r with anxiety GETTIS,SULMA Lopez 05/23 [facility] OFF/OP CONSLTJ NEW/EST HI 55 65815-4.54 [id number] Diagnos is: ICD-10- CM 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 , left eye SONIASTJASSI KRUEGER 05/26 [facility] Outpatient Encounter [id number] [id number] Diagnos is: ICD-10- CM 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 , left eye SILVERSTEY JASSI Reynolds 05/31 [facility] OFFICE O/P NEW MOD 45 MIN 65970-4.54 [id number] Diagnos is: ICD-10- CM 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), left eye YONI GUERRERO R A 07/08 [facility] QNHP OL DIG ASSMT&MGMT 5-10 72486-4.54 [id number] Diagnos is: ICD-10- CM H40.059 Ocular hyperte nsion, unspeci fied eye JOSE J CARRILLO 07/08 [facility] Out[facility] Encounter [id number] [id number] 07/25 [facility] OFFICE O/P EST MOD 30 MIN 25991-1.54 [id number] Diagnos is: ICD-10- CM 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 , left eye JASSI SELBY 08/08 [facility] OFFICE O/P EST MOD 30 MIN 92819-5.54 [id number] Diagnos is: ICD-10- CM H20.12 Chronic iridocy clitis, left eye YONI GUERRERO R A 08/12 [facility] Outpatient Encounter [id number] [id number] Diagnos is: ICD-10- CM 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 , left eye JASIS SELBY 08/12 [facility] Out[facility] Encounter [id number] [id number] 08/15 [facility] HC PRO PHONE CALL 5-10 MIN 14155-2.54 [id number] Diagnos is: ICD-10- CM H21.9 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 MIRYAM MAY 08/17 [facility] Out[facility] Encounter 16795-6.54 [id number] 08/22 [facility] Outpatient Encounter [id number] [id number] JASSI SELBY 09/15 [facility] Outpatient Encounter 36450-9.54 [id number] 09/16 [facility] Outpatient Encounter 72747-4.54 [id number] 09/22 [facility] PH ASSMT&MGMT NQHP 5-10 35157-3.54 [id number] 1 Diagnos is: ICD-10- CM 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 , left eye MIRYAM MAY 09/28 [facility] PH1 ASSMT&MGMT NQHP 5-10 17095-2.54 [id number] 4 Diagnos is: ICD-10- CM H21.9 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 MIRYAM MAY 10/25 [facility] Outpatient Encounter [id number] [id number] 10/25 [facility] OFFICE O/P EST MOD 30 MIN 01036-2.54 [id number] 3 Diagnos is: ICD-10- CM 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 , left eye JASSI SELBY 11/07 [facility] Out[facility] Encounter 51227-0.54 [id number] 11/09 [facility] Outpatient Encounter 56433-4.54 [id number] 02/16 [facility] OFFICE O/P EST MOD 30 MIN 57425-1.54 [id number] Diagnos is: ICD-10- CM 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 , left eye JASSI SELBY 03/01 [facility] Outpatient Encounter 11226-9.54 [id number] 03/07 [facility] OFFICE O/P EST MOD 30 MIN 65044-7.54 [id number] Diagnos is: ICD-10- CM 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 , left eye RANDALL MAGAÑA 03/24 [facility] OFFICE O/P EST MOD 30 MIN 34626-9.54 [id number] Diagnos is: ICD-10- CM H21.9 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 SANDY MARTÍNEZ 04/06 [facility] CASE MANAGEMENT 98423-5.54 [id number] Diagnos is: ICD-10- CM Z59.6 Low income LIDYA BEAN 04/12 [facility] Outpatient Encounter 12680-9.54 [id number] 05/09 [facility] Outpatient Encounter 23649-6.54 [id number] 06/09 [facility] Outpatient Encounter 50263-2.54 [id number] 06/09 [facility] SYNCH AUDIO-VIDE O NEW MOD 45 95949-9.54 [id number] Diagnos is: ICD-10- CM R06.83 Snoring SOLO CORTES 06/22 [facility] Outpatient Encounter 73039-0.54 [id number] 07/03 [facility] Outpatient Encounter 89810-6.54 [id number] 07/04 [facility] OFFICE O/P EST LOW 20 MIN 01128-5.54 [id number] Diagnos is: ICD-10- CM H81.393 Other periphe ral vertigo , bilater al RANDALL MAGAÑA A 07/11 [facility] TELE[facility] FEE [id number] Diagnos is: ICD-10- CM G47.33 Obstruc tive sleep apnea (adult) (pediat juan antonio) Prerna SINGH UCJACOB 07/25 [facility] [employer] STDY UNATTENDED [id number] Diagnos is: ICD-10- CM G47.33 Obstruc tive sleep apnea (adult) (pediat juan antonio) PENG MOMIN 07/25 [facility] En[place] [id number] 08/28 [facility] Procedures Combined list of: 1) [facility] going back up to thelast 18 months, not all VA non-surgical procedures are included; 2) All procedures from the Department of Defense facilities. Procedure Procedure Type Code Date Perfomer Comments Sourc e INJECTION, PENICILLIN G BENZATHINE AND PENICILLIN G PROCAINE, UP TO 1,200,000 UNITS 2004 DoD INDIVIDUAL PSYCHOTHERAPY, INSIGHT ORIENTED, BEHAVIOR MODIFYING AND/OR SUPPORTIVE, IN AN OFFICE OR OUTPATIENT FACILITY, APPROXIMATELY 45 TO 50 MINUTES HONL-SC-UVLU WITH THE PATIENT 2010 DoD INDIVIDUAL PSYCHOTHERAPY, INSIGHT ORIENTED, BEHAVIOR MODIFYING AND/OR SUPPORTIVE, IN AN OFFICE OR OUTPATIENT FACILITY, APPROXIMATELY 45 TO 50 MINUTES OROP-DX-PUBB WITH THE PATIENT 2010 DoD FAMILY PSYCHOTHERAPY (CONJOINT PSYCHOTHERAPY) (WITH PATIENT PRESENT), 50 MINUTES 2010 DoD INDIVIDUAL PSYCHOTHERAPY, INSIGHT ORIENTED, BEHAVIOR MODIFYING AND/OR SUPPORTIVE, IN AN OFFICE OR OUTPATIENT FACILITY, APPROXIMATELY 45 TO 50 MINUTES SQGM-MS-NWYK WITH THE PATIENT 2010 DoD INDIVIDUAL PSYCHOTHERAPY, INSIGHT ORIENTED, BEHAVIOR MODIFYING AND/OR SUPPORTIVE, IN AN OFFICE OR OUTPATIENT FACILITY, APPROXIMATELY 45 TO 50 MINUTES UQKO-FD-QOCK WITH THE PATIENT 2010 DoD FAMILY PSYCHOTHERAPY (CONJOINT PSYCHOTHERAPY) (WITH PATIENT PRESENT), 50 MINUTES 2010 DoD INDIVIDUAL PSYCHOTHERAPY, INSIGHT ORIENTED, BEHAVIOR MODIFYING AND/OR SUPPORTIVE, IN AN OFFICE OR OUTPATIENT FACILITY, APPROXIMATELY 45 TO 50 MINUTES ZNCJ-NS-BELT WITH THE PATIENT 2010 DoD INDIVIDUAL PSYCHOTHERAPY, INSIGHT ORIENTED, BEHAVIOR MODIFYING AND/OR SUPPORTIVE, IN AN OFFICE OR OUTPATIENT FACILITY, APPROXIMATELY 75 TO 80 MINUTES TIRZ-HA-WPPD WITH THE PATIENT 2010 DoD FAMILY PSYCHOTHERAPY (CONJOINT PSYCHOTHERAPY) (WITH PATIENT PRESENT), 50 MINUTES 2010 DoD INDIVIDUAL PSYCHOTHERAPY, INSIGHT ORIENTED, BEHAVIOR MODIFYING AND/OR SUPPORTIVE, IN AN OFFICE OR OUTPATIENT FACILITY, APPROXIMATELY 20 TO 30 MINUTES HGFV-UQ-XRBT WITH THE PATIENT 2010 DoD FAMILY PSYCHOTHERAPY (CONJOINT PSYCHOTHERAPY) (WITH PATIENT PRESENT), 50 MINUTES 2010 DoD INDIVIDUAL PSYCHOTHERAPY, INSIGHT ORIENTED, BEHAVIOR MODIFYING AND/OR SUPPORTIVE, IN AN OFFICE OR OUTPATIENT FACILITY, APPROXIMATELY 45 TO 50 MINUTES VAJD-CR-ZPVH WITH THE PATIENT 2010 DoD SCREENING TEST, PURE TONE, AIR ONLY 2010 DoD INDIVIDUAL PSYCHOTHERAPY, INSIGHT ORIENTED, BEHAVIOR MODIFYING AND/OR SUPPORTIVE, IN AN OFFICE OR OUTPATIENT FACILITY, APPROXIMATELY 75 TO 80 MINUTES YTWM-BK-QNQC WITH THE PATIENT 2010 DoD INDIVIDUAL PSYCHOTHERAPY, INSIGHT ORIENTED, BEHAVIOR MODIFYING AND/OR SUPPORTIVE, IN AN OFFICE OR OUTPATIENT FACILITY, APPROXIMATELY 45 TO 50 MINUTES AMDI-ZF-NAHH WITH THE PATIENT 2010 DoD INDIVIDUAL PSYCHOTHERAPY, INSIGHT ORIENTED, BEHAVIOR MODIFYING AND/OR SUPPORTIVE, IN AN OFFICE OR OUTPATIENT FACILITY, APPROXIMATELY 45 TO 50 MINUTES WZBQ-TU-KBYH WITH THE PATIENT 2010 DoD INDIVIDUAL PSYCHOTHERAPY, INSIGHT ORIENTED, BEHAVIOR MODIFYING AND/OR SUPPORTIVE, IN AN OFFICE OR OUTPATIENT FACILITY, APPROXIMATELY 45 TO 50 MINUTES TDOV-QQ-BTWJ WITH THE PATIENT 2010 DoD PSYCHIATRIC DIAGNOSTIC INTERVIEW EXAMINATION 2010 [facility] PSYCHIATRIC DIAGNOSTIC INTERVIEW EXAMINATION 2010 [facility] TELE ASSESS & MGT SRV PROV QUAL NONPHYS HLTH CARE PRO TO EST PAT,PARENT,GUARD NOT ORIG REL ASSESS & MGT SRV PROV W/IN PREV 7 DAYS NOR LEAD ASSESS & MGT SRV/PX W/IN NXT 24 HR/SOON APT;5-10 MIN MED DIS 2009 DoD SCREENING TEST, PURE TONE, AIR ONLY 2009 [facility] ELECTROCARDIOGRAM, ROUTINE ECG WITH AT LEAST 12 LEADS; WITH INTERPRETATION AND REPORT 2009 DoD SCREENING TEST OF VISUAL ACUITY, QUANTITATIVE, BILATERAL 2007 [facility] PHYSICAL THERAPY RE-EVALUATION 2007 DoD APPLICATION OF A MODALITY TO 1 OR MORE AREAS; HOT OR COLD PACKS 2007 DoD APPLICATION OF A MODALITY TO 1 OR MORE AREAS; HOT OR COLD PACKS 2007 DoD APPLICATION OF A MODALITY TO 1 OR MORE AREAS; HOT OR COLD PACKS 2007 DoD APPLICATION OF A MODALITY TO 1 OR MORE AREAS; HOT OR COLD PACKS 2007 DoD APPLICATION OF A MODALITY TO 1 OR MORE AREAS; HOT OR COLD PACKS 2007 DoD APPLICATION OF A MODALITY TO 1 OR MORE AREAS; HOT OR COLD PACKS 2007 DoD APPLICATION OF A MODALITY TO 1 OR MORE AREAS; HOT OR COLD PACKS 2007 [facility] THERAPEUTIC PROCEDURE, 1 OR MORE AREAS, EACH 15 MINUTES; THERAPEUTIC EXERCISES TO DEVELOP STRENGTH AND ENDURANCE, RANGE OF MOTION AND FLEXIBILITY 2007 [facility] SCREENING TEST, PURE TONE, AIR ONLY 2006 [facility] SIMPLE REPAIR OF SUPERFICIAL WOUNDS OF SCALP, NECK, AXILLAE, EXTERNAL GENITALIA, TRUNK AND/OR EXTREMITIES (INCLUDING HANDS AND FEET); 2.6 CM TO 7.5 CM 2006 [facility] Clinical Social Work Individual Outpatient Counseling 45 Minutes Clinical Social Work Individual Outpatient Counseling 45 Minutes [id number] 2010 DUSTY GALAVIZ [facility] Clinical Social Work Individual Outpatient Counseling 45 Minutes Clinical Social Work Individual Outpatient Counseling 45 Minutes [id number] 2010 DUSTY GALAVIZ [facility] Clinical Social Work Counseling Marital 2010 LAURA GARCIA [facility] Clinical Social Work Counseling Marital 2010 LAURA GARCIA [facility] Clinical Social Work Individual Outpatient Counseling 45 Minutes Clinical Social Work Individual Outpatient Counseling 45 Minutes [id number] 2010 DUSTY GALAVIZ [facility] Clinical Social Work Individual Outpatient Counseling 45 Minutes Clinical Social Work Individual Outpatient Counseling 45 Minutes [id number] 2010 DUSTY GALAVIZ [facility] Clinical Social Work Individual Outpatient Counseling 45 Minutes Clinical Social Work Individual Outpatient Counseling 45 Minutes [id number] 2010 DUSTY GALAVIZ [facility] Clinical Social Work Individual Outpatient Counseling 75-80 Minutes Clinical Social Work Individual Outpatient Counseling 75-80 Minutes [id number] 2010 DUSTY GALAVIZ [facility] Clinical Social Work Counseling Marital 2010 LAURA GARCIA [facility] Clinical Social Work Counseling Marital 2010 LAURA GARCIA [facility] Psychotherapy Individual Approximately 30 Minutes Psychotherapy Individual Approximately 30 Minutes [id number] 2010 XIANG JOHNSON [facility] Clinical Social Work Individual Outpatient Counseling 45 Minutes Clinical Social Work Individual Outpatient Counseling 45 Minutes [id number] 2010 DUSTY GALAVIZ [facility] Audiogram (Screening) Audiogram (Screening) [id number] 2010 EMORY ROBERTS SEE DD FORM 2216E [facility] Clinical Social Work Individual Outpatient Counseling 75-80 Minutes Clinical Social Work Individual Outpatient Counseling 75-80 Minutes [id number] 2010 DUSTY GALAVIZ [facility] Clinical Social Work Individual Outpatient Counseling 45 Minutes Clinical Social Work Individual Outpatient Counseling 45 Minutes [id number] 2010 DUSTY GALAVIZ [facility] Clinical Social Work Individual Outpatient Counseling 45 Minutes Clinical Social Work Individual Outpatient Counseling 45 Minutes [id number] 2010 DUSTY GALAVIZ [facility] Clinical Social Work Individual Outpatient Counseling 45 Minutes Clinical Social Work Individual Outpatient Counseling 45 Minutes [id number] 2010 DUSTY GALAVIZ [facility] Psychiatric Diagnostic Evaluation Comprehensive Examination Psychiatric Diagnostic Evaluation Comprehensive Examination [id number] 2010 DUSTY GALAVIZ [facility] Psychiatric Diagnostic Evaluation Comprehensive Examination Psychiatric Diagnostic Evaluation Comprehensive Examination [id number] 2010 XIANG JOHNSON [facility] Non-Physician Phone Call To Patient/Provider Brief (5-10min) Non-Physician Phone Call To Patient/Provider Brief (5-10min) [id number] 2009 ANTHONY REDDING [facility] Audiogram (Screening) Audiogram (Screening) [id number] 2009 EMORY ROBERTS SEE DD FORM [id number] [facility] Electrocardiogram Electrocardiogram 07182 09/28 JULIO CESAR ROBISON [facility] Screening Test Of Visual Acuity, Quantitative, Bilateral Screening Test Of Visual Acuity, Quantitative, Bilateral [id number] 2007 JOHANNY HERRING [facility] Screening Test Of Visual Acuity, Quantitative, Bilateral Screening Test Of Visual Acuity, Quantitative, Bilateral [id number] 2007 PUNEET WOODARD SF 600 - DVA OU 20/20 , NVA OU 20/20 , AMSLER- WNL [facility] Audiogram (Screening) Audiogram (Screening) [id number] 2007 PUNEET WOODARD DD FORM [id number]-WNL [facility] Physical Therapy Service Re-Evaluation Physical Therapy Service Re-Evaluation [id number] 2007 PREMA RODRIGUEZ [facility] Modalities Heat Hot Packs Modalities Heat Hot Packs 13830 2007 KENDRA URRUTIA [facility] Modalities Ultrasound Modalities Ultrasound 79725 2007 KENDRA URRUTIA [facility] Modalities Electrical Stimulation Unattended Modalities Electrical Stimulation Unattended 26206 2007 KENDRA URRUTIA [facility] Modalities Electrical Stimulation Unattended Modalities Electrical Stimulation Unattended 67266 2007 KENDRA URRUTIA by tech x 15 mins [facility] Modalities Heat Hot Packs Modalities Heat Hot Packs 93043 2007 KENDRA URRUTIA by tech to neck/shoulder DoD Modalities Ultrasound Modalities Ultrasound 99390 2007 KENDRA URRUTIA by tech one on one x 8 mins DoD Modalities Electrical Stimulation Unattended Modalities Electrical Stimulation Unattended 75181 2007 KENDRA URRUTIA by tech x 15 mins DoD Modalities Ultrasound Modalities Ultrasound 07633 2007 KENDRA URRUTIA by tech one on one x 8 mins DoD Modalities Heat Hot Packs Modalities Heat Hot Packs 50783 2007 KENDRA URRUTIA by tech to neck/shoulder DoD Modalities Ultrasound Modalities Ultrasound 60804 2007 PREMA RODRIGUEZ DoD Modalities Electrical Stimulation Unattended Modalities Electrical Stimulation Unattended 43455 2007 PREMA RODRIGUEZ DoD Modalities Heat Hot Packs Modalities Heat Hot Packs 32162 2007 KENDRA URRUTIA by tech x 15 mins DoD Modalities Electrical Stimulation Unattended Modalities Electrical Stimulation Unattended 48983 2007 KENDRA URRUTIA by tech to neck/shoulder DoD Modalities Ultrasound Modalities Ultrasound 06102 2007 KENDRA URRUTIA by tech one on one x 8 mins DoD Modalities Electrical Stimulation Unattended Modalities Electrical Stimulation Unattended 43130 2007 KENDRA URRUTIA by tech x 15 mins DoD Modalities Ultrasound Modalities Ultrasound 10483 2007 KENDRA URRUTIA by tech one on one x 8 mins DoD Modalities Heat Hot Packs Modalities Heat Hot Packs 99968 2007 KENDRA URRUTIA by tech to neck/shoulder DoD Modalities Electrical Stimulation Unattended Modalities Electrical Stimulation Unattended 03282 2007 KENDRA URRUTIA by tech x 15 mins DoD Modalities Heat Hot Packs Modalities Heat Hot Packs 94663 2007 KENDRA URRUTIA by tech to neck and shoulder DoD Modalities Ultrasound Modalities Ultrasound 79522 2007 KENDRA URRUTIA by tech one on one x 8 mins DoD A isted Exercises For ROM Assisted Exercises For ROM 86530 2007 PREMA RODRIGUEZ [facility] Physical Therapy Service Evaluation Physical Therapy Service Evaluation 87634 2007 PREMA RODRIGUEZ [facility] Electrocardiogram Electrocardiogram 01518 03/30 FLOR CASTRO [facility] Audiogram (Screening) Audiogram (Screening) 68529 2006 MAX FIELDS [facility] Physician Supervised Injection Subcutaneous Physician Supervised Injection Subcutaneous 28363 2006 SUDARSHAN CARO A 3cc of 1% lidocaine without epi. to the left index finger. [facility] Repair Of Superficial Wound Upper Extremities 2.6 to 7.5 cm Repair Of Superficial Wound Upper Extremities 2.6 to 7.5 cm 37984 2006 SUDARSHAN CARO A Location of laceration and patient identification was verified with patient and staff. Laceration was irrigated with 500cc of sterile water. Pt. was prepped and draped in the usual sterile fashion. Local anesthesia was provided with 1% lidocaine without epinephrine. Hemostasis was achieved with direct pressure. Laceration was closed with ( 4) x 4.0 vicryl surface sutures. No complications. [facility] Social History Combined list of available smoking, tobacco, and other social history from Department of Defense and Veterans Affairs facilities. Social History Type Response Date Comment Sourc e Tobacco smoking status NJIS VA-TOBACCO USE FORMER CIGARETTES 03/24/2025 RUSTY CB History of tobacco use VA-TOBACCO NEVER USED OTHER TYPE 03/24/2025 RUSTY CB History of tobacco use VA-TOBACCO NEVER USED 03/29/2024 RUSTY CB History of tobacco use VA-TOBACCO NEVER USED 04/02/2023 RUSTY CB History of tobacco use VA-TOBACCO FORMER USER 04/08/2022 RUSTY CB History of tobacco use VA-TOBACCO NEVER USED 05/17/2019 [facility] History of tobacco use QUIT TOBACCO >12 MO 07/08/2013 [facility] This section is an empty social history section. DoD Plan of Care List of future care activities from Department of Veterans Affairs facilities. Additional future care activities may be listed in the Assessment and Plan section. Date/Time Care Activity Care Activity Detail Facili ty 09/11/2025 AMBULATORY - MEDICINE AMBULATORY - MEDICI [facility] Advance Directives List of completed, amended, or rescinded Advance Directives on record at Department of Veterans Affairs facilities. An actual copy of the Directive is not included. Date Advance Directive Provider Source 04/13/2025 ADVANCE DIRECTIVE DISCUSSION JAXON BEAN [facility]
--- OUTSIDE RECORDS SUMMARY | 2025-08-30 22:01 | XMS_ITS | Clinical Summary ---
Author Organization [facility] Address [address] [place], [place] [id number] Care Team Providers Care Cornice Maker Name Role Phone Unavailable Primary Care Provider Unavailabl e Allergies No known active allergies Medications MedicationSigDispense QuantityRefillsLast FilledStart DateEnd DateStatus atenolol (TENORMIN) 100 mg tablet Take 1 tablet by mouth once daily./ctive diclofenac, EC, (VOLTAREN) 75 mg EC tablet Take 1 tablet by mouth two times a day with meals.04/08/2022ctive brimonidine (ALPHAGAN) 0.2 % ophthalmic solution Use 1 Drop in the left eye twice daily. 5 mL ctive dorzolamide-timolol (COSOPT) 22.3-6.8 mg/mL ophthalmic solution Use 1 Drop in the left eye twice daily. 10 mL ctive brimonidine (ALPHAGAN P) 0.1 % drop Use 1 drop in both eyes two times a day.08/12/2024ctive losartan (COZAAR) 100 mg tablet Take 1 tablet by mouth once daily.05/06/2024ctive amLODIPine (NORVASC) 5 mg tablet Take 5 mg by mouth once daily.Active adalimumab-bwwd (HADLIMA PUSHTOUCH) 40 mg/0.4 mL auto-injector Inject 40 mg subcutaneously every other week.05/31/2024ctive Omeprazole 20 mg TbEC Take by mouth once daily.Active predniSONE (DELTASONE) 10 mg tablet Take 1 tablet by mouth once daily.08/22/2024ctive difluprednate (DUREZOL) 0.05 % ophthalmic suspension Use one drop four times per day in the left eye and use one drops three times per day in the right eye 5 mL 4Active prednisolone acetate (PRED FORTE OPHTHALMIC) Use in eyes two times a day.Active cetirizine (ZYRTEC) 10 mg tablet Take 1 tablet by mouth once daily.5Active mycophenolate Mofetil (CELLCEPT) 500 mg tablet Take 1,500 mg by mouth.5Active sulfamethoxazole-trimethoprim (BACTRIM DS) 800-160 mg per tablet Take by mouth as directed.5Active Active Problems No known active problems Encounters DateTypeDepartmentCare DghuHhnisjgdxfy11/13/2025 2:45 PM ESTOffice Visit OPHT Ophthalmology [address] [place] [address] Mino Damon MD Diagnostics, Eye Tech And Panuveitis, left eye (Primary Dx); Cystoid macular edema of left eye; Cystoid macular degeneration of left eye; HLA B27 (HLA B27 positive); 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)07/20/2025Travelfrom Last 3 Months Family History Medical HistoryRelationCommentsGlaucomaFatherHeartFatherby passCancerMaternal GrandmotherPt does not remember what kindDiabetesMaternal GrandmotherCancer Motherbreast - smokerCancerPaternal Grandfatherbreast cancerMacular Degen Paternal GrandmotherCancerSisterKidney cancerHypertensionSisterCataractNo Family HistoryRelationStatusCommentsFatherMaternal GrandmotherMotherPaternal GrandfatherPaternal GrandmotherSister Social History Tobacco UseTypesPacks/DayYears UsedDateSmoking Tobacco: NeverSmokeless Tobacco: Never Tobacco Cessation:Counseling Given: Not Answered Alcohol UseStandard Drinks/WeekCommentsYes0 (1 standard drink = 0.6 oz pure alcohol)RarelyArea Deprivation IndexAnswerDate RecordedNational Score (1-100), lower number is lower jica818107/20/2025State Score (1-10), lower number is lower iwgo88109/19/2024Data from: https://www.neighborhoodatlas.medicine.[facility].edu/. Last address used for [address] Sex and Gender InformationValueDate RecordedSex Assigned at BirthNot on fileLegal SexMale 08/11/2022 4:51 PM ESTGender IdentityNot on fileSexual OrientationNot on file Plan of Treatment DateTypeDepartmentCare Team (Latest Contact Info)Szjpeqrmlrr91/19/2026 9:00 AM ESTOffice Visit [facility] Ophthalmology [address] [address] Main, Photography Opht [address] [place] [address] FA TRANSIT OS PER MAMMO09/25/2025 9:45 AM ESTOffice Visit [facility] Op[facility] [address] [address] MammoMino MD [address] [place] [address] Diagnostics, Eye Tech And [address] [address] *4 M, DFE/OCT, FA TRANSIT OSHealth MaintenanceDue DateLast DoneCommentsAnxiety Zpcpbelqb62/30/2004Depression Nwyjvulbw38/30/2004HIV Doqrirpyl33/30/2004 Hepatitis C Sxjdrsomw47/30/2004HPV Vaccine (1 - 3-dose SCDM series)2013 Covid-19 Vaccine ( season)2025Influenza Vaccine (#1)2025 06/09/2019, 07/08/2013, 07/25/2010, Additional history existsLipid Screening 2DTaP,Tdap,Td Vaccine (7 - Td or Tdap), 05/08/2009, 08/13/2005, Additional history existsHepatitis B VaccineCompleted 04/28/2006, 09/20/2005, 08/20/2005, Additional history exists Procedures Procedure NamePriorityDate/TimeAssociated DiagnosisCommentsOCT MACULA CIRRUS OS (LEFT EYE)Vizsbbl1407/20/2025 4:06 PM EST Panuveitis, 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 Findings include Intraretinal fluid, Epiretinal membrane; Negative for Cystoid macular edema, Subretinal fluid. Interval Change Stable Authorizing ProviderResult TypeResult StatusDanny A Mammo MDOPHTHALMOLOGYFinal Result from Last 3 Months Insurance [facility] Address: [facility] [address] [place] [address]
--- OUTSIDE RECORDS SUMMARY | 2025-08-30 22:01 | XMS_ITS | Clinical Summary ---
Author Organization [employer] [facility] Address [id number] [place] [address] Care Team Providers Care Software Test Developer Name Role Phone Serenity Mayers APRN-CAR LOADER Primary Care Provider Allergies No known active allergies Medications MedicationSigDispense QuantityRefillsLast FilledStart DateEnd DateStatus celecoxib (CeleBREX) 200 mg capsule Take 1 capsule (200 mg total) by mouth in the morning and 1 capsule (200 mg total) before bedtime.Active atenoloL (TENORMIN) 100 mg tablet Take 1 tablet (100 mg total) by mouth in the morning.Active losartan (COZAAR) 50 mg tablet Take 2 tablets (100 mg total) by mouth in the morning.Active prednisoLONE acetate (PRED FORTE) 1 % ophthalmic suspension Administer 1 drop into the left eye 3 (three) times a day.Active brimonidine (ALPHAGAN) 0.2 % ophthalmic solution Administer 1 drop into the left eye 3 (three) times a day.Active moxifloxacin HCl (MOXIFLOXACIN 0.5%-PREDNISOLONE 1%-BROMFENAC 0.09% DROPS - BUDERER ) Administer 1 drop to the right eye in the morning and 1 drop before bedtime. One drop twice a day to operative eye for one week, then daily for three weeks.. 11/19/2023ctive oxyCODONE-acetaminophen (PERCOCET) 10-325 mg per tablet Indications:Uveitis of left eyeTake 1 tablet by mouth every 4 (four) hours as needed for pain for up to 15 doses. Max Daily Amount: 6 tablets 15 tablet 11/19/2023ctive Active Problems No known active problems Family History Medical HistoryRelationNameCommentsGlaucomaFatherHeart diseaseFather HyperlipidemiaFatherHypertensionFatherStrokeFatherAlcohol abuseMotherCOPDMother CancerMotherbreastHeart attackMotherHeart diseaseMotherRelationNameStatus CommentsFatherAliveMotherAlive Social History Tobacco UseTypesPacks/DayYears UsedDateSmoking Tobacco: NeverSmokeless Tobacco: Never Tobacco Cessation:Counseling Given: Not Answered Alcohol UseStandard Drinks/WeekCommentsYes0 (1 standard drink = 0.6 oz pure alcohol)very rareChildcareAnswerDate PhomuojdHofvzjvhgJlpaaoj81/12/2019 EmploymentAnswerDate IfovtimoYzpzwwxwjmCgtlyzl39/12/2019Sex and Gender InformationValueDate RecordedSex Assigned at BirthNot on fileLegal SexMale 04/12/2015 11:31 AM EDTGender IdentityNot on fileSexual OrientationNot on file Last Filed Vital Signs Vital SignReadingTime TakenCommentsBlood Rnwujvwj628/8911/19/2023 3:40 PM EDT Vnxop454811/19/2023 3:40 PM FXLSzmphyeeups82.2 ??C (97.1 ??F)11/19/2023 12:22 PM EDTRespiratory Ghkc342411/19/2023 3:40 PM EDTOxygen Lewspulhxx21%11/19/2023 3:40 PM EDTInhaled Oxygen Concentration--Bczmpd790 kg (231 lb 7.7 oz)11/19/2023 12:22 PM EDBJkesol883 cm (5' 7.72 )11/19/2023 12:22 PM EDTBody Mass Index35.49 11/19/2023 12:22 PM EDT Plan of Treatment Health MaintenanceDue DateLast DoneCommentsDepression Rsddwyxzc73/30/1998 DTaP,Tdap and Td Vaccines (1 - Tdap)2005Adult BMI Upepaubyz12/14/2025 11/19/2023Tobacco Rabjtzfhu63/14/97657011/19/2023Influenza Tpupuds4605/08/2025 Medical Devices ImplantedTypeAreaManufacturerDevice IdentifierShelf Expiration DateModel / Serial / [employer]ol [id number] [employer]rella - [id number] - [id number] Implanted:Qty: 1 on 11/19/2023 by Renetta Zimmer MD at [facility]02/28/[id number].235 / [id number] / NA Insurance Care Teams Team MemberRelationshipSpecialtyStart DateEnd Date Serenity Mayers APRN-ELIE PCP - GeneralNurse Practitioner10/01/21
--- OUTSIDE RECORDS SUMMARY | 2025-08-30 22:01 | XMS_ITS | Clinical Summary ---
Author Organization [facility] Address [address] [place] [address] Care Team Providers Care Finisher Operator Name Role Phone Unallocated, Noms Provider MD Primary Care Provi iva Allergies No known active allergies Medications MedicationSigDispense QuantityRefillsLast FilledStart DateEnd DateStatus celecoxib (CeleBREX) 200 MG capsule Take 200 mg by mouth in the morning and 200 mg in the evening.Active atropine 1 % ophthalmic solution instill 1 drop into left eye EVERY NIGHT11/20/2023ctive brimonidine (AlphaGAN P) 0.2 % ophthalmic solution Administer 1 drop into affected eye(s) in the morning and 1 drop at noon and 1 drop in the evening.Active sodium chloride (Sulaiman 128) 5 % ophthalmic solution INSTILL 1 DROP INTO LEFT EYE FOUR TIMES A DAY11/30/2023ctive adalimumab (Humira, 2 Syringe,) 40 MG/0.4ML Prefilled Syringe Kit prefilled syringe Inject 40 mg under the skin every 14 (fourteen) days06/09/2024ctive folic acid (Folvite) 1 MG tablet Take 1,000 mcg by mouth Daily05/31/2024ctive methotrexate 2.5 MG tablet TAKE 6 TABLETS BY MOUTH EVERY WEEK remember your standing labs05/31/2024ctive prednisoLONE acetate (Pred-Forte) 1 % ophthalmic suspension 06/20/2024ctive atenolol (Tenormin) 100 MG tablet Indications:Primary hypertensionTake 1 tablet (100 mg) by mouth in the morning. 90 tablet ctive losartan (Cozaar) 100 MG tablet Indications:Primary hypertensionTake 1 tablet (100 mg) by mouth Daily 90 tablet ctive difluprednate (Durezol) 0.05 % ophthalmic solution Use one drop four times per day in the left eye and use one drops three times per day in the right eye08/22/2024ctive mycophenolate (Cellcept) 500 MG tablet Take 500 mg by mouth5Active sulfamethoxazole-trimethoprim (Bactrim DS) 800-160 MG per tablet Take by mouth5Active predniSONE (Deltasone) 20 MG tablet Take 40 mg by mouth in the morning and 40 mg before bedtime.09/01/2024ctive Omeprazole 20 MG tablet delayed-release Take by mouth DailyActive polyvinyl alcohol-povidone PF (HypoTears) 1.4-0.6 % ophthalmic solution Administer into affected eye(s)07/08/2024ctive amLODIPine (Norvasc) 5 MG tablet Indications:Primary hypertensionTAKE 1 TABLET BY MOUTH DAILY 90 tablet 5Active Active Problems ProblemNoted DateDiagnosed DateChronic iridocyclitis, left eye09/22/2024Ocular hypertension, unspecified eye09/22/2024Posterior synechiae (iris), left eye 09/22/2024Encounter for adult wellness visit09/22/2024Right ankle swelling 05/31/2024 Assessment & Plan (05/31/2024 11:56 AM EDT): Rizwan wrap applied, cont NSAID and tylenol Hx of predinisone use R/o fracture Ice 4 times daily Morbid (severe) obesity due to excess attvrkst61/18/2024izziness and giddiness 05/25/2024 Assessment & Plan (05/25/2024 5:52 PM EDT): No acute findings Check labs ?? Related to blood pressure, will fu in 4 weeks, if not better consider a CT or MRI brain HLA B27 (HLA B27 positive)11/23/2023Essential (primary) iyfjgwxjjjnx26/18/2024 Assessment & Plan (06/23/2024 4:16 PM EDT): Continue amlodipine, b ashley, as well as arb Fu in 3 months Assessment & Plan (05/25/2024 5:51 PM EDT): Add amlodipine at 5mg daily Recheck in 4 weeks Assessment & Plan (11/23/2023 2:17 PM EDT): Stable on current meds Check labs Fu in 6 months Chronic pain of right knee11/23/2023GAD (generalized anxiety disorder)11/23/2023 Mixed oiqpyumposxytj25/18/2024 Assessment & Plan (11/23/2023 2:17 PM EDT): Check labs continue current thearpy Body mass index (BMI) 35.0-35.9, adult11/23/2023Elevated serum protein level 11/23/2023 Assessment & Plan (11/23/2023 2:17 PM EDT): Check labs Immunizations ImmunizationAdministration DatesNext DueHep A / Hep B004/28/2006,09/20/2005, 08/20/2005IPV110/14/2004Influenza, Split (incl. purified surface antigen) 08/20/2005Influenza, Ruzyprgmuzv19/01/2013Influenza, injectable, quadrivalent, preservative free06/09/2019Influenza, live, srbigzznqz97/18/2010,06/23/2008, 07/15/2007,06/30/2006Meningococcal MFXW59810/14/2004Novel onwtoyico-D4C1-78 09/20/2009TD (adult), 2 Lf tetanus toxoid, preservative free, bzmhhguj24/07/2005 Tdap1,05/08/2009 Social History Tobacco UseTypesPacks/DayYears UsedDateSmoking Tobacco: NeverSmokeless Tobacco: NeverAlcohol UseStandard Drinks/WeekCommentsNot Currently0 (1 standard drink = 0.6 oz pure alcohol)caffine: coffee 1-2 weeklySex and Gender InformationValue Date RecordedSex Assigned at BirthNot on fileLegal JdoDwrd4911/19/2022 7:30 PM EDT Gender IdentityNot on fileSexual OrientationNot on file Last Filed Vital Signs Vital SignReadingTime TakenCommentsBlood Ovygonye103/8610 3:37 PM EDT Aicii009806/23/2024 3:37 PM PBPUuizqrnbqyr40.6 ??C (97.8 ??F)06/23/2024 3:37 PM EDTRespiratory Kaqo5160 3:37 PM EDTOxygen Vxbhcjbcht89%06/23/2024 3:37 PM EDTInhaled Oxygen Concentration--Lcquhw067 kg (234 lb 6.4 oz)06/23/2024 3:37 PM WKFKgwsuz228.7 cm (5' 8 )06/23/2024 3:37 PM EDTBody Mass Index35.6406/23/2024 3:37 PM EDT Plan of Treatment DateTypeDepartmentCare Team (Latest Contact Info)Ofyoycqndjl66/13/2026 2:15 PM ESTClinical Support [facility] [address] [facility] [place] [phone] Bindu Garcia, [facility] [address] [place] [address] 10/20/2025 3:00 PM ESTOffice Visit [facility] [address] [place] [phone] Leo Manzano, [address] [place] [address] Health MaintenanceDue DateLast DoneCommentsPneumococcal Vaccine: Pediatrics (0 to 5 Years) and At-Risk Patients (6 to 64 Years) (1 of 2 - PCV)2005 Influenza WleyhypUvbbfpfupqzq55/03/2019, 07/08/2013, 07/25/2010, Additional history exists Insurance Care Teams Team MemberRelationshipSpecialtyStart DateEnd Date Unallocated, Noms Helene, [address] [place], [place] [id number] PCP - GeneralFamily Znoztohd26/11/25
--- OUTSIDE RECORDS SUMMARY | 2025-08-30 22:01 | XMS_ITS | Patient Health Record ---
Author Organization [facility] in [place] Address [address] [place] [address] Care Team Providers Care Geology Technician Name Role Phone Sereinty Mayers CNP Primary Care Provider Unavail able Allergies No Known Allergies Reason For Referral No Information Medications Medication SIG (Take, Route, Frequency, Duration) Notes Start Date End Date Status amLODIPine Besylate 5 MG 1 tablet Orally Once a day 06/09/2024ctiveHumira (2 Syringe) 40 MG/0.4MLas directed Ffwixcrnobnn02/03/2024 ActiveAtenolol 100 MG1 tablet Orally Once a day06/09/2024ctiveLosartan Potassium 100 MG1 tablet Orally Once a day06/09/2024ctive Social History Tobacco Use: Social History Observation Description Date Details (start date - stop date) Never Smoker NA - NA Tobacco Control (Standard) Question Answer Notes Tobacco use: Nonsmoker Problems Problem Type SNOMED Code ICD Code Onset Dates Problem Status W/U Status Risk Notes Problem Localized, secondary osteoarthritis of the ankle and/or foot (452095225) Secondary osteoarthritis, 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) ActiveconfirmedProblemOsteoarthritis (622805650)Unspecified osteoarthritis, unspecified site (M19.90)Activeconfirmed Plan Of Treatment Pending Test Test Name Order Date XR Ankle RT (3 views) * (161) 06/09/2024 XR ankle RT min 3V 06/10/2024 Insurance Providers Payer Name Payer Address Payer Phone Subscriber Number Group Number Insured Name Patient Relationship to Insured Coverage Start Date Coverage End Date [employer] [address] [address] [place] [address] [id number] Raz Holland Self - patient is the insured Medical (General) History Medical History History ICD Code hypertension hypercholesterolemiaSurgical History Surgery Date(Month/Year) eye surgery
--- OUTSIDE RECORDS SUMMARY | 2025-08-30 22:01 | XMS_ITS | Clinical Summary ---
Author Organization [facility] Address [address] [address] Care Team Providers Care Lacquer Spray Booth Operator Name Role Phone No, Pcp QUALITY SUPERVISOR Primary Care Provider Unavailabl e Social History Tobacco UseTypesPacks/DayYears UsedDateSmoking Tobacco: Never AssessedSex and Gender InformationValueDate RecordedSex Assigned at BirthNot on fileLegal Sex Male07/17/2020 12:23 PM ESTGender IdentityNot on fileSexual OrientationNot on file Plan of Treatment Not on file Medical Devices Not on file Insurance Care Teams Team MemberRelationshipSpecialtyStart DateEnd Date No, Pcp, QUALITY SUPERVISOR N/A Do not use PCP - Generalmily Smyeswxa05/12/20
--- NOTE | 2025-08-30 22:15 | PC.NURSE ---
wound cleansed with hibicleans and sterile water, bleeding controlled, dry non stick dressing applied after suture placement
== END 2025-08-30 22:16 | disposition home or self-care (01) ==
PROVIDERS: Emergency Provider Internal Medicine; PCP Nurse Practitioner
DX: S61.011A Laceration without foreign body of right thumb without damage to nail, initial encounter (principal); W26.0XXA Contact with knife, initial encounter; Z87.891 Personal history of nicotine dependence; Z23 Encounter for immunization
CPT/HCPCS: 12001; 90471; 90715; 99283